=== PATIENT | female | born 1955 | race Caucasian/White ===

== ENCOUNTER 2019-08-23 18:11 | Outpatient (CLI) | payer OTHER, SELFPAY ==
--- NOTE | ~2019-08-23 | XR_ITS ---
EXAMINATION: XR wrist RT min 3V EXAM DATE: 08/23/2019 18:26 INDICATION: Right wrist pain, ulnar side, symptoms one month with limited range of motion. TECHNIQUE: Right wrist frontal, frontal with ulnar deviation, oblique and lateral projections obtain ed and reviewed. Comparison is made to prior examination from 10/09/2008. FINDINGS: Interval development of severely widened right scapholunate joint space, scapholunate disso ciation. Patient also has dorsal intercalated segmental instability. These findings are new compared to 2008 exam. There is moderate triscaphe, mild first carpometacarpal primary osteoarthritis. Mild t o moderate radiocarpal osteoarthritis. There are no acute fractures identified. There are no bony ero sions identified. IMPRESSION: 1. Scapholunate dissociation with DISI. 2. Moderate triscaphe osteoarthritis. Reviewed, dictated and finalized at location A. ADMINISTRATOR
== END 2019-08-23 18:12 | disposition home or self-care (01) ==
LOC: ANHIMG 18:13
PROVIDERS: PCP Internal Medicine; Visit Provider Plastic Surgery
DX: M19.031 Primary osteoarthritis, right wrist (principal)
CPT/HCPCS: 73110

== ENCOUNTER 2019-09-03 09:02 | Outpatient (CLI) | payer OTHER, SELFPAY ==
--- NOTE | 2019-09-03 09:05 | ECG_ITS ---
Measurements Intervals Phenix Rate: 63 P: 0 NM: 177 QRS: 49 QRSD: 90 T: 31 QT: 396 QTc: 406 Interpretive Statements SINUS RHYTHM INCOMPLETE RIGHT BUNDLE BRANCH BLOCK LOW QRS VOLTAGE IN PRECORDIAL LEADS BASELINE ARTIFACT- I, II, III, AVR, AVL, AVF, V1-V6 BORDERLINE ECG Electronically Signed On 09-03-2019 10:35:56 CDT by Giorgi Youngblood D.O.
== END 2019-09-03 09:03 | disposition home or self-care (01) ==
LOC: ANHSURGERY 09:05
PROVIDERS: PCP Internal Medicine; Visit Provider Plastic Surgery
DX: E78.00 Pure hypercholesterolemia, unspecified (principal); I45.10 Unspecified right bundle-branch block
CPT/HCPCS: 93005

== ENCOUNTER 2019-10-03 06:57 | Outpatient (CLI) | payer OTHER, SELFPAY ==
[2019-10-03 07:37] LABS: Alanine Aminotransferase 22 U/L (4-35); Albumin Level 3.9 g/dL (3.5-5.1); Alkaline Phosphatase 69 U/L (38-126); Aspartate Amino Transferase 35 U/L (14-36); Bilirubin,Total 0.3 mg/dL (0.2-1.3); Blood Urea Nitrogen 11 mg/dL (7-17); Calcium 8.3 mg/dL (8.4-10.2); Carbon Dioxide 26 mmol/L (22-30); Chloride 107 mmol/L (98-107); Cholesterol 198 mg/dL (0-200); Estimated Glomerular Filt Rate 56; Glucose 102 mg/dL (65-105); HDL Direct 86 mg/dL; Potassium 3.8 mmol/L (3.4-5.0); Sodium 139 mmol/L (137-145); Triglycerides 51 mg/dL (<150)
[2019-10-03 07:48] LABS: LDL Cholesterol Direct 83 mg/dL
[2019-10-03 07:54] LABS: Vitamin D 25 Hydroxy 81.4 ng/mL
[2019-10-03 08:07] LABS: Thyroid Stimulating Hormone 0.418 uIU/mL (0.465-4.680)
[2019-10-03 09:04] LABS: Vitamin B12 > 1000.0 pg/mL (239-931)
[2019-10-05 15:59] LABS: Lamotrigine Lamictal 2.8 mcg/mL (4.0-18.0)
== END 2019-10-03 06:58 | disposition home or self-care (01) ==
PROVIDERS: PCP Internal Medicine; Visit Provider Internal Medicine
DX: I10 Essential (primary) hypertension (principal); E05.90 Thyrotoxicosis, unspecified without thyrotoxic crisis or storm; E78.5 Hyperlipidemia, unspecified; D64.9 Anemia, unspecified; E55.9 Vitamin D deficiency, unspecified; Z79.899 Other long term (current) drug therapy
CPT/HCPCS: 36415; 80053; 80061; 80175; 82306; 82607; 84439; 84443

== ENCOUNTER 2019-11-22 07:56 | Outpatient (CLI) | payer OTHER, SELFPAY ==
[2019-11-22 08:30] LABS: Basophils Percent Auto 0.6 % (0.2-1.2); Eosinophils Absolute Auto 0.5 K/mm3 (0-0.3); Eosinophils Percent Auto 7.2 % (0-4.4); Hematocrit 40.9 % (37.0-47.0); Hemoglobin 13.6 g/dL (12.0-15.0); Immature Granulocyte Absolute 0.05 K/mm3 (0.00-0.031); Immature Granulocyte Percent A 0.8 % (0-0.5); Lymphocytes Absolute Auto 2.24 K/mm3 (0.9-3.2); Lymphocytes Percent Auto 35.2 % (18.3-44.2); Mean Corpuscular HGB Conc 33.3 g/dl (32-36); Mean Corpuscular Hemoglobin 30.9 pg (26-34); Mean Platelet Volume 8.7 fl (7.4-10.4); Monocytes Absolute Auto 0.4 K/mm3 (0.1-0.6); Monocytes Percent Auto 5.8 % (2.6-8.5); Neutrophils Absolute Auto 3.2 K/mm3 (1.3-6.7); Neutrophils Percent Auto 50.4 % (45.5-73.1); Platelet Count Result 279 k/mm3 (150-375); Red Cell Distribution Width 13.8 % (11.5-14.5); White Blood Count 6.4 K/mm3 (4.5-10.0)
[2019-11-22 08:35] LABS: Hemoglobin A1C 5.5 % (<5.7)
[2019-11-22 08:41] LABS: Alanine Aminotransferase 20 U/L (4-35); Albumin Level 3.8 g/dL (3.5-5.1); Alkaline Phosphatase 67 U/L (38-126); Aspartate Amino Transferase 34 U/L (14-36); Bilirubin,Total 0.3 mg/dL (0.2-1.3); Blood Urea Nitrogen 10 mg/dL (7-17); Calcium 8.4 mg/dL (8.4-10.2); Carbon Dioxide 25 mmol/L (22-30); Chloride 107 mmol/L (98-107); Cholesterol 183 mg/dL (0-200); Estimated Glomerular Filt Rate 56; Glucose 99 mg/dL (65-105); HDL Direct 79 mg/dL; Magnesium 3.1 mg/dL (1.6-2.3); Potassium 4.1 mmol/L (3.4-5.0); Sodium 137 mmol/L (137-145); Triglycerides 43 mg/dL (<150)
[2019-11-22 08:52] LABS: LDL Cholesterol Direct 77 mg/dL
[2019-11-22 09:48] LABS: Folic Acid > 20.0 ng/mL (2.76->20); Vitamin B12 > 1000.0 pg/mL (239-931)
== END 2019-11-22 07:57 | disposition home or self-care (01) ==
PROVIDERS: PCP Internal Medicine
DX: K91.2 Postsurgical malabsorption, not elsewhere classified (principal); Z13.21 Encounter for screening for nutritional disorder; Z98.84 Bariatric surgery status
CPT/HCPCS: 36415; 80053; 80061; 82607; 82746; 83036; 83735; 85025

== ENCOUNTER 2019-12-24 01:30 | Outpatient (CLI) | payer OTHER, SELFPAY ==
[2019-12-24 19:16] LABS: SARS-CoV-2 RNA PCR Negative
== END 2019-12-24 01:31 | disposition home or self-care (01) ==
LOC: ANHCOVIDDT 01:31
PROVIDERS: PCP Internal Medicine; Visit Provider Plastic Surgery
DX: Z01.812 Encounter for preprocedural laboratory examination (principal); Z11.59 Encounter for screening for other viral diseases
CPT/HCPCS: 87635; C9803; U0003

== ENCOUNTER 2019-12-25 13:27 | Emergency (ER) | payer OTHER, SELFPAY ==
--- NOTE | ~2019-12-25 | XR_ITS ---
XR foot RT min 3V DATE: 12/25/2019 13:58 INDICATION: Right foot injury, especially at third and fourth digits TECHNIQUE: 4 views COMPARISON: None FINDINGS: Pes planus. Inferior calcaneal enthesopathy. There are old healed fracture deformities of the distal third and fourth metatarsal shafts. There is a recent intra-articular virtually nondisplaced fracture of th of the proximal phalanx of th e third digit. There is osteoarthritic change at the first metatarsophalangeal and second metatarsophalangeal joints . There is prominent osteoarthritis as well at the tarsometatarsal joints, especially at the second thr ough fourth digits. IMPRESSION: Virtually nondisplaced fracture of the base of the proximal phalanx of the third digit Polyarticular osteoarthritis Pes planus Plantar calcaneal enthesopathy Reviewed, dictated and finalized at location B.
[2019-12-25 13:38] VITALS: BP 123/80; PULSE 93; RESP 18; TEMP 37.4; O2SAT 100
--- NOTE | 2019-12-25 14:06 | ED.LOWEXIN ---
HPI - Extremity Injury (Lower) General Chief Complaint: Extremity Injury, Lower Stated Complaint: Toe injury Time Seen by Provider: 12/25/19 14:06 Source: patient and old records reviewed Mode of arrival: ambulatory Limitations: no limitations History of Present Illness HPI Narrative: This is a 64 years old female presents to the office for evaluation of right toe injury prior to arrival. She accidentally kicked the door while vacuuming. She noticed bruising and swollen and pain on her right third toe. Admits to history of broken toes in the past about 5 years ago. Denies any other injury/trauma. Related Data Home Medications Medication Instructions Recorded Confirmed albuterol sulfate 2 puff INHALATION QID 12/25/19 12/25/19 aripiprazole [Abilify] 15 mg PO DAILY 12/25/19 12/25/19 aspirin [Aspirin Low Dose] 81 mg PO BID 12/25/19 12/25/19 buspirone 7.5 mg PO BID 12/25/19 12/25/19 cetirizine [Zyrtec] 10 mg PO DAILY 12/25/19 12/25/19 cholecalciferol (vitamin D3) 25 mcg PO TID 12/25/19 12/25/19 denosumab [Prolia] 60 mg SUBCUT [id number] 12/25/19 12/25/19 estradiol [Estrace] 1 g VAGINAL 3XW 12/25/19 12/25/19 fluticasone furoate-vilanterol 1 inh INHALATION DAILY 12/25/19 12/25/19 [Breo Ellipta] lamotrigine [Lamictal] 25 mg PO HS 12/25/19 12/25/19 lamotrigine [Lamictal] 100 mg PO DAILY 12/25/19 12/25/19 magnesium 500 mg PO TID 12/25/19 12/25/19 montelukast [Singulair] 10 mg PO DAILY 12/25/19 12/25/19 multivitamin with minerals 1 tablet PO DAILY 12/25/19 12/25/19 [Hair,Skin and Nails] pantoprazole [Protonix] 40 mg PO QAM 12/25/19 12/25/19 pedi multivit no.58-iron fum 2 mg PO HS 12/25/19 12/25/19 [Child Complete Multivitamin] pravastatin [Pravachol] 80 mg PO DAILY 12/25/19 12/25/19 quetiapine [Seroquel] 200 mg PO BID 12/25/19 12/25/19 topiramate [Topamax] 50 mg PO TID 12/25/19 12/25/19 umeclidinium [Incruse Ellipta] 1 inh INHALATION DAILY 12/25/19 12/25/19 Allergies Allergy/AdvReac Type Severity Reaction Status Date / Time Cephalosporins Allergy Unknown Rash Verified 12/13/19 14:40 Penicillins Allergy Unknown Rash Verified 12/13/19 14:40 Sulfa (Sulfonamide Allergy Unknown Rash Verified 12/13/19 14:40 Antibiotics) erythromycin base AdvReac Unknown GI UPSET, Verified 12/13/19 14:40 ABDOMINAL PAIN Review of Systems Review of Systems: Narrative: CONSTITUTIONAL: Denies fever CARDIOVASCULAR: Denies chest pain RESPIRATORY: Denies dyspnea GASTROINTESTINAL: Denies abdominal pain, nausea, vomiting SKIN: Denies skin abrasion MUSCULOSKELETAL: Reports right toes injury. NEUROLOGIC: Denies lightheaded All other systems reviewed are negative, except as documented in HPI. [facility] Past Medical History Medical History Allergic rhinitis Bipolar affective disorder Breast cancer screening Brittle nails Cellulitis of left lower extremity Colon cancer screening Dysfunction of eustachian tube Encounter for routine adult health examination without abnormal findings Essential (primary) hypertension Gastroesophageal reflux disease without esophagitis Mild intermittent asthma without complication Mixed hyperlipidemia Numbness of right hand On skilled nursing drug therapy Osteopenia Pain with bowel movements Pneumonia due to infectious organism S/p small bowel obstruction Seizures Subclinical hyperthyroidism Swelling of left lower extremity Therapeutic drug monitoring Vitamin B12 deficiency Vitamin D deficiency Surgical History Surgical History Hx of gastric bypass Intestinal bypass and anastomosis status Status post total gastrectomy and Leonard-en-Y esophagojejunal anastomosis Family History Family History Father Family history of heart disease in male family member before age 55 Patient's father is , Onset Age: 87 Mother Family his
== END 2019-12-25 14:20 | disposition home or self-care (01) ==
PROVIDERS: Emergency Provider Nurse Practitioner; PCP Internal Medicine
DX: S92.514A Nondisplaced fracture of proximal phalanx of right lesser toe(s), initial encounter for closed fracture (principal); W22.8XXA Striking against or struck by other objects, initial encounter; Y93.E3 Activity, vacuuming; F17.210 Nicotine dependence, cigarettes, uncomplicated; Z98.84 Bariatric surgery status; F31.9 Bipolar disorder, unspecified; K21.9 Gastro-esophageal reflux disease without esophagitis; E78.2 Mixed hyperlipidemia; E55.9 Vitamin D deficiency, unspecified; M85.80 Other specified disorders of bone density and structure, unspecified site
CPT/HCPCS: 73630; 99213; G0463

== ENCOUNTER 2019-12-26 00:17 | Day surgery (SDC) | payer OTHER, SELFPAY ==
[2019-08-29 15:55] VITALS: BMI 32.3
--- NOTE | 2019-12-25 19:42 | HP_ITS ---
DATE OF SERVICE: 12/26/2019 PREOPERATIVE DIAGNOSIS: Right carpal tunnel syndrome. HISTORY: The patient is 64. She has a nerve conduction test by Dr. Curtis dated 05/27/2019, indicating evolving right carpal tunnel syndrome and ulnar neuropathy across the elbow. We have met a few times to discuss this. She has tried carpal tunnel splinting. She has been worked up for cubital tunnel and carpal tunnel syndrome. She has also seen Dr. Govea for synovitis in the wrist. The latter has interfered with her use of a splint, although splinting has given her relief of her carpal tunnel symptoms to some degree. She does not have symptoms of cubital tunnel this time. We elected to pursue the treatment that is relatively simple and will no doubt relieve her of most of her complaints. She understands there could be numbness in result from this tendon injury, poor healing, poor recovery of her premorbid condition. She would like to proceed. PAST MEDICAL HISTORY: She says her chronic conditions for which she sees a specialist include COPD and asthma. ALLERGIES: SHE STATES SHE HAS ALLERGIES TO PENICILLIN, ERYTHROMYCIN, SULFA, AND CEPHALOSPORIN. MEDICATION LIST: Includes Lamictal, 81 mg aspirin, Seroquel, Estrace, Breo, Topamax, pravastatin, multiple vitamins, Abilify, Incruse, albuterol, Singulair, buspirone, vitamin B12, calcium, Zyrtec, Prolia. PAST SURGICAL HISTORY: She has had hysterectomy in the past, cholecystectomy, rhinoplasty, gastric bypass in 2013, and hiatal hernia repair in 2019. REVIEW OF SYSTEMS: Indicates gastric reflux, history of stomach ulcer. FAMILY HISTORY: There is a family history of malignant hyperthermia, shingles, history of blood clots. SOCIAL HISTORY: She is a nonsmoker. She lives in [place]. She works for [employer]. PHYSICAL EXAM: GENERAL: She is alert and informative. She is 4 feet 11 inches, weighs 160 pounds. HEENT: Unremarkable. CHEST: Clear to auscultation. HEART: Regular rate and rhythm by palpation. ABDOMEN: Soft, nontender. EXTREMITIES: Appear normal. She uses all of them. Specifically related to her hand exam on the right, she has a thenar tenderness, questionable thenar wasting. Tinel's at the wrist. Froment's test positive, provocative pain in the forearm, and wrist compression test was positive. She also has tenderness in the 6th dorsal compartment. She was injected there in October. ASSESSMENT: Right carpal tunnel syndrome. PLAN: Right open carpal tunnel release under MAC anesthetic. She will remain on her aspirin. D I MT: Ajay
--- NOTE | 2019-12-26 06:51 | WPDANESEPPF ---
Anes - Initial Pre Proc Eval Procedure: Operation Date: 12/26/19 07:30 Proposed Procedures p Right Open Carpal Tunnel Release - Rui Donohue MD Date/Time: 12/26/19 06:51 Surgeon: Rui Donohue MD Pre Op Diagnosis: Right Carpal Tunnel Syndrome Patient Data Age: 64 Gender: F Height: 4 ft 11 in Weight: 75 kg Allergies Allergy/AdvReac Type Severity Reaction Status Date / Time Sulfa (Sulfonamide Allergy Severe Rash Verified 12/26/19 06:21 Antibiotics) Penicillins Allergy Intermediate Rash Verified 12/26/19 06:21 Cephalosporins Allergy Mild Rash Verified 12/26/19 06:21 erythromycin base AdvReac Intermediate GI UPSET, Verified 12/26/19 06:21 ABDOMINAL PAIN Home Medications Medication Instructions Recorded Confirmed Type albuterol sulfate 2 puff INHALATION QID 12/25/19 12/26/19 History aripiprazole [Abilify] 15 mg PO DAILY 12/25/19 12/26/19 History aspirin [Aspirin Low Dose] 81 mg PO BID 12/25/19 12/26/19 History buspirone 7.5 mg PO BID 12/25/19 12/26/19 History cetirizine [Zyrtec] 10 mg PO DAILY 12/25/19 12/26/19 History cholecalciferol (vitamin D3) 25 mcg PO TID 12/25/19 12/26/19 History denosumab [Prolia] 60 mg SUBCUT [id number] 12/25/19 12/26/19 History estradiol [Estrace] 1 g VAGINAL 3XW 12/25/19 12/26/19 History fluticasone furoate-vilanterol 1 inh INHALATION DAILY 12/25/19 12/26/19 History [Breo Ellipta] lamotrigine [Lamictal] 25 mg PO DAILY 12/25/19 12/26/19 History lamotrigine [Lamictal] 100 mg PO HS 12/25/19 12/26/19 History magnesium 500 mg PO TID 12/25/19 12/26/19 History montelukast [Singulair] 10 mg PO DAILY 12/25/19 12/26/19 History multivitamin with minerals 1 tablet PO DAILY 12/25/19 12/26/19 History [Hair,Skin and Nails] pantoprazole [Protonix] 40 mg PO QAM 12/25/19 12/26/19 History pravastatin [Pravachol] 80 mg PO DAILY 12/25/19 12/26/19 History quetiapine [Seroquel] 200 mg PO HS 12/25/19 12/26/19 History topiramate [Topamax] 50 mg PO BID 12/25/19 12/26/19 History umeclidinium [Incruse Ellipta] 1 inh INHALATION DAILY 12/25/19 12/26/19 History Patient hx anesthesia problems: none Family hx anesthesia problems: hx of malignant hyperthermia PMFSH Past Medical History Medical History Allergic rhinitis Bipolar affective disorder Breast cancer screening Brittle nails Cellulitis of left lower extremity Colon cancer screening Dysfunction of eustachian tube Encounter for routine adult health examination without abnormal findings Essential (primary) hypertension Gastroesophageal reflux disease without esophagitis Mild intermittent asthma without complication Mixed hyperlipidemia Numbness of right hand 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 Osteopenia Pain with bowel movements Pneumonia due to infectious organism S/p small bowel obstruction Seizures Subclinical hyperthyroidism Swelling of left lower extremity Therapeutic drug monitoring Vitamin B12 deficiency Vitamin D deficiency Surgical History Surgical History Hx of gastric bypass Intestinal bypass and anastomosis status Status post total gastrectomy and Leonard-en-Y esophagojejunal anastomosis Family History Family History Father Family history of heart disease in male family member before age 55 Patient's father is , Onset Age: 87 Mother Family history of kidney disease, Onset Age: 86 Social History Social History Smoking packs per day: 2 Smoking cigarettes per day: 40.0 Years smoked: 20 Smoking pack-years: 40.00 Smoking status: Former smoker Tobacco type: cigarettes Second hand tobacco smoke exposure: No Smoking end date: 06/19/98 Alcohol intake: never Gender identity (if verbalized by the patient): Female Spiritual care concerns: Yes
[2019-12-26] MEDS: LACTATED RINGERS 1,000 ML 30 ML IV CONT (06:54)
--- NOTE | 2019-12-26 07:14 | WPDHPUPDATE1 ---
History and Physical Update Update Date/Time: 12/26/19 07:14 History and Physical has been reviewed, including an updated exam of the patient. There are NO changes in the patient's condition. Risks, benefits, and alternatives have been discussed and questions answered. Patient agrees to proceed with procedure.
[2019-12-26 07:22] VITALS: BP 106/69; PULSE 64; RESP 18; TEMP 36.1; O2SAT 100
[2019-12-26] MEDS: BACITRACIN OINTMENT 15 GM TUBE 1 APPLIC TOPICAL (07:46)
[2019-12-26] MEDS: LIDO 1%/EPINEPHRINE 1:100,000 20 ML VIAL 5 ML INFILTRATE (07:46)
[2019-12-26 07:59] VITALS: BP 96/59; PULSE 64; RESP 14; O2SAT 96
--- NOTE | 2019-12-26 07:59 | PM.OP ---
Procedure Note - Brief Procedure Note - Brief Date of procedure: 12/26/19 Pre-op diagnosis: Right Carpal Tunnel Syndrome Post-op diagnosis: same Procedure performed: R OCTR Anesthesia: MAC Surgeon: Rui Donohue MD Estimated blood loss (mL): 0 Tourniquet time (min): 6 Drains: No Packing: No Pathology: none sent Complications: No immediate complications Condition: stable Disposition: same day
[2019-12-26 08:15] VITALS: BP 100/62; PULSE 74; RESP 14; O2SAT 94
[2019-12-26 08:45] VITALS: BP 100/61; PULSE 71; RESP 16
--- NOTE | 2019-12-26 15:09 | PM.PROC ---
Procedure Note - Detailed Date of procedure: 12/26/19 Pre-op diagnosis: Right Carpal Tunnel Syndrome Post-op diagnosis: same Procedure performed: Right open carpal tunnel release Description of procedure: The appropriate hand was marked with the patient in the holding area. She was taken to the operating room and placed supine on the operating table a time-out was held and confirmed. The extremity was prepped and draped in usual fashion as she was given sedation anesthetic. The site was marked for the incision and locally infiltrated with 1% lidocaine with epinephrine 5 milliliter. No tourniquet was used with this procedure. The incision was made as marked. Dissection was carried through the subcutaneous tissue to the palmar fascia. This and the carpal ligament were incised with a 15. Bard-Rigoberto blade. Under 3 point retraction the ligament was divided distally and proximally to completely release the canal. No unusual anatomy was noted. The skin wound was closed with interrupted 5 0 nylon sutures. The usual bandage was applied. Estimated blood loss was 2 milliliter. The patient was discharged home with instructions in wound care and follow-up. She has a prescription for hydrocodone 10. Surgeon: Rui Donohue MD
== END 2019-12-26 08:58 | disposition home or self-care (01) ==
PROVIDERS: PCP Internal Medicine; Visit Provider Plastic Surgery
PROC: (CPT 64721; principal; 2019-12-26 07:30)
DX: G56.01 Carpal tunnel syndrome, right upper limb (principal); I10 Essential (primary) hypertension; E78.2 Mixed hyperlipidemia; F31.9 Bipolar disorder, unspecified; K21.9 Gastro-esophageal reflux disease without esophagitis; J45.20 Mild intermittent asthma, uncomplicated; G40.909 Epilepsy, unspecified, not intractable, without status epilepticus; E55.9 Vitamin D deficiency, unspecified; Z79.82 Long term (current) use of aspirin; Z98.84 Bariatric surgery status; Z87.891 Personal history of nicotine dependence; E66.9 Obesity, unspecified; Z68.33 Body mass index [BMI] 33.0-33.9, adult
CPT/HCPCS: 64721; A9270; J2704; J3010; J7120

== ENCOUNTER 2020-01-21 12:28 | Outpatient (CLI) | payer OTHER, SELFPAY | END 2020-01-21 12:29 | disposition home or self-care (01) | PROVIDERS: PCP Internal Medicine; Visit Provider Nurse Practitioner Family | DX: J30.9 Allergic rhinitis, unspecified (principal); J44.9 Chronic obstructive pulmonary disease, unspecified | CPT/HCPCS: 36415; 82785; 86003 ==

== ENCOUNTER 2020-02-29 08:19 | Emergency (ER) | payer OTHER, SELFPAY ==
--- NOTE | 2020-02-29 08:23 | ED.GENADULT ---
HPI - General Adult General Chief complaint: Skin/Abscess/Foreign Body Stated complaint: rash on legs Time Seen by Provider: 02/29/20 08:23 Source: patient Mode of arrival: ambulatory Limitations: no limitations History of Present Illness HPI narrative: 64-year-old female [facility] complaints of a rash bilateral lower extremities since yesterday. Patient states she was on antibiotics recently for UTI that she finished on Monday. Patient denies any new soaps lotions, detergents. Denies coming into contact with anything that she is allergic to that she is aware of. Patient states that not really itchy and but states that sometimes when the air hits it does burn a little but only rates as 1 out of 10. Related Data Home Medications Medication Instructions Recorded Confirmed albuterol sulfate 2 puff INHALATION QID 12/25/19 02/29/20 aripiprazole [Abilify] 15 mg PO DAILY 12/25/19 02/29/20 aspirin [Aspirin Low Dose] 81 mg PO BID 12/25/19 02/29/20 buspirone 7.5 mg PO BID 12/25/19 02/29/20 cetirizine [Zyrtec] 10 mg PO DAILY 12/25/19 02/29/20 cholecalciferol (vitamin D3) 25 mcg PO TID 12/25/19 02/29/20 denosumab [Prolia] 60 mg SUBCUT [id number] 12/25/19 02/29/20 estradiol [Estrace] 1 g VAGINAL 3XW 12/25/19 02/29/20 fluticasone furoate-vilanterol 1 inh INHALATION DAILY 12/25/19 02/29/20 [Breo Ellipta] lamotrigine [Lamictal] 100 mg PO HS 12/25/19 02/29/20 magnesium 500 mg PO TID 12/25/19 02/29/20 pantoprazole [Protonix] 40 mg PO QAM 12/25/19 02/29/20 quetiapine [Seroquel] 200 mg PO HS 12/25/19 02/29/20 topiramate [Topamax] 50 mg PO BID 12/25/19 02/29/20 umeclidinium [Incruse Ellipta] 1 inh INHALATION DAILY 12/25/19 02/29/20 acetaminophen 500 mg capsule 500 mg PO Q6H 01/21/20 02/29/20 calcium carbonate 500 mg calcium 500 mg PO TID tablet 01/21/20 02/29/20 (1,250 mg) tablet fluticasone furoate 200 1 inhalation INHALATION DAILY 01/21/20 02/29/20 mcg-vilanterol 25 mcg/dose inhalation powder vitamin B complex 1 tablet PO DAILY 01/21/20 02/29/20 Allergies Allergy/AdvReac Type Severity Reaction Status Date / Time Sulfa (Sulfonamide Allergy Severe Rash Verified 01/20/20 13:07 Antibiotics) Penicillins Allergy Intermediate Rash Verified 01/20/20 13:07 Cephalosporins Allergy Mild Rash Verified 01/20/20 13:07 erythromycin base AdvReac Intermediate GI UPSET, Verified 01/20/20 13:07 ABDOMINAL PAIN Review of Systems Review of Systems: Narrative: CONSTITUTIONAL: Denies fever, chills, or sweats. EYES: Denies visual changes, redness, or discharge. ENT: Denies rhinorrhea, congestion, sore throat, or otalgia. CARDIOVASCULAR: Denies chest pain, palpitations, or edema. RESPIRATORY: Denies cough or dyspnea. GASTROINTESTINAL: Denies abdominal pain, nausea, vomiting, or diarrhea. GENITOURINARY: Denies dysuria or hematuria. SKIN: Positive rash to bilateral lower extremity since yesterday, denies itching. MUSCULOSKELETAL: Denies back pain, joint pain, or myalgia. NEUROLOGIC: Denies headache, numbness, or weakness. PSYCHIATRIC: Denies anxiety or depression. [facility] Past Medical History Medical History Allergic rhinitis Bipolar affective disorder Breast cancer screening Brittle nails Cellulitis of left lower extremity Colon cancer screening Dysfunction of eustachian tube Encounter for routine adult health examination without abnormal findings Essential (primary) hypertension Gastroesophageal reflux disease without esophagitis Mild intermittent asthma without complication Mixed hyperlipidemia Numbness of right hand On [facility] drug therapy Osteopenia Pain with bowel movements Pneumonia due to infectious organism S/p small bowel obstruction Seizures Subclinical hyperthyroidism Swelling of left lower extremity Therapeutic drug monitoring Vitamin B12 deficiency Vitamin D deficiency Surgical History Surgical History (Reviewed 02/29/20 @ 08:24 b
[2020-02-29 08:32] VITALS: BP 112/71; PULSE 75; RESP 16; TEMP 37.1; O2SAT 98
== END 2020-02-29 08:45 | disposition home or self-care (01) ==
PROVIDERS: Emergency Provider Nurse Practitioner Family; PCP Internal Medicine
DX: R21 Rash and other nonspecific skin eruption (principal); F31.9 Bipolar disorder, unspecified; I10 Essential (primary) hypertension; K21.9 Gastro-esophageal reflux disease without esophagitis; E78.5 Hyperlipidemia, unspecified; M85.80 Other specified disorders of bone density and structure, unspecified site; E53.8 Deficiency of other specified B group vitamins; E55.9 Vitamin D deficiency, unspecified; Z87.891 Personal history of nicotine dependence
CPT/HCPCS: 99213; G0463

== ENCOUNTER 2020-03-06 10:28 | Outpatient (CLI) | payer OTHER, SELFPAY ==
[2020-03-06 10:55] LABS: Hematocrit 42.9 % (37.0-47.0); Hemoglobin 14.4 g/dL (12.0-15.0); Mean Corpuscular HGB Conc 33.6 g/dl (32-36); Mean Corpuscular Hemoglobin 31.4 pg (26-34); Mean Corpuscular Volume 93.5 fl (80-100); Mean Platelet Volume 9.1 fl (7.4-10.4); Platelet Count Result 349 k/mm3 (150-375); Red Blood Count 4.59 M/mm3 (4.2-5.4); Red Cell Distribution Width 13.9 % (11.5-14.5); White Blood Count 9.6 K/mm3 (4.5-10.0)
== END 2020-03-06 10:29 | disposition home or self-care (01) ==
PROVIDERS: PCP Internal Medicine; Visit Provider Nurse Practitioner
DX: R23.3 Spontaneous ecchymoses (principal)
CPT/HCPCS: 36415; 85027

== ENCOUNTER 2020-04-11 07:05 | Outpatient (CLI) | payer OTHER, SELFPAY ==
[2020-04-11 08:00] LABS: Anion Gap 5 mmol/L (8-16); Blood Urea Nitrogen 13 mg/dL (7-17); Calcium 9.3 mg/dL (8.4-10.2); Carbon Dioxide 30 mmol/L (22-30); Chloride 105 mmol/L (98-107); Estimated Glomerular Filt Rate 56; Glucose 100 mg/dL (65-105); Sodium 140 mmol/L (137-145)
[2020-04-11 08:28] LABS: Vitamin D 25 Hydroxy 66.2 ng/mL
[2020-04-11 08:30] LABS: Thyroid Stimulating Hormone 0.719 uIU/mL (0.465-4.680)
[2020-04-11 09:00] LABS: Vitamin B12 > 1000.0 pg/mL (239-931)
== END 2020-04-11 07:06 | disposition home or self-care (01) ==
PROVIDERS: PCP Internal Medicine; Visit Provider Internal Medicine
DX: E55.9 Vitamin D deficiency, unspecified (principal); E53.8 Deficiency of other specified B group vitamins; I10 Essential (primary) hypertension; E05.90 Thyrotoxicosis, unspecified without thyrotoxic crisis or storm
CPT/HCPCS: 36415; 80048; 82306; 82607; 84443

== ENCOUNTER 2020-04-27 15:45 | Outpatient (CLI) | payer OTHER, SELFPAY ==
--- NOTE | ~2020-04-27 | MM_ITS ---
EXAMINATION: MM screening [facility] BI w lisa HISTORY: Screening mammogram TECHNIQUE: Craniocaudal and mediolateral oblique 3-D tomosynthesis images were obtained and synthetic 2-D images were generated. CAD analysis was submitted and interpreted. COMPARISON: 04/23/2019, 04/20/2018, 04/14/2017 BREAST PARENCHYMAL COMPOSITION: The breasts are almost entirely fatty. FINDINGS: Scattered benign-appearing calcifications are present. There is no evidence of suspicious m ass, calcification, or architectural distortion to suggest malignancy in either breast. There has bee n no suspicious interval change. IMPRESSION: 1. No mammographic evidence of malignancy. 2. Recommend routine screening mammography in one year. BI-RADS Category 2: Benign finding(s). Reviewed, dictated and finalized at location A. DENTURED APPRENTICE
== END 2020-04-27 15:46 | disposition home or self-care (01) ==
PROVIDERS: PCP Internal Medicine; Visit Provider Obstetrics & Gynecology
DX: Z12.31 Encounter for screening mammogram for malignant neoplasm of breast (principal)
CPT/HCPCS: 77063; 77067

== ENCOUNTER 2020-06-02 14:28 | Outpatient (CLI) | payer OTHER, SELFPAY ==
--- NOTE | 2020-06-09 07:27 | P.PCNHOL_ITS ---
Holter/Event Monitor Holter/Event Monitor Date of procedure: 06/09/20 Procedure Type: 48 hour Holter monitor Diagnosis: palpitation Indications: palpitation Image/Tracing Quality: favorable Finding: the basic rhythm is sinus with normal [place] QRS and QT intervals. The heart rate varies from a minimum of 56 to a maximum of 126. The average rate was 80. There were no significant pauses or abnormalities of AV conduction observed. The longest RR interval recorded cord was 2.4 seconds. Supraventricular ectopic activity was infrequent consisting of PACs occurring at a rate of less than 1 beat per hour. There were no runs of SVT and there were no examples of atrial fibrillation ventricular ectopic activity consisted of occasional to sometimes frequent PVCs. There was some examples of PVCs occurring in a pattern of bigeminy. There were 10 examples of ventricular couplets occurring in the 48 hour exam. There were no ventricular runs longer than this. The patient submitted a diary in which there were no and no entries made presumably she was asymptomatic Conclusion: 1. normal sinus rhythm with normal heart rate variability 2. occasional to frequent ventricular ectopic activity as detailed above 3. rare atrial ectopic Giancarlo De Guzman MD [facility]
== END 2020-06-02 14:29 | disposition home or self-care (01) ==
PROVIDERS: PCP Internal Medicine; Visit Provider Nurse Practitioner
DX: R00.2 Palpitations (principal)
CPT/HCPCS: 93225; 93226

== ENCOUNTER 2020-07-17 15:36 | Outpatient (CLI) | payer OTHER, SELFPAY ==
[2020-07-17 16:33] LABS: Albumin Level 4.1 g/dL (3.5-5.1); Calcium 9.1 mg/dL (8.4-10.2)
== END 2020-07-17 15:37 | disposition home or self-care (01) ==
LOC: ANHLAB 15:37
PROVIDERS: PCP Internal Medicine; Visit Provider Obstetrics & Gynecology
DX: Z92.29 Personal history of other drug therapy (principal)
CPT/HCPCS: 36415; 82040; 82310

== ENCOUNTER 2020-08-17 07:45 | Outpatient (CLI) | payer OTHER, SELFPAY ==
--- NOTE | ~2020-08-17 | MR_ITS ---
EXAMINATION: MR cervical spine wo con EXAM DATE: 08/17/2020 08:54 INDICATION: Neck pain, bilateral hand numbness and pain, right side is worse. TECHNIQUE: Multi-sequential, multiplanar MR images of the cervical spine were obtained without contra st. Axial T2, axial T2 MERGE sequence. Sagittal T1, T2, T2 fat saturation images also obtained. Th ere is no prior study for comparison. FINDINGS: There is severe disc disease C3-C7. There is moderate loss of these vertebral body heights . There is 2 mm retrolisthesis C4 on C5 and C5 on C6, 2 mm anterolisthesis C6 on C7. There is moderat e disc disease at T1-2. The spinal cord signal intensity and intrinsic morphology is normal. Cervicom edullary junction is normal in appearance. There are no suspicious marrow signal abnormalities. Brian allison soft tissue is unremarkable. Level by level evaluation: C2-C3: Disc does not extend beyond the endplate margin. Uncovertebral joint arthropathy: None. Facet joint arthropathy: Moderate left, mild to moderate right. Neural foraminal stenosis: No stenosis. Central canal stenosis: No stenosis. C3-C4: There is mild disc osteophyte complex. Uncovertebral joint arthropathy: Moderate bilateral. Facet joint arthropathy: Moderate bilateral. Neural foraminal stenosis: Moderate to severe left, mild to moderate right. Central canal stenosis: Mild. C4-C5: There is mild disc osteophyte complex. Uncovertebral joint arthropathy: Moderate bilateral. Facet joint arthropathy: Moderate bilateral. Neural foraminal stenosis: Moderate bilateral. Central canal stenosis: Mild. C5-C6: There is mild to moderate disc osteophyte complex asymmetric to the right Uncovertebral joint arthropathy: Severe right, moderate left. Facet joint arthropathy: Moderate bilateral. Neural foraminal stenosis: Moderate to severe right, mild to moderate left. Central canal stenosis: Mild. C6-C7: There is a mild diffuse disc bulge. Uncovertebral joint arthropathy: Mild to moderate bilateral. Facet joint arthropathy: Mild to moderate bilateral. Neural foraminal stenosis: No stenosis. Central canal stenosis: No stenosis. C7-T1: Disc does not extend beyond the endplate margin. Uncovertebral joint arthropathy: Mild bilateral. Facet joint arthropathy: Mild to moderate bilateral. Neural foraminal stenosis: Mild to moderate bilateral. Central canal stenosis: No stenosis. IMPRESSION: 1. Advanced cervical spondylosis. Reviewed, dictated and finalized at location A. STANT ACCOUNT EXECUTIVE
== END 2020-08-17 07:46 | disposition home or self-care (01) ==
LOC: ANHIMG 07:50
PROVIDERS: PCP Internal Medicine; Visit Provider Orthopaedic Surgery
DX: M54.2 Cervicalgia (principal); M47.812 Spondylosis without myelopathy or radiculopathy, cervical region
CPT/HCPCS: 72141

== ENCOUNTER 2020-09-07 09:03 | Outpatient (CLI) | payer OTHER, SELFPAY ==
[2020-09-07 09:31] LABS: Alanine Aminotransferase 19 U/L (4-35); Albumin Level 4.3 g/dL (3.5-5.1); Alkaline Phosphatase 60 U/L (38-126); Anion Gap 3 mmol/L (8-16); Aspartate Amino Transferase 35 U/L (14-36); Bilirubin,Total 0.4 mg/dL (0.2-1.3); Blood Urea Nitrogen 13 mg/dL (7-17); Calcium 9.1 mg/dL (8.4-10.2); Carbon Dioxide 28 mmol/L (22-30); Chloride 107 mmol/L (98-107); Cholesterol 206 mg/dL (0-200); Estimated Glomerular Filt Rate 56; Glucose 102 mg/dL (65-105); HDL Direct 95 mg/dL; Potassium 4.3 mmol/L (3.4-5.0); Sodium 138 mmol/L (137-145); Triglycerides 70 mg/dL (<150)
[2020-09-07 09:42] LABS: LDL Cholesterol Direct 86 mg/dL
[2020-09-07 10:02] LABS: Thyroid Stimulating Hormone 0.416 uIU/mL (0.465-4.680)
[2020-09-07 10:24] LABS: Vitamin B12 > 1000.0 pg/mL (239-931)
[2020-09-07 10:33] LABS: Vitamin D 25 Hydroxy 83.3 ng/mL
== END 2020-09-07 09:04 | disposition home or self-care (01) ==
PROVIDERS: PCP Internal Medicine; Visit Provider Nurse Practitioner
DX: E55.9 Vitamin D deficiency, unspecified (principal); E78.5 Hyperlipidemia, unspecified; E53.8 Deficiency of other specified B group vitamins; E05.90 Thyrotoxicosis, unspecified without thyrotoxic crisis or storm
CPT/HCPCS: 36415; 80053; 80061; 82306; 82607; 84443

== ENCOUNTER 2020-09-16 09:35 | Outpatient (CLI) | payer OTHER, SELFPAY ==
--- NOTE | ~2020-09-16 | US_ITS ---
US thyroid INDICATION: Thyrotoxicosis TECHNIQUE: Real-time sonographic images of the thyroid gland were obtained. COMPARISON: No prior studies for comparison. FINDINGS: The right thyroid lobe measures 5 x 2 x 1.7 cm. The left thyroid lobe measures 5.4 x 1.6 x 1.8 cm. There are multiple bilateral thyroid nodules. Largest mass in the right lobe measures 10 x 9 x 7 mm and is mixed cystic and solid, isoechoic, wider than tall, ill-defined margins without defini te calcifications, TR 2, likely benign. Largest in the left lobe measures 10 x 7 x 7 mm with a spongi form appearance, hypoechoic, wider than tall, smooth margins without definite calcifications, TR 2, l ikely benign.. Normal vascular flow is present. IMPRESSION: 1. Mildly enlarged thyroid gland with multiple bilateral thyroid nodules, consistent with benign mul tinodular goiter. Recommend follow-up ultrasound as clinically warranted. Reviewed, dictated and finalized at location B. IMPRESSION: 1. Mildly enlarged thyroid gland with multiple bilateral thyroid nodules, cons istent with benign multinodular goiter. Recommend follow-up ultrasound as clini doroteo warranted.
== END 2020-09-16 09:36 | disposition home or self-care (01) ==
PROVIDERS: PCP Internal Medicine; Visit Provider Nurse Practitioner
DX: E05.90 Thyrotoxicosis, unspecified without thyrotoxic crisis or storm (principal)
CPT/HCPCS: 76536

== ENCOUNTER 2020-11-05 09:10 | Outpatient (CLI) | payer OTHER, SELFPAY ==
--- NOTE | 2020-11-05 09:17 | EST_ITS ---
Patient Info Name: Mariely Beard Age: 65 years : 1955 Gender: Female Ht: 59 in Wt: 175 lbs BSA: 1.86 m2 Technical Quality: Good Exam Date: 11/05/2020 9:40 AM Exam Location: [facility] Pulmonary Patient Status: Outpatient Admit Date: 11/05/2020 Staff Ordering Physician: Nakita Chris NP-Jim Land Planner: Angélica Burr RDCS Attending Provider: GIORGI WATKINS DO Referring Physician: Aries KHALIL; Exercise Technologist: Angélica Burr RDCS Exercise Physician: Giorgi Watkins DO Exam Type: CA stress echo Study Info Indications R42 - Dizziness and giddiness Treadmill exercise stress echocardiogram is performed. Summary 1. 1. Negative Brennen exercise stress test for ischemic ST changes by ECG criteria. However, patient achieved only 75% MPHR for age group which reduces sensitivity of the test. 2. 2. Reduced functional capacity, achieving 5 METs of workload. 3. 3. Baseline hypertension with hypertensive response to exercise. 4. 4. Appropriate HR response to exercise. 5. 5. Appropriate HR recovery at 1 minute post exercise. 6. 6. Negative stress echocardiogram for ischemia by wall motion analysis. 7. 7. Patient informed of the above results. Stress Echo Findings Left Ventricle Appropriate increase in LV endocardial thickening with systole. Appropriate augmentation of contractility with systole. No wall motion abnormality. Left Ventricle Normal LV systolic function, no wall motion abnormality. Protocol: Brennen Stress ECG Details Stage: REST Duration (min): 0 min : 48 sec Speed (mph): 0.0 Grade (%): 0 HR (bpm): 60 SBP (mmHg): 146 DBP (mmHg): 54 METS: --- Stage: REST Duration (min): 24 min : 19 sec Speed (mph): 0.0 Grade (%): 0 HR (bpm): 80 SBP (mmHg): 146 DBP (mmHg): 54 METS: --- Stage: STAGE 1 Duration (min): 1 min : 0 sec Speed (mph): 1.7 Grade (%): 10 HR (bpm): 94 SBP (mmHg): 146 DBP (mmHg): 54 METS: --- Stage: STAGE 1 Duration (min): 2 min : 0 sec Speed (mph): 1.7 Grade (%): 10 HR (bpm): 79 SBP (mmHg): 146 DBP (mmHg): 54 METS: --- Stage: STAGE 1 Duration (min): 3 min : 0 sec Speed (mph): 1.7 Grade (%): 10 HR (bpm): 82 SBP (mmHg): 217 DBP (mmHg): 87 METS: --- Stage: STAGE 2 Duration (min): 0 min : 30 sec Speed (mph): 0.0 Grade (%): 0 HR (bpm): 78 SBP (mmHg): 217 DBP (mmHg): 87 METS: --- Stage: RECOVERY Duration (min): 0 min : 29 sec Speed (mph): 0.0 Grade (%): 0 HR (bpm): 101 SBP (mmHg): 217 DBP (mmHg): 87 METS: --- Stage: RECOVERY Duration (min): 0 min : 37 sec Speed (mph): 0.0 Grade (%): 0 HR (bpm): 116 SBP (mmHg): 217 DBP (mmHg): 87 METS: --- Stage: RECOVERY Duration (min): 1 min : 29 sec Speed (mph): 0.0 Grade (%): 0 HR (bpm): 96 SBP (mmHg): 217 DBP (mmHg): 87 METS: --- Stage: RECOVERY Duration (min): 2 min : 29 sec Speed (mph): 0.0 Grade (%): 0 HR (bpm): 106 SBP (mmHg):
== END 2020-11-05 09:11 | disposition home or self-care (01) ==
PROVIDERS: PCP Internal Medicine; Visit Provider Nurse Practitioner
DX: R42 Dizziness and giddiness (principal)
CPT/HCPCS: 93351

== ENCOUNTER 2020-12-03 14:00 | Outpatient (RCR) | payer OTHER, SELFPAY ==
--- NOTE | 2020-11-03 16:21 | PTOPEVAL ---
PHYSICAL THERAPY EVALUATION AND PLAN OF CARE Thank you for referring Mariely Beard to [facility].? The patient is scheduled to be seen for therapy? 2x/MONTH FOR 1 MONTH. Please review, sign, date and return this plan of care JEMIMA. I agree with and certify that the following plan of care is medically necessary. Referring Physician Date Attending Provider: Nakita Chris, FIELD PROJECT MANAGER-C Evaluation Cardiovascular History Hx Hypercholesterolemia Yes Hx Hypertension Yes: RESOLVED WITH WEIGHT LOSS Respiratory History Hx Asthma Yes Hx Chronic Obstructive Pulmonary Disease Yes: FORMER SMOKER QUIT 1999 (COPD) Gastrointestinal History Hx Bowel Surgery Yes: FOR BOWEL OBSTRUCTION Hx Cholecystectomy Yes Hx Gastric Bypass Surgery Yes Musculoskeletal History Hx Fractures Yes: BILATERAL FOOT FX Hx Other Musculoskeletal Disorders Yes: RT CARPAL TUNNEL HEENT History Hx Deviated Septum Yes: SEPTOPLASTY Integumentary History Hx Eczema Yes Hx Shingles Yes Reproductive History Hx Endometriosis Yes Hx Hysterectomy Yes: 95 Psychosocial History Hx Bipolar Disorder Yes Anesthesia History Hx Other Anesthesia Reactions Yes: BROTHER FROM , PATIENT HAS NOT BEEN TESTED Diagnosis back pain, left sciatic pain Onset 10/08/2020 Subjective Information Mariely reports that she was Query Text:As Reported By Patient/ experiencing left sciatic pain Family . She states that she has been better and has not taken a muscle relaxor since last Monday (4 days ago). She is unsure what caused it but she is avoiding low toilet seats as a precaution. She reports that she has no symptoms to speak of today, but when she had sypmtoms they were going down the left leg. Patient does not walk stairs because it is difficult and may increased symptoms. Self Report Pain Level 0 Lumbar ROM Lumbar ROM Lumbar Flexion Active Floor Query Text:Hands to: Lower Extremity Muscle Strength Testing Hip Strength Right Hip Flexion Strength 4+ Good + Hip Extension Strength 3- Fair - Hip Abduction Strength 3 Fair Left Hip Flexion Strength 4 Good Hip Extension Strength 3- Fair - Hip Abduction Strength 3+ Fair + Knee St
--- NOTE | 2020-12-03 14:25 | PTOPEVAL ---
PHYSICAL THERAPY DISCHARGE Thank you for referring Mariely Beard to [facility].? Please review, sign, date and return this plan of care JEMIMA. I agree with and certify that the following plan of care is medically necessary. Referring Physician Date Attending Provider: Nakita Chris, SALES TEAM RECRUITER-C Discharge Diagnosis back pain, left sciatic pain Onset 10/08/2020 Subjective Information Continues to have no sciatic Query Text:As Reported By Patient/ symptoms. She did a lot of Family walking and bending yesterday working in her kitchen and she only experienced muscle soreness. She is pleased with her home exercise program Pain Assessment Timing of Pain Assessment Timing of Pain Assessment Assessment Self Report Self Report Pain Level 0 Pain Score Pain Score 0: Self Report Cervical and Lumbar ROM Lumbar ROM Lumbar Flexion Active Floor Query Text:Hands to: Lower Extremity Muscle Strength Testing Hip Strength Right Hip Flexion Strength 5 Normal Hip Extension Strength 3+ Fair + Hip Abduction Strength 4- Good - Left Hip Flexion Strength 4+ Good + Hip Extension Strength 3+ Fair + Hip Abduction Strength 4 Good Knee Strength Bilateral Knee Flexion Strength 5 Normal Knee Extension Strength 5 Normal General Exercise General Exercises Side Bilateral Exercise Location hips Exercise Type Active,Resistive Exercise Description -clamshells - right side Query Text:Record Sets, Reps, without resistance, left side Resistance, and Position with yellow band resistance -bridges x12 -bent knee fall out yellow band x10 each side -standing side stepping no resistance -s/l hip abduction SLR x10 each side -prone glute set with heel squeeze [id number] x10 -took out sit<>stand becuase it aggravates her knees -SLR supine x10 - added to HEP to replace sit<>stand -tandem stance balance x20 seconds each side Rehab Teaching Rehab Teaching Teaching Topic Rehab Teaching Topic Components Exercise,Follow-up Recommendations,Home Program As P
== END 2020-12-04 09:21 | disposition home or self-care (01) ==
LOC: ANHPT 14:00
PROVIDERS: PCP Internal Medicine; Visit Provider Nurse Practitioner
DX: M54.9 Dorsalgia, unspecified (principal)
CPT/HCPCS: 97110; 97161

== ENCOUNTER 2020-12-23 19:48 | Emergency (ER) | payer OTHER, SELFPAY ==
--- NOTE | ~2020-12-23 | XR_ITS ---
XR chest 2V 12/23/2020 20:09 Indication: Left rib pain Procedure: 2 views of the chest Comparison: 03/29/2016 Findings: Shallow inspiration with crowding of the pulmonary vessels. There is moderate colonic diste ntion underneath right diaphragm which is elevated. No focal air space disease, pulmonary edema, pleu ral effusion or suspected pneumothorax. There is accentuated kyphosis at the thoracolumbar. The verte bra are not well visualized due to technique. No acute osseous abnormality. Impression: 1: No acute cardiopulmonary disease. Reviewed, dictated and finalized at location A. Impression: 1: No acute cardiopulmonary disease.
[2020-12-23 19:55] VITALS: BP 150/95; PULSE 80; RESP 18; TEMP 36.2; O2SAT 98
[2020-12-23 20:28] VITALS: BP 150/80; PULSE 80; RESP 20; TEMP 36.8; O2SAT 99
--- NOTE | 2020-12-23 21:10 | ED.BACK ---
HPI - Back Pain/Injury General Chief Complaint: Back Pain/Injury Stated Complaint: left middle back pain Time Seen by Provider: 12/23/20 20:46 Source: patient and family Mode of arrival: ambulatory Limitations: no limitations History of Present Illness HPI Narrative: 65-year-old with a history of COPD, back pain here with complaints of left-sided back pain for past few days. Patient is not quite sure whether she pulled a muscle while she was coughing. She denies any shortness of breath. No history of chest pain. No history of fever or chills. MD elicited complaint: back pain Pertinent past history: prior back pain Timing: constant Severity: mild Similar Symptoms Previously: Yes Quality: dull Location: left upper back Radiation: none Exacerbating factors: movement and coughing/sneezing Relieving factors: none Associated symptoms: denies other symptoms Related Data Home Medications Medication Instructions Recorded Confirmed aspirin [Aspirin Low Dose] 81 mg PO BID 12/25/19 10/21/20 buspirone 7.5 mg PO BID 12/25/19 10/21/20 cetirizine [Zyrtec] 10 mg PO DAILY 12/25/19 10/21/20 denosumab [Prolia] 60 mg SUBCUT [id number] 12/25/19 10/21/20 lamotrigine [Lamictal] 100 mg PO HS 12/25/19 10/21/20 quetiapine [Seroquel] 200 mg PO HS 12/25/19 10/21/20 topiramate [Topamax] 50 mg PO BID 12/25/19 10/21/20 acetaminophen 500 mg capsule 500 mg PO Q6H 01/21/20 10/21/20 calcium carbonate 500 mg calcium 500 mg PO TID tablet 01/21/20 10/21/20 (1,250 mg) tablet magnesium 250 mg tablet 500 mg PO BID tablet 03/06/20 10/21/20 aripiprazole [Abilify] 15 mg PO DAILY 07/24/20 10/21/20 fluticasone furoate-vilanterol 1 inh INHALATION DAILY 07/24/20 10/21/20 [Breo Ellipta] montelukast [Singulair] 10 mg PO DAILY 07/24/20 10/21/20 umeclidinium [Incruse Ellipta] 1 inh INHALATION DAILY 07/24/20 10/21/20 albuterol sulfate 90 mcg/actuation 1 inh INHALATION Q4H 08/04/20 10/21/20 aerosol inhaler guaifenesin 600 mg tablet, 600 mg PO BID 10/06/20 10/21/20 extended release 12 hr vitamin B complex 1 tablet PO WEEKLY tablet 10/06/20 10/21/20 vitamin B12 500 mcg-folic acid 400 1 tablet PO WEEKLY tablet 10/06/20 10/21/20 mcg tablet Allergies Allergy/AdvReac Type Severity Reaction Status Date / Time Sulfa (Sulfonamide Allergy Severe Rash Verified 12/23/20 20:31 Antibiotics) Penicillins Allergy Intermediate Rash Verified 12/23/20 20:31 Cephalosporins Allergy Mild Rash Verified 12/23/20 20:31 erythromycin base AdvReac Intermediate GI UPSET, Verified 12/23/20 20:31 ABDOMINAL PAIN Review of Systems Review of Systems: All systems reviewed & are unremarkable except as noted in HPI and below Constitutional: Constitutional: Reports no additional constitutional complaints Eyes: Eyes: Reports no additional eye complaints ENT: Reports system reviewed and no additional complaints, except as documented Cardiovascular: Cardiovascular: Reports no additional cardiovascular complaints Respiratory: Respiratory: Reports no additional respiratory complaints Gastrointestinal: Gastrointestinal: Reports no additional gastrointestinal complaints Musculoskeletal: Musculoskeletal: Reports as per HPI Neurologic: Reports system reviewed and no additional complaints, except as documented [facility] Past Medical History Medical History Allergic rhinitis Bipolar affective disorder Breast cancer screening Brittle nails Cellulitis of left lower extremity Colon cancer screening Dysfunction of eustachian tube Encounter for routine adult health examination without abnormal findings Essential (primary) hypertension Gastroesophageal reflux disease without esophagitis Hyperlipidemia Mild intermittent asthma without complication Mixed hyperlipidemia Numbness of right hand 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
== END 2020-12-23 22:37 | disposition home or self-care (01) ==
PROVIDERS: Emergency Provider Family Medicine; PCP Internal Medicine
DX: M54.6 Pain in thoracic spine (principal); I10 Essential (primary) hypertension; J44.9 Chronic obstructive pulmonary disease, unspecified; J45.20 Mild intermittent asthma, uncomplicated; E78.2 Mixed hyperlipidemia; F31.9 Bipolar disorder, unspecified; E53.8 Deficiency of other specified B group vitamins; E55.9 Vitamin D deficiency, unspecified; K21.9 Gastro-esophageal reflux disease without esophagitis; M85.80 Other specified disorders of bone density and structure, unspecified site; Z87.01 Personal history of pneumonia (recurrent); Z98.84 Bariatric surgery status; Z98.49 Cataract extraction status, unspecified eye; Z96.1 Presence of intraocular lens; Z87.891 Personal history of nicotine dependence; Z79.82 Long term (current) use of aspirin
CPT/HCPCS: 71046; 99283

== ENCOUNTER 2020-12-25 10:55 | Outpatient (CLI) | payer OTHER, SELFPAY ==
--- NOTE | ~2020-12-25 | XR_ITS ---
EXAMINATION: XR thoracic spine 3V EXAM DATE: 12/25/2020 11:25 INDICATION: Dorsalgia, mid back pain. No known recent injury. Symptoms for days. TECHNIQUE: Frontal and lateral projections of the thoracic spine as well as lateral swimmers projecti on of the upper thoracic spine for interpretation. There is no prior study for comparison. FINDINGS: Incompletely imaged significant lumbar scoliosis. Thoracic spine relatively straight. Ther e is mild thoracic disc disease. Evidence of advanced upper lumbar disc disease. There are no acute f ractures identified. The vertebral bodies are aligned in the AP dimension. There are cholecystectomy clips. IMPRESSION: 1. Mild thoracic spondylosis. 2. Probably moderate to severe lumbar levoscoliosis and advanced lumbar spondylosis. Reviewed, dictated and finalized at location B. IMPRESSION: 1. Mild thoracic spondylosis. 2. Probably moderate to severe lumbar levoscoliosis and advanced lumbar spondy losis.
== END 2020-12-25 10:56 | disposition home or self-care (01) ==
LOC: ANHIMG 10:59
PROVIDERS: PCP Internal Medicine; Visit Provider Internal Medicine
DX: M47.814 Spondylosis without myelopathy or radiculopathy, thoracic region (principal)
CPT/HCPCS: 72072

== ENCOUNTER 2021-01-20 09:10 | Outpatient (CLI) | payer OTHER, SELFPAY ==
--- NOTE | 2021-01-20 11:30 | NEURO_ITS ---
Impression: # Complains of numbness of right hand. Status post right carpal tunnel release. # Residual right Carpal Tunnel Syndrome with sensory component more than motor. # Normal needle/EMG exam except right APB. # Clinical correlation recommended. Nerve Conduction Studies Anti Sensory Summary Table Stim Site NR Peak (ms) P-T Amp (?V) Site1 Site2 Delta-P (ms) Dist (cm) Bebo (m/s) Right Median Anti Sensory (2-3nd Digit) Wrist 4.3 27.1 Wrist 2-3nd Digit 4.3 14.0 33 Wrist 5.1 15.8 Wrist 2-3nd Digit 4.3 14.0 33 Right Radial Anti Sensory (Base 1st Digit) Wrist 2.3 22.8 Wrist Base 1st Digit 2.3 0.0 Right Ulnar Anti Sensory (5th Digit) Wrist 2.7 23.1 Wrist 5th Digit 2.7 14.0 52 Motor Summary Table Stim Site NR Onset (ms) O-P Amp (mV) Site1 Site2 Delta-0 (ms) Dist (cm) Bebo (m/s) Right Median Motor (Abd Poll Brev) Wrist 3.5 5.9 Elbow Wrist 4.5 26.0 58 Elbow 8.0 5.6 Right Ulnar Motor (Abd Dig Minimi) Wrist 2.9 3.9 A Elbow Wrist 4.5 26.0 58 A Elbow 7.4 2.7 F Wave Studies NR F-Lat (ms) L-R F-Lat (ms) Right Median (Mrkrs) (Abd Poll Brev) 27.67 Right Ulnar (Mrkrs) (Abd Dig Min) 27.66 EMG Side Muscle Nerve Root Ins Act Fibs Amp Dur Recrt Comment Right 1stDorInt Ulnar C8-T1 Nml Nml Nml Nml Nml Right Ext Indicis Radial (Post Int) C7-8 Nml Nml Nml Nml Nml Right Ext Digitorum Radial (Post Int) C7-8 Nml Nml Nml Nml Nml Right BrachioRad Radial C5-6 Nml Nml Nml Nml Nml Right PronatorTeres Median C6-7 Nml Nml Nml Nml Nml Right Abd Poll Brev Median C8-T1 Nml Nml Nml >12ms Reduced Right ABD Dig Min Ulnar C8-T1 Nml Nml Nml Nml Nml Right Biceps Musculocut C5-6 Nml Nml Nml Nml Nml Right Triceps Radial C6-7-8 Nml Nml Nml Nml Nml MTDD
== END 2021-01-20 09:11 | disposition home or self-care (01) ==
PROVIDERS: PCP Internal Medicine
DX: R20.2 Paresthesia of skin (principal); G56.01 Carpal tunnel syndrome, right upper limb
CPT/HCPCS: 95886; 95909

== ENCOUNTER 2021-03-16 15:00 | Outpatient (RCR) | payer OTHER, SELFPAY ==
--- NOTE | 2021-01-08 16:15 | PTOPEVAL ---
Thank you for referring Mariely Beard to [facility].? The patient is scheduled to be seen for therapy? 2 x/week for 6 weeks. Please review, sign, date and return this plan of care JEMIMA. I agree with and certify that the following plan of care is medically necessary. Referring Physician Date Attending Provider: Rell Milton DO Diagnosis thoracic pain Onset 12/20/20 Additional Evaluation Detail Advanced cervical spondylosis Mild thoracic spondylosis. Probably moderate to severe lumbar levoscoliosis and advanced lumbar spondylosis. CTR on right 1 yrs ago- no relief of UE symptoms. She was DC from therapy 1 month ago. Unable to preform her HEP due to pain. She hurt her right foot 1 wk before her mid-back started hurting. She thinks the side stepping hurt her foot. 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 She has to lean forward to held student at their desk. Subjective Information Reports she has received Query Text:As Reported By Patient/ therapy for her low back Family sciatica pain, but is unable to preform the exercise due to thoracic back pain. She went to the ED 12/23/20 due to thoracic pain. she is unable to note a particular injury. She reports limitations with sitting, sleeping, getting off low surfaces. She has increased pain with floor installer, ADL's, dressing, prolonged standing, walking. Diagnostic Tests X-Rays For This Problem Yes: moderate to severe lumbar levoscoliosis and advanced lumbar spondylosis Pain Assessment Self Report Pain Assessment Upper Back Reported Pain Level 5 Pain Description Stabbing Pain Frequency Continuous Pain Aggravating Factors ADL's,Changing Position, Exercise/Activity,Lifting, Sitting,Walking,Weight Bearing /Standing Pain Behaviors Anxious Cer
--- NOTE | 2021-01-25 08:46 | PCPTNOTE ---
Patient did not show up for scheduled appointment this date. She did not realize she had an appointment today. Her next visit is on 01/27/21.
--- NOTE | 2021-02-01 15:58 | PTOPEVAL ---
Physical Therapy Progress Noted Thank you for referring Mariely Beard to [facility].? See summary below for progress with therapy services. She requires additional therapy to address muscle weakness, functional mobility limitations and progress HEP. The patient is scheduled to be seen for therapy? 1 visit every 2 wk for 3 additional visits. Please review, sign, date and return this plan of care JEMIMA. I agree with and certify that the following plan of care is medically necessary. Referring Physician Date Attending Provider: Rell Milton DO Problem Diagnosis thoracic pain Onset 12/20/20 Additional Evaluation Detail Advanced cervical spondylosis Mild thoracic spondylosis. Probably moderate to severe lumbar levoscoliosis and advanced lumbar spondylosis. CTR on right 1 yrs ago- no relief of UE symptoms. She was DC from therapy 1 month ago. Unable to preform her HEP due to pain. She hurt her right foot 1 wk before her mid-back started hurting. She thinks the side stepping hurt her foot. 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 Subjective Information She did receive her ankle Query Text:As Reported By Patient/ brace, but does not like it Family because it is so rigid. She feels like she is walking funny. She is unable to sleep in bed due to pain. She is only able to sleep in the recliner chair. She is able to sit longer without changes in symptoms. She is able to sit on the bleacher seats with a back with improved tolerance. She denies any changes in pain with dressing, but tightness with reaching with ADL's. Pain Assessment Upper Back Reported Pain Level 0 Pain Frequency Intermittent Lowest Pain Intensity 0 Greatest Pain Intensity 3 Cervical and Lumbar ROM Lumbar ROM Lumbar Flexion Active Floor:Hands to: Lateral Flexion distal thighActive Hands to: Lumbar ROM
--- NOTE | 2021-03-16 15:50 | PTOPEVAL ---
Discharge Summary Note Thank you for referring Mariely Beard to [facility].?Mariely has attended 9 therapy visits to address back pain. She reports improved tolerance with daily task and walking, indep with HEP and improved body awareness with daily task. She has partially achieved her therapy goals at this time. Will DC skilled therapy services at this time. Please review, sign, date and discharge summary JEMIMA. I agree with and certify that the following plan of care is medically necessary. Referring Physician Date Attending Provider: Rell Milton DO Diagnosis thoracic pain Onset 12/20/20 Additional Evaluation Detail Advanced cervical spondylosis Mild thoracic spondylosis. Probably moderate to severe lumbar levoscoliosis and advanced lumbar spondylosis. CTR on right 1 yrs ago- no relief of UE symptoms. She was DC from therapy 1 month ago. Unable to preform her HEP due to pain. She hurt her right foot 1 wk before her mid-back started hurting. She thinks the side stepping hurt her foot. 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 She has to lean forward to held student at their desk. Subjective Information She is not wearing the ankle Query Text:As Reported By Patient/ brace due to pain and Family increased hip pain with leg wanting to give out when wearing. She does feel like therapy has helped her symptoms. She remains limited with walking longer distances. She is walking at least 1 [address] without increased pain. She is sleeping in the bed 50% and in the recliner chair 50% of the time. She denies any changes in pain with dressing or ADL's. Pain Assessment Upper Back Reported Pain Level 1 Lowest Pain Intensity 0 Greatest Pain Intensity 1 Pain Score Cervical and Lumbar ROM Cervical ROM Cervical Flexion (0-60) 40:Active in Degrees Cervical Extension (0-70) 60:Active in Degrees Cervical Lateral Flexion Right (0-50) 30:Active in Degrees Cervical Lateral Flexion Lef
== END 2021-03-17 14:14 | disposition home or self-care (01) ==
LOC: ANHPT 15:00
PROVIDERS: PCP Internal Medicine; Visit Provider Internal Medicine
DX: M54.6 Pain in thoracic spine (principal)
CPT/HCPCS: 97014; 97110; 97112; 97140; 97162; 97530; G0283

== ENCOUNTER 2021-03-20 07:41 | Outpatient (CLI) | payer OTHER, SELFPAY ==
[2021-03-20 08:18] LABS: Alanine Aminotransferase 18 U/L (4-35); Albumin Level 4.1 g/dL (3.5-5.1); Alkaline Phosphatase 63 U/L (38-126); Anion Gap 7 mmol/L (8-16); Aspartate Amino Transferase 29 U/L (14-36); Bilirubin,Total 0.4 mg/dL (0.2-1.3); Blood Urea Nitrogen 12 mg/dL (7-17); Calcium 8.8 mg/dL (8.4-10.2); Carbon Dioxide 25 mmol/L (22-30); Chloride 109 mmol/L (98-107); Cholesterol 165 mg/dL (0-200); Estimated Glomerular Filt Rate > 60; Glucose 99 mg/dL (65-110); HDL Direct 85 mg/dL; Potassium 4.5 mmol/L (3.4-5.0); Sodium 141 mmol/L (137-145); Triglycerides 77 mg/dL (<150)
[2021-03-20 08:29] LABS: LDL Cholesterol Direct 65 mg/dL
[2021-03-20 08:44] LABS: Thyroid Stimulating Hormone 0.581 uIU/mL (0.465-4.680)
[2021-03-20 08:45] LABS: Vitamin D 25 Hydroxy 53.2 ng/mL
[2021-03-20 09:17] LABS: Vitamin B12 > 1000.0 pg/mL (239-931)
== END 2021-03-20 07:42 | disposition home or self-care (01) ==
PROVIDERS: PCP Internal Medicine; Visit Provider Nurse Practitioner
DX: E78.5 Hyperlipidemia, unspecified (principal); E05.90 Thyrotoxicosis, unspecified without thyrotoxic crisis or storm; E53.8 Deficiency of other specified B group vitamins; E55.9 Vitamin D deficiency, unspecified
CPT/HCPCS: 36415; 80053; 80061; 82306; 82607; 84443

== ENCOUNTER 2021-05-06 16:20 | Outpatient (CLI) | payer OTHER, SELFPAY ==
--- NOTE | ~2021-05-06 | MM_ITS ---
EXAMINATION: MM screening jr BI w lisa HISTORY: Screening mammogram TECHNIQUE: Craniocaudal and mediolateral oblique 3-D tomosynthesis images were obtained and synthetic 2-D images were generated. CAD analysis was submitted and interpreted. COMPARISON: 04/27/2020, 04/23/2019 BREAST PARENCHYMAL COMPOSITION: The breasts are almost entirely fatty. FINDINGS: There is no evidence of suspicious mass, calcification, or architectural distortion to sugg est malignancy in either breast. There has been no suspicious interval change. IMPRESSION: 1. No mammographic evidence of malignancy. 2. Recommend routine screening mammography in one year. BI-RADS Category 1: Negative Reviewed, dictated and finalized at location A. ERATURE REGULATOR
== END 2021-05-06 16:21 | disposition home or self-care (01) ==
LOC: ANHIMG 16:21
PROVIDERS: PCP Internal Medicine; Visit Provider Obstetrics & Gynecology
DX: Z12.31 Encounter for screening mammogram for malignant neoplasm of breast (principal)
CPT/HCPCS: 77063; 77067

== ENCOUNTER 2021-09-01 08:26 | Outpatient (CLI) | payer OTHER, SELFPAY | END 2021-09-01 08:27 | disposition home or self-care (01) | PROVIDERS: PCP Internal Medicine; Visit Provider Nurse Practitioner | DX: M25.50 Pain in unspecified joint (principal) | CPT/HCPCS: 36415; 84550 ==

== ENCOUNTER 2021-09-10 16:30 | Outpatient (CLI) | payer OTHER, SELFPAY ==
--- NOTE | ~2021-09-10 | XR_ITS ---
EXAMINATION: XR elbow LT min 3V DATE: 09/10/2021 16:47 INDICATION: Left elbow pain TECHNIQUE: Anteroposterior, two oblique and lateral views of the left elbow were obtained. COMPARISON: None. FINDINGS: Alignment is normal. No fracture or joint effusion. Joint spaces are normal. Soft tissues are unremar kable. IMPRESSION: 1. Negative left elbow radiographs. Reviewed, dictated and finalized at location A.
== END 2021-09-10 16:31 | disposition home or self-care (01) ==
LOC: ANHIMG 16:32
PROVIDERS: PCP Internal Medicine; Visit Provider Internal Medicine
DX: M25.50 Pain in unspecified joint (principal)
CPT/HCPCS: 73080

== ENCOUNTER 2021-09-25 07:27 | Outpatient (CLI) | payer OTHER, SELFPAY ==
[2021-09-25 08:31] LABS: Alanine Aminotransferase 17 U/L (4-35); Albumin Level 4.1 g/dL (3.5-5.1); Alkaline Phosphatase 82 U/L (38-126); Anion Gap 7 mmol/L (8-16); Aspartate Amino Transferase 31 U/L (14-36); Bilirubin,Total 0.3 mg/dL (0.2-1.3); Blood Urea Nitrogen 9 mg/dL (7-17); Calcium 8.7 mg/dL (8.4-10.2); Carbon Dioxide 23 mmol/L (22-30); Chloride 106 mmol/L (98-107); Cholesterol 205 mg/dL (0-200); Estimated Glomerular Filt Rate > 60; Glucose 116 mg/dL (65-110); HDL Direct 80 mg/dL; Sodium 136 mmol/L (137-145); Triglycerides 60 mg/dL (<150)
[2021-09-25 08:42] LABS: LDL Cholesterol Direct 72 mg/dL
[2021-09-25 09:17] LABS: Vitamin D 25 Hydroxy 71.7 ng/mL
[2021-09-25 11:35] LABS: Vitamin B12 > 1000.0 pg/mL (239-931)
== END 2021-09-25 07:28 | disposition home or self-care (01) ==
PROVIDERS: PCP Internal Medicine; Visit Provider Internal Medicine
DX: E78.5 Hyperlipidemia, unspecified (principal); K91.2 Postsurgical malabsorption, not elsewhere classified; Z13.21 Encounter for screening for nutritional disorder; Z98.84 Bariatric surgery status; E55.9 Vitamin D deficiency, unspecified; I10 Essential (primary) hypertension; E53.8 Deficiency of other specified B group vitamins
CPT/HCPCS: 36415; 80053; 80061; 82306; 82607

== ENCOUNTER 2021-10-12 15:44 | Outpatient (CLI) | payer OTHER, SELFPAY ==
[2021-10-12 16:37] LABS: Add Urine Microscopic? NO; Appearance Urine Clear (Clear); Bilirubin Urine Negative (Negative); Blood Urine Negative (Negative); Color Urine Straw (Yellow); Glucose Urine UA Negative (Negative); Ketones Urine Negative (Negative); Leukocyte Esterase Ur Negative LEU/UL (Negative); Nitrate Urine Negative (Negative); Protein Urine Negative (Negative); Specific Grav Ur 1.005 (1.001-1.035); Urobilinogen Urine Negative mg/dL (<2.0)
== END 2021-10-12 15:45 | disposition home or self-care (01) ==
PROVIDERS: PCP Internal Medicine; Visit Provider Internal Medicine
DX: R35.0 Frequency of micturition (principal)
CPT/HCPCS: 81003

== ENCOUNTER 2021-10-27 13:57 | Outpatient (CLI) | payer OTHER, SELFPAY ==
--- NOTE | 2021-10-27 15:21 | ECG_ITS ---
Measurements Intervals Steele Rate: 66 P: 30 RI: 189 QRS: 49 QRSD: 94 T: 16 QT: 403 QTc: 423 Interpretive Statements SINUS RHYTHM INCOMPLETE RIGHT BUNDLE BRANCH BLOCK BASELINE ARTIFACT- I, II, III, AVR, AVL, AVF, V1-V6 BORDERLINE ECG Electronically Signed On 10-27-2021 15:38:13 CDT by Giorgi Youngblood D.O.
[2021-10-27 15:46] LABS: Basophils Absolute Auto 0.1 K/mm3 (0.0-0.1); Basophils Percent Auto 0.7 % (0.2-1.2); Eosinophils Absolute Auto 0.3 K/mm3 (0-0.3); Eosinophils Percent Auto 4.4 % (0-4.4); Hematocrit 41.5 % (37.0-47.0); Hemoglobin 13.5 g/dL (12.0-15.0); Immature Granulocyte Absolute 0.04 K/mm3 (0.00-0.031); Immature Granulocyte Percent A 0.6 % (0-0.5); Lymphocytes Absolute Auto 1.87 K/mm3 (0.9-3.2); Lymphocytes Percent Auto 26.3 % (18.3-44.2); Mean Corpuscular HGB Conc 32.5 g/dl (32-36); Mean Corpuscular Hemoglobin 32.1 pg (26-34); Mean Corpuscular Volume 98.6 fl (80-100); Mean Platelet Volume 8.7 fl (7.4-10.4); Monocytes Absolute Auto 0.6 K/mm3 (0.1-0.6); Neutrophils Absolute Auto 4.3 K/mm3 (1.3-6.7); Platelet Count Result 320 k/mm3 (150-375); Red Blood Count 4.21 M/mm3 (4.2-5.4); Red Cell Distribution Width 13.3 % (11.5-14.5); White Blood Count 7.1 K/mm3 (4.5-10.0)
[2021-10-27 15:46] LABS: Appearance Urine Clear (Clear); Bilirubin Urine Negative (Negative); Color Urine Yellow (Yellow); Glucose Urine UA Negative (Negative); Ketones Urine Negative (Negative); Leukocyte Esterase Ur Negative LEU/UL (Negative); Nitrate Urine Negative (Negative); Protein Urine Negative (Negative); Specific Grav Ur 1.015 (1.001-1.035); Urobilinogen Urine 0.2 mg/dL (<2.0)
[2021-10-27 15:55] LABS: Urine Cotinine NEGATIVE
[2021-10-27 15:57] LABS: Prothrombin Time 12.9 Seconds (11.1-14.7)
[2021-10-27 15:59] LABS: Add Urine Microscopic? YES; Blood Urine Trace-Intact (Negative)
[2021-10-27 16:33] LABS: Hemoglobin A1C 5.1 % (<5.7)
== END 2021-10-27 13:58 | disposition home or self-care (01) ==
PROVIDERS: PCP Internal Medicine; Visit Provider Orthopaedic Surgery
DX: Z01.818 Encounter for other preprocedural examination (principal); M17.12 Unilateral primary osteoarthritis, left knee; I45.10 Unspecified right bundle-branch block; Z51.81 Encounter for therapeutic drug level monitoring; Z79.899 Other long term (current) drug therapy
CPT/HCPCS: 80307; 81001; 83036; 85025; 85610; 85730; 87081; 93005

== ENCOUNTER 2021-11-10 01:14 | Day surgery (SDC) | payer OTHER, SELFPAY ==
[2021-10-27 14:13] VITALS: BMI 38.0
[2021-10-27 14:39] VITALS: BP 157/97; PULSE 68; RESP 16; TEMP 36.4; O2SAT 100
--- NOTE | 2021-10-27 14:57 | PC.NURSE ---
Report to the Outpatient Waiting Room, entrance under the green pavilion located off [facility], at time _6:00AM on date __11/10/21 . OR Time: ___7:30AM . - You and your visitor will be asked a series of questions to screen for COVID 19 for your protection. - Only one visitor is allowed at this time. - The patient visitor is requested to leave or wait in car when not with patient. - A mask is required within the hospital. Patients may have clear liquids (water, carbonated beverages, clear teas, apple juice) until 3 hours prior to surgery with a maximum of 20 ounces. - No food from midnight until time of surgery - Infants may have breast milk until 4 hours before surgery, formula 6 hours prior to surgery. - Children will be allowed to drink immediately following surgery. If applicable, please bring a bottle or sippy cup to assist with drinking. Juice, water, soda, and popsicles are readily available. For infants on formula, please bring formula the day of surgery. Pacifiers are allowed. Take the following medications with a SIP of water the morning of surgery: __TRELEGY ELLIPTA, ALBUTEROL INHALER NEEDED, BUSPIRONE, TOPAMAX Medications to discontinue per physician ____HOLD ASPIRIN 7 DAYS PRE-OP- LAST DOSE 11/03/21, ALL VITAMINS/SUPPLEMENTS 3 DAYS PRE-OP- LAST DOSE 11/06/21 Please no make-up, nail slovak, hairspray, perfume, deodorant, or body powder the day of surgery. No jewelry (including any body piercings) or valuables the day of surgery, leave them at home. Please take a shower or bath the night before, or the morning of, surgery with an antibacterial soap. Wear comfortable, loose fitting clothing. Children are encouraged to wear pajamas. - Jewelry must be removed prior to entering the operating room. Rings and piercings that are not removed may be cut off. - The hospital will not accept responsibility for valuables. - Please leave all valuables, including medications, at home the day of surgery. If you are going home after surgery, a licensed commercial driver's license driver must drive you home. - NO public transportation without another adult. - We recommend that an adult stay with you for 24 hours following discharge. - We also recommend that you do not drive, make important decision, drink alcoholic beverages, or take any drugs that were not prescribed by your health care provider for at least 24 hours after your discharge time. For Pediatric surgeries, we recommend two adults accompany the child home (only one inside the building at this time). Follow any additional instructions given to you from your surgeon. If you or anyone in your household have experienced Covid symptoms in the past week, please notify your surgeon or the nurse liaison at the phone number below for possible testing. Telephone instructions given to ___PATIENT and asked if any additional questions and then verbalized understanding. Patient advised to call surgeon office or pre surgery nurse liaison [phone] if any additional questions.
[2021-11-10] VITALS (15 sets, daily range): BP systolic 95–126; BP diastolic 55–79; PULSE 56–106; RESP 12–90; TEMP 36–36.9; O2SAT 94–100
--- NOTE | ~2021-11-10 | XR_ITS ---
EXAMINATION: XR knee LT 2V DATE: 11/10/2021 11:16 INDICATION: Postoperative evaluation following left total knee arthroplasty. TECHNIQUE: Anteroposterior and lateral views of the left knee were obtained. COMPARISON: 10/04/2021 FINDINGS: Left total knee arthroplasty without patellar resurfacing appears well seated and in near anatomic al ignment. No fractures identified. Skin rocky and expected postoperative subcutaneous and intra-ar ticular gas. IMPRESSION: 1. Left total knee arthroplasty, negative for postoperative purposes. Reviewed, dictated and finalized at location B.
[2021-11-10] MEDS: ACETAMINOPHEN 500 MG TABLET 1000 MG PO ×2 (06:49→16:59)
[2021-11-10] MEDS: LACTATED RINGERS 1,000 ML 30 ML IV CONT ×2 (06:49→11:05)
--- NOTE | 2021-11-10 06:53 | WPDANESEPPF ---
Anes - Initial Pre Proc Eval Procedure: Operation Date: 11/10/21 07:30 Proposed Procedures p Left Total Knee Arthroplasty, Possible Left Elbow Medial Epicondyle Injection - Emiliano Farrell MD Date/Time: 11/10/21 06:53 Surgeon: Emiliano Farrell MD Pre Op Diagnosis: left knee DJD, patellofemoral DJD, Patient Data Age: 66 Gender: F Height: 1.46 m Weight: 81.2 kg Last Vital Signs Temp 36.4 C 10/27/21 14:39 Pulse 68 10/27/21 14:39 Resp 16 10/27/21 14:39 BP 157/97 H 10/27/21 14:39 Pulse Ox 100 10/27/21 14:39 O2 Del Method Room Air 10/27/21 14:39 Allergies Allergy/AdvReac Type Severity Reaction Status Date / Time Sulfa (Sulfonamide Allergy Severe Rash Verified 10/27/21 14:19 Antibiotics) Penicillins Allergy Intermediate Rash Verified 10/27/21 14:19 Cephalosporins Allergy Mild Rash IN Verified 10/27/21 14:19 MOUTH erythromycin base AdvReac Intermediate GI UPSET, Verified 10/27/21 14:19 ABDOMINAL PAIN Home Medications Medication Instructions Recorded Confirmed Type aspirin 81 mg tablet,delayed 81 mg PO BID 12/25/19 10/27/21 History release (Aspirin Low Dose) buspirone 7.5 mg tablet 7.5 mg PO BID 12/25/19 10/27/21 History cetirizine 10 mg capsule (Zyrtec) 10 mg PO HS 12/25/19 10/27/21 History lamotrigine 100 mg tablet 100 mg PO HS 12/25/19 10/27/21 History (Lamictal) topiramate 50 mg tablet (Topamax) 50 mg PO BID 12/25/19 10/27/21 History acetaminophen 500 mg capsule 1,000 mg PO BID 01/21/20 10/27/21 History calcium carbonate 500 mg calcium 500 mg PO TID 01/21/20 10/27/21 History (1,250 mg) tablet (Calcium 500) pantoprazole 40 mg tablet,delayed 40 mg PO QAM #90 tabs 05/05/20 10/27/21 Rx release (Protonix) aripiprazole 15 mg tablet (Abilify) 15 mg PO DAILY 07/24/20 10/27/21 History albuterol sulfate 90 mcg/actuation 1 inh inhalation Q4H PRN Dyspnea 08/04/20 10/27/21 History aerosol inhaler vitamin B complex (B 1 tablet PO 2XW 10/06/20 10/27/21 History Complex-Vitamin B12) vitamin B12 500 mcg-folic acid 400 1 tablet PO 2XW 03/29/21 10/27/21 History mcg tablet nystatin 100,000 unit/gram topical 1 applic topical TID PRN Itching 09/01/21 10/27/21 History powder quetiapine 300 mg tablet (Seroquel) 300 mg PO QHS 09/01/21 10/27/21 History ibandronate 150 mg tablet (Boniva) 150 mg PO MONTHLY 10/18/21 10/27/21 History magnesium 250 mg tablet 1,000 mg PO BID 10/18/21 10/27/21 History tumeric 100 mg-ann 150 mg-olive 1 cap PO BID 10/18/21 10/27/21 History 50 mg-oreg 150 mg-caprylate capsule estradiol 1 applic vaginal 3XW 10/27/21 10/27/21 History fluticasone fur. 200 mcg-umeclid 1 inh inhalation QAM 10/27/21 10/27/21 History 62.5 mcg-vilant 25 mcg inhalat.powder (Trelegy Ellipta) fluticasone propionate 50 1 spray intranasal DAILY 10/27/21 10/27/21 History mcg/actuation nasal spray,suspension montelukast 10 mg tablet 10 mg PO QAM 10/27/21 10/27/21 History (Singulair) pediatric multivitamin 2 tablet PO HS 10/27/21 10/27/21 History pravastatin 80 mg tablet 80 mg PO HS 10/27/21 10/27/21 History Patient hx anesthesia problems: none and hx of malignant hyperthermia (avoidance due to family from MH) Family hx anesthesia problems: hx of malignant hyperthermia (brother of MH) Results Review: All pre-operative results and documents have been reviewed as part of the pre-operative evaluation. [facility] Past Medical History Medical History Allergic rhinitis Bipolar affective disorder Breast cancer screening Brittle nails Cellulitis of left lower extremity Colon cancer screening Dysfunction of eustachian tube Encounter for routine adult health examination without abnormal findings Essential (primary) hypertension Gastroesophageal reflux disease without esophagitis Hyperlipidemia Mild intermittent asthma without complication Mixed hyperlipidemia Numbness of right hand On
[2021-11-10] MEDS: TRANEXAMIC ACID 1,000MG/ISO100 1,000 MG/100 ML BAG 200 MG IVPB (06:58)
--- NOTE | 2021-11-10 07:13 | WPDHPUPDATE1 ---
History and Physical Update Update Date/Time: 11/10/21 07:13 History and Physical has been reviewed, including an updated exam of the patient. There are NO changes in the patient's condition. Risks, benefits, and alternatives have been discussed and questions answered. Patient agrees to proceed with procedure.
--- NOTE | 2021-11-10 07:27 | WPDANESPNB ---
Anes - Peripheral Nerve Block Date/Time: 11/10/21 07:27 I have discussed with the patient/family/POA the placement of a peripheral nerve block for post-operative pain management, including associated risks, benefits, complications, and side effects. Alternative methods of post-operative analgesia were detailed. Questions were solicited and answers provided to the satisfaction of the patient/family/POA. Time-Out: A pre-procedural Time-Out was completed immediately before starting the procedure and confirmed: Patient Identification, Site, Procedure, Patient Position and the Availability of Requisite Equipment. Clinical Indications: Acute post-operative pain management requested by the operative surgeon. Nerve Block Insertion Note Anes-nerve block: femoral left Patient position: supine Skin prep: chlorhexidine Needle: 22 gauge, stimulating, insulated echogenic needle. Needle length: 80 mm Technique: nerve stimulation lost at (mA) Injectate: bupivacaine 0.5% with epi 5 mcg/ml (30cc no epi) and dexamethasone (mg) (8) Complications: none Procedure start time:: 722 Procedure end time:: 727
[2021-11-10] MEDS: TRANEXAMIC ACID 1,000 MG/10 ML AMPUL 1000 MG IV PUSH (10:24)
[2021-11-10] MEDS: LIDOCAINE HCL 1% LOCAL INJ 20 ML VIAL INFILTRATE (10:50)
[2021-11-10] MEDS: methylPREDNISolone ACETATE 80 MG/ML VIAL I-ARTICULR (10:50)
--- NOTE | 2021-11-10 11:49 | W.PM.PROC2 ---
Procedure Note - Detailed Date of Procedure 11/10/21 Pre-op Diagnosis left knee DJD, patellofemoral DJD, Post-op Diagnosis Same Procedure Performed L TKA Surgeon Emiliano Farrell MD Anesthesia General Description of Procedure THE LEFT KNEE WAS PREPPED AND DRAPED IN THE STERILE FASHION. THERE WAS A RECURVATUM DEFORMITY OF ABOUT 15 DEG. THERE WAS SIGNIFICANT LAXITY WITH VALGUS STRESS. A MIDLINE SKIN INCISION WAS MADE. A MEDIAL PARAPATELLAR ARTHROTOMY WAS MADE. THE PATELLA WAS EVERTED. THERE WAS TRICOMPARTMENT DJD. THERE WAS MINIMAL PATELLA DJD. AN INTRAMEDULLARY CAHRLY WAS PLACED IN THE FEMUR. A DISTAL FEMORAL CUT WAS MADE IN 5 DEGREES OF VALGUS REMOVING APPROXIMATELY 9 MM OF BONE FROM THE DISTAL FEMUR. THE FEMUR WAS SIZED TO 60. A 60 FEMORAL CUTTING BLOCK WAS PLACED IN 3 DEGREES OF EXTERNAL ROTATION AND IN ALIGNMENT WITH DENIS'S LINE AND THE TRANSEPICONDYLAR AXIS. ANTERIOR POSTERIOR AND CHAMFER CUTS WERE MADE. THE CUTS WERE EXCELLENT. NEXT AN INTRAMEDULLARY CUTTING GUIDE WAS PLACED IN THE TIBIA. A TRANS TIBIAL CUT WAS MADE ALONG THE LONG AXIS OF THE TIBIA. APPROXIMATELY 10 MM OF BONE WAS REMOVED FROM THE HIGH SIDE OF THE TIBIA. THE TIBIA WAS THEN PLANED TO A SMOOTH SURFACE. POSTERIOR FEMORAL OSTEOPHYTES WERE REMOVED FROM THE FEMORAL CONDYLES. A 63 TIBIAL TRIAL WAS PLACED IN ALIGNMENT WITH THE 1/3 MEDIAL ASPECT OF THE TIBIAL TUBERCLE. THEN A 60 FEMORAL PS CUTTING BLOCK WAS PLACED FOR BOX CUT. A 60 PS FEMORAL TRIAL WAS PLACED. BOTH HAD EXCELLENT FITS. EVENTUALLY AN 18 PS PLUS POLY TRIAL WAS PLACED. THE KNEE WAS TAKEN THROUGH A RANGE OF MOTION. THE KNEE CAME OUT TO FULL EXTENSION. THERE WAS NO RECURVATUM. THERE WAS NO ABNORMAL TILT TO THE PATELLA. THERE WAS GOOD A/P AND VARUS/VALGUS STABILITY. THERE WAS NO EXCESSIVE ROLL BACK WITH FLEXION. THE TRIAL COMPONENTS WERE REMOVED. THEN A 60 PS FEMORAL COMPONENT AND 63 TIBIAL COMPONENT WITH A 18 PS PLUS POLYETHYLENE COMPONENT WERE CEMENTED INTO PLACE. ONCE THE CEMENT WAS HARD THE KNEE WAS TAKEN THROUGH A ROM AGAIN AND FOUND TO BE STABLE WITH NO PATELLA TILT NO EXCESSIVE ROLL BACK WITH FLEXION AND GOOD STABILITY WITH COMPLETE AND FULL EXTENSION. THE PATELLA HAD OSTEOPHYTES REMOVED FROM THE PERIPHERY. THERE WAS NOT SUFFICIENT BONE STOCK TO PREFORM A RESURFACING OF THE PATELLA. THE KNEE WAS IRRIGATED WITH STERILE BETADINE AND WATER FOR ABOUT 3 MINUTES. THE BLEEDERS WERE CAUTERIZED. THE ARTHROTOMY WAS REPAIRED WITH NUMBER 1 VICRYL. THE SUB CUTANEOUS LAYER WITH 2-0 VICRYL AND THE SKIN WITH TRACEY. THE WOUND WAS WASHED AND A STERILE DRESSING WAS APPLIED. PATIENT WAS EXTUBATED. Estimated Blood Loss -150.0 Pathology None sent Complications No immediate complications Condition Stable Disposition PACU
[2021-11-10] MEDS: ALBUTEROL SULFATE (*SP) AEROSOL 1 PUFF INHALATION ×2 (12:41→18:17)
--- NOTE | 2021-11-10 12:49 | ADMGEN ---
This patient, Mariely Beard, was admitted to 2 Medical Room 240-01. Patient/family oriented to hospital policies and general routines including ID bracelet, bed and alarms, visiting hours, pain management, procedures, bathroom and other care routines, personal items, smoking policy, room service/diet, and visiting hours. Information on how to activate the Rapid Response Team has been discussed. Patient/Family are encouraged to report perceived risks to care and to ask questions if they do not understand what they are told or what they should do.
[2021-11-10] MEDS: oxyCODONE HCL (*CRX) 5 MG TAB IR PO (12:59)
[2021-11-10] MEDS: SODIUM CHLORIDE 0.9% IV 1,000 ML 125 ML IV CONT (13:00)
[2021-11-10] MEDS: CALCIUM CARBONATE (OSCAL) 500 MG TABLET PO ×2 (13:29→16:59)
--- NOTE | 2021-11-10 13:30 | WPDCN ---
Assessment and Plan Assessment and plan (1) Degenerative joint disease of left knee: Code(s): M17.12 - Unilateral primary osteoarthritis, left knee Status: Acute Assessment and Plan: Postoperative day 0 status post left total knee arthroplasty. Wound care, pain control, DVT prophylaxis deferred to Dr. Farrell. PT/OT consulted. Check labs in a.m. (2) Asthma-COPD overlap syndrome: Code(s): J44.9 - Chronic obstructive pulmonary disease, unspecified Status: Acute Assessment and Plan: No acute issues or bronchospasm on exam. Continue maintenance inhalers. (3) Bipolar affective disorder: Code(s): F31.9 - Bipolar disorder, unspecified Status: Acute Assessment and Plan: Per patient, well controlled on medication. Continue quetiapine, lamotrigine, buspirone, aripiprazole. (4) Gastroesophageal reflux disease without esophagitis: Code(s): K21.9 - Gastro-esophageal reflux disease without esophagitis Status: Acute Assessment and Plan: Continue pantoprazole. (5) Mixed hyperlipidemia: Code(s): E78.2 - Mixed hyperlipidemia Status: Acute Assessment and Plan: Continue pravastatin. Check LFTs in a.m. Plan Thank you for allowing us to participate in this patient's care. Please do not hesitate to contact us with any questions. Supervising physician for this medical consultation is Dr. Jimbo Brown. HPI Data of Consult Date/Time: 11/10/21 13:30 Requesting Physician: Emiliano Farrell MD Reason for consultation: Postoperative medical management. Consult Narrative Narrative: This is a 66-year-old female with COPD, pulmonary embolism, obstructive sleep apnea, GERD, bipolar disorder, and anxiety whom the hospital service has been consulted to help manage her medical conditions postoperatively. She presented today for elective left knee replacement due to ongoing pain despite conservative outpatient management. Her surgery was performed under general anesthesia with no immediate complications documented and an estimated blood loss of 150 mL. Postoperatively she has done quite well and she was up to the bedside chair for several hours. Her pain is controlled. She ate dinner this evening without issue. She denies fever, chills, sweats, chest pain, shortness of breath, nausea, and vomiting. She also denies paresthesias, skin color, and temperature changes distal to the surgical site. Upon discharge she will return home and her is going to be helping her out. Review of Systems Review of Systems: 12 systems were reviewed and are negative except for as per HPI. [facility] Past Medical History Medical History (Updated 11/11/21 @ 00:15 by Cookie Humphrey PA-C) Allergic rhinitis Anxiety Asthma-COPD overlap syndrome Bipolar affective disorder Cellulitis of left lower extremity Essential (primary) hypertension Gastroesophageal reflux disease without esophagitis Mixed hyperlipidemia Osteopenia Pulmonary embolism (2003) Possibly related to hormone use. Subclinical hyperthyroidism Vitamin B12 deficiency Vitamin D deficiency Surgical History Surgical History (Updated 11/10/21 @ 16:32 by Cookie Humphrey PA-C) History of carpal tunnel surgery of right wrist History of cataract extraction with lens replacement History of hysterectomy for benign disease History of nasal septoplasty Status post total gastrectomy and Leonard-en-Y esophagojejunal anastomosis Family History Family History Father Family history of heart disease in male family member before age 55 Patient's father is , Onset Age: 87 Mother Family history of kidney disease, Onset Age: 86 Social History Social History (Updated 11/11/21 @ 00:15 by Cookie Humphrey PA-C) Social History: Surrogate de
[2021-11-10] MEDS: VITAMIN B COMPLEX CAPSULE 1 CAP PO (14:31)
[2021-11-10] MEDS: diazePAM (*CRX) 5 MG TABLET PO (14:34)
[2021-11-10] MEDS: oxyCODONE HCL (*CRX) 2.5 MG TAB IR 7.5 MG PO ×2 (16:57→21:14)
[2021-11-10] MEDS: SENNA/DOCUSATE SODIUM TABLET 2 TAB PO (16:59)
[2021-11-10] MEDS: ASPIRIN 81 MG ENTERIC TABLET PO (16:59)
[2021-11-10] MEDS: polyethylene glycoL 3350 17 GM POWD.PACK 8.5 GM PO (17:00)
[2021-11-10] MEDS: PRAVASTATIN SODIUM 20 MG TABLET 80 MG PO (19:59)
[2021-11-10] MEDS: lamoTRIgine 100 MG TABLET PO (20:00)
[2021-11-10] MEDS: TOPIRAMATE 25 MG TABLET 50 MG PO (20:00)
[2021-11-10] MEDS: busPIRone HCL 2.5 MG, busPIRone HCL 5 MG 7.5 MG PO (20:01)
[2021-11-10] MEDS: LORATADINE 10 MG TABLET PO (20:01)
[2021-11-10] MEDS: MULTIVITS W-FE,MIN CHEWABLE TABLET 2 TABLET PO (20:01)
[2021-11-10] MEDS: QUEtiapine FUMARATE 100 MG TABLET 300 MG PO (20:01)
[2021-11-11] MEDS: oxyCODONE HCL (*CRX) 2.5 MG TAB IR 7.5 MG PO ×4 (01:18→13:29)
[2021-11-11 03:57] VITALS: BP 98/58; PULSE 93; RESP 18; TEMP 36.2; O2SAT 98
[2021-11-11 05:31] LABS: Basophils Percent Auto 0.3 % (0.2-1.2); Eosinophils Absolute Auto 0.1 K/mm3 (0-0.3); Eosinophils Percent Auto 0.5 % (0-4.4); Hematocrit 34.4 % (37.0-47.0); Hemoglobin 11.5 g/dL (12.0-15.0); Immature Granulocyte Absolute 0.05 K/mm3 (0.00-0.031); Immature Granulocyte Percent A 0.4 % (0-0.5); Lymphocytes Percent Auto 11.7 % (18.3-44.2); Mean Corpuscular HGB Conc 33.4 g/dl (32-36); Mean Corpuscular Hemoglobin 32.4 pg (26-34); Mean Corpuscular Volume 96.9 fl (80-100); Mean Platelet Volume 9.2 fl (7.4-10.4); Monocytes Absolute Auto 1.1 K/mm3 (0.1-0.6); Monocytes Percent Auto 9.6 % (2.6-8.5); Neutrophils Absolute Auto 8.6 K/mm3 (1.3-6.7); Neutrophils Percent Auto 77.5 % (45.5-73.1); Platelet Count Result 259 k/mm3 (150-375); Red Blood Count 3.55 M/mm3 (4.2-5.4); Red Cell Distribution Width 13.2 % (11.5-14.5); White Blood Count 11.1 K/mm3 (4.5-10.0)
[2021-11-11 05:44] LABS: Anion Gap 7 mmol/L (8-16); Blood Urea Nitrogen 10 mg/dL (7-17); Calcium 8.6 mg/dL (8.4-10.2); Carbon Dioxide 23 mmol/L (22-30); Chloride 103 mmol/L (98-107); Estimated Glomerular Filt Rate > 60; Glucose 118 mg/dL (65-110); Potassium 4.4 mmol/L (3.4-5.0); Sodium 133 mmol/L (137-145)
--- NOTE | 2021-11-11 08:15 | PM.IMPN ---
Progress Note: A&P Assessment and Plan (1) Degenerative joint disease of left knee: Code(s): M17.12 - Unilateral primary osteoarthritis, left knee Status: Acute Assessment and Plan: Postoperative day 1 status post left total knee arthroplasty. Wound care per ortho pain control deferred to Dr. Farrell. PT/OT consulted. DVT is aspirin (2) Asthma-COPD overlap syndrome: Code(s): J44.9 - Chronic obstructive pulmonary disease, unspecified Status: Acute Assessment and Plan: No acute issues or bronchospasm on exam. Continue maintenance inhalers. (3) Bipolar affective disorder: Code(s): F31.9 - Bipolar disorder, unspecified Status: Acute Assessment and Plan: Per patient, well controlled on medication. Continue quetiapine, lamotrigine, buspirone, aripiprazole. (4) Gastroesophageal reflux disease without esophagitis: Code(s): K21.9 - Gastro-esophageal reflux disease without esophagitis Status: Acute Assessment and Plan: Continue pantoprazole. (5) Mixed hyperlipidemia: Code(s): E78.2 - Mixed hyperlipidemia Status: Acute Assessment and Plan: Continue pravastatin. LFTs are normal at this time (6) Anxiety: Code(s): F41.9 - Anxiety disorder, unspecified Status: Acute Assessment and Plan: Seems controlled at this time Continue current therapy. Subjective Date/time seen: 11/11/21 08:15 Patient was sitting in the chair when I went in to visit her. Patient stated that she is doing okay. She had just gotten up to the bathroom and stated that her knee pain was about an 8 to 9/10. She does state that she is little weak however she did due to bad getting over to the bathroom. She denies any chest pain, shortness of breath, nausea, vomiting, diarrhea, constipation. Patient is stable on medical side for discharge at this time. Patient stated that she does have a help at home home and she is really dreading the walk up to the house via the ramp. Labs are stable at this time. 11/10/21 13:30 This is a 66-year-old female with COPD, pulmonary embolism, obstructive sleep apnea, GERD, bipolar disorder, and anxiety whom the hospital service has been consulted to help manage her medical conditions postoperatively. She presented today for elective left knee replacement due to ongoing pain despite conservative outpatient management. Her surgery was performed under general anesthesia with no immediate complications documented and an estimated blood loss of 150 mL. Postoperatively she has done quite well and she was up to the bedside chair for several hours. Her pain is controlled. She ate dinner this evening without issue. She denies fever, chills, sweats, chest pain, shortness of breath, nausea, and vomiting. She also denies paresthesias, skin color, and temperature changes distal to the surgical site.? Upon discharge she will return home and her is going to be helping her out. Review of Systems Review of Systems: All systems reviewed & are unremarkable except as noted in HPI and below Exam Const: General: cooperative, healthy appearing, no acute distress, well developed, alert and awake Nutritional Appearance: well nourished Orientation/consciousness: patient oriented x3 Limitations: no limitations HENMT: Head: normal to inspection Ears: hearing grossly normal bilaterally General nose exam: Normal external nose present Mouth: Yes Normal oral and palatal mucosa present, Yes lip normal and Yes tongue normal Teeth and gingiva: abnormal tooth and associated gingiva and poor dentition Eyes: General: appearance normal, both eyes and all related structures Neck: Neck: normal visual inspection, full ROM, trachea midline and supple Chest: Chest palpation & inspection: normal inspection of the chest Resp: Effort & Inspection: normal respiratory effort and able to speak in complete sentences Au
[2021-11-11] MEDS: FLUTICASONE/UMECLIDIN/VILANTER 200-62.5-25 MCG ELLIPTA 1 PUFF INHALATION (08:22)
--- NOTE | 2021-11-11 09:10 | PM.PNORT ---
Progress Note: A&P Assessment and Plan (1) S/P total knee arthroplasty: Code(s): Z96.659 - Presence of unspecified artificial knee joint Status: Acute Assessment and Plan: POD #1 : Left TKA Continue PT/OT. WBAT. Walker. HIGH FALL RISK. Continue pain control. Ice knee. Protect skin. DVT prophylaxis with Aspirin. SCDs. Incentive Spirometry Use reviewed. Monitor Dressing. Change prior to discharge. Bowel Regimen. Dispo: Home with Home Health pending progress with PT/OT Subjective Subjective Date/Time Seen: 11/11/21 09:10 Post Op day: 1 Principal diagnosis: Left Knee DJD Interval history: POD #1: Left TKA Patient doing well this morning. Working with PT/OT. Sitting on side of bed at exam. Eager for discharge home. Some difficulty with pain control. Review of Systems Review of Systems: All systems reviewed & are unremarkable except as noted in HPI and below Constitutional: Constitutional: Denies fever(s) and Denies headache(s) ENT: Denies headache(s) Cardiovascular: Cardiovascular: Denies chest pain, Denies diaphoresis, Denies palpitations and Denies dyspnea Respiratory: Respiratory: Denies dyspnea Gastrointestinal: Gastrointestinal: Denies abdominal pain, Denies constipation, Denies nausea and Denies vomiting Genitourinary: Genitourinary: Reports nocturia and Denies dysuria Musculoskeletal: Musculoskeletal: Reports arthralgias (Left Knee ), Reports joint swelling (Left Knee ) and Reports limited range of motion (ROM limited due to recent surgical intervention LEFT Knee ) Neurologic: Denies headache(s) Endocrine: Endocrine: Denies palpitations Exam Const: General: comfortable and no acute distress Resp: Effort & Inspection: normal respiratory effort Cardio: Rate: regular rate Rhythm: regular rhythm GI: GI Palp: Yes Soft to palpation, No Tenderness to palpation present (GI) and No Guarding due to palpation present (GI) Skin: Wounds: wounds noted Other: Incision c/d/i. No surrounding redness/warmth. No hematoma. Mild ecchymosis. No wound dehiscence Neuro: Cognition (Neuro): normal cognition Other: NV intact aside from block. Moves toes. Sensation intact to light touch. +ankle dorsiflexion/plantarflexion. Extrem: Right upper extremity: normal to inspection, full ROM and normal capillary refill Left upper extremity: normal to inspection, full ROM and normal capillary refill Left lower extremity: normal to inspection, normal capillary refill and knee Details: tenderness (diffuse ), swelling (moderate consistent to recent surgery ), abnormal ROM (limited due to recent surgery ) and ecchymosis (as expected with recent surgery. NO hematoma. ) Other: Incision left TKA dressing c/d/i. No hematoma. No signs of infection. No wound dehiscence. Psych: Mental Status: mental status grossly normal Objective Data Vital Signs Vital Signs: Vital Signs - 24 hr 11/10/21 11:05 11/10/21 11:35 11/10/21 11:20 Temperature 36.0 C L Pulse Rate 65 68 66 Respiratory Rate 12 19 16 Blood Pressure 97/55 L 102/63 95/70 L Pulse Oximetry 99 100 100 Oxygen Delivery Room Air Room Air Room Air 11/10/21 11:50 11/10/21 12:05 11/10/21 12:20 Temperature Pulse Rate 58 L 56 L 58 L Respiratory Rate 18 16 18 Blood Pressure 109/63 111/73 110/70 Pulse Oximetry 100 100 100 Oxygen Delivery Room Air Room Air Room Air 11/10/21 12:40 11/10/21 12:30 11/10/21 12:45 Temperature 36.4 C L 36.3 C L Pulse Rate 66 58 L 62 Respiratory Rate 16 16 Blood Pressure 100/78 116/67 Pulse Oximetry 100 100 Oxygen Delivery 11/10/21 13:15 11/10/21 13:37 11/10/21 13:37 Temperature 36.4 C Pulse Rate 66 Respiratory Rate 16 Blood Pressure 122/66 Pulse Oximetry 100 Oxygen Delivery Room Air Room Air 11/10/21 14:15 11/10/21 18:00 11/10/21 19:10 Temperature 36.7 C 36.9 C 36.3 C L Pulse Rate 106 H 75 92 Respiratory Rate 16 16 17 Blood Pressure 115/79 113/73 104/57 L Pulse Oximetry 10
[2021-11-11] MEDS: polyethylene glycoL 3350 17 GM POWD.PACK PO (09:19)
[2021-11-11] MEDS: ACETAMINOPHEN 500 MG TABLET 1000 MG PO (09:19)
[2021-11-11] MEDS: busPIRone HCL 2.5 MG, busPIRone HCL 5 MG 7.5 MG PO (09:21)
[2021-11-11] MEDS: MONTELUKAST SODIUM 10 MG TABLET PO (09:21)
[2021-11-11] MEDS: SENNA/DOCUSATE SODIUM TABLET 2 TAB PO (09:21)
[2021-11-11] MEDS: PANTOPRAZOLE 40 MG TABLET PO (09:22)
[2021-11-11] MEDS: ARIPiprazole 5 MG TABLET 15 MG PO (09:22)
[2021-11-11] MEDS: CALCIUM CARBONATE (OSCAL) 500 MG TABLET PO ×2 (09:22→12:26)
[2021-11-11] MEDS: TOPIRAMATE 25 MG TABLET 50 MG PO (09:22)
[2021-11-11] MEDS: FLUTICASONE PROPIONATE 0.05% NA SPR 16 GM BTL (*BKC) 1 SPRAY NASAL (09:23)
[2021-11-11] MEDS: ESTRADIOL VAGINAL CREAM 42.5 GM 1 APPLIC VAGINAL (09:30)
[2021-11-11 10:04] VITALS: BP 115/56; PULSE 87; RESP 14; TEMP 36.4; O2SAT 99
--- NOTE | 2021-11-11 14:01 | PM.DS ---
DS: Admitting Diagnosis Discharge Date 11/11/21 Admitting Diagnosis Left Knee DJD DS: Discharge Diagnosis Discharge Diagnosis (1) S/P total knee arthroplasty: Code(s): Z96.659 - Presence of unspecified artificial knee joint Status: Acute Assessment and Plan: POD #1 : Left TKA Continue PT/OT. WBAT. Walker. HIGH FALL RISK. Continue pain control. Ice knee. Protect skin. DVT prophylaxis with Aspirin. SCDs. Incentive Spirometry Use reviewed. Monitor Dressing. Change prior to discharge. Bowel Regimen. Dispo: Home with Home Health pending progress with PT/OT DS: Summary Hospital Course Reason for hospitalization: Left TKA Hospital Course: 66-year-old female admitted status post left total knee arthroplasty by Dr. Farrell for postoperative medical management, pain control and mobilization with physical and occupational therapy. Patient progressed very well on postop day 1. Her pain was well controlled. She was cleared by the medicine team, physical and occupational therapy and Orthopedics to be discharged home with home health at this time. She will follow up in the outpatient orthopedic clinic in approximately 3 weeks. Status at Discharge Functional status at discharge: uses cane/walker Overall status at discharge: patient is progressing back to baseline Time Spent with Patient Time attestation: Total time spent providing and/or coordinating discharge services: Exam Const: General: comfortable and no acute distress Resp: Effort & Inspection: normal respiratory effort Cardio: Rate: regular rate Rhythm: regular rhythm Skin: Wounds: wounds noted Other: Incision c/d/i. No surrounding redness/warmth. No hematoma. Mild ecchymosis. No wound dehiscence Neuro: Cognition (Neuro): normal cognition Other: NV intact aside from block. Moves toes. Sensation intact to light touch. +ankle dorsiflexion/plantarflexion. Extrem: Right upper extremity: normal to inspection, full ROM and normal capillary refill Left upper extremity: normal to inspection, full ROM and normal capillary refill Left lower extremity: normal to inspection, normal capillary refill and knee Details: tenderness (diffuse ), swelling (moderate consistent to recent surgery ), abnormal ROM (limited due to recent surgery ) and ecchymosis (as expected with recent surgery. NO hematoma. ) Other: Incision left TKA dressing c/d/i. No hematoma. No signs of infection. No wound dehiscence. Psych: Mental Status: mental status grossly normal DS: Data Data Completed and Pending Labs on day of discharge: Labs from last 24 hours 11/11/21 11/11/21 04:49 04:49 WBC 11.1 H RBC 3.55 L Hgb 11.5 L Hct 34.4 L MCV 96.9 MCH 32.4 MCHC 33.4 RDW 13.2 Plt Count 259 MPV 9.2 Immature Gran % (Auto) 0.4 Neut % (Auto) 77.5 H Lymph % (Auto) 11.7 L Weston % (Auto) 9.6 H Eos % (Auto) 0.5 Baso % (Auto) 0.3 Lymph # (Auto) 1.30 Weston # (Auto) 1.1 H Eos # (Auto) 0.1 Baso # (Auto) 0.0 Abs Immat Gran (auto) 0.05 H Absolute Neuts (auto) 8.6 H Absolute Nucleated RBC 0.0 Nucleated RBC % 0.0 Sodium 133 L Potassium 4.4 Chloride 103 Carbon Dioxide 23 Anion Gap 7 L BUN 10 Creatinine 0.80 Estim Creat Clear Calc Not Reportable Estimated GFR > 60 Glucose 118 H Calcium 8.6 Discharge Plan Discharge Patient Disposition: Home Health Service Discharge Instructions: Per Care Coordination: [facility] will contact you prior to their first visit. [facility] has been arranged for RN and PT/OT eval and treat. [facility] can be contacted at [phone]. Post Op Total Knee Replacement Instructions Dr. Emiliano Farrell [phone] Your dressing will be changed prior to your discharge. You will be sent home with one additional dressing to be changed on post op day 7 by the home health RN. Your rocky will be removed on the 14th day after surgery and steri-strips
[2021-11-11 14:20] VITALS: BP 107/82; PULSE 103; RESP 16; TEMP 36.5; O2SAT 99
== END 2021-11-11 15:00 | disposition home health service (06) ==
LOC: ANHSURGERY 06:00 → ANH2MED 12:34
PROVIDERS: PCP Internal Medicine; Visit Provider Orthopaedic Surgery
PROC: (CPT 27447; principal; 2021-11-10 07:30)
DX: M17.12 Unilateral primary osteoarthritis, left knee (principal); G89.18 Other acute postprocedural pain; M77.02 Medial epicondylitis, left elbow; I10 Essential (primary) hypertension; J44.9 Chronic obstructive pulmonary disease, unspecified; J45.20 Mild intermittent asthma, uncomplicated; K21.9 Gastro-esophageal reflux disease without esophagitis; E55.9 Vitamin D deficiency, unspecified; E53.8 Deficiency of other specified B group vitamins; G40.909 Epilepsy, unspecified, not intractable, without status epilepticus; F31.9 Bipolar disorder, unspecified; E78.2 Mixed hyperlipidemia; M85.80 Other specified disorders of bone density and structure, unspecified site; Z79.51 Long term (current) use of inhaled steroids; Z98.84 Bariatric surgery status; Z98.0 Intestinal bypass and anastomosis status; Z87.891 Personal history of nicotine dependence; E66.9 Obesity, unspecified; Z68.36 Body mass index [BMI] 36.0-36.9, adult; Z79.82 Long term (current) use of aspirin
CPT/HCPCS: 27447; 64447; 20605; 36415; 73560; 80048; 80307; 81001; 83036; 85025; 85610; 85730; 86850; 86900; 86901; 87081; 93005; 94640; 97110; 97116; 97161; 97165; 97530; 97535; A9270; C1713; C1776; J0171; J1040; J1100; J1885; J2250; J2270; J2704; J2795; J3010; J3370; J7030; J7120

== ENCOUNTER 2022-01-04 13:50 | Outpatient (CLI) | payer OTHER, SELFPAY ==
[2022-01-04 17:14] LABS: Iron 42 ug/dL (37-170)
[2022-01-04 17:26] LABS: Percent Iron Saturation 15 % (20-50)
== END 2022-01-04 13:51 | disposition home or self-care (01) ==
LOC: ANHLAB 13:52
PROVIDERS: PCP Internal Medicine; Visit Provider Nurse Practitioner
DX: G25.81 Restless legs syndrome (principal)
CPT/HCPCS: 36415; 82728; 83540; 83550

== ENCOUNTER 2022-01-12 09:30 | Outpatient (RCR) | payer OTHER, SELFPAY ==
--- NOTE | 2021-12-15 09:22 | PTOPEVAL ---
PHYSICAL THERAPY EVALUATION AND PLAN OF CARE 12-15-21 Thank you for referring Mariely Beard to [facility], s/p L TKR. The order also has the diagnosis of L medial epicondylitis, but she reports since the injection, she has not had any pain in her elbow & ROM is full. ?She is scheduled to be seen for therapy? 2 x/week for 4 weeks. Please review, sign, date and return this plan of care JEMIMA. I agree with and certify that the following plan of care is medically necessary. Referring Physician Date Attending Provider: Emiliano Farrell MD Past Medical History Source of Past Medical History Recalled from Previous Visit, Confirmed with Patient/Family Neurological History Hx Neurological Disorders No Significant History Cardiovascular History Hx Cardiac Disorders No Significant History Respiratory History Hx Pulmonary Embolism Yes: ~2003, POS R/T HORMONE REPLACEMENT THERAPY Gastrointestinal History Hx Gastric Bypass Surgery Yes: 2012 Hx Gastroesophageal Reflux Disease Yes Hx Hernia Yes: HIATAL HERNIA REPAIR Genitourinary History Hx Genitourinary Disorders No Significant History Musculoskeletal History Hx Arthritis Yes: B knee OA, back Hx Orthopedic Surgery Yes: RT CARPAL TUNNEL RELEASE Hx Scoliosis Yes Hx Other Musculoskeletal Disorders Yes: L elbow pain Hematological History Hx Hematological Disorders No Significant History Endocrine History Hx Endocrine Disorders No Significant History HEENT History Hx Cataracts Yes: BILAT IMPLANTS Integumentary History Hx Eczema Yes Hx Shingles Yes Reproductive History Hx Other Reproductive Disorders Yes: RT BREAST LUMPECTOMY- BENIGN Psychosocial History Hx Anxiety Yes Anesthesia History Hx Malignant Hyperthermia Yes: [place]- Other History Hx Other Medical Conditions Yes: obesity Evaluation Information Diagnosis s/p L TKR Onset 11-10-21 Additional Evaluation Detail order for L medial epicondylitis also- pt reports she had an injection in elbow and no longer has pain Subjective Information had [facility] PT, d/c 12-01-21; have Query Text:As Reported By Patient/ been doing HEP--sitting and Family supine positions;using wheeled walker and have a cane, but not used it yet; have only been out of the house once- to alevism last weekend; stood in kitchen about 10 min cutting vegetables; Prior Level of Function Activity Level (Last 3 Months) Occupation
--- NOTE | 2022-01-12 10:29 | PTOPEVAL ---
PHYSICAL THERAPY DISCHARGE REPORT 01-12-22 Refer to the clinical summary below, for her status today, compared to the initial evaluation. The goals were partially achieved. Thank you for referring Mariely Beard to [facility].? Please review, sign, date and return this Discharge report JEMIMA. I agree with and certify that the following plan of care is medically necessary. Referring Physician Date Attending Provider: Emiliano Farrell MD Diagnosis s/p L TKR and L medial epicondylitis Additional Evaluation Detail no trauma or injury to elbow, just started hurting Subjective Information Mariely reports: knee is better Query Text:As Reported By Patient/ , using the cane for walking Family and walker only at night when get OOB to go to the bathroom; L hip is still weak; is walking short distances in community with cane and sometimes walker; L elbow is bothering her and want to get it checked out Pain Assessment Pain Scale Pain Scale Used Numeric (1 - 10) Self Report Pain Assessment Left Elbow(s) Reported Pain Level 0 Pain Frequency Chronic,Intermittent Lowest Pain Intensity 0 Greatest Pain Intensity 10 Other Pain Aggravating Factors push down on elbow to move when in bed Left Knee(s) Reported Pain Level 0 Pain Description Aching Pain Frequency Chronic,Intermittent Lowest Pain Intensity 0 Greatest Pain Intensity 2 Pain Aggravating Factors Exercise/Activity,Weight Bearing/Standing Additional Pain Score Comments reports standing tolerance with home/kitchen tasks about 5 min, then have to sit down; reinforced increase activity as tolerated; with sleeping, knee pain does not wake her up from sleeping, but has sciatica pain and restless leg syndrome that disrupts her sleeping elbow: had steroid shot in elbow with TKR; it helped but still give me pain when lean on elbow and push to move and change positions in bed- tingle pain; rest a few
== END 2022-01-14 10:52 | disposition home or self-care (01) ==
LOC: ANHPT 09:30
PROVIDERS: PCP Internal Medicine; Visit Provider Orthopaedic Surgery
DX: Z47.1 Aftercare following joint replacement surgery (principal); M25.562 Pain in left knee; M77.02 Medial epicondylitis, left elbow; Z96.659 Presence of unspecified artificial knee joint
CPT/HCPCS: 97110; 97112; 97116; 97161; 97530

== ENCOUNTER 2022-06-30 16:13 | Outpatient (CLI) | payer OTHER, SELFPAY ==
--- NOTE | ~2022-06-30 | MM_ITS ---
EXAMINATION: MM screening jr BI w lisa HISTORY: Screening TECHNIQUE: Craniocaudal and mediolateral oblique 3-D tomosynthesis images were obtained and synthetic 2-D images were generated. CAD analysis was submitted and interpreted. COMPARISON: Comparison to multiple prior studies sequentially, with oldest reviewed study dated 03/20. BREAST PARENCHYMAL COMPOSITION: There are scattered areas of fibroglandular density. FINDINGS: Stable bilateral breast calcifications. There is no evidence of suspicious mass, calcificat ion, or architectural distortion to suggest malignancy in either breast. There has been no suspicious interval change. IMPRESSION: 1. No mammographic evidence of malignancy. 2. Recommend routine screening mammography in one year. BI-RADS Category 2: Benign finding(s). Reviewed, dictated and finalized at location A. 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
== END 2022-06-30 16:14 | disposition home or self-care (01) ==
PROVIDERS: PCP Emergency Medicine; Visit Provider Obstetrics & Gynecology
DX: Z12.31 Encounter for screening mammogram for malignant neoplasm of breast (principal)
CPT/HCPCS: 77063; 77067

== ENCOUNTER 2022-07-01 15:40 | Outpatient (CLI) | payer OTHER, SELFPAY ==
--- NOTE | ~2022-07-01 | XR_ITS ---
XR chest 2V DATE: 07/01/2022 16:11 INDICATION: Palpitations TECHNIQUE: PA and lateral views COMPARISON: 12/23/2020 PA and lateral chest FINDINGS: Normal heart size. Aortic calcification. No hilar or mediastinal enlargement. No pulmonary infiltrate or consolidation, pleural effusion or pulmonary vascular congestion or pneumo thorax. Severe thoracolumbar scoliosis. Status post cholecystectomy. IMPRESSION: No active cardiopulmonary disease Aortic atherosclerosis Severe thoracolumbar scoliosis Reviewed, dictated and finalized at location A. 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
[2022-07-01 16:25] LABS: Basophils Absolute Auto 0.1 K/mm3 (0.0-0.1); Basophils Percent Auto 0.6 % (0.2-1.2); Eosinophils Absolute Auto 0.4 K/mm3 (0-0.3); Eosinophils Percent Auto 5.2 % (0-4.4); Hematocrit 40.7 % (37.0-47.0); Hemoglobin 13.1 g/dL (12.0-15.0); Immature Granulocyte Absolute 0.05 K/mm3 (0.00-0.031); Immature Granulocyte Percent A 0.6 % (0-0.5); Lymphocytes Absolute Auto 2.19 K/mm3 (0.9-3.2); Lymphocytes Percent Auto 28.4 % (18.3-44.2); Mean Corpuscular HGB Conc 32.2 g/dl (32-36); Mean Corpuscular Volume 96.4 fl (80-100); Mean Platelet Volume 8.6 fl (7.4-10.4); Monocytes Absolute Auto 0.7 K/mm3 (0.1-0.6); Monocytes Percent Auto 8.9 % (2.6-8.5); Neutrophils Absolute Auto 4.3 K/mm3 (1.3-6.7); Neutrophils Percent Auto 56.3 % (45.5-73.1); Platelet Count Result 345 k/mm3 (150-375); Red Blood Count 4.22 M/mm3 (4.2-5.4); Red Cell Distribution Width 15.7 % (11.5-14.5); White Blood Count 7.7 K/mm3 (4.5-10.0)
[2022-07-05 16:48] LABS: Immunoglobulin E 19 kU/L (<=114)
== END 2022-07-01 15:41 | disposition home or self-care (01) ==
PROVIDERS: PCP Emergency Medicine; Visit Provider Internal Medicine Pulmonary Disease
DX: J41.0 Simple chronic bronchitis (principal); R00.2 Palpitations; G47.33 Obstructive sleep apnea (adult) (pediatric); F17.211 Nicotine dependence, cigarettes, in remission; J45.40 Moderate persistent asthma, uncomplicated; I70.0 Atherosclerosis of aorta
CPT/HCPCS: 36415; 71046; 82785; 85025

== ENCOUNTER 2022-08-06 07:17 | Outpatient (CLI) | payer OTHER, SELFPAY ==
[2022-08-06 08:06] LABS: Alanine Aminotransferase 19 U/L (6-35); Alkaline Phosphatase 112 U/L (38-126); Anion Gap 4 mmol/L (8-16); Aspartate Amino Transferase 26 U/L (14-36); Bilirubin,Total 0.4 mg/dL (0.2-1.3); Blood Urea Nitrogen 10 mg/dL (7-17); Calcium 8.6 mg/dL (8.4-10.2); Carbon Dioxide 25 mmol/L (22-30); Chloride 111 mmol/L (98-107); Cholesterol 179 mg/dL (0-200); Estimated Glomerular Filt Rate > 60; Glucose 93 mg/dL (65-110); HDL Direct 77 mg/dL; Potassium 4.5 mmol/L (3.4-5.0); Sodium 140 mmol/L (137-145); Triglycerides 60 mg/dL (<150)
[2022-08-06 08:17] LABS: LDL Cholesterol Direct 63 mg/dL
[2022-08-06 08:56] LABS: Hemoglobin A1C 5.2 % (<5.7)
[2022-08-06 09:13] LABS: Folic Acid > 20.0 ng/mL (2.76->20); Vitamin B12 > 1000.0 pg/mL (239-931)
[2022-08-10 15:22] LABS: Vitamin D 1,25 (OH)2 Total 55 pg/mL (18-72); Vitamin D2 1,25 (OH)2 <8 pg/mL; Vitamin D3 1,25 (OH)2 55 pg/mL
== END 2022-08-06 07:18 | disposition home or self-care (01) ==
PROVIDERS: PCP Emergency Medicine; Visit Provider Emergency Medicine
DX: E78.2 Mixed hyperlipidemia (principal); I10 Essential (primary) hypertension; E55.9 Vitamin D deficiency, unspecified; R73.01 Impaired fasting glucose
CPT/HCPCS: 36415; 80053; 80061; 82607; 82652; 82746; 83036

== ENCOUNTER 2022-08-13 16:40 | Inpatient (IN) | payer OTHER, SELFPAY ==
[2022-08-13] VITALS (20 sets, daily range): BP systolic 108–145; BP diastolic 67–92; PULSE 82–103; RESP 17–20; TEMP 36.6–37.3; O2SAT 94–100; BMI 36.2
--- NOTE | ~2022-08-13 | XR_ITS ---
EXAMINATION: XR abdomen NG/feed tube rechec INDICATION: Advanced nasogastric tube TECHNIQUE: Portable AP KUB-NG at 1827 hours COMPARISON: 1739 hours FINDINGS: The nasogastric tube has been advanced. The proximal side port now ends in the stomach. IMPRESSION: 1. Nasogastric tube advanced into the stomach. Reviewed, dictated and finalized at location F. ITAL AIDE
--- NOTE | ~2022-08-13 | CT_ITS ---
EXAMINATION: CT abdomen pelvis w con DATE: 08/13/2022 19:39 INDICATION: low abd pain, N/V TECHNIQUE: Computed tomography (CT) of the abdomen and pelvis was performed with 100 mL Omnipaque-350 intravenous contrast. Automated exposure control and iterative reconstruction technique were employe d. The dose-length product was 929.36 mGy-cm. COMPARISON: 12/01/2015. FINDINGS: Lower thorax: Unremarkable Liver: Normal. Biliary/Gallbladder: Gallbladder is absent. Stable intra and extrahepatic bile duct dilation Pancreas: No mass or duct dilation. Spleen: Normal. Adrenals:No mass. Kidneys: Right lower pole hypodensity, too small to characterize but most likely representing a cyst. No suspicious mass, stone, or hydronephrosis. GI tract: Distal esophageal and gastric wall edema as can be seen with esophagitis/gastritis. Prior g astric surgery. Uncomplicated small bowel anastomosis. Diffuse small bowel dilation, no focal transit ion point detected. Small volume interloop fluid in the lower midabdomen. No pneumatosis. Uniform bow el wall enhancement Normal appendix. Diverticulosis without diverticulitis. Mesentery/Peritoneum: No ascites, mass, or free air. Retroperitoneum: No mass. Atherosclerotic abdominal aortic and/or arterial calcifications. Pelvis: Surgically absent uterus. Soft Tissues: Soft tissues and body wall unremarkable. Bones: No acute osseous finding. Severe lumbar scoliosis. IMPRESSION: CT findings concerning for distal small bowel dilatation. No focal transition point or obstructing ma ss detected. Reviewed, dictated and finalized at location K. NCIAL DEALERS IMPRESSION: CT findings concerning for distal small bowel dilatation. No focal transition p oint or obstructing mass detected.
--- NOTE | ~2022-08-13 | XR_ITS ---
XR fl guid NG/feed tube insert DATE: 08/14/2022 13:05 INDICATION: Fluoroscopy for NG tube placement in gastric remnant. Small bowel obstruction. TECHNIQUE: Fluoroscopy was performed for assessment of NG tube position during placement by nurse Travis MOURA 2.482 Gycm2 0.5 minutes fluoroscopy time COMPARISON: None FINDINGS: NG tube was placed in left upper quadrant in expected position of gastric remnant. IMPRESSION: Nasogastric tube placement in gastric remnant Reviewed, dictated and finalized at Location A. Reviewed, dictated and finalized at location A. NATAL TECH
--- NOTE | ~2022-08-13 | XR_ITS ---
EXAM: XR abdomen/kub 1V DATE: 08/15/2022 17:00 HISTORY: sbo . COMPARISON: 08/14/2022 at 9:28 AM and 2:03 PM, CT abdomen and pelvis 08/13/2022. FINDINGS: NG tube, tip over the stomach, side port near the GE junction. Cholecystectomy clips. Stre aky bibasilar opacities. Multiple loops of dilated small bowel, increasing when compared to multiple prior studies. No organomegaly. Pelvic phleboliths. Severe lumbar scoliosis and degenerative disc dis ease. IMPRESSION: Worsening distal small bowel obstruction. Reviewed, dictated and finalized at location K. DER OPERATOR
--- NOTE | ~2022-08-13 | CT_ITS ---
EXAMINATION: CTA chest PE protocol DATE: 08/20/2022 14:09 INDICATION: Tachycardia. Abnormal electrocardiogram. TECHNIQUE: Computed tomography angiography (CTA) of the chest was performed with 100 mL Omnipaque-350 intravenous contrast timed to evaluate the pulmonary arteries. Coronal maximum intensity projection 3D-reconstructions were created by the technologist. Automated exposure control and iterative reconst ruction technique were employed. The dose-length product was 391.11 mGy-cm. COMPARISON: Chest CT 03/29/2016, CT abdomen and pelvis 08/13/2022 FINDINGS: There are small pleural effusions. There are peripheral groundglass opacities in the upper lobes. There is smooth septal thickening bilaterally. There is mild atelectasis bilaterally. A calcif ied right lung nodule and calcified right hilar lymph nodes are consistent with old granulomatous dis ease. The nasogastric tube tip is in the stomach. There are changes of gastric bypass procedure. The heart size is normal. There is no pulmonary embolus. There are coronary artery calcifications. There are changes of cholecystectomy. There is dextroscoliosis and severe spondylosis of thoracolumbar spin e. IMPRESSION: 1. No pulmonary embolus. Sensitivity is mildly decreased by motion artifact. 2. Mild pulmonary edema with small pleural effusions. Reviewed, dictated and finalized at location A. OGRAPHIC DOUBLE
--- NOTE | ~2022-08-13 | XR_ITS ---
EXAMINATION: XR chest 2V DATE: 08/22/2022 08:41 INDICATION: Tachycardia. Leukocytosis. TECHNIQUE: Frontal and lateral views of the chest were obtained. COMPARISON: Chest 2 views 07/01/2022 FINDINGS: There is mild atelectasis in the mid and lower lung zones. No pleural effusion or pneumotho rax. Cardiomegaly is noted. A right upper extremity peripherally inserted central venous catheter (PI CC) is seen with tip in the superior vena cava. Surgical clips in the right upper quadrant are likely from cholecystectomy. There is dilated small bowel in the abdomen. IMPRESSION: 1. Mild atelectasis in the mid and lower lung zones. 2. Cardiomegaly. 3. Dilated small bowel, consistent with adynamic ileus versus small bowel obstruction. Reviewed, dictated and finalized at location D. NING EXECUTIVE IMPRESSION: 1. Mild atelectasis in the mid and lower lung zones. 2. Cardiomegaly. 3. Dilated small bowel, consistent with adynamic ileus versus small bowel obstr uction.
--- NOTE | ~2022-08-13 | XR_ITS ---
XR abdomen/kub 1V DATE: 08/14/2022 09:42 INDICATION: Small bowel obstruction TECHNIQUE: 2 portable supine AP views COMPARISON: August 13, 2022 CT abdomen pelvis FINDINGS: There is persistent prominent gaseous dilatation of the small bowel with evacuated colon, s uggesting distal small bowel obstruction. Surgical clips, right upper quadrant, consistent with cholecystectomy. Radiopaque sutures overlie the left upper quadrant likely related to previous gastric bypass surgery. Radiopaque contrast material from yesterday's CT abdomen pelvis noted in the urinary bladder. Severe rotatory levoscoliosis and very severe degenerative disease of the lumbar spine. Bilateral hip osteoid arthritis, more prominent on the right. IMPRESSION: Distal small bowel obstruction Reviewed, dictated and finalized at Location A. Reviewed, dictated and finalized at location A. CTOR OF DATABASE MARKETING
--- NOTE | ~2022-08-13 | XR_ITS ---
EXAMINATION: XR UGI water soluble w sbs DATE: 08/16/2022 12:26 INDICATION: Small bowel obstruction. TECHNIQUE: Water-soluble contrast was injected into the nasogastric tube. Fluoroscopy of the stomach and small bowel was performed. Fluoroscopy exposure time was 0.1 minutes. Radiographs of the abdomen were obtained. The total number of images was 8. COMPARISON: CT abdomen and pelvis 08/13/2022 FINDINGS: UPPER GASTROINTESTINAL SERIES: There are changes of gastric bypass procedure. The nasogastric tube tip is in the jejunum. SMALL BOWEL SERIES: At 45 minutes, there was oral contrast in proximal dilated small bowel. There is dilated unopacified distal small bowel. The colon is decompressed. The exam was terminated by the surgeon at this time. S urgical clips in the right upper quadrant are likely from cholecystectomy. IMPRESSION: 1. Distal small bowel obstruction. Reviewed, dictated and finalized at location A. CIL ON AGING DIRECTOR
--- NOTE | ~2022-08-13 | XR_ITS ---
Supine views of the abdomen Clinical history: Small bowel obstruction Findings: NG tube in satisfactory position. Multiple dilated loops of small bowel are present, consis tent with small bowel obstruction. No definite free air. Cholecystectomy clips are present. Stable pr ominent levoscoliosis of the lumbar spine with diffuse degenerative change. No abnormal mass lesion o r calcification is seen. Impression: Small bowel obstruction with NG tube in place. Stable scoliosis of the lumbar spine with degenerative change. Reviewed, dictated and finalized at location M. LAUNDER OPERATOR Impression: Small bowel obstruction with NG tube in place. Stable scoliosis of the lumbar spine with degenerative change.
--- NOTE | ~2022-08-13 | XR_ITS ---
EXAMINATION: XR abdomen NG/feed tube rechec INDICATION: Nasogastric tube placement TECHNIQUE: Portable AP KUB-NG at 1739 hours COMPARISON: 08/16/2022 FINDINGS: The tip of the nasogastric tube is in the stomach. The proximal side port is in the distal esophagus. Contrast from recent upper GI partially opacifies the large bowel. IMPRESSION: 1. Tip of the nasogastric tube in the stomach with the proximal side port in the distal esophagus. Re commend advancing 4 to 5 cm. Reviewed, dictated and finalized at location F. SS LIAISON IMPRESSION: 1. Tip of the nasogastric tube in the stomach with the proximal side port in th e distal esophagus. Recommend advancing 4 to 5 cm.
--- NOTE | ~2022-08-13 | XR_ITS ---
Supine view of the abdomen Clinical history: Small bowel obstruction COMPARISON: 08/15/2022 Findings: NG tube in satisfactory position. Multiple dilated small bowel loops are unchanged. No defi nite free air. No abnormal mass lesion or calcification is seen. Stable scoliosis of the lumbar spine with degenerative change. Impression: No interval change. NG tube in place with multiple dilated small bowel loops, consistent with small b owel obstruction. Reviewed, dictated and finalized at location M. E FITTER Impression: No interval change. NG tube in place with multiple dilated small bowel loops, c onsistent with small bowel obstruction.
--- NOTE | ~2022-08-13 | CT_ITS ---
EXAMINATION: CT abdomen pelvis w con DATE: 08/22/2022 13:26 INDICATION: Laparotomy 6 days ago; leukocytosis. TECHNIQUE: Computed tomography (CT) of the abdomen and pelvis was performed with 100 CC Omnipaque 350 intravenous contrast. Automated exposure control and iterative reconstruction technique were employe d. Exam dose: 914.92 mGy-cm total exam DLP. COMPARISON: 09/05/2014 KUB for NG tube 08/16/2022 water-soluble upper gastrointestinal series CT abdomen pelvis FINDINGS: There is mild discoid atelectasis at the bases of the lower lobes and to a lesser extent li ngula. Minimal bilateral pleural effusions. Normal heart size. Coronary artery atherosclerotic calcification. Status post cholecystectomy. This likely accounts for mild prominence of the intrahepatic bile ducts. The liver, spleen, pancreas, and adrenal glands and kidneys are unremarkable. There is atherosclerotic calcification and tortuosity of the abdominal aorta but no aneurysm. No intr aperitoneal or retroperitoneal or pelvic mass lesion or adenopathy or ascites is noted. There is nonspecific dilatation of the small bowel up to 3.8 cm diameter, with multiple small bowel a ir-fluid levels. Given history of recent laparotomy, adynamic ileus is a consideration. Clinical renny elation is advised. There are 2 hematomas or seromas along the mid ventral abdominal wall at the incision site, the more superior fluid collection measuring up to 2.5 cm AP, 2.1 cm transverse and approximately 1.8 cm maxim al vertical dimension, the lower collection adjacent 8.6 cm vertical dimension, 4.5 cm transverse dim ension and approximately 2.7 cm maximal AP dimension. Minimal subcutaneous emphysema in the anterior abdominal wall. There is contrast material within multiple left colon diverticula, primarily in the sigmoid area. No CT evidence of diverticulitis. No intraperitoneal free air. Scoliosis and severe degenerative changes of the thoracic and particularly lumbar spine. IMPRESSION: 2 seromas and/or hematomas along the incision at the ventral mid abdominal and pelvic wa lls Up to 3.8 cm diameter of the small bowel with multiple small bowel air-fluid levels. This may be due to adynamic ileus given the history of recent surgery. Clinical correlation is advised. Status post cholecystectomy Diverticulosis of the colon; no CT evidence of diverticulitis Reviewed, dictated and finalized at Location A. Reviewed, dictated and finalized at location B. GER COLLECTION IMPRESSION: 2 seromas and/or hematomas along the incision at the ventral mid a bdominal and pelvic aguirre Up to 3.8 cm diameter of the small bowel with multiple small bowel air-fluid le vels. This may be due to adynamic ileus given the history of recent surgery. Cl inical correlation is advised. Status post cholecystectomy Diverticulosis of the colon; no CT evidence of diverticulitis
[2022-08-13 17:09] LABS: Basophils Absolute Auto 0.1 K/mm3 (0.0-0.1); Basophils Percent Auto 0.4 % (0.2-1.2); Eosinophils Absolute Auto 0.2 K/mm3 (0-0.3); Eosinophils Percent Auto 1.3 % (0-4.4); Hematocrit 41.7 % (37.0-47.0); Hemoglobin 13.8 g/dL (12.0-15.0); Immature Granulocyte Absolute 0.05 K/mm3 (0.00-0.031); Immature Granulocyte Percent A 0.4 % (0-0.5); Lymphocytes Absolute Auto 1.01 K/mm3 (0.9-3.2); Lymphocytes Percent Auto 7.5 % (18.3-44.2); Mean Corpuscular HGB Conc 33.1 g/dl (32-36); Mean Corpuscular Hemoglobin 31.7 pg (26-34); Mean Corpuscular Volume 95.6 fl (80-100); Mean Platelet Volume 8.6 fl (7.4-10.4); Monocytes Absolute Auto 0.6 K/mm3 (0.1-0.6); Monocytes Percent Auto 4.8 % (2.6-8.5); Neutrophils Absolute Auto 11.5 K/mm3 (1.3-6.7); Neutrophils Percent Auto 85.6 % (45.5-73.1); Platelet Count Result 344 k/mm3 (150-375); Red Blood Count 4.36 M/mm3 (4.2-5.4); Red Cell Distribution Width 14.1 % (11.5-14.5); White Blood Count 13.4 K/mm3 (4.5-10.0)
[2022-08-13 17:22] LABS: Alanine Aminotransferase 20 U/L (6-35); Albumin Level 4.5 g/dL (3.5-5.1); Alkaline Phosphatase 134 U/L (38-126); Anion Gap 7 mmol/L (8-16); Aspartate Amino Transferase 39 U/L (14-36); Bilirubin,Total 0.4 mg/dL (0.2-1.3); Blood Urea Nitrogen 12 mg/dL (7-17); Calcium 9.3 mg/dL (8.4-10.2); Carbon Dioxide 24 mmol/L (22-30); Chloride 102 mmol/L (98-107); Estimated Glomerular Filt Rate > 60; Glucose 119 mg/dL (65-110); Lipase 101 U/L (23-300); Potassium 4.5 mmol/L (3.4-5.0); Sodium 133 mmol/L (137-145)
[2022-08-13 18:13] LABS: Appearance Urine Clear (Clear); Bilirubin Urine Negative (Negative); Blood Urine Trace-intact (Negative); Color Urine Yellow (Yellow); Glucose Urine UA Negative (Negative); Ketones Urine 1+ mg/dL (Negative); Leukocyte Esterase Ur Negative LEU/UL (Negative); Nitrate Urine Negative (Negative); Protein Urine Negative (Negative); Urobilinogen Urine 0.2 mg/dL (<2.0)
[2022-08-13 18:19] LABS: Bacteria Urine Trace /hpf; Mucus Urine Rare /lpf; Squamous Epithelial Cell Urine Few /hpf (Few); WBC Urine 0-3 /hpf
[2022-08-13 18:20] LABS: Add Urine Microscopic? YES
--- NOTE | 2022-08-13 19:00 | ED.GENADULT ---
HPI - General Adult General Chief complaint: Abdominal Pain Stated complaint: Lower Abd Pain, Nausea Time Seen by Provider: 08/13/22 17:52 History of Present Illness HPI narrative: 67-year-old female presented to the emergency department for evaluation of diffuse abdominal cramping with associated nausea. Patient states symptoms started at approximately 3 AM this morning. Patient states that she has had some emesis but denies any hematemesis. Patient states that she has had a large bowel movement this morning that did not change her symptoms but has since had no significant bowel movements and has not been passing flatus. Patient does have a history of a gastric bypass in 2012 and did have a bowel obstruction in 2016. Patient does have history of anxiety, bipolar, COPD, high cholesterol. Related Data Home Medications Medication Instructions Recorded Confirmed aspirin 81 mg tablet,delayed 81 mg PO BID 12/25/19 06/03/22 release (Geni Low Dose Aspirin) buspirone 7.5 mg tablet 7.5 mg PO BID 12/25/19 06/03/22 cetirizine 10 mg capsule (Zyrtec) 10 mg PO HS 12/25/19 06/03/22 lamotrigine 100 mg tablet 100 mg PO HS 12/25/19 06/03/22 (Lamictal) topiramate 50 mg tablet (Topamax) 50 mg PO BID 12/25/19 06/03/22 acetaminophen 500 mg capsule 1,000 mg PO BID 01/21/20 06/03/22 calcium carbonate 500 mg calcium 500 mg PO TID 01/21/20 06/03/22 (1,250 mg) tablet (Calcium 500) aripiprazole 15 mg tablet (Abilify) 15 mg PO DAILY 07/24/20 06/03/22 vitamin B complex (B 1 tablet PO 2XW 10/06/20 06/03/22 Complex-Vitamin B12 tablet) vitamin B12 500 mcg-folic acid 400 1 tablet PO 2XW 03/29/21 06/03/22 mcg tablet nystatin 100,000 unit/gram topical 1 applic topical TID PRN Itching 09/01/21 06/03/22 powder quetiapine 300 mg tablet (Seroquel) 300 mg PO QHS 09/01/21 06/03/22 ibandronate 150 mg tablet (Boniva) 150 mg PO MONTHLY 10/18/21 06/03/22 magnesium 250 mg tablet 1,000 mg PO BID 10/18/21 06/03/22 tumeric 100 mg-ann 150 mg-olive 1 cap PO BID 10/18/21 06/03/22 50 mg-oreg 150 mg-caprylate capsule estradiol 0.01% (0.1 mg/gram) 1 applic vaginal 3XW 10/27/21 06/03/22 vaginal cream fluticasone fur. 200 mcg-umeclid 1 inh inhalation QAM 10/27/21 06/03/22 62.5 mcg-vilant 25 mcg inhalat.powder (Trelegy Ellipta) fluticasone propionate 50 1 spray intranasal DAILY 10/27/21 06/03/22 mcg/actuation nasal spray,suspension pediatric multivitamin 2 tablet PO HS 10/27/21 06/03/22 Allergies Allergy/AdvReac Type Severity Reaction Status Date / Time Sulfa (Sulfonamide Allergy Severe Rash Verified 08/13/22 18:58 Antibiotics) Penicillins Allergy Intermediate Rash Verified 08/13/22 18:58 Cephalosporins Allergy Mild Rash IN Verified 08/13/22 18:58 MOUTH erythromycin base AdvReac Intermediate GI UPSET, Verified 08/13/22 18:58 ABDOMINAL PAIN Review of Systems Review of Systems: CONSTITUTIONAL: Denies fever, chills, or sweats. EYES: Denies visual changes, redness, or discharge. ENT: Denies rhinorrhea, congestion, sore throat, or otalgia. CARDIOVASCULAR: Denies chest pain, palpitations, or edema. RESPIRATORY: Denies cough or dyspnea. GASTROINTESTINAL: See HPI GENITOURINARY: Denies dysuria or hematuria. SKIN: Denies rash or itching. MUSCULOSKELETAL: Denies back pain, joint pain, or myalgia. NEUROLOGIC: Denies headache, numbness, or weakness. [facility] Past Medical History Medical History (Updated 08/13/22 @ 21:01 by Hans Urena MD) Allergic rhinitis Anxiety Asthma-COPD overlap syndrome Bipolar affective disorder Cellulitis of left lower extremity Essential (primary) hypertension Gastroesophageal reflux disease without esophagitis Mixed hyperlipidemia Osteopenia Pulmonary embolism (2003) Possibly related to hormone use. Right knee DJD Subclinical hyperthyroidism Vitamin B12 deficiency Vitamin D deficiency Surgical History Surgical History History of
--- NOTE | 2022-08-13 19:16 | PC.NURSE ---
Report received from BRIEN Elkins. Assumed care of patient at this time.
[2022-08-13] MEDS: PANTOPRAZOLE SODIUM IV 40 MG VIAL IV PUSH (20:42)
--- NOTE | 2022-08-13 20:46 | PC.NURSE ---
Patient informed this nurse that she had gastric sleeve procedure in 2012 and was told to not have any blind NG placed. ERP notified.
--- NOTE | 2022-08-13 20:59 | PM.IMHP ---
H&P: HPI History of Present Illness Date/Time: 08/13/22 20:59 Chief Complaint: ABDOMINAL PAIN Narrative: This is a 67-year-old female with past medical history significant for gastric bypass surgery, COPD/emphysema, former smoker, osteoporosis, dyslipidemia. Patient presents to the emergency room with 1 day history of abdominal pain diffusely localized, had bowel movement in the morning which she considered to be normal a, has been having nausea vomiting not able to pass gas for the reminder of the day has not been able to eat pain is colicky in nature rated 8/10 intensity at the time of my visit. Patient denies any fevers, rigors, chills, cough, sputum production, pain or burning with urination denies diarrhea denies hematemesis or coffee-ground emesis or bright red blood per rectum. Preliminary workup was significant for CT of abdomen and pelvis was reported as: FINDINGS: Lower thorax: Unremarkable Liver: Normal.? Biliary/Gallbladder: Gallbladder is absent. Stable intra and extrahepatic bile duct dilation Pancreas: No mass or duct dilation. Spleen: Normal. Adrenals:No mass. Kidneys: Right lower pole hypodensity, too small to characterize but most likely representing a cyst. No suspicious mass, stone, or hydronephrosis. GI tract: Distal esophageal and gastric wall edema as can be seen with esophagitis/gastritis. Prior gastric surgery. Uncomplicated small bowel anastomosis. Diffuse small bowel dilation, no focal transition point detected. Small volume interloop fluid in the lower midabdomen. No pneumatosis. Uniform bowel wall enhancement Normal appendix. Diverticulosis without diverticulitis. Mesentery/Peritoneum: No ascites, mass, or free air. Retroperitoneum: No mass. Atherosclerotic abdominal aortic and/or arterial calcifications. Pelvis: Surgically absent uterus. Soft Tissues: Soft tissues and body wall unremarkable. Bones:? No acute osseous finding. Severe lumbar scoliosis. IMPRESSION: CT findings concerning for distal small bowel dilatation. No focal transition point or obstructing mass detected. Review of Systems Review of Systems: Abdominal pain, nausea, vomiting Constitutional: Constitutional: Denies chills, Denies fever(s), Denies malaise, Denies night sweats and Denies weakness Eyes: Eyes: Denies change in vision ENT: Denies dysphagia and Denies odynophagia Cardiovascular: Cardiovascular: Denies chest pain, Denies leg edema and Denies palpitations Respiratory: Respiratory: Denies chest congestion, Denies cough and Denies dyspnea Gastrointestinal: Gastrointestinal: Reports abdominal pain, Denies melena, Denies hematochezia, Denies coffee ground emesis, Reports constipation, Reports GI cramping, Denies dyspepsia, Denies heartburn, Denies diarrhea, Reports nausea and Reports vomiting Genitourinary: Genitourinary: Denies dysuria Musculoskeletal: Musculoskeletal: Denies muscle weakness Integumentary/Breasts: Skin/Breast: Denies rash Neurologic: Denies vertigo, Denies dizziness, Denies focal weakness and Denies Sensory deficit (Neuro) Psychiatric: Psychiatric: Reports no additional psychiatric complaints and Reports as per HPI Endocrine: Endocrine: Denies cold intolerance, Denies flushing, Denies heat intolerance, Denies polyphagia, Denies polydipsia and Denies palpitations Hematologic/Lymphatic: Hematologic/Lymphatic: Reports no additional hematologic/lymphatic complaints and Reports as per HPI Allergic/Immunologic: Allergic/Immunologic: Reports no additional allergic/immunologic complaints and Reports as per HPI PMFSH Past Medical History Medical History (Updated 08/14/22 @ 01:29 by Brent Fulton MD) Allergic rhinitis Anxiety Asthma-COPD overlap syndrome Bipolar affective disorder Cellulitis of left lower extremity Essential (primary) hypertension Gastroesophageal reflux disease without esophagitis Mixed hyperlipidemia Osteopenia Pulmonary embolism (2003) Possibly related to hormone use. Right knee
[2022-08-13] MEDS: ONDANSETRON INJ 4 MG/2 ML VIAL IV PUSH (21:24)
[2022-08-13] MEDS: HYDROmorphone HCL INJ (*CRX) 1 MG/ML SYR 0.5 MG IV PUSH (21:24)
[2022-08-13 21:49] LABS: Influenza A QL RT-PCR Negative (Negative); Influenza B QL RT-PCR Negative (Negative); SARS-CoV-2 RNA PCR Negative
--- NOTE | 2022-08-13 22:24 | ADMGEN ---
This patient, Mariely Beard, was admitted to Medical Room 256-01. Patient/family oriented to hospital policies and general routines including ID bracelet, bed and alarms, visiting hours, pain management, procedures, bathroom and other care routines, personal items, smoking policy, room service/diet, and visiting hours. Information on how to activate the Rapid Response Team has been discussed. Patient/Family are encouraged to report perceived risks to care and to ask questions if they do not understand what they are told or what they should do.
[2022-08-13] MEDS: SODIUM CHLORIDE 0.9% IV 1,000 ML 125 ML IV CONT (22:46)
[2022-08-14] MEDS: HYDROmorphone HCL INJ (*CRX) 1 MG/ML SYR 0.5 MG IV PUSH ×5 (02:10→20:37)
[2022-08-14 06:00] VITALS: BP 104/69; PULSE 83; RESP 21; TEMP 37.2; O2SAT 100
[2022-08-14] MEDS: SODIUM CHLORIDE 0.9% IV 1,000 ML 125 ML IV CONT ×3 (06:14→22:45)
[2022-08-14] MEDS: PANTOPRAZOLE SODIUM IV 40 MG VIAL IV PUSH (08:04)
[2022-08-14] MEDS: ONDANSETRON INJ 4 MG/2 ML VIAL IV PUSH ×2 (08:04→19:54)
--- NOTE | 2022-08-14 08:07 | PM.IMPN ---
Progress Note: A&P Assessment and Plan (1) SBO (small bowel obstruction): Code(s): K56.609 - Unspecified intestinal obstruction, unspecified as to partial versus complete obstruction Status: Acute Assessment and Plan: Patient presented with c/o abdominal pain. She had twisted bowel approximately 7 years ago with similar symptoms. CT scan suggested SBO. Continue NPO. NG tube placed in radiology Continue IV fluids and pain control. Counseled to walk 4-6 times daily. General surgery consulted and appreciate recommendations- continue supportive care. (2) Gastritis: Qualifiers: Gastritis type: other gastritis Chronicity: acute Gastritis bleeding: without bleeding Qualified Code(s): K29.00 - Acute gastritis without bleeding Code(s): K29.70 - Gastritis, unspecified, without bleeding Status: Acute Assessment and Plan: Noted on CT scan. Continue PPI therapy. Patient is NPO for SBO. (3) Abdominal pain: Qualifiers: Abdominal location: generalized Qualified Code(s): R10.84 - Generalized abdominal pain Code(s): R10.9 - Unspecified abdominal pain Status: Acute Assessment and Plan: Likely secondary to 1 and gastritis/esophagitis also noted on CT scan. Continue management as above. (4) Asthma-COPD overlap syndrome: Code(s): J44.9 - Chronic obstructive pulmonary disease, unspecified Status: Chronic Assessment and Plan: chronic, not in acute exacerbation. continue Trelegy. albuterol nebs as needed (5) Bipolar affective disorder: Code(s): F31.9 - Bipolar disorder, unspecified Status: Chronic Assessment and Plan: Chronic, not in acute exacerbation. Continue home medications. (6) Restless leg syndrome: Code(s): G25.81 - Restless legs syndrome Status: Chronic Assessment and Plan: Chronic, monitor (7) Former smoker: Code(s): Z87.891 - Personal history of nicotine dependence Status: Chronic Assessment and Plan: 50 pack-year smoking history, former smoker. 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 Discharge pending resolution of bowel obstruction. Time Spent With Patient Time: 35 minutes time spent reviewing medical chart, nursing and specialist documentation, labs, vitals, and patient assessment.?All patient and family questions answered to the best of my ability. Subjective Date/time seen: 08/14/22 08:07 Interval history: patient is a 67 yo female with multiple medical problems, history of Leonard-en-Y gastric bypass and hysterectomy, who presented to the ED for evaluation of abdominal pain x1 day prior to admission. CT scan concerning for distal small bowel obstruction and esophagitis/gastritis. She was admitted for surgery evaluation and supportive care. She complains of nausea without emesis. No BM since yesterday at 8:00 a.m. but she states that this was ?normal?. She endorses abdominal distension some belching. No flatus. She denies chest pain, shortness a breath, palpitations, or urinary symptoms. She reports being told she should never have an NG tube placed blind following her hiatal hernia surgery. Review of Systems Review of Systems: All systems reviewed & are unremarkable except as noted in HPI and below Exam Narrative: General:?well-developed, nontoxic-appearing female lying in bed in no distress.? HEENT:??Normocephalic. PERRL, EOMI. Sclera anicteric. Moist mucous membranes. Neck:??Supple without lymphadenopathy. No JVD. Respiratory:?Respirations regular and unlabored. Lungs alyssa
[2022-08-14 08:37] LABS: Basophils Percent Auto 0.3 % (0.2-1.2); Eosinophils Absolute Auto 0.1 K/mm3 (0-0.3); Eosinophils Percent Auto 1.2 % (0-4.4); Hematocrit 39.8 % (37.0-47.0); Hemoglobin 13.1 g/dL (12.0-15.0); Immature Granulocyte Absolute 0.04 K/mm3 (0.00-0.031); Immature Granulocyte Percent A 0.3 % (0-0.5); Lymphocytes Absolute Auto 1.62 K/mm3 (0.9-3.2); Lymphocytes Percent Auto 14.2 % (18.3-44.2); Mean Corpuscular HGB Conc 32.9 g/dl (32-36); Mean Corpuscular Hemoglobin 31.6 pg (26-34); Mean Corpuscular Volume 96.1 fl (80-100); Mean Platelet Volume 8.8 fl (7.4-10.4); Monocytes Absolute Auto 1.1 K/mm3 (0.1-0.6); Monocytes Percent Auto 9.3 % (2.6-8.5); Neutrophils Absolute Auto 8.6 K/mm3 (1.3-6.7); Neutrophils Percent Auto 74.7 % (45.5-73.1); Platelet Count Result 341 k/mm3 (150-375); Red Blood Count 4.14 M/mm3 (4.2-5.4); Red Cell Distribution Width 14.4 % (11.5-14.5); White Blood Count 11.4 K/mm3 (4.5-10.0)
[2022-08-14 08:54] LABS: Alanine Aminotransferase 18 U/L (6-35); Albumin Level 3.8 g/dL (3.5-5.1); Alkaline Phosphatase 111 U/L (38-126); Anion Gap 3 mmol/L (8-16); Aspartate Amino Transferase 29 U/L (14-36); Bilirubin,Total 0.5 mg/dL (0.2-1.3); Blood Urea Nitrogen 10 mg/dL (7-17); Calcium 8.5 mg/dL (8.4-10.2); Carbon Dioxide 25 mmol/L (22-30); Chloride 105 mmol/L (98-107); Estimated Glomerular Filt Rate > 60; Glucose 105 mg/dL (65-110); Magnesium 2.3 mg/dL (1.6-2.3); Potassium 4.2 mmol/L (3.4-5.0); Sodium 133 mmol/L (137-145)
[2022-08-14] MEDS: TOPIRAMATE 25 MG TABLET 50 MG PO ×2 (09:00→17:03)
[2022-08-14] MEDS: ARIPiprazole 10 MG TABLET PO (09:00)
[2022-08-14] MEDS: ARIPiprazole 5 MG TABLET PO (09:00)
--- NOTE | 2022-08-14 12:08 | PM.CNGS ---
Assessment and Plan Assessment and plan (1) SBO (small bowel obstruction): Code(s): K56.609 - Unspecified intestinal obstruction, unspecified as to partial versus complete obstruction Status: Acute Assessment and Plan: will range for fluoroscopically placed nasogastric tube to be done in x-ray. I explained the nature of small-bowel obstruction. She is familiar with this as she has had 1 before. I explained that typically it does resolve without surgery but does require nasogastric tube whether surgery is done or not. Hopefully we will get the nasogastric tube placed today. Will continue NG suction, serial abdominal exam, labs, plain films. All questions were answered. She understands and agrees with the above plan. (2) Bipolar affective disorder: Code(s): F31.9 - Bipolar disorder, unspecified Status: Chronic (3) Asthma-COPD overlap syndrome: Code(s): J44.9 - Chronic obstructive pulmonary disease, unspecified Status: Chronic (4) History of fundoplication: Code(s): Z98.890 - Other specified postprocedural states Status: Chronic Assessment and Plan: This was done about 3 years ago. 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 History of Present Illness Consult details Consult date: 08/14/22 Reason for consult: abdominal pain Requesting physician: Hans Urena MD Narrative: patient is a 67-year-old woman who carries a diagnosis of bipolar affective disorder as well as asthma- COPD overlap syndrome. She has a history of Leonard-en-Y gastric bypass surgery in 2013 at an outside hospital, [facility]. She also had a small bowel obstruction surgery in 2016 at [facility]. Patient started having abdominal pain yesterday morning about 330. It was severe cramping pain. She had nausea as well. The pain was pretty constant but it would Salvador flow and could be very severe. She came to the emergency room. She was noted to have hypoactive bowel sounds, abdominal distension and epigastric tenderness. CT scan showed concern for small bowel obstruction although no transition point was identified. Patient did not have a nasogastric tube placed as she has been it advised by her other surgeons that this should only be done with imaging or endoscopy, no blind NG insertions. Besides the 2 surgeries noted above, patient has also had a laparoscopic fundoplication for reflux. This was done at an outside hospital. She has also had a laparoscopic cholecystectomy which was done here many years ago. She also has had a laparoscopic hysterectomy which was done at [facility] many years ago. Currently she feels slightly better than she did on admission but is still requiring analgesics and having episodic severe abdominal cramping and pain. Review of Systems Review of Systems: All systems reviewed & are unremarkable except as noted in HPI and below ( HPI and those items noted below) Constitutional: Constitutional: Denies chills and Denies fever(s) Cardiovascular: Cardiovascular: Denies chest pain, Denies diaphoresis, Denies dyspnea and Denies paroxysmal nocturnal dyspnea Respiratory: Respiratory: Denies chest congestion, Denies cough and Denies dyspnea Integumentary/Breasts: Skin/Breast: Denies lesions and Denies rash [facility] Past Medical History Medical History (Updated 08/14/22 @ 12:26 by Nolberto Bustamante MD) Allergic rhinitis Anxiety Asthma-COPD overlap syndrome Bipolar affective disorder Cellulitis of left lower extremity Essential (primary) hypertension Gastroesophageal reflux disease without esophagitis Mixed hyperlipidemia Osteopenia Pulmonary emb
[2022-08-14] MEDS: FLUTICASONE/UMECLIDIN/VILANTER 200-62.5-25 MCG ELLIPTA 1 PUFF INHALATION (13:43)
[2022-08-14] MEDS: ENOXAPARIN 40 MG/0.4 ML SYRINGE SUB-Q (14:58)
[2022-08-14 15:14] VITALS: BP 128/90; PULSE 87; RESP 16; TEMP 36; O2SAT 99
[2022-08-14 20:56] VITALS: BP 145/86; PULSE 101; RESP 18; TEMP 37.1; O2SAT 93
[2022-08-14] MEDS: QUEtiapine FUMARATE 100 MG TABLET 300 MG PO (22:43)
[2022-08-14] MEDS: lamoTRIgine 100 MG TABLET PO (22:43)
[2022-08-15] MEDS: HYDROmorphone HCL INJ (*CRX) 1 MG/ML SYR 0.5 MG IV PUSH ×3 (04:07→14:49)
[2022-08-15 05:15] VITALS: BP 104/70; PULSE 112; RESP 17; TEMP 37.1; O2SAT 94
[2022-08-15 05:41] LABS: Hematocrit 42.2 % (37.0-47.0); Hemoglobin 13.4 g/dL (12.0-15.0); Mean Corpuscular HGB Conc 31.8 g/dl (32-36); Mean Corpuscular Hemoglobin 31.6 pg (26-34); Mean Corpuscular Volume 99.5 fl (80-100); Mean Platelet Volume 8.8 fl (7.4-10.4); Platelet Count Result 309 k/mm3 (150-375); Red Blood Count 4.24 M/mm3 (4.2-5.4); Red Cell Distribution Width 14.3 % (11.5-14.5); White Blood Count 8.6 K/mm3 (4.5-10.0)
[2022-08-15 05:53] LABS: Anion Gap 10 mmol/L (8-16); Blood Urea Nitrogen 12 mg/dL (7-17); Calcium 7.7 mg/dL (8.4-10.2); Carbon Dioxide 16 mmol/L (22-30); Chloride 106 mmol/L (98-107); Estimated Glomerular Filt Rate > 60; Glucose 106 mg/dL (65-110); Sodium 132 mmol/L (137-145)
[2022-08-15] MEDS: SODIUM CHLORIDE 0.9% IV 1,000 ML 125 ML IV CONT ×2 (06:07→14:49)
--- NOTE | 2022-08-15 07:26 | PM.IMPN ---
Progress Note: A&P Assessment and Plan (1) SBO (small bowel obstruction): Code(s): K56.609 - Unspecified intestinal obstruction, unspecified as to partial versus complete obstruction Status: Acute Assessment and Plan: Patient presented with c/o abdominal pain. She had twisted bowel approximately 7 years ago with similar symptoms. CT scan suggested SBO. Continue NPO. NG tube placed in radiology Continue IV fluids and pain control. Counseled to walk 4-6 times daily. General surgery consulted and appreciate recommendations- continue supportive care. 08/15 KUB shows persistent SBO. NG tube to suction, small yellow/brown discharge with sediment within tubing. (2) Gastritis: Qualifiers: Chronicity: acute Gastritis bleeding: without bleeding Gastritis type: other gastritis Qualified Code(s): K29.00 - Acute gastritis without bleeding Code(s): K29.70 - Gastritis, unspecified, without bleeding Status: Acute Assessment and Plan: Noted on CT scan. Continue PPI therapy. Patient is NPO for SBO. (3) Abdominal pain: Qualifiers: Abdominal location: generalized Qualified Code(s): R10.84 - Generalized abdominal pain Code(s): R10.9 - Unspecified abdominal pain Status: Acute Assessment and Plan: Likely secondary to 1 and gastritis/esophagitis also noted on CT scan. Continue management as above. (4) Asthma-COPD overlap syndrome: Code(s): J44.9 - Chronic obstructive pulmonary disease, unspecified Status: Chronic Assessment and Plan: chronic, not in acute exacerbation. continue Trelegy. albuterol nebs as needed (5) Bipolar affective disorder: Qualifiers: Active/Remission status: remission status unspecified Qualified Code(s): F31.9 - Bipolar disorder, unspecified Code(s): F31.9 - Bipolar disorder, unspecified Status: Chronic Assessment and Plan: Chronic, not in acute exacerbation. Continue home medications. (6) Restless leg syndrome: Code(s): G25.81 - Restless legs syndrome Status: Chronic Assessment and Plan: Chronic, monitor (7) Former smoker: Code(s): Z87.891 - Personal history of nicotine dependence Status: Chronic Assessment and Plan: 50 pack-year smoking history, former smoker. 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 Discharge pending resolution of bowel obstruction. Time Spent With Patient Time: 25 minutes time spent reviewing medical chart, nursing and specialist documentation, labs, vitals, and patient assessment.? Subjective Date/time seen: 08/15/22 07:26 Interval history: patient is a 67 yo female with multiple medical problems, history of Leonard-en-Y gastric bypass and hysterectomy, who presented to the ED for evaluation of abdominal pain x1 day prior to admission. CT scan concerning for distal small bowel obstruction and esophagitis/gastritis. She was admitted for surgery evaluation and supportive care. She reports passing flatus once last night or early this morning, but not since. She thinks her abdomen is a little softer, but still distended. She denies chest pain, SOB, palpations, dizziness, nausea or emesis. She has some urinary frequency and dysuria. NG tube in place. Review of Systems Review of Systems: All systems reviewed & are unremarkable except as noted in HPI and below Exam Narrative: General:?well-developed, nontoxic-appearing female lying in bed in no distress.?Tired appearing. HEENT:??Normocephalic. PERRL, EOMI. Sclera anicteric. Moist mucous membr
[2022-08-15] MEDS: ENOXAPARIN 40 MG/0.4 ML SYRINGE SUB-Q (08:16)
[2022-08-15] MEDS: ARIPiprazole 10 MG TABLET PO (08:17)
[2022-08-15] MEDS: ARIPiprazole 5 MG TABLET PO (08:17)
[2022-08-15] MEDS: TOPIRAMATE 25 MG TABLET 50 MG PO ×2 (08:17→17:30)
[2022-08-15] MEDS: PANTOPRAZOLE SODIUM IV 40 MG VIAL IV PUSH (08:18)
[2022-08-15] MEDS: FLUTICASONE/UMECLIDIN/VILANTER 200-62.5-25 MCG ELLIPTA 1 PUFF INHALATION (08:39)
[2022-08-15 08:41] VITALS: PULSE 107; RESP 18; O2SAT 91
[2022-08-15 08:42] VITALS: PULSE 107; RESP 18
[2022-08-15 11:23] LABS: Appearance Urine Cloudy (Clear); Bacteria Urine 2+ /hpf; Bilirubin Urine 2+ (Negative); Blood Urine Negative (Negative); Color Urine Dark Yellow (Yellow); Glucose Urine UA Negative (Negative); Hyaline Casts Urine Present /lpf; Ketones Urine 2+ mg/dL (Negative); Leukocyte Esterase Ur Negative LEU/UL (Negative); Nitrate Urine Negative (Negative); Non Pathogenic Casts >20; Protein Urine 1+ mg/dL (Negative); Specific Grav Ur 1.022 (1.001-1.035); Squamous Epithelial Cell Urine Few /hpf (Few); WBC Urine 0-5 /hpf; pH Urine 5.5 (5.0-9.0)
[2022-08-15 11:34] LABS: Add Urine Microscopic? YES
--- NOTE | 2022-08-15 13:56 | PM.PNGS ---
Progress Note: A&P Assessment and Plan (1) SBO (small bowel obstruction): Code(s): K56.609 - Unspecified intestinal obstruction, unspecified as to partial versus complete obstruction Status: Acute Assessment and Plan: not much NG output and very little improvement by exam or x-ray findings. Patient does feel a little better. She is passing a small amount of flatus. Continue NG suction, serial exam, labs, plain films. 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 meds with NG clamped (5) Asthma-COPD overlap syndrome: Code(s): J44.9 - Chronic obstructive pulmonary disease, unspecified Status: Chronic Assessment and Plan: stable Subjective Subjective Date/Time Seen: 08/15/22 13:56 Patient reports: no new complaints, pain is less (But still having pain, less intense and less frequent), flatus ( small amount) and no bowel movement Review of Systems Review of Systems: All systems reviewed & are unremarkable except as noted in HPI and below ( HPI and those items noted below) Constitutional: Constitutional: Denies chills and Denies fever(s) Cardiovascular: Cardiovascular: Denies chest pain, Denies diaphoresis, Denies dyspnea and Denies paroxysmal nocturnal dyspnea Respiratory: Respiratory: Denies chest congestion, Denies cough and Denies dyspnea Integumentary/Breasts: Skin/Breast: Denies lesions and Denies rash Exam Const: General: cooperative, comfortable, no acute distress, awake and tired appearing; No confusion Nutritional Appearance: average body habitus Orientation/consciousness: patient oriented x3 and No confusion GI: Inspection: distended and no visible herniation GI Palp: Yes Soft to palpation, Yes Tenderness to palpation present (GI) ( less tender today), No Guarding due to palpation present (GI), No Hernia present, No Palpable mass present and No Rebound tenderness present Auscultation: Hypoactive bowel sounds present Neuro: General: patient oriented x3, no focal motor deficits and No confusion Extrem: General: no calf tenderness and no edema Psych: Affect: normal affect Insight: Good insight present (Psych) Judgement: Good judgement present (Psych) Objective Data Vital Signs Vital Signs: Vital Signs - 24 hr 08/14/22 15:14 08/14/22 20:56 08/15/22 05:15 Temperature 36.0 C L 37.1 C 37.1 C Pulse Rate 87 101 H 112 H Respiratory Rate 16 18 17 Blood Pressure 128/90 145/86 H 104/70 Pulse Oximetry 99 93 94 Oxygen Delivery Fraction of Inspired Oxygen 08/15/22 08:41 08/15/22 08:42 08/15/22 08:15 Temperature Pulse Rate 107 H 107 H Respiratory Rate 18 18 Blood Pressure Pulse Oximetry 91 Oxygen Delivery Room Air Room Air Fraction of Inspired Oxygen 0.21 0.21 Intake/Output Intake/Output: Intake & Output 08/12/22 08/13/22 08/14/22 08/15/22 23:59 23:59 23:59 23:59 Intake Total 3000 1250 Output Total 200 200 800 Balance -200 2800 450 Meds/Results Medications: Active Medications Generic Name Dose Route Start Last Admin Trade Name Freq PRN Reason Stop Dose Admin Albuterol 2.5 mg 08/14/22 08:05 Albuterol Sulfate Neb 2.5 Mg/3 Ml Inh INHALATION Q6HRT PRN Shortness Of Breath Or Wheezing Aripiprazole 5 mg 08/14/22 09:00 08/15/22 08:17 Aripiprazole 5 Mg Tablet PO 5 mg DAILY ABRAHAM Administration Aripiprazole 10 mg 08/14/22 09:00 08/15/22 08:17 Aripiprazole 10 Mg Tablet PO 10 mg DAILY ABRAHAM Administration Enoxaparin Sodium 40 mg 08/15/22 09:00 08/15/22 08:16
[2022-08-15 14:00] VITALS: BP 119/80; PULSE 100; RESP 18; TEMP 36.5; O2SAT 95
[2022-08-15] MEDS: IBUPROFEN IV 800 MG/200 ML 800 MG/200 ML BAG 400 MG IVPB (17:35)
[2022-08-15 20:02] VITALS: BP 130/76; PULSE 101; RESP 20; TEMP 36.8; O2SAT 95
[2022-08-15] MEDS: lamoTRIgine 100 MG TABLET PO (21:20)
[2022-08-15] MEDS: QUEtiapine FUMARATE 100 MG TABLET 300 MG PO (21:20)
[2022-08-16] VITALS (12 sets, daily range): BP systolic 108–142; BP diastolic 65–92; PULSE 90–107; RESP 16–22; TEMP 36.1–37.3; O2SAT 93–100
[2022-08-16] MEDS: SODIUM CHLORIDE 0.9% IV 1,000 ML 125 ML IV CONT ×3 (00:10→20:58)
[2022-08-16 05:55] LABS: Hematocrit 38.9 % (37.0-47.0); Hemoglobin 12.6 g/dL (12.0-15.0); Mean Corpuscular HGB Conc 32.4 g/dl (32-36); Mean Corpuscular Hemoglobin 31.8 pg (26-34); Mean Corpuscular Volume 98.2 fl (80-100); Mean Platelet Volume 8.7 fl (7.4-10.4); Platelet Count Result 284 k/mm3 (150-375); Red Blood Count 3.96 M/mm3 (4.2-5.4); Red Cell Distribution Width 14.1 % (11.5-14.5); White Blood Count 4.7 K/mm3 (4.5-10.0)
[2022-08-16 06:06] LABS: Anion Gap 10 mmol/L (8-16); Blood Urea Nitrogen 15 mg/dL (7-17); Calcium 7.3 mg/dL (8.4-10.2); Carbon Dioxide 18 mmol/L (22-30); Chloride 107 mmol/L (98-107); Estimated Glomerular Filt Rate > 60; Glucose 107 mg/dL (65-110); Potassium 4.1 mmol/L (3.4-5.0); Sodium 135 mmol/L (137-145)
--- NOTE | 2022-08-16 07:09 | PM.IMPN ---
Progress Note: A&P Assessment and Plan (1) SBO (small bowel obstruction): Code(s): K56.609 - Unspecified intestinal obstruction, unspecified as to partial versus complete obstruction Status: Acute Assessment and Plan: Patient presented with c/o abdominal pain. She had twisted bowel approximately 7 years ago with similar symptoms. CT scan suggested SBO. Continue NPO. NG tube placed in radiology Continue IV fluids and pain control. Counseled to walk 4-6 times daily. General surgery consulted and appreciate recommendations- continue supportive care. 08/15 KUB shows persistent SBO. NG tube to suction, small yellow/brown discharge with sediment within tubing. 08/16 KUB unchanged. Plan for OR in am. (2) Gastritis: Qualifiers: Chronicity: acute Gastritis bleeding: without bleeding Gastritis type: other gastritis Qualified Code(s): K29.00 - Acute gastritis without bleeding Code(s): K29.70 - Gastritis, unspecified, without bleeding Status: Acute Assessment and Plan: Noted on CT scan. Continue PPI therapy. Patient is NPO for SBO. (3) Abdominal pain: Qualifiers: Abdominal location: generalized Qualified Code(s): R10.84 - Generalized abdominal pain Code(s): R10.9 - Unspecified abdominal pain Status: Acute Assessment and Plan: Likely secondary to 1 and gastritis/esophagitis also noted on CT scan. Continue management as above. (4) Asthma-COPD overlap syndrome: Code(s): J44.9 - Chronic obstructive pulmonary disease, unspecified Status: Chronic Assessment and Plan: chronic, not in acute exacerbation. continue Trelegy. albuterol nebs as needed (5) Bipolar affective disorder: Qualifiers: Active/Remission status: remission status unspecified Qualified Code(s): F31.9 - Bipolar disorder, unspecified Code(s): F31.9 - Bipolar disorder, unspecified Status: Chronic Assessment and Plan: Chronic, not in acute exacerbation. Continue home medications. (6) Restless leg syndrome: Code(s): G25.81 - Restless legs syndrome Status: Chronic Assessment and Plan: Chronic, monitor (7) Former smoker: Code(s): Z87.891 - Personal history of nicotine dependence Status: Chronic Assessment and Plan: 50 pack-year smoking history, former smoker. 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 Discharge pending resolution of bowel obstruction. Subjective Date/time seen: 08/16/22 07:09 Interval history: patient is a 67 yo female with multiple medical problems, history of Leonard-en-Y gastric bypass and hysterectomy, who presented to the ED for evaluation of abdominal pain x1 day prior to admission. CT scan concerning for distal small bowel obstruction and esophagitis/gastritis. She was admitted for surgery evaluation and supportive care. She reports feeling anxious about surgery. No flatus or BM. She still has lower abdominal pain bilaterally. NG tube with small yellow output. Review of Systems Review of Systems: All systems reviewed & are unremarkable except as noted in HPI and below Exam Narrative: General:?well-developed, nontoxic-appearing female lying in bed. Mildly anxious. HEENT:??Normocephalic. Pupils equal and round. Sclera anicteric. Moist mucous membranes. NG tube left nares. Neck:??Supple without lymphadenopathy. No JVD. Respiratory:?Respirations regular and unlabored. Lungs clear to auscultation bilaterally. No intercostal muscle use. Cardiovascular:??Tachy rate and rhythm with S1-S2 104 bpm. No m
[2022-08-16] MEDS: ARIPiprazole 10 MG TABLET PO (08:18)
[2022-08-16] MEDS: ARIPiprazole 5 MG TABLET PO (08:19)
[2022-08-16] MEDS: ENOXAPARIN 40 MG/0.4 ML SYRINGE SUB-Q (08:19)
[2022-08-16] MEDS: PANTOPRAZOLE SODIUM IV 40 MG VIAL IV PUSH (08:19)
[2022-08-16] MEDS: TOPIRAMATE 25 MG TABLET 50 MG PO ×2 (08:20→20:48)
[2022-08-16] MEDS: FLUTICASONE/UMECLIDIN/VILANTER 200-62.5-25 MCG ELLIPTA 1 PUFF INHALATION (09:03)
--- NOTE | 2022-08-16 12:54 | PM.PNGS ---
Progress Note: A&P Assessment and Plan (1) SBO (small bowel obstruction): Code(s): K56.609 - Unspecified intestinal obstruction, unspecified as to partial versus complete obstruction Status: Acute Assessment and Plan: No improvement in small-bowel obstruction and contrast study today looks like complete small-bowel obstruction. Discussed with patient. Will plan to go ahead with laparotomy this afternoon. 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 Doubt it was related to the gastric resection and Leonard-en-Y. (3) History of fundoplication: Code(s): Z98.890 - Other specified postprocedural states Status: Chronic (4) Bipolar affective disorder: Qualifiers: Active/Remission status: remission status unspecified Qualified Code(s): F31.9 - Bipolar disorder, unspecified Code(s): F31.9 - Bipolar disorder, unspecified Status: Chronic (5) Asthma-COPD overlap syndrome: Code(s): J44.9 - Chronic obstructive pulmonary disease, unspecified Status: Chronic Subjective Subjective Date/Time Seen: 08/16/22 12:54 Patient reports: still having pain (Feels worse), bowel movement and afebrile Interval history: Patient seen in x-ray and has already had 45 minutes of small-bowel follow-through. She is having increasing pain and plain films are consistent with distal small-bowel obstruction with the contrast not moving well at all. There are multiple dilated loops of small intestine. Review of Systems Review of Systems: All systems reviewed & are unremarkable except as noted in HPI and below (HPI and those items noted below) Constitutional: Constitutional: Denies chills and Denies fever(s) Cardiovascular: Cardiovascular: Denies chest pain, Denies diaphoresis, Denies dyspnea and Denies paroxysmal nocturnal dyspnea Respiratory: Respiratory: Denies chest congestion, Denies cough and Denies dyspnea Integumentary/Breasts: Skin/Breast: Denies lesions and Denies rash Exam Const: General: no acute distress, alert, awake and uncomfortable; No confusion Nutritional Appearance: average body habitus Orientation/consciousness: patient oriented x3 and No confusion GI: Inspection: distended GI Palp: Yes Soft to palpation, Yes Tenderness to palpation present (GI) (Generalized but no peritoneal signs), No Guarding due to palpation present (GI) and No Rebound tenderness present Auscultation: absent bowel sounds Neuro: General: patient oriented x3, no focal motor deficits and No confusion Extrem: General: no calf tenderness and no edema Psych: Affect: normal affect Insight: Good insight present (Psych) Judgement: Good judgement present (Psych) Objective Data Vital Signs Vital Signs: Vital Signs - 24 hr 08/15/22 14:00 08/15/22 20:02 08/15/22 20:00 Temperature 36.5 C 36.8 C Pulse Rate 100 101 H Respiratory Rate 18 20 Blood Pressure 119/80 130/76 Pulse Oximetry 95 95 Oxygen Delivery Room Air 08/16/22 04:18 08/16/22 09:04 08/16/22 09:04 Temperature 36.1 C L Pulse Rate 98 Respiratory Rate 20 18 18 Blood Pressure 140/77 Pulse Oximetry 100 93 Oxygen Delivery Room Air Intake/Output Intake/Output: Intake & Output 08/13/22 08/14/22 08/15/22 08/16/22 23:59 23:59 23:59 23:59 Intake Total 3000 3250 1000 Output Total 623 488 7795 200 Balance -200 2800 2150 800 Meds/Results Medications: Active Medications Generic Name Dose Route Start Last Admin Trade Name Freq PRN Reason Stop Dose Admin Albuterol 2.5 mg 08/14/22 08:05 Albuterol Sulfate Neb 2.5 Mg/3 Ml Inh INHALATION Q6HRT PRN Shortness Of Breath Or Wheezing Aripiprazole 5 mg 08/14/22 09:00 08/16/22 08:19 Aripiprazole
[2022-08-16] MEDS: HYDROmorphone HCL INJ (*CRX) 1 MG/ML SYR 0.5 MG IV PUSH ×2 (14:00→20:49)
--- NOTE | 2022-08-16 14:53 | WPDANESEPPF ---
Anes - Initial Pre Proc Eval Procedure: Operation Date: 08/16/22 17:00 Proposed Procedures p Exploratory Laparotomy for Small Bowel Obstruction - Nolberto Bustamante MD Date/Time: 08/16/22 14:53 Surgeon: Brent Fulton MD Pre Op Diagnosis: SBO, gastritis Patient Data Age: 67 Gender: F Height: 1.45 m Weight: 76 kg Last Vital Signs Temp 36.9 C 08/16/22 14:00 Pulse 107 H 08/16/22 14:00 Resp 20 08/16/22 14:00 BP 142/78 H 08/16/22 14:00 Pulse Ox 100 08/16/22 14:00 O2 Del Method Room Air 08/16/22 09:04 FiO2 0.21 08/15/22 08:41 Allergies Allergy/AdvReac Type Severity Reaction Status Date / Time Sulfa (Sulfonamide Allergy Severe Rash Verified 08/13/22 22:37 Antibiotics) Penicillins Allergy Intermediate Rash Verified 08/13/22 22:37 Cephalosporins Allergy Mild Rash IN Verified 08/13/22 22:37 MOUTH erythromycin base AdvReac Intermediate GI UPSET, Verified 08/13/22 22:37 ABDOMINAL PAIN Home Medications Medication Instructions Recorded Confirmed Type aspirin 81 mg tablet,delayed 81 mg PO BID 12/25/19 08/14/22 History release (Geni Low Dose Aspirin) buspirone 7.5 mg tablet 7.5 mg PO BID 12/25/19 08/14/22 History cetirizine 10 mg capsule (Zyrtec) 10 mg PO HS 12/25/19 08/14/22 History lamotrigine 100 mg tablet 100 mg PO HS 12/25/19 08/14/22 History (Lamictal) topiramate 50 mg tablet (Topamax) 50 mg PO BID 12/25/19 08/14/22 History acetaminophen 500 mg capsule 500 mg PO Q6-8H PRN Pain 01/21/20 08/14/22 History calcium carbonate 500 mg calcium 500 mg PO TID 01/21/20 08/14/22 History (1,250 mg) tablet (Calcium 500) pantoprazole 40 mg tablet,delayed 40 mg PO QAM #90 tabs 05/05/20 08/14/22 Rx release (Protonix) aripiprazole 15 mg tablet (Abilify) 15 mg PO DAILY 07/24/20 08/14/22 History quetiapine 300 mg tablet (Seroquel) 300 mg PO QHS 09/01/21 08/14/22 History magnesium 250 mg tablet 1,000 mg PO BID 10/18/21 08/14/22 History estradiol 0.01% (0.1 mg/gram) 1 applic vaginal 3XW 10/27/21 08/14/22 History vaginal cream fluticasone fur. 200 mcg-umeclid 1 inh inhalation QAM 10/27/21 08/14/22 History 62.5 mcg-vilant 25 mcg inhalat.powder (Trelegy Ellipta) fluticasone propionate 50 1 spray intranasal DAILY 10/27/21 08/14/22 History mcg/actuation nasal spray,suspension pediatric multivitamin 2 tablet PO HS 10/27/21 08/14/22 History albuterol sulfate 90 mcg/actuation 1 - 2 inh inhalation Q4-6H PRN 03/28/22 08/14/22 Rx aerosol inhaler shortness of breath or wheezing #25.5 grams montelukast 10 mg tablet See Rx Instructions .Route 03/28/22 08/14/22 Rx .COMPLEX #90 tabs alendronate 70 mg tablet 70 mg PO WEEKLY 08/14/22 08/14/22 History guaifenesin 600 mg tablet, 600 mg PO DAILY 08/14/22 08/14/22 History extended release 12 hr (Mucinex) pravastatin 80 mg tablet 80 mg PO HS 08/14/22 08/14/22 History Laboratory Tests 08/16/22 08/16/22 08/16/22 05:38 05:38 13:15 WBC 4.7 K/mm3 K/mm3 (4.5-10.0) RBC 3.96 M/mm3 L M/mm3 (4.2-5.4) Hgb 12.6 g/dL g/dL (12.0-15.0) Hct 38.9 % % (37.0-47.0) MCV 98.2 fl fl (80-100) MCH 31.8 pg pg (26-34) MCHC 32.4 g/dl g/dl (32-36) RDW 14.1 % % (11.5-14.5) Plt Count 284 k/mm3 k/mm3 (150-375) MPV 8.7 fl fl (7.4-10.4) Sodium 135 mmol/L L mmol/L (137-145) Potassium 4.1 mmol/L mmol/L (3.4-5.0) Chloride 107 mmol/L mmol/L (98-107) Carbon Dioxide 18 mmol/L L mmol/L (22-30) Anion Gap 10 mmol/L mmol/L (8-16) BUN 15 mg/dL mg/dL (7-17) Creatinine 0.80 mg/dL mg/dL (0.7-1.0) Estim Creat Clear Calc Not Reportable Estimated GFR > 60 (59 - ) Glucose 107 mg/dL mg/dL (65-110) Calcium 7.3 mg/dL L mg/dL (8.4-10.2) Blood Type B Negative Antibody Screen Negative
[2022-08-16] MEDS: fentaNYL CITRATE INJ (*CRX) 100 MCG/2 ML VIAL 25 MCG IV PUSH ×2 (15:12→15:16)
--- NOTE | 2022-08-16 16:03 | WPDHPUPDATE1 ---
History and Physical Update Update Date/Time: 08/16/22 16:03 History and Physical has been reviewed, including an updated exam of the patient. There are NO changes in the patient's condition. Risks, benefits, and alternatives have been discussed and questions answered. Patient agrees to proceed with procedure.
[2022-08-16] MEDS: ceFAZolin 2 GM/D5W 50 ML 2 GM/50 ML BAG IVPB (16:04)
[2022-08-16] MEDS: LACTATED RINGERS 1,000 ML 30 ML IV CONT (17:36)
--- NOTE | 2022-08-16 17:44 | P.OP_ITS ---
Procedure Note - Detailed Date of Procedure 08/16/22 Pre-op Diagnosis SBO Post-op Diagnosis Same Procedure Performed Enterotomy, removal intraluminal obstructing mass Surgeon Nolberto Bustamante MD Branch Operations Specialist Tereza Nur, [employer] Anesthesia General Indications Patient has a complete distal small bowel obstruction Findings Large hardened intraluminal mass consistent with fecal material and the distal ileum. This was the cause of obstruction Description of Procedure Patient was taken to surgery and induced into general anesthesia. The abdomen is prepped and draped. A midline incision that was mostly in the lower abdomen was made. We dissected through the midline fascia and entered the peritoneal cavity. There was ascites and multiple loops of distended small bowel present. We eviscerated a few of these loops and suctioned away some of the ascites. I placed a hand in the abdomen was able to find a very hardened mass in the distal ileum. This portion of the ileum was brought up to the level of the wound. I was able to move the mass retrograde to an area of distal ileum that was more mobile. We then quarantined the area and placed noncrushing bowel clamps on either side of the mass. A transverse enterostomy was made with the cautery. The mass was removed. It had a foul odor and appeared to be stool. It was sent to pathology for gross only in formalin. The enterotomy was closed in 2 layers. The inner layer was a running inverting layer of 4-0 chromic. The outer layer was Lembert suture of 4-0 silk. The enterotomy closure looked quite secure. The bowel was very viable. I then checked the nasogastric tube position in the remnant of the stomach. It was in good position there. We then placed the bowel loops back in their general anatomic location. I could not find omentum or the transverse colon. The peritoneum was closed from the lower aspect of the incision up to the semicircular line with 0 chromic suture. The midline fascia was closed with bidirectional running 0 PDS suture taking small bites very close to 1 another. The subQ was loosely approximated with interrupted 3-0 Vicryl suture. The skin was closed with wide rocky. Xeroform gauze fluffs and ABDs were used for a dressing. Patient was awakened and taken to recovery in good condition. Sponge needle counts were correct x2. Estimated Blood Loss -5 Urine Output 100 Drains Yes (NG tube, Malik catheter) Packing No Pathology Yes (Intraluminal solid material sent for gross only, appeared to be stool) Complications No immediate complications Condition Stable Disposition PACU [facility] Billing Surgery - Charge Forward: Surgery Billing (Enterotomy with removal of obstructing intraluminal foreign body)
[2022-08-16] MEDS: HYDROmorphone HCL INJ (*CRX) 1 MG/ML SYR 0.25 MG IV PUSH ×4 (17:58→18:27)
[2022-08-16] MEDS: QUEtiapine FUMARATE 100 MG TABLET 300 MG PO (20:48)
[2022-08-17] VITALS (7 sets, daily range): BP systolic 101–134; BP diastolic 65–89; PULSE 98–111; RESP 16–20; TEMP 36.6–37.3; O2SAT 93–100; BMI 36.2
[2022-08-17] MEDS: SODIUM CHLORIDE 0.9% IV 1,000 ML 125 ML IV CONT (05:03)
[2022-08-17 05:19] LABS: Anion Gap 8 mmol/L (8-16); Blood Urea Nitrogen 12 mg/dL (7-17); Calcium 7.3 mg/dL (8.4-10.2); Carbon Dioxide 19 mmol/L (22-30); Chloride 111 mmol/L (98-107); Estimated Glomerular Filt Rate > 60; Glucose 118 mg/dL (65-110); Potassium 3.8 mmol/L (3.4-5.0); Sodium 138 mmol/L (137-145)
[2022-08-17 05:28] LABS: Hematocrit 40.2 % (37.0-47.0); Mean Corpuscular HGB Conc 32.3 g/dl (32-36); Mean Corpuscular Hemoglobin 31.7 pg (26-34); Platelet Count Result 352 k/mm3 (150-375); White Blood Count 7.8 K/mm3 (4.5-10.0)
[2022-08-17] MEDS: HYDROmorphone HCL INJ (*CRX) 1 MG/ML SYR 0.5 MG IV PUSH (06:31)
[2022-08-17] MEDS: ARIPiprazole 5 MG TABLET PO (08:49)
[2022-08-17] MEDS: ARIPiprazole 10 MG TABLET PO (08:49)
[2022-08-17] MEDS: TOPIRAMATE 25 MG TABLET 50 MG PO ×2 (08:49→16:28)
[2022-08-17] MEDS: PANTOPRAZOLE SODIUM IV 40 MG VIAL IV PUSH (08:49)
[2022-08-17] MEDS: ENOXAPARIN 40 MG/0.4 ML SYRINGE SUB-Q (08:49)
[2022-08-17 10:48] LABS: Basophils Percent Auto 0.4 % (0.2-1.2); Eosinophils Percent Auto 0.1 % (0-4.4); Hematocrit 43.2 % (37.0-47.0); Hemoglobin 13.5 g/dL (12.0-15.0); Immature Granulocyte Absolute 0.06 K/mm3 (0.00-0.031); Immature Granulocyte Percent A 0.8 % (0-0.5); Lymphocytes Absolute Auto 0.78 K/mm3 (0.9-3.2); Lymphocytes Percent Auto 9.9 % (18.3-44.2); Mean Corpuscular HGB Conc 31.3 g/dl (32-36); Mean Corpuscular Volume 99.1 fl (80-100); Mean Platelet Volume 8.8 fl (7.4-10.4); Monocytes Absolute Auto 0.9 K/mm3 (0.1-0.6); Monocytes Percent Auto 10.9 % (2.6-8.5); Neutrophils Absolute Auto 6.2 K/mm3 (1.3-6.7); Neutrophils Percent Auto 77.9 % (45.5-73.1); Platelet Count Result 355 k/mm3 (150-375); Red Blood Count 4.36 M/mm3 (4.2-5.4); Red Cell Distribution Width 14.2 % (11.5-14.5); White Blood Count 7.9 K/mm3 (4.5-10.0)
[2022-08-17] MEDS: FLUTICASONE/UMECLIDIN/VILANTER 100-62.5-25 MCG ELLIPTA 1 PUFF INHALATION (10:55)
[2022-08-17 10:59] LABS: Partial Thromboplastin Time 30.2 SECONDS (22.3-36.8)
[2022-08-17 11:03] LABS: Alanine Aminotransferase 25 U/L (6-35); Albumin Level 3.3 g/dL (3.5-5.1); Alkaline Phosphatase 104 U/L (38-126); Anion Gap 6 mmol/L (8-16); Aspartate Amino Transferase 30 U/L (14-36); Bilirubin,Total 0.6 mg/dL (0.2-1.3); Blood Urea Nitrogen 12 mg/dL (7-17); Calcium 7.5 mg/dL (8.4-10.2); Carbon Dioxide 24 mmol/L (22-30); Chloride 113 mmol/L (98-107); Estimated Glomerular Filt Rate > 60; Glucose 122 mg/dL (65-110); Magnesium 2.7 mg/dL (1.6-2.3); Potassium 4.7 mmol/L (3.4-5.0); Sodium 143 mmol/L (137-145)
[2022-08-17 11:10] LABS: Transferrin 127 mg/dL (206-381)
[2022-08-17] MEDS: LIDOCAINE HCL 1% PF INJ 5 ML VIAL INFILTRATE (11:30)
[2022-08-17] MEDS: AMINO ACIDS 5%/D15W/E-LYTES/CA 2,000 ML with MULTIVITAMINS-12 INJ VIAL 1 2.5 ML, MULTIV... 60 ML IV CONT (12:33)
[2022-08-17] MEDS: FAT EMULSIONS IV 20% 250 ML 20.83 ML IVPB (12:38)
[2022-08-17] MEDS: SODIUM CHLORIDE 0.9% IV 1,000 ML 40 ML IV CONT (12:42)
[2022-08-17 12:44] LABS: Glucose Point of Care 108 mg/dl (65-105)
--- NOTE | 2022-08-17 13:28 | PM.IMPN ---
Progress Note: A&P Assessment and Plan (1) SBO (small bowel obstruction): Code(s): K56.609 - Unspecified intestinal obstruction, unspecified as to partial versus complete obstruction Status: Acute Assessment and Plan: Patient presented with c/o abdominal pain. She had twisted bowel approximately 7 years ago with similar symptoms. CT scan suggested SBO. Patient has history of gastric bypass surgery. NPO. NG tube placed in radiology Continue IV fluids and pain control. Counseled to walk 4-6 times daily. General surgery consulted and appreciate recommendations- continue supportive care. 08/15 KUB shows persistent SBO. NG tube to suction, small yellow/brown discharge with sediment within tubing. 08/16 KUB unchanged. Patient underwent enterotomy with removal of obstructing mass later in the day. 08/17/22 postop day 1. NG to still placed, NPO with ice chips, no flatness thus far. I discuss the case with Dr. Bustamante. (2) Gastritis: Qualifiers: Chronicity: acute Gastritis bleeding: without bleeding Gastritis type: other gastritis Qualified Code(s): K29.00 - Acute gastritis without bleeding Code(s): K29.70 - Gastritis, unspecified, without bleeding Status: Acute Assessment and Plan: Noted on CT scan. Continue PPI therapy. Patient is NPO for SBO. (3) Abdominal pain: Qualifiers: Abdominal location: generalized Qualified Code(s): R10.84 - Generalized abdominal pain Code(s): R10.9 - Unspecified abdominal pain Status: Acute Assessment and Plan: Likely secondary to 1 and gastritis/esophagitis also noted on CT scan. Continue management as above. (4) Asthma-COPD overlap syndrome: Code(s): J44.9 - Chronic obstructive pulmonary disease, unspecified Status: Chronic Assessment and Plan: chronic, not in acute exacerbation. continue Trelegy. albuterol nebs as needed (5) Bipolar affective disorder: Qualifiers: Active/Remission status: remission status unspecified Qualified Code(s): F31.9 - Bipolar disorder, unspecified Code(s): F31.9 - Bipolar disorder, unspecified Status: Chronic Assessment and Plan: Chronic, not in acute exacerbation. Continue home medications. Plan CODE STATUS: FULL CODE Disposition: from home. Discharge pending resolution of bowel obstruction. Subjective Date/time seen: 08/17/22 13:28 Interval history: Postop day 1. Patient up to the chair watching TV when I entered the room. Patient doing well postoperatively. Patient does have some abdominal pain over her incision but otherwise no complaints. Patient is ready to have the G-tube removed. Patient denies nausea, vomiting, passing of gas or bowel movement, chest pain and shortness of breath. Review of Systems Review of Systems: All systems reviewed & are unremarkable except as noted in HPI and below Exam Narrative: GENERAL: Comfortable, no acute distress HENMT: moist mucous membranes, NG tube patent and draining yellow fluid EYES: EOM intact b/l NECK: no lymphadenopathy RESPIRATORY: clear to auscultation CARDIO: RRR GI: soft, Tender over sedation, bowel sounds present, dressings dry SKIN: no rashes EXTREMITIES: no edema, redness or tenderness Objective Data Vital Signs Vital Signs: Vital Signs - 24 hr 08/16/22 14:00 08/16/22 17:36 08/16/22 17:55 Temperature 98.4 F 97.5 F L Pulse Rate 107 H 90 92 Respiratory Rate 20 19 16 Blood Pressure 142/78 H 117/65 129/65 Pulse Oximetry 100 100 100 Oxygen Delivery Simple Face Mask Simple Face Mask Oxygen Flow Rate 10 10 Fraction of Inspired Oxygen 08/16/22 18:10 08/16/22 18:25 08/16/22 18:34 Temperature 99.1 F Pulse Rate 93 98 101 H Respiratory Rate 16 22 H 22 H Blood Pressure 119/67 127/77 118/66 Pulse Oximetry 97 95 98 Oxygen Delivery Room Air Room Air Oxygen Flow Rate Fraction o
--- NOTE | 2022-08-17 14:10 | WPDANESPN ---
Anes - Prog Note Post-Op Date/Time: 08/17/22 14:10 Cardiovascular status: normal Respiratory status: normal Airway patency: baseline Mental status: baseline Post-Op hydration status: normal Vital Signs: Last Vital Signs Temp 36.6 C 08/17/22 09:44 Pulse 102 H 08/17/22 09:44 Resp 18 08/17/22 09:44 BP 132/69 08/17/22 09:44 Pulse Ox 100 08/17/22 09:44 O2 Del Method Room Air 08/17/22 08:00 O2 Flow Rate 10 08/16/22 17:55 FiO2 0.21 08/17/22 08:00 Pain Score (VAS): 08/26 I/O: Intake & Output 08/16/22 08/17/22 08/17/22 23:59 07:59 15:59 Intake Total 1350 1000 1000 Output Total 500 500 650 Balance 850 500 350 Laboratory Tests 08/17/22 10:33 08/17/22 10:33 08/16/22 08/17/22 08/17/22 13:15 04:48 04:48 WBC 7.8 RBC 4.10 L Hgb 13.0 Hct 40.2 MCV 98.0 MCH 31.7 MCHC 32.3 RDW 14.0 Plt Count 352 MPV 9.0 Immature Gran % (Auto) Neut % (Auto) Lymph % (Auto) Stokes % (Auto) Eos % (Auto) Baso % (Auto) Lymph # (Auto) Stokes # (Auto) Eos # (Auto) Baso # (Auto) Abs Immat Gran (auto) Absolute Neuts (auto) Absolute Nucleated RBC Nucleated RBC % APTT Sodium 138 Potassium 3.8 Chloride 111 H Carbon Dioxide 19 L Anion Gap 8 BUN 12 Creatinine 0.70 Estim Creat Clear Calc Not Reportable Estimated GFR > 60 Glucose 118 H POC Capillary Glucose Calcium 7.3 L Magnesium Transferrin Total Bilirubin AST ALT Alkaline Phosphatase Total Protein Albumin Blood Type B Negative Antibody Screen Negative 08/17/22 08/17/22 08/17/22 10:33 10:33 10:33 WBC 7.9 RBC 4.36 Hgb 13.5 Hct 43.2 MCV 99.1 MCH 31.0 MCHC 31.3 L RDW 14.2 Plt Count 355 MPV 8.8 Immature Gran % (Auto) 0.8 H Neut % (Auto) 77.9 H Lymph % (Auto) 9.9 L Stokes % (Auto) 10.9 H Eos % (Auto) 0.1 Baso % (Auto) 0.4 Lymph # (Auto) 0.78 L Stokes # (Auto) 0.9 H Eos # (Auto) 0.0 Baso # (Auto) 0.0 Abs Immat Gran (auto) 0.06 H Absolute Neuts (auto) 6.2 Absolute Nucleated RBC 0.0 Nucleated RBC % 0.0 APTT 30.2 Sodium 143 Potassium 4.7 Chloride 113 H Carbon Dioxide 24 Anion Gap 6 L BUN 12 Creatinine 0.80 Estim Creat Clear Calc Not Reportable Estimated GFR > 60 Glucose 122 H POC Capillary Glucose Calcium 7.5 L Magnesium 2.7 H Transferrin 127 L Total Bilirubin 0.6 AST 30 ALT 25 Alkaline Phosphatase 104 Total Protein 6.0 L Albumin 3.3 L Blood Type Antibody Screen 08/17/22 12:41 WBC RBC Hgb Hct MCV MCH MCHC RDW Plt Count MPV Immature Gran % (Auto) Neut % (Auto) Lymph % (Auto) Stokes % (Auto) Eos % (Auto) Baso % (Auto) Lymph # (Auto) Stokes # (Auto) Eos # (Auto) Baso # (Auto) Abs Immat Gran (auto) Absolute Neuts (auto) Absolute Nucleated RBC Nucleated RBC % APTT Sodium Potassium Chloride Carbon Dioxide Anion Gap BUN Creatinine Estim Creat Clear Calc Estimated GFR Glucose POC Capillary Glucose 108 H Calcium Magnesium Transferrin Total Bilirubin AST ALT Alkaline Phosphatase Total Protein Albumin Blood Type Antibody Screen Post-procedural complaints: none Patient Feedback: Patient satisfied with anesthetic care.
[2022-08-17] MEDS: CENTRAL LINE FLUSH 10 ML IV PUSH ×2 (14:11→20:32)
--- NOTE | 2022-08-17 15:24 | PM.PNGS ---
Progress Note: A&P Assessment and Plan (1) SBO (small bowel obstruction): Code(s): K56.609 - Unspecified intestinal obstruction, unspecified as to partial versus complete obstruction Status: Acute Assessment and Plan: Post-op day 1 following enterotomy and removal intraluminal obstructing mass that appeared consistent with fecal material. Awaiting return of bowel function. Will continue NG tube decompression, bowel rest, and TPN. Repeat labs tomorrow. Encouraged increasing activity as tolerated and ambulating today. 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: Code(s): Z90.3 - Acquired absence of stomach [part of]; Z98.0 - Intestinal bypass and anastomosis status Status: Chronic (3) History of fundoplication: Code(s): Z98.890 - Other specified postprocedural states Status: Chronic (4) Bipolar affective disorder: Qualifiers: Active/Remission status: remission status unspecified Qualified Code(s): F31.9 - Bipolar disorder, unspecified Code(s): F31.9 - Bipolar disorder, unspecified Status: Chronic (5) Asthma-COPD overlap syndrome: Code(s): J44.9 - Chronic obstructive pulmonary disease, unspecified Status: Chronic Plan I have discussed the patient's case and plan of care with Dr. Bustamante. Subjective Subjective Date/Time Seen: 08/17/22 15:24 Post Op day: 1 (Enterotomy, removal intraluminal obstructing mass) Patient reports: voiding w/o difficulty, no flatus, no bowel movement and afebrile Interval history: Chart reviewed. Patient has some incisional soreness, but no significant complaints of abdominal pain. She denies any nausea. NG tube in place with 650 cc output overnight shift last night. She denies flatus. She has been able to get up and walk to the bathroom and tolerated this well. No other complaints at this time. Review of Systems Review of Systems: All systems reviewed & are unremarkable except as noted in HPI and below Constitutional: Constitutional: Reports as per HPI, Reports no additional constitutional complaints, Denies chills, Denies fever(s) and Denies headache(s) Cardiovascular: Cardiovascular: Reports no additional cardiovascular complaints, Denies chest pain and Denies leg edema Respiratory: Respiratory: Reports no additional respiratory complaints, Denies cough and Denies dyspnea Gastrointestinal: Gastrointestinal: Reports as per HPI and Reports no additional gastrointestinal complaints Neurologic: Reports system reviewed and no additional complaints, except as documented, Denies Abnormal speech present and Denies focal weakness Exam Const: General: no acute distress and awake Orientation/consciousness: patient oriented x3 GI: Inspection: distended and incision (abdominal dressing dry and intact) GI Palp: Yes Soft to palpation, Yes Tenderness to palpation present (GI) (expected incisional tenderness) and No Guarding due to palpation present (GI) Auscultation: Hypoactive bowel sounds present (very hypo) Extrem: General: no calf tenderness and no edema Psych: Insight: Good insight present (Psych) Judgement: Good judgement present (Psych) Objective Data Vital Signs Vital Signs: Vital Signs - 24 hr 08/16/22 17:36 08/16/22 17:55 08/16/22 18:10 Temperature 97.5 F L Pulse Rate 90 92 93 Respiratory Rate 19 16 16 Blood Pressure 117/65 129/65 119/67 Pulse Oximetry 100 100 97 Oxygen Delivery Simple Face Mask Simple Face Mask Room Air Oxygen Flow Rate 10 10 Fraction of Inspired Oxygen 08/16/22 18:25 08/16/22 18:34 08/16/22 18:49 Temperature 99.1 F 98.7 F Pulse Rate 98 101 H 102 H Respiratory Rate 22 H 22 H 22 H Blood Pressure 127/77 118/66 122/75 Pulse Oximetry 95 98 96 Oxygen Delivery Room Air Oxygen Flow Rate Fraction of Inspired Oxygen 08/16/22 19:19 08/16/22 20:19 08/16/22 20:00 Temperature 98.9 F 98.1 F Pulse Rate 105 H 106 H 106 H Respirator
[2022-08-17] MEDS: HYDROmorphone HCL INJ (*CRX) 1 MG/ML SYR IV PUSH (16:30)
[2022-08-17 17:49] LABS: Glucose Point of Care 179 mg/dl (65-105)
[2022-08-17] MEDS: QUEtiapine FUMARATE 100 MG TABLET 300 MG PO (20:32)
[2022-08-17 21:33] LABS: Glucose Point of Care 153 mg/dl (65-105)
[2022-08-18 04:10] LABS: Glucose Point of Care 149 mg/dl (65-105)
[2022-08-18 05:22] VITALS: BP 137/78; PULSE 115; RESP 18; TEMP 36.7; O2SAT 92
[2022-08-18] MEDS: CENTRAL LINE FLUSH 10 ML IV PUSH ×3 (06:01→21:27)
[2022-08-18 06:16] LABS: Basophils Percent Auto 0.4 % (0.2-1.2); Eosinophils Absolute Auto 0.2 K/mm3 (0-0.3); Eosinophils Percent Auto 2.3 % (0-4.4); Hematocrit 35.4 % (37.0-47.0); Hemoglobin 11.5 g/dL (12.0-15.0); Immature Granulocyte Absolute 0.12 K/mm3 (0.00-0.031); Immature Granulocyte Percent A 1.7 % (0-0.5); Lymphocytes Absolute Auto 1.04 K/mm3 (0.9-3.2); Lymphocytes Percent Auto 14.8 % (18.3-44.2); Mean Corpuscular HGB Conc 32.5 g/dl (32-36); Mean Corpuscular Hemoglobin 30.9 pg (26-34); Mean Corpuscular Volume 95.2 fl (80-100); Monocytes Absolute Auto 0.8 K/mm3 (0.1-0.6); Monocytes Percent Auto 10.6 % (2.6-8.5); Neutrophils Percent Auto 70.2 % (45.5-73.1); Platelet Count Result 299 k/mm3 (150-375); Red Blood Count 3.72 M/mm3 (4.2-5.4); White Blood Count 7.1 K/mm3 (4.5-10.0)
--- NOTE | 2022-08-18 06:55 | PM.IMPN ---
Progress Note: A&P Assessment and Plan (1) SBO (small bowel obstruction): Code(s): K56.609 - Unspecified intestinal obstruction, unspecified as to partial versus complete obstruction Status: Acute Assessment and Plan: Patient presented with c/o abdominal pain. She had twisted bowel approximately 7 years ago with similar symptoms. CT scan suggested SBO. Patient has history of gastric bypass surgery. NPO. NG tube placed Continue IV fluids and pain control. Counseled to walk 4-6 times daily. General surgery consulted and appreciate recommendations - continue supportive care. 08/15 KUB shows persistent SBO. 08/16 KUB unchanged. Patient underwent enterotomy with removal of obstructing mass later in the day. 08/17/22 postop day 1. NG to still placed, NPO with ice chips, no flatness thus far. I discuss the case with Dr. Bustamante and TPN was started (2) Gastritis: Qualifiers: Chronicity: acute Gastritis bleeding: without bleeding Gastritis type: other gastritis Qualified Code(s): K29.00 - Acute gastritis without bleeding Code(s): K29.70 - Gastritis, unspecified, without bleeding Status: Acute Assessment and Plan: Noted on CT scan. Continue PPI therapy. Patient is NPO for SBO. (3) Abdominal pain: Qualifiers: Abdominal location: generalized Qualified Code(s): R10.84 - Generalized abdominal pain Code(s): R10.9 - Unspecified abdominal pain Status: Acute Assessment and Plan: Likely secondary to 1 and gastritis/esophagitis also noted on CT scan. Continue management as above. (4) Asthma-COPD overlap syndrome: Code(s): J44.9 - Chronic obstructive pulmonary disease, unspecified Status: Chronic Assessment and Plan: chronic, not in acute exacerbation. continue Trelegy. albuterol nebs as needed (5) Bipolar affective disorder: Qualifiers: Active/Remission status: remission status unspecified Qualified Code(s): F31.9 - Bipolar disorder, unspecified Code(s): F31.9 - Bipolar disorder, unspecified Status: Chronic Assessment and Plan: Chronic, not in acute exacerbation. Continue home medications. Plan CODE STATUS: FULL CODE Disposition: from home. Discharge pending resolution of bowel obstruction. Subjective Date/time seen: 08/18/22 06:55 Interval history: Patient sitting up in bed watching television. Patient states that abdominal pain has improved. Patient has still not passed gas or had BM. NG still in place. Pt getting TPN. Denies N/V, chest pain. Patient is having some shortness of breath with activity. She has a history of COPD. Review of Systems Review of Systems: All systems reviewed & are unremarkable except as noted in HPI and below Exam Narrative: GENERAL: Comfortable, no acute distress HENMT: moist mucous membranes, NG tube patent and draining yellow fluid EYES: EOM intact b/l NECK: no lymphadenopathy RESPIRATORY: clear to auscultation CARDIO: RRR GI: soft, Tender over sedation, bowel sounds present, dressings dry SKIN: no rashes EXTREMITIES: no edema, redness or tenderness Objective Data Vital Signs Vital Signs: Vital Signs - 24 hr 08/17/22 08:00 08/17/22 09:44 08/17/22 15:15 Temperature 97.9 F 98.6 F Pulse Rate 102 H 98 Respiratory Rate 18 18 Blood Pressure 132/69 131/89 Pulse Oximetry 100 100 Oxygen Delivery Room Air Fraction of Inspired Oxygen 0.21 08/17/22 17:34 08/17/22 20:00 08/17/22 22:13 Temperature 99.2 F 98.1 F Pulse Rate 99 99 104 H Respiratory Rate 16 16 17 Blood Pressure 134/70 101/65 Pulse Oximetry 93 93 94 Oxygen Delivery Room Air Fraction of Inspired Oxygen 0.21 08/18/22 05:22 Temperature 98.0 F Pulse Rate 115 H Respiratory Rate 18 Blood Pressure 137/78 Pulse Oximetry 92 Oxygen Delivery Fraction of Inspired Oxygen Intake/Output Intake/Out
[2022-08-18 08:00] VITALS: O2SAT 94
--- NOTE | 2022-08-18 08:05 | PM.PNGS ---
Progress Note: A&P Assessment and Plan (1) SBO (small bowel obstruction): Code(s): K56.609 - Unspecified intestinal obstruction, unspecified as to partial versus complete obstruction Status: Acute Assessment and Plan: Await return bowel function. Continue NG tube, TPN, ambulation. Follow serial exam and labs. Since patient having some shortness of breath with activity, will stop IV fluids and give a dose of Bumex. (2) Protein-calorie malnutrition, moderate: Code(s): E44.0 - Moderate protein-calorie malnutrition Status: Acute Assessment and Plan: Continue TPN at 60 cc an hour. Dietitian note appreciated (3) Bipolar affective disorder: Qualifiers: Active/Remission status: remission status unspecified Qualified Code(s): F31.9 - Bipolar disorder, unspecified Code(s): F31.9 - Bipolar disorder, unspecified Status: Chronic Assessment and Plan: On home meds with clamping NG tube. 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 Pain well controlled. Review of Systems Review of Systems: All systems reviewed & are unremarkable except as noted in HPI and below (HPI) Exam Const: General: comfortable and no acute distress; No confusion Orientation/consciousness: patient oriented x3 and No confusion GI: Inspection: non-distended and incision (Dressing dry and intact) GI Palp: Yes Soft to palpation, Yes Tenderness to palpation present (GI), No Guarding due to palpation present (GI) and No Rebound tenderness present Auscultation: absent bowel sounds Neuro: General: patient oriented x3, no focal motor deficits and No confusion Extrem: General: no calf tenderness and no edema Psych: Affect: normal affect Insight: Good insight present (Psych) Judgement: Good judgement present (Psych) Objective Data Vital Signs Vital Signs: Vital Signs - 24 hr 08/17/22 09:44 08/17/22 15:15 08/17/22 17:34 Temperature 36.6 C 37.0 C 37.3 C Pulse Rate 102 H 98 99 Respiratory Rate 18 18 16 Blood Pressure 132/69 131/89 134/70 Pulse Oximetry 100 100 93 Oxygen Delivery Fraction of Inspired Oxygen 08/17/22 20:00 08/17/22 22:13 08/18/22 05:22 Temperature 36.7 C 36.7 C Pulse Rate 99 104 H 115 H Respiratory Rate 16 17 18 Blood Pressure 101/65 137/78 Pulse Oximetry 93 94 92 Oxygen Delivery Room Air Fraction of Inspired Oxygen 0.21 08/18/22 08:00 Temperature Pulse Rate Respiratory Rate Blood Pressure Pulse Oximetry 94 Oxygen Delivery Room Air Fraction of Inspired Oxygen Intake/Output Intake/Output: Intake & Output 08/15/22 08/16/22 08/17/22 08/18/22 23:59 23:59 23:59 23:59 Intake Total 3250 2350 2000 Output Total 1100 1200 1900 Balance 2150 1150 100 Meds/Results Medications: Active Medications Generic Name Dose Route Start Last Admin Trade Name Freq PRN Reason Stop Dose Admin Albuterol 2.5 mg 08/14/22 08:05 Albuterol Sulfate Neb 2.5 Mg/3 Ml Inh INHALATION Q6HRT PRN Shortness Of Breath Or Wheezing Aripiprazole 5 mg 08/14/22 09:00 08/17/22 08:49 Aripiprazole 5 Mg Tablet PO 5 mg DAILY ABRAHAM Administration Aripiprazole 10 mg 08/14/22 09:00 08/17/22 08:49 Aripiprazole 10 Mg Tablet PO 10 mg DAILY ABRAHAM Administration Dextrose 12.5 gm 08/17/22 10:20 Dextrose 50% 25 Gm/50 Ml Syringe IV PUSH PRN PRN Hypoglycemia Protocol Enoxaparin Sodium 40 mg 08/15/22 09:00
[2022-08-18] MEDS: FLUTICASONE/UMECLIDIN/VILANTER 100-62.5-25 MCG ELLIPTA 1 PUFF INHALATION (08:14)
[2022-08-18] MEDS: ENOXAPARIN 40 MG/0.4 ML SYRINGE SUB-Q (08:53)
[2022-08-18] MEDS: TOPIRAMATE 25 MG TABLET 50 MG PO ×2 (08:53→16:24)
[2022-08-18] MEDS: ARIPiprazole 5 MG TABLET PO (08:53)
[2022-08-18] MEDS: PANTOPRAZOLE SODIUM IV 40 MG VIAL IV PUSH (08:53)
[2022-08-18] MEDS: ARIPiprazole 10 MG TABLET PO (08:53)
[2022-08-18] MEDS: BUMETANIDE INJ 1 MG/4 ML VIAL 2 MG IV PUSH (08:54)
[2022-08-18 09:27] LABS: Triglycerides 96 mg/dL (<150)
[2022-08-18] MEDS: HYDROmorphone HCL INJ (*CRX) 1 MG/ML SYR IV PUSH (10:03)
[2022-08-18] MEDS: AMINO ACIDS 5%/D15W/E-LYTES/CA 2,000 ML with MULTIVITAMINS-12 INJ VIAL 1 2.5 ML, MULTIV... 60 ML IV CONT (11:42)
[2022-08-18] MEDS: FAT EMULSIONS IV 20% 250 ML 20.83 ML IVPB (11:43)
[2022-08-18 11:50] LABS: Glucose Point of Care 137 mg/dl (65-105)
[2022-08-18 14:00] VITALS: BP 124/78; PULSE 105; RESP 18; TEMP 36.3; O2SAT 96
[2022-08-18] MEDS: ONDANSETRON INJ 4 MG/2 ML VIAL IV PUSH ×2 (14:58→21:26)
[2022-08-18 18:12] LABS: Glucose Point of Care 125 mg/dl (65-105)
[2022-08-18 19:46] LABS: Anion Gap 4 mmol/L (8-16); Blood Urea Nitrogen 15 mg/dL (7-17); Carbon Dioxide 25 mmol/L (22-30); Chloride 105 mmol/L (98-107); Potassium 3.3 mmol/L (3.4-5.0); Sodium 134 mmol/L (137-145)
[2022-08-18 19:47] LABS: Alanine Aminotransferase 22 U/L (6-35); Albumin Level 3.3 g/dL (3.5-5.1); Alkaline Phosphatase 92 U/L (38-126); Aspartate Amino Transferase 25 U/L (14-36); Bilirubin,Total 0.4 mg/dL (0.2-1.3); Estimated Glomerular Filt Rate > 60; Glucose 144 mg/dL (65-110)
[2022-08-18 20:02] LABS: Glucose Point of Care 125 mg/dl (65-105)
[2022-08-18 20:57] VITALS: BP 130/75; PULSE 103; RESP 17; TEMP 37; O2SAT 97
[2022-08-18] MEDS: QUEtiapine FUMARATE 100 MG TABLET 300 MG PO (21:24)
[2022-08-19 00:27] LABS: Glucose Point of Care 147 mg/dl (65-105)
[2022-08-19 05:17] VITALS: BP 106/62; PULSE 103; RESP 17; TEMP 36.5; O2SAT 94
[2022-08-19 05:29] LABS: Glucose Point of Care 128 mg/dl (65-105)
[2022-08-19] MEDS: CENTRAL LINE FLUSH 10 ML IV PUSH ×3 (06:02→20:11)
[2022-08-19 06:33] LABS: Hematocrit 37.3 % (37.0-47.0); Hemoglobin 12.2 g/dL (12.0-15.0); Mean Corpuscular HGB Conc 32.7 g/dl (32-36); Mean Corpuscular Hemoglobin 31.4 pg (26-34); Mean Corpuscular Volume 96.1 fl (80-100); Mean Platelet Volume 8.9 fl (7.4-10.4); Platelet Count Result 305 k/mm3 (150-375); Red Blood Count 3.88 M/mm3 (4.2-5.4); Red Cell Distribution Width 13.9 % (11.5-14.5); White Blood Count 9.5 K/mm3 (4.5-10.0)
[2022-08-19 06:48] LABS: Anion Gap 4 mmol/L (8-16); Blood Urea Nitrogen 16 mg/dL (7-17); Calcium 7.8 mg/dL (8.4-10.2); Carbon Dioxide 24 mmol/L (22-30); Chloride 107 mmol/L (98-107); Estimated Glomerular Filt Rate > 60; Glucose 123 mg/dL (65-110); Phosphorus 2.6 mg/dL (2.5-4.5); Potassium 3.4 mmol/L (3.4-5.0); Sodium 135 mmol/L (137-145)
[2022-08-19] MEDS: FLUTICASONE/UMECLIDIN/VILANTER 100-62.5-25 MCG ELLIPTA 1 PUFF INHALATION (08:07)
[2022-08-19 08:08] VITALS: PULSE 103; RESP 16
[2022-08-19] MEDS: TOPIRAMATE 25 MG TABLET 50 MG PO ×2 (08:10→16:21)
[2022-08-19] MEDS: ARIPiprazole 5 MG TABLET PO (08:10)
[2022-08-19] MEDS: ARIPiprazole 10 MG TABLET PO (08:10)
[2022-08-19] MEDS: ENOXAPARIN 40 MG/0.4 ML SYRINGE SUB-Q (08:11)
[2022-08-19] MEDS: PANTOPRAZOLE SODIUM IV 40 MG VIAL IV PUSH (08:11)
[2022-08-19] MEDS: AMINO ACIDS 5%/D15W/E-LYTES/CA 2,000 ML with MULTIVITAMINS-12 INJ VIAL 1 2.5 ML, MULTIV... 60 ML IV CONT (11:21)
[2022-08-19] MEDS: FAT EMULSIONS IV 20% 250 ML 20.83 ML IVPB (11:25)
--- NOTE | 2022-08-19 12:11 | PM.PNGS ---
Progress Note: A&P Assessment and Plan (1) SBO (small bowel obstruction): Code(s): K56.609 - Unspecified intestinal obstruction, unspecified as to partial versus complete obstruction Status: Acute Assessment and Plan: Doing well. Wound is healing nicely. Patient getting up and walking. Diuresis yesterday after Bumex and dyspnea with activity has resolved. Labs look good. Await return bowel function. Continue NPO and NG tube. Would not be surprised if it is 2 or 3 more days before bowel function returns. Continue dressing changes to abdominal wound. (2) Protein-calorie malnutrition, moderate: Code(s): E44.0 - Moderate protein-calorie malnutrition Status: Acute Assessment and Plan: Continue TPN. 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 She awakened at 3:00 a.m. on 08/13/2002 with diffuse abdominal pain. She subsequently was found to have an intraluminal obstruction of large amount of fibrous material almost certainly due to the peanuts and her inability to adequately digest these because of Leonard-en-Y bypass and gastrectomy. (4) Bipolar affective disorder: Qualifiers: Active/Remission status: remission status unspecified Qualified Code(s): F31.9 - Bipolar disorder, unspecified Code(s): F31.9 - Bipolar disorder, unspecified Status: Chronic Assessment and Plan: Receiving home meds (5) Asthma-COPD overlap syndrome: Code(s): J44.9 - Chronic obstructive pulmonary disease, unspecified Status: Chronic Assessment and Plan: Stable Subjective Subjective Date/Time Seen: 08/19/22 12:11 Post Op day: 3 Patient reports: pain is less, no flatus, no bowel movement, shortness of breath (Resolved from yesterday after diuretic.) and afebrile Interval history: Patient getting up and walking and plans to do this more this afternoon Review of Systems Review of Systems: All systems reviewed & are unremarkable except as noted in HPI and below (HPI and those items noted below) Constitutional: Constitutional: Denies chills and Denies fever(s) Cardiovascular: Cardiovascular: Denies chest pain, Denies diaphoresis, Denies dyspnea and Denies paroxysmal nocturnal dyspnea Respiratory: Respiratory: Denies chest congestion, Denies cough and Denies dyspnea Integumentary/Breasts: Skin/Breast: Denies lesions and Denies rash Exam Const: General: cooperative, comfortable and no acute distress; No confusion Orientation/consciousness: patient oriented x3 and No confusion GI: Inspection: non-distended, incision (Dry and healing well) and obesity GI Palp: Yes Soft to palpation, Yes Tenderness to palpation present (GI), No Guarding due to palpation present (GI) and No Rebound tenderness present Auscultation: Hypoactive bowel sounds present Neuro: General: patient oriented x3, no focal motor deficits and No confusion Extrem: General: no calf tenderness and no edema Psych: Affect: normal affect Insight: Good insight present (Psych) Judgement: Good judgement present (Psych) Objective Data Vital Signs Vital Signs: Vital Signs - 24 hr 08/18/22 14:00 08/18/22 20:57 08/19/22 05:17 Temperature 36.3 C L 37.0 C 36.5 C Pulse Rate 105 H 103 H 103 H Respiratory Rate 18 17 17 Blood Pressure 124/78 130/75 106/62 Pulse Oximetry 96 97 94 Oxygen Delivery 08/19/22 08:08 08/19/22 08:00 Temperature Pulse Rate 103 H Respiratory Rate 16 Blood Pressure Pulse Oximetry Oxygen Delivery Room Air Intake/Output Intake/Output: Intake & Output 08/16/22 08/17/22 08/18/22 08/19/22 23:59 23:59 23:59 23:59 Intake Total 2350 1999 2505 206 Output Total 1200 1900 3450 1150 Balance 1150 100 -907 934
[2022-08-19 12:42] LABS: Glucose Point of Care 117 mg/dl (65-105)
--- NOTE | 2022-08-19 13:45 | PM.IMPN ---
Progress Note: A&P Assessment and Plan (1) SBO (small bowel obstruction): Code(s): K56.609 - Unspecified intestinal obstruction, unspecified as to partial versus complete obstruction Status: Acute Assessment and Plan: Patient presented with c/o abdominal pain. She had twisted bowel approximately 7 years ago with similar symptoms. CT scan suggested SBO. Patient has history of gastric bypass surgery. NPO. NG tube placed Continue IV fluids and pain control. Counseled to walk 4-6 times daily. General surgery consulted and appreciate recommendations - continue supportive care. 08/15 KUB shows persistent SBO. 08/16 KUB unchanged. Patient underwent enterotomy with removal of obstructing mass later in the day. 08/17/22 postop day 1. NG to still placed, NPO with ice chips, no flatness thus far. I discuss the case with Dr. Bustamante and TPN was started. 08/19/22 Awaiting return of bowel function (2) Gastritis: Qualifiers: Chronicity: acute Gastritis bleeding: without bleeding Gastritis type: other gastritis Qualified Code(s): K29.00 - Acute gastritis without bleeding Code(s): K29.70 - Gastritis, unspecified, without bleeding Status: Acute Assessment and Plan: Noted on CT scan. Continue PPI therapy. Patient is NPO for SBO. (3) Abdominal pain: Qualifiers: Abdominal location: generalized Qualified Code(s): R10.84 - Generalized abdominal pain Code(s): R10.9 - Unspecified abdominal pain Status: Acute Assessment and Plan: Likely secondary to 1 and gastritis/esophagitis also noted on CT scan. Continue management as above. (4) Asthma-COPD overlap syndrome: Code(s): J44.9 - Chronic obstructive pulmonary disease, unspecified Status: Chronic Assessment and Plan: chronic, not in acute exacerbation. continue Trelegy. albuterol nebs as needed (5) Bipolar affective disorder: Qualifiers: Active/Remission status: remission status unspecified Qualified Code(s): F31.9 - Bipolar disorder, unspecified Code(s): F31.9 - Bipolar disorder, unspecified Status: Chronic Assessment and Plan: Chronic, not in acute exacerbation. Continue home medications. Plan CODE STATUS: FULL CODE Disposition: from home. Discharge pending resolution of bowel obstruction. Subjective Date/time seen: 03/03/23 13:45 Interval history: Patient doing well with today with no new complaints. Patient still has not passed gas or had a bowel movement. Awaiting return of bowel function. Review of Systems Review of Systems: All systems reviewed & are unremarkable except as noted in HPI and below Exam Narrative: GENERAL: Comfortable, no acute distress HENMT: moist mucous membranes, NG tube patent and draining yellow fluid EYES: EOM intact b/l NECK: no lymphadenopathy RESPIRATORY: clear to auscultation CARDIO: RRR GI: soft, Tender over sedation, bowel sounds present, dressings dry SKIN: no rashes EXTREMITIES: no edema, redness or tenderness Objective Data Vital Signs Vital Signs: Vital Signs - 24 hr 08/18/22 14:00 08/18/22 20:57 08/19/22 05:17 Temperature 97.3 F L 98.6 F 97.7 F Pulse Rate 105 H 103 H 103 H Respiratory Rate 18 17 17 Blood Pressure 124/78 130/75 106/62 Pulse Oximetry 96 97 94 Oxygen Delivery 08/19/22 08:08 08/19/22 08:00 Temperature Pulse Rate 103 H Respiratory Rate 16 Blood Pressure Pulse Oximetry Oxygen Delivery Room Air Intake/Output Intake/Output: Intake & Output 08/16/22 08/17/22 08/18/22 08/19/22 23:59 23:59 23:59 23:59 Intake Total 2350 2000 2505 2065 Output Total 1200 1900 3450 1150 Balance 1150 100 -945 915 Meds/Results Medications: Active Medications Generic Name Dose Route Start Last Admin Trade Name Freq PRN Reason Stop Dose Admin Albuterol 2.5 mg 08/14/22 08:05 Albuterol Sulfate
[2022-08-19 14:00] VITALS: BP 110/64; PULSE 99; RESP 18; TEMP 36.6; O2SAT 95
--- NOTE | 2022-08-19 14:52 | PCNFU ---
Nutrition Follow-Up Complete: Inadequate enery intake related to small bowel obstruction as evidenced by need for full parenteral nutrition. Meet estimated nutrition needs - Progressing to goal with TPN @ goal rate Advance to PO intake as medically able - not meeting goal yet Goal: Pt current nutrition is TPN Clinmic 10/31 @ 60 ml/h with lipids. 1522 kcals, 72 g protein, 1690 ml total volume. Nutrition recommendation: Continue TPNM as ordered Last recorded weight is 76 kg. Bowel Motility: Last BM 08/16 Labs Reviewed: Alb 3.3, Na 135, Cre 0.5 Meds Noted: Zofran, protonix Skin: WNL Additional Notes: PICC was placed and PPN was changed to TPN. Tolerating. Continue current orders. Monitoring tolerance, labs, diet advancement, plan of care Follow up Monday and Monday while on PPN
[2022-08-19] MEDS: ONDANSETRON INJ 4 MG/2 ML VIAL IV PUSH (14:54)
[2022-08-19] MEDS: HYDROmorphone HCL INJ (*CRX) 1 MG/ML SYR IV PUSH ×2 (16:22→22:08)
[2022-08-19 18:10] LABS: Glucose Point of Care 133 mg/dl (65-105)
[2022-08-19 20:00] VITALS: PULSE 103; RESP 20; O2SAT 98
[2022-08-19] MEDS: QUEtiapine FUMARATE 100 MG TABLET 300 MG PO (20:10)
[2022-08-19 21:01] VITALS: BP 144/86; PULSE 103; RESP 20; TEMP 36.9; O2SAT 98
[2022-08-20 00:18] LABS: Glucose Point of Care 114 mg/dl (65-105)
[2022-08-20] MEDS: HYDROmorphone HCL INJ (*CRX) 1 MG/ML SYR IV PUSH ×3 (04:35→20:46)
[2022-08-20] MEDS: ONDANSETRON INJ 4 MG/2 ML VIAL IV PUSH ×2 (04:36→20:47)
[2022-08-20 04:39] VITALS: BP 131/77; PULSE 110; RESP 20; TEMP 36.8; O2SAT 98
[2022-08-20] MEDS: CENTRAL LINE FLUSH 10 ML IV PUSH ×2 (04:54→20:23)
[2022-08-20 05:03] LABS: Hemoglobin 12.8 g/dL (12.0-15.0); Mean Corpuscular Hemoglobin 30.8 pg (26-34); Mean Corpuscular Volume 96.4 fl (80-100); Platelet Count Result 315 k/mm3 (150-375); Red Blood Count 4.15 M/mm3 (4.2-5.4); Red Cell Distribution Width 13.8 % (11.5-14.5); White Blood Count 11.6 K/mm3 (4.5-10.0)
[2022-08-20 05:21] LABS: Anion Gap 5 mmol/L (8-16); Blood Urea Nitrogen 15 mg/dL (7-17); Carbon Dioxide 24 mmol/L (22-30); Chloride 104 mmol/L (98-107); Estimated Glomerular Filt Rate > 60; Glucose 107 mg/dL (65-110); Phosphorus 3.7 mg/dL (2.5-4.5); Potassium 3.7 mmol/L (3.4-5.0); Sodium 133 mmol/L (137-145)
[2022-08-20 05:33] LABS: Glucose Point of Care 120 mg/dl (65-105)
--- NOTE | 2022-08-20 08:18 | ECG_ITS ---
Measurements Intervals [place] Rate: 103 P: -6 WI: 150 QRS: 47 QRSD: 86 T: -1 QT: 322 QTc: 422 Interpretive Statements SINUS TACHYCARDIA LOW QRS VOLTAGE IN PRECORDIAL LEADS BORDERLINE ST-T WAVE ABNORMALITY- INFERIOR LEADS BORDERLINE ECG COMPARED TO ECG 10/27/2021 15:36:36 SINUS TACHYCARDIA NOW PRESENT Electronically Signed On 08-20-2022 14:35:02 SUPPLY CLERK by Giorgi Youngblood D.O.
[2022-08-20 09:21] VITALS: PULSE 98; RESP 18
[2022-08-20] MEDS: FLUTICASONE/UMECLIDIN/VILANTER 100-62.5-25 MCG ELLIPTA 1 PUFF INHALATION (09:21)
[2022-08-20 09:24] VITALS: PULSE 98; RESP 18
[2022-08-20 10:17] LABS: Triglycerides 110 mg/dL (<150)
[2022-08-20] MEDS: IBUPROFEN IV 800 MG/200 ML 800 MG/200 ML BAG 400 MG IVPB (10:48)
[2022-08-20] MEDS: ENOXAPARIN 40 MG/0.4 ML SYRINGE SUB-Q (10:52)
[2022-08-20] MEDS: PANTOPRAZOLE SODIUM IV 40 MG VIAL IV PUSH (10:52)
--- NOTE | 2022-08-20 10:54 | PM.PNGS ---
Progress Note: A&P Assessment and Plan (1) SBO (small bowel obstruction): Code(s): K56.609 - Unspecified intestinal obstruction, unspecified as to partial versus complete obstruction Status: Acute Assessment and Plan: Passing flatus. Will clamp NG today. Await further return of bowel function. (2) Protein-calorie malnutrition, moderate: Code(s): E44.0 - Moderate protein-calorie malnutrition Status: Acute Assessment and Plan: Continue TPN. 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 She awakened at 3:00 a.m. on 08/13/2002 with diffuse abdominal pain. She subsequently was found to have an intraluminal obstruction of large amount of fibrous material almost certainly due to the peanuts and her inability to adequately digest these because of Leonard-en-Y bypass and gastrectomy. (4) Bipolar affective disorder: Qualifiers: Active/Remission status: remission status unspecified Qualified Code(s): F31.9 - Bipolar disorder, unspecified Code(s): F31.9 - Bipolar disorder, unspecified Status: Chronic Assessment and Plan: Receiving home meds (5) Asthma-COPD overlap syndrome: Code(s): J44.9 - Chronic obstructive pulmonary disease, unspecified Status: Chronic Assessment and Plan: Stable Subjective Subjective Date/Time Seen: 08/20/22 10:54 Interval history: Passing flatus. No BM yet. Pain controlled. Exam GI: Inspection: non-distended and incision (intact) GI Palp: Yes Soft to palpation and Yes Tenderness to palpation present (GI) (incisional) Auscultation: normal bowel sounds Objective Data Vital Signs Vital Signs: Vital Signs - 24 hr 08/19/22 14:00 08/19/22 21:01 08/19/22 20:00 Temperature 36.6 C 36.9 C Pulse Rate 99 103 H 103 H Respiratory Rate 18 20 20 Blood Pressure 110/64 144/86 H Pulse Oximetry 95 98 98 Oxygen Delivery Room Air Fraction of Inspired Oxygen 0.21 08/20/22 04:39 Temperature 36.8 C Pulse Rate 110 H Respiratory Rate 20 Blood Pressure 131/77 Pulse Oximetry 98 Oxygen Delivery Fraction of Inspired Oxygen Intake/Output Intake/Output: Intake & Output 08/17/22 08/18/22 08/19/22 08/20/22 23:59 23:59 23:59 23:59 Intake Total 19995 2315 0 Output Total 1899 3450 3225 150 Balance 100 -963 -910 -150 Meds/Results Medications: Active Medications Generic Name Dose Route Start Last Admin Trade Name Freq PRN Reason Stop Dose Admin Albuterol 2.5 mg 08/14/22 08:05 Albuterol Sulfate Neb 2.5 Mg/3 Ml Inh INHALATION Q6HRT PRN Shortness Of Breath Or Wheezing Aripiprazole 5 mg 08/14/22 09:00 08/19/22 08:10 Aripiprazole 5 Mg Tablet PO 5 mg DAILY ABRAHAM Administration Aripiprazole 10 mg 08/14/22 09:00 08/19/22 08:10 Aripiprazole 10 Mg Tablet PO 10 mg DAILY ABRAHAM Administration Dextrose 12.5 gm 08/17/22 10:20 Dextrose 50% 25 Gm/50 Ml Syringe IV PUSH PRN PRN Hypoglycemia Protocol Enoxaparin Sodium 40 mg 08/15/22 09:00 08/20/22 10:52 Enoxaparin 40 Mg/0.4 Ml Syringe SUB-Q 40 mg DAILY ABRAHAM Administration Fluticasone Propionate 1 spray 08/14/22 09:00 08/15/22 08:28 Fluticasone Propionate 0.05% Na Spr 16 Gm Btl (*Bkc) NASAL Not Given DAILY ABRAHAM Fluticasone/Umeclidinium/Vilanterol 1 puff 08/17/22 11:00 08/19/22 08:07 Fluticasone/Umeclidin/Vilanter 100-62.5-25 Mcg Ellipta INHALATION 1 puff DAILYRT ABRAHAM Administration Glucagon 1 mg 08/17/22 10:20 Glucagon For Inj 1 Mg Vial IM PRN PRN Hypoglycemia Protocol Glucose 15 gm 08/17/22 10:20 Glucose Oral Gel 15 Gm Of Glucse In 37.5 Gm Tube PO PRN PRN Hypoglycemia Protocol Hydromorpho
[2022-08-20 11:00] VITALS: BP 103/63; PULSE 103; RESP 16; TEMP 36.6; O2SAT 96
[2022-08-20 12:12] LABS: Glucose Point of Care 120 mg/dl (65-105)
--- NOTE | 2022-08-20 13:04 | PM.IMPN ---
Progress Note: A&P Assessment and Plan (1) SBO (small bowel obstruction): Code(s): K56.609 - Unspecified intestinal obstruction, unspecified as to partial versus complete obstruction Status: Acute Assessment and Plan: Patient presented with c/o abdominal pain. She had twisted bowel approximately 7 years ago with similar symptoms. CT scan suggested SBO. Patient has history of gastric bypass surgery. NPO. NG tube placed Continue IV fluids and pain control. Counseled to walk 4-6 times daily. General surgery consulted and appreciate recommendations - continue supportive care. 08/15 KUB shows persistent SBO. 08/16 KUB unchanged. Patient underwent enterotomy with removal of obstructing mass later in the day. 08/17/22 postop day 1. NG to still placed, NPO with ice chips, no flatness thus far. I discuss the case with Dr. Bustamante and TPN was started. 08/19/22 Awaiting return of bowel function 08/20/22 patient has had some fatus, NG tube clamped. (2) Gastritis: Qualifiers: Chronicity: acute Gastritis bleeding: without bleeding Gastritis type: other gastritis Qualified Code(s): K29.00 - Acute gastritis without bleeding Code(s): K29.70 - Gastritis, unspecified, without bleeding Status: Acute Assessment and Plan: Noted on CT scan. Continue PPI therapy. Patient is NPO for SBO. (3) Abdominal pain: Qualifiers: Abdominal location: generalized Qualified Code(s): R10.84 - Generalized abdominal pain Code(s): R10.9 - Unspecified abdominal pain Status: Acute Assessment and Plan: Likely secondary to 1 and gastritis/esophagitis also noted on CT scan. Continue management as above. (4) Asthma-COPD overlap syndrome: Code(s): J44.9 - Chronic obstructive pulmonary disease, unspecified Status: Chronic Assessment and Plan: chronic, not in acute exacerbation. continue Trelegy. albuterol nebs as needed (5) Bipolar affective disorder: Qualifiers: Active/Remission status: remission status unspecified Qualified Code(s): F31.9 - Bipolar disorder, unspecified Code(s): F31.9 - Bipolar disorder, unspecified Status: Chronic Assessment and Plan: Chronic, not in acute exacerbation. Continue home medications. (6) Tachycardia: Code(s): R00.0 - Tachycardia, unspecified Status: Acute Assessment and Plan: Patient had some shortness of breath a couple days ago and yesterday she became tachycardic. Patient is still tachycardic today EKG ordered a revealed positive S1 Q 3 T3. Patient also having urinary frequency. Has a history of PE and is on estradiol. Will rule out PE. Tachycardia could also be from infection. CTA ordered. UA ordered bladder scan ordered. Plan CODE STATUS: FULL CODE Disposition: from home. Discharge pending resolution of bowel obstruction. Subjective Date/time seen: 08/20/22 13:04 Interval history: patient sitting up in bed with at bedside. Patient states that she had passed some gas yesterday. Patient has not yet had bowel movement. Patient denies chest pain, shortness a breath, nausea, vomiting and abdominal pain. Patient has been short of breath approximately 2 days ago and became tachycardic yesterday. This is not yet improved EKG performed. Rule out PE. Review of Systems Review of Systems: All systems reviewed & are unremarkable except as noted in HPI and below Exam Narrative: GENERAL: Comfortable, no acute distress HENMT: moist mucous membranes, NG tube patent and draining yellow fluid EYES: EOM intact b/l NECK: no lymphadenopathy RESPIRATORY: clear to auscultation CARDIO: Regular rhythm tachycardic GI: soft, Tender over sedation, bowel sounds present, dressings dry SKIN: no rashes EXTREMITIES: no edema, redness or tenderness Objective Data Vital Signs Vital Signs: Marcia
[2022-08-20] MEDS: AMINO ACIDS 5%/D15W/E-LYTES/CA 2,000 ML with MULTIVITAMINS-12 INJ VIAL 1 2.5 ML, MULTIV... 60 ML IV CONT (13:31)
[2022-08-20 13:33] LABS: Appearance Urine Clear (Clear); Bilirubin Urine Negative (Negative); Blood Urine Trace-lysed (Negative); Color Urine Yellow (Yellow); Glucose Urine UA Negative (Negative); Ketones Urine Negative (Negative); Leukocyte Esterase Ur Negative LEU/UL (Negative); Nitrate Urine Negative (Negative); Protein Urine Trace mg/dL (Negative)
[2022-08-20] MEDS: FAT EMULSIONS IV 20% 250 ML 20.83 ML IVPB (13:33)
[2022-08-20 13:41] LABS: Mucus Urine Rare /lpf; Squamous Epithelial Cell Urine Occasional /hpf (Few); WBC Urine 0-3 /hpf
[2022-08-20 13:44] LABS: Add Urine Microscopic? YES
[2022-08-20 13:52] VITALS: BP 128/73; PULSE 100; RESP 16; TEMP 36.6; O2SAT 99
[2022-08-20] MEDS: TOPIRAMATE 25 MG TABLET 50 MG PO (18:43)
[2022-08-20 18:44] LABS: Glucose Point of Care 136 mg/dl (65-105)
[2022-08-20 20:16] VITALS: BP 134/72; PULSE 102; RESP 16; TEMP 37.2; O2SAT 100
[2022-08-20] MEDS: QUEtiapine FUMARATE 100 MG TABLET 300 MG PO (20:22)
[2022-08-20 23:48] LABS: Glucose Point of Care 134 mg/dl (65-105)
--- NOTE | 2022-08-21 00:12 | PCRCNOTE ---
Patient refused apnea link overnight due to having an NG tube recently placed.
[2022-08-21] MEDS: HYDROmorphone HCL INJ (*CRX) 1 MG/ML SYR IV PUSH (05:02)
[2022-08-21] MEDS: CENTRAL LINE FLUSH 10 ML IV PUSH ×3 (05:05→21:44)
[2022-08-21] MEDS: CENTRAL LINE FLUSH 20 ML IV PUSH (05:05)
[2022-08-21 05:20] LABS: Glucose Point of Care 109 mg/dl (65-105)
[2022-08-21 05:23] LABS: Hematocrit 35.4 % (37.0-47.0); Hemoglobin 11.6 g/dL (12.0-15.0); Mean Corpuscular HGB Conc 32.8 g/dl (32-36); Mean Corpuscular Hemoglobin 30.8 pg (26-34); Mean Corpuscular Volume 93.9 fl (80-100); Mean Platelet Volume 8.8 fl (7.4-10.4); Platelet Count Result 311 k/mm3 (150-375); Red Blood Count 3.77 M/mm3 (4.2-5.4); Red Cell Distribution Width 13.5 % (11.5-14.5); White Blood Count 12.9 K/mm3 (4.5-10.0)
[2022-08-21 05:28] VITALS: BP 116/67; PULSE 109; RESP 16; TEMP 37.6; O2SAT 99
[2022-08-21 07:31] LABS: Anion Gap 6 mmol/L (8-16); Blood Urea Nitrogen 16 mg/dL (7-17); Calcium 7.7 mg/dL (8.4-10.2); Carbon Dioxide 25 mmol/L (22-30); Chloride 105 mmol/L (98-107); Estimated Glomerular Filt Rate > 60; Glucose 125 mg/dL (65-110); Phosphorus 4.5 mg/dL (2.5-4.5); Sodium 136 mmol/L (137-145)
--- NOTE | 2022-08-21 07:38 | PM.IMPN ---
Progress Note: A&P Assessment and Plan (1) SBO (small bowel obstruction): Code(s): K56.609 - Unspecified intestinal obstruction, unspecified as to partial versus complete obstruction Status: Acute Assessment and Plan: Patient presented with c/o abdominal pain. She had twisted bowel approximately 7 years ago with similar symptoms. CT scan suggested SBO. Patient has history of gastric bypass surgery. NPO. NG tube placed Continue IV fluids and pain control. Counseled to walk 4-6 times daily. General surgery consulted and appreciate recommendations - continue supportive care. 08/15 KUB shows persistent SBO. 08/16 KUB unchanged. Patient underwent enterotomy with removal of obstructing mass later in the day. 08/17/22 postop day 1. NG to still placed, NPO with ice chips, no flatness thus far. I discuss the case with Dr. Bustamante and TPN was started. 08/19/22 Awaiting return of bowel function 08/20/22 patient has had some fatus, NG tube clamped. 08/21/22 NG removed and clear liquids started. (2) Gastritis: Qualifiers: Chronicity: acute Gastritis bleeding: without bleeding Gastritis type: other gastritis Qualified Code(s): K29.00 - Acute gastritis without bleeding Code(s): K29.70 - Gastritis, unspecified, without bleeding Status: Acute Assessment and Plan: Noted on CT scan. Continue PPI therapy. Patient is NPO for SBO. (3) Abdominal pain: Qualifiers: Abdominal location: generalized Qualified Code(s): R10.84 - Generalized abdominal pain Code(s): R10.9 - Unspecified abdominal pain Status: Acute Assessment and Plan: Likely secondary to 1 and gastritis/esophagitis also noted on CT scan. Continue management as above. (4) Asthma-COPD overlap syndrome: Code(s): J44.9 - Chronic obstructive pulmonary disease, unspecified Status: Chronic Assessment and Plan: chronic, not in acute exacerbation. continue Trelegy. albuterol nebs as needed (5) Bipolar affective disorder: Qualifiers: Active/Remission status: remission status unspecified Qualified Code(s): F31.9 - Bipolar disorder, unspecified Code(s): F31.9 - Bipolar disorder, unspecified Status: Chronic Assessment and Plan: Chronic, not in acute exacerbation. Continue home medications. (6) Tachycardia: Code(s): R00.0 - Tachycardia, unspecified Status: Acute Assessment and Plan: Patient had some shortness of breath a couple days ago and yesterday she became tachycardic. Patient is still tachycardic today EKG ordered a revealed positive S1 Q 3 T3. Patient also having urinary frequency. Has a history of PE and is on estradiol. Will rule out PE. Tachycardia could also be from infection. CTA revealed mild pulmonary edema with small pleural effusions, no PE. UA negative bladder scan ordered. 08/21/22 Patient given 40 IV Lasix B.i.d. WBC elevated at 12.9 Plan CODE STATUS: FULL CODE Disposition: from home. Discharge pending resolution of bowel obstruction. Subjective Date/time seen: 08/21/22 07:38 Interval history: Patient doing well today. States that she has had bowel movement and continuing to pass gas. She has minimal abdominal pain at incision site. She denies chest pain, shortness a breath, nausea, vomiting. Review of Systems Review of Systems: All systems reviewed & are unremarkable except as noted in HPI and below Exam Narrative: GENERAL: Comfortable, no acute distress HENMT: moist mucous membranes, NG tube patent and draining yellow fluid EYES: EOM intact b/l NECK: no lymphadenopathy RESPIRATORY: clear to auscultation CARDIO: Regular rhythm tachycardic GI: soft, Tender over sedation, bowel sounds present, dressings dry SKIN: no rashes EXTREMITIES: no edema, redness or tenderness Objective Data Vital Signs Vital Signs: Vital Signs - 2
[2022-08-21] MEDS: PANTOPRAZOLE SODIUM IV 40 MG VIAL IV PUSH (08:24)
[2022-08-21] MEDS: ENOXAPARIN 40 MG/0.4 ML SYRINGE SUB-Q (08:24)
[2022-08-21] MEDS: FUROSEMIDE INJ 40 MG/4 ML VIAL IV PUSH ×2 (08:29→21:43)
[2022-08-21] MEDS: TOPIRAMATE 25 MG TABLET 50 MG PO ×2 (08:35→21:43)
[2022-08-21] MEDS: FLUTICASONE/UMECLIDIN/VILANTER 100-62.5-25 MCG ELLIPTA 1 PUFF INHALATION (08:43)
[2022-08-21] MEDS: IBUPROFEN IV 800 MG/200 ML 800 MG/200 ML BAG 400 MG IVPB (08:52)
[2022-08-21] MEDS: FAT EMULSIONS IV 20% 250 ML 20.83 ML IVPB (11:08)
--- NOTE | 2022-08-21 11:49 | PM.PNGS ---
Progress Note: A&P Assessment and Plan (1) SBO (small bowel obstruction): Code(s): K56.609 - Unspecified intestinal obstruction, unspecified as to partial versus complete obstruction Status: Acute Assessment and Plan: NG out today. Start clear liquids. (2) Protein-calorie malnutrition, moderate: Code(s): E44.0 - Moderate protein-calorie malnutrition Status: Acute Assessment and Plan: Continue TPN. 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 She awakened at 3:00 a.m. on 08/13/2002 with diffuse abdominal pain. She subsequently was found to have an intraluminal obstruction of large amount of fibrous material almost certainly due to the peanuts and her inability to adequately digest these because of Leonard-en-Y bypass and gastrectomy. (4) Bipolar affective disorder: Qualifiers: Active/Remission status: remission status unspecified Qualified Code(s): F31.9 - Bipolar disorder, unspecified Code(s): F31.9 - Bipolar disorder, unspecified Status: Chronic Assessment and Plan: Receiving home meds (5) Asthma-COPD overlap syndrome: Code(s): J44.9 - Chronic obstructive pulmonary disease, unspecified Status: Chronic Assessment and Plan: Stable Subjective Subjective Date/Time Seen: 08/21/22 11:49 Interval history: Bowels moving. Tolerating NG clamped. No bloating or nausea. Pain controlled. Exam GI: Inspection: non-distended and incision (intact) GI Palp: Yes Soft to palpation and Yes Tenderness to palpation present (GI) (incisional) Auscultation: normal bowel sounds Objective Data Vital Signs Vital Signs: Vital Signs - 24 hr 08/20/22 13:52 08/20/22 20:16 08/21/22 05:28 Temperature 36.6 C 37.2 C 37.6 C Pulse Rate 100 102 H 109 H Respiratory Rate 16 16 16 Blood Pressure 128/73 134/72 116/67 Pulse Oximetry 99 100 99 Oxygen Delivery 08/21/22 08:00 Temperature Pulse Rate Respiratory Rate Blood Pressure Pulse Oximetry Oxygen Delivery Room Air Intake/Output Intake/Output: Intake & Output 08/18/22 08/19/22 08/20/22 08/21/22 23:59 23:59 23:59 23:59 Intake Total 2505 2315 2205 250 Output Total 3450 3225 1726 1400 Balance -074 -651 654 -8412 Meds/Results Medications: Active Medications Generic Name Dose Route Start Last Admin Trade Name Freq PRN Reason Stop Dose Admin Albuterol 2.5 mg 08/14/22 08:05 Albuterol Sulfate Neb 2.5 Mg/3 Ml Inh INHALATION Q6HRT PRN Shortness Of Breath Or Wheezing Aripiprazole 5 mg 08/14/22 09:00 08/21/22 08:22 Aripiprazole 5 Mg Tablet PO Not Given DAILY ABRAHAM Aripiprazole 10 mg 08/14/22 09:00 08/21/22 08:23 Aripiprazole 10 Mg Tablet PO Not Given DAILY ABRAHAM Dextrose 12.5 gm 08/17/22 10:20 Dextrose 50% 25 Gm/50 Ml Syringe IV PUSH PRN PRN Hypoglycemia Protocol Enoxaparin Sodium 40 mg 08/15/22 09:00 08/21/22 08:24 Enoxaparin 40 Mg/0.4 Ml Syringe SUB-Q 40 mg DAILY ABRAHAM Administration Fluticasone Propionate 1 spray 08/14/22 09:00 08/15/22 08:28 Fluticasone Propionate 0.05% Na Spr 16 Gm Btl (*Bkc) NASAL Not Given DAILY ABRAHAM Fluticasone/Umeclidinium/Vilanterol 1 puff 08/17/22 11:00 08/21/22 08:43 Fluticasone/Umeclidin/Vilanter 100-62.5-25 Mcg Ellipta INHALATION 1 puff DAILYRT ABRAHAM Administration Furosemide 40 mg 08/21/22 09:00 08/21/22 08:29 Furosemide Inj 40 Mg/4 Ml Vial IV PUSH 40 mg DAILY ABRAHAM Administration Glucagon 1 mg 08/17/22 10:20 Glucagon For Inj 1 Mg Vial IM PRN PRN Hypoglycemia Protocol Glucose 15 gm 08/17/22 10:20 Glucose Oral Gel 15 Gm Of Glucse In 37.5 Gm Tube PO PRN PRN Hypoglyce
[2022-08-21 12:26] LABS: Glucose Point of Care 127 mg/dl (65-105)
[2022-08-21 14:30] VITALS: BP 112/83; PULSE 104; RESP 16; TEMP 37.2; O2SAT 98
--- NOTE | 2022-08-21 18:16 | PC.NURSE ---
This nurse spoke with rhonda Toth to stop bedside glucose checks since TPN has been stopped and pt. is not diabetic.
[2022-08-21 21:27] VITALS: BP 101/57; PULSE 107; RESP 18; TEMP 36.9; O2SAT 97
[2022-08-21] MEDS: QUEtiapine FUMARATE 100 MG TABLET 300 MG PO (21:43)
[2022-08-21 22:24] VITALS: BP 114/60; PULSE 107
[2022-08-22 05:35] VITALS: BP 94/78; PULSE 114; RESP 17; TEMP 37.1; O2SAT 96
[2022-08-22 05:59] LABS: Basophils Absolute Auto 0.1 K/mm3 (0.0-0.1); Basophils Percent Auto 0.7 % (0.2-1.2); Eosinophils Absolute Auto 0.3 K/mm3 (0-0.3); Eosinophils Percent Auto 1.4 % (0-4.4); Hematocrit 37.7 % (37.0-47.0); Hemoglobin 12.7 g/dL (12.0-15.0); Immature Granulocyte Percent A 3.9 % (0-0.5); Lymphocytes Absolute Auto 1.27 K/mm3 (0.9-3.2); Mean Corpuscular HGB Conc 33.7 g/dl (32-36); Mean Corpuscular Hemoglobin 31.6 pg (26-34); Mean Corpuscular Volume 93.8 fl (80-100); Mean Platelet Volume 8.9 fl (7.4-10.4); Monocytes Absolute Auto 1.6 K/mm3 (0.1-0.6); Monocytes Percent Auto 9.1 % (2.6-8.5); Neutrophils Absolute Auto 14.1 K/mm3 (1.3-6.7); Neutrophils Percent Auto 77.9 % (45.5-73.1); Platelet Count Result 352 k/mm3 (150-375); Red Blood Count 4.02 M/mm3 (4.2-5.4); Red Cell Distribution Width 13.2 % (11.5-14.5); White Blood Count 18.1 K/mm3 (4.5-10.0)
--- NOTE | 2022-08-22 06:11 | PCRCNOTE ---
patient was on lasix with frequent urination; Also, patient was hesitant about the cannula being placed post NG tube
[2022-08-22 06:12] LABS: INR 1.2; Prothrombin Time 14.6 Seconds (11.1-14.7)
[2022-08-22 06:13] LABS: Partial Thromboplastin Time 28.5 SECONDS (22.3-36.8)
[2022-08-22 06:16] LABS: Transferrin 131 mg/dL (206-381)
[2022-08-22] MEDS: CENTRAL LINE FLUSH 10 ML IV PUSH ×3 (06:32→21:51)
[2022-08-22] MEDS: ENOXAPARIN 40 MG/0.4 ML SYRINGE SUB-Q (08:10)
[2022-08-22] MEDS: TOPIRAMATE 25 MG TABLET 50 MG PO ×2 (08:10→16:36)
[2022-08-22] MEDS: ARIPiprazole 10 MG TABLET PO (08:11)
[2022-08-22] MEDS: ARIPiprazole 5 MG TABLET PO (08:11)
[2022-08-22] MEDS: FLUTICASONE/UMECLIDIN/VILANTER 100-62.5-25 MCG ELLIPTA 1 PUFF INHALATION (08:14)
[2022-08-22 08:29] LABS: Lactic Acid Reflex 1.1 mmol/L (0.7-2.0)
[2022-08-22 08:55] LABS: NT Pro B Type Natriuretic Pept 428 pg/mL (19.9-100)
[2022-08-22] MEDS: PANTOPRAZOLE SODIUM IV 40 MG VIAL IV PUSH (08:58)
[2022-08-22] MEDS: FUROSEMIDE INJ 40 MG/4 ML VIAL IV PUSH ×2 (08:58→16:36)
[2022-08-22] MEDS: ONDANSETRON INJ 4 MG/2 ML VIAL IV PUSH (09:03)
[2022-08-22 09:10] LABS: Alanine Aminotransferase 54 U/L (6-35); Albumin Level 2.9 g/dL (3.5-5.1); Alkaline Phosphatase 114 U/L (38-126); Anion Gap 6 mmol/L (8-16); Aspartate Amino Transferase 61 U/L (14-36); Bilirubin,Total 0.9 mg/dL (0.2-1.3); Blood Urea Nitrogen 13 mg/dL (7-17); Calcium 7.6 mg/dL (8.4-10.2); Carbon Dioxide 27 mmol/L (22-30); Chloride 100 mmol/L (98-107); Estimated Glomerular Filt Rate > 60; Glucose 112 mg/dL (65-110); Magnesium 1.7 mg/dL (1.6-2.3); Phosphorus 4.3 mg/dL (2.5-4.5); Potassium 4.9 mmol/L (3.4-5.0); Sodium 133 mmol/L (137-145); Triglycerides 98 mg/dL (<150)
[2022-08-22 10:47] LABS: Procalcitonin 0.1 ng/mL
[2022-08-22 11:29] LABS: Appearance Urine Clear (Clear); Bilirubin Urine Negative (Negative); Blood Urine Trace-intact (Negative); Color Urine Yellow (Yellow); Glucose Urine UA Negative (Negative); Ketones Urine Negative (Negative); Leukocyte Esterase Ur Negative LEU/UL (Negative); Nitrate Urine Negative (Negative); Protein Urine Negative (Negative); Specific Grav Ur 1.015 (1.001-1.035); Urobilinogen Urine 0.2 mg/dL (<2.0)
[2022-08-22 11:36] LABS: Mucus Urine Rare /lpf; RBC Urine 0-2 /hpf (0-2); Squamous Epithelial Cell Urine Rare /hpf (Few); WBC Urine 0-3 /hpf
[2022-08-22 11:41] LABS: Add Urine Microscopic? YES
--- NOTE | 2022-08-22 12:17 | P.PNIM_ITS ---
Progress Note: A&P Assessment and Plan (1) SBO (small bowel obstruction): Code(s): K56.609 - Unspecified intestinal obstruction, unspecified as to partial versus complete obstruction Status: Acute Assessment and Plan: Patient presented with c/o abdominal pain. She had twisted bowel approximately 7 years ago with similar symptoms. CT scan suggested SBO. Patient has history of gastric bypass surgery. * NPO. * NG tube placed * Continue IV fluids and pain control. * Counseled to walk 4-6 times daily. * General surgery consulted and appreciate recommendations - continue supportive care. * 08/15 KUB shows persistent SBO. * 08/16 KUB unchanged. Patient underwent enterotomy with removal of obstructing mass later in the day. * 08/17/22 postop day 1. NG to still placed, NPO with ice chips, no flatness thus far. I discuss the case with Dr. Bustamante and TPN was started. * 08/19/22 Awaiting return of bowel function * 08/20/22 patient has had some fatus, NG tube clamped. * 08/21/22 NG removed and clear liquids started. * 08/22/22 continue to advance diet. (2) Gastritis: Qualifiers: Chronicity: acute Gastritis bleeding: without bleeding Gastritis type: other gastritis Qualified Code(s): K29.00 - Acute gastritis without bleeding Code(s): K29.70 - Gastritis, unspecified, without bleeding Status: Acute Assessment and Plan: Noted on CT scan. * Continue PPI therapy. * Patient is NPO for SBO. (3) Abdominal pain: Qualifiers: Abdominal location: generalized Qualified Code(s): R10.84 - Generalized abdominal pain Code(s): R10.9 - Unspecified abdominal pain Status: Acute Assessment and Plan: Likely secondary to 1 and gastritis/esophagitis also noted on CT scan. * Continue management as above. (4) Asthma-COPD overlap syndrome: Code(s): J44.9 - Chronic obstructive pulmonary disease, unspecified Status: Chronic Assessment and Plan: chronic, not in acute exacerbation. * continue Trelegy. * albuterol nebs as needed (5) Bipolar affective disorder: Qualifiers: Active/Remission status: remission status unspecified Qualified Code(s): F31.9 - Bipolar disorder, unspecified Code(s): F31.9 - Bipolar disorder, unspecified Status: Chronic Assessment and Plan: Chronic, not in acute exacerbation. Continue home medications. (6) Tachycardia: Code(s): R00.0 - Tachycardia, unspecified Status: Acute Assessment and Plan: Patient had some shortness of breath a couple days ago and yesterday she became tachycardic. Patient is still tachycardic today EKG ordered a revealed positive S1 Q 3 T3. Patient also having urinary frequency. Has a history of PE and is on estradiol. Will rule out PE. Tachycardia could also be from infection. * CTA revealed mild pulmonary edema with small pleural effusions, no PE. * UA negative * bladder scan ordered. 08/21/22 * Patient given 40 IV Lasix B.i.d. * WBC elevated at 12.9 Plan CODE STATUS: FULL CODE Disposition: from home. Discharge pending resolution of bowel obstruction. Subjective Date/time seen: 08/22/22 12:17 Interval history: Patient doing well today. She is tolerating clear liquid diet well. Patient is having bowel movements and passing gas. She denies body aches, chills, coughing, shortness of breath, chest pain, dysuria. Review of Systems
--- NOTE | 2022-08-22 12:17 | PM.IMPN ---
Progress Note: A&P Assessment and Plan (1) SBO (small bowel obstruction): Code(s): K56.609 - Unspecified intestinal obstruction, unspecified as to partial versus complete obstruction Status: Acute Assessment and Plan: Patient presented with c/o abdominal pain. She had twisted bowel approximately 7 years ago with similar symptoms. CT scan suggested SBO. Patient has history of gastric bypass surgery. NPO. NG tube placed Continue IV fluids and pain control. Counseled to walk 4-6 times daily. General surgery consulted and appreciate recommendations - continue supportive care. 08/15 KUB shows persistent SBO. 08/16 KUB unchanged. Patient underwent enterotomy with removal of obstructing mass later in the day. 08/17/22 postop day 1. NG to still placed, NPO with ice chips, no flatness thus far. I discuss the case with Dr. Bustamante and TPN was started. 08/19/22 Awaiting return of bowel function 08/20/22 patient has had some fatus, NG tube clamped. 08/21/22 NG removed and clear liquids started. 08/22/22 continue to advance diet. (2) Gastritis: Qualifiers: Chronicity: acute Gastritis bleeding: without bleeding Gastritis type: other gastritis Qualified Code(s): K29.00 - Acute gastritis without bleeding Code(s): K29.70 - Gastritis, unspecified, without bleeding Status: Acute Assessment and Plan: Noted on CT scan. Continue PPI therapy. Patient is NPO for SBO. (3) Abdominal pain: Qualifiers: Abdominal location: generalized Qualified Code(s): R10.84 - Generalized abdominal pain Code(s): R10.9 - Unspecified abdominal pain Status: Acute Assessment and Plan: Likely secondary to 1 and gastritis/esophagitis also noted on CT scan. Continue management as above. (4) Asthma-COPD overlap syndrome: Code(s): J44.9 - Chronic obstructive pulmonary disease, unspecified Status: Chronic Assessment and Plan: chronic, not in acute exacerbation. continue Trelegy. albuterol nebs as needed (5) Bipolar affective disorder: Qualifiers: Active/Remission status: remission status unspecified Qualified Code(s): F31.9 - Bipolar disorder, unspecified Code(s): F31.9 - Bipolar disorder, unspecified Status: Chronic Assessment and Plan: Chronic, not in acute exacerbation. Continue home medications. (6) Tachycardia: Code(s): R00.0 - Tachycardia, unspecified Status: Acute Assessment and Plan: Patient had some shortness of breath a couple days ago and yesterday she became tachycardic. Patient is still tachycardic today EKG ordered a revealed positive S1 Q 3 T3. Patient also having urinary frequency. Has a history of PE and is on estradiol. Will rule out PE. Tachycardia could also be from infection. CTA revealed mild pulmonary edema with small pleural effusions, no PE. UA negative bladder scan ordered. 08/21/22 Patient given 40 IV Lasix B.i.d. WBC elevated at 12.9 Plan CODE STATUS: FULL CODE Disposition: from home. Discharge pending resolution of bowel obstruction. Subjective Date/time seen: 08/22/22 12:17 Interval history: Patient doing well today. She is tolerating clear liquid diet well. Patient is having bowel movements and passing gas. She denies body aches, chills, coughing, shortness of breath, chest pain, dysuria. Review of Systems Review of Systems: All systems reviewed & are unremarkable except as noted in HPI and below Exam Narrative: GENERAL: Comfortable, no acute distress HENMT: moist mucous membranes, NG tube patent and draining yellow fluid EYES: EOM intact b/l NECK: no lymphadenopathy RESPIRATORY: clear to auscultation CARDIO: Regular rhythm tachycardic GI: soft, tender over incision, bowel sounds present, dressings dry SKIN: no rashes EXTREMITIES: no edema, redness or tenderness Objective Data Vital Si
--- NOTE | 2022-08-22 12:38 | PM.PNGS ---
Progress Note: A&P Assessment and Plan (1) Leukocytosis: Code(s): D72.829 - Elevated white blood cell count, unspecified Status: Acute Assessment and Plan: Patient remains tachycardic as well. Urinalysis was negative. Chest x-ray very suspicious for persistent ileus. Wound does not appear infected. CTA done 2 days ago is negative. Will get CT scan of the abdomen and pelvis. Make NPO except meds for now. (2) SBO (small bowel obstruction): Code(s): K56.609 - Unspecified intestinal obstruction, unspecified as to partial versus complete obstruction Status: Acute Assessment and Plan: Six days status post removal obstructing intraluminal mass. Chest x-ray suggest patient may still have ileus. 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 Subjective Subjective Date/Time Seen: 08/22/22 12:38 Post Op day: #6 Patient reports: no new complaints, pain is less, tolerating liquids well, bowel movement and afebrile Interval history: No complaints. Tolerating liquids well. No nausea or vomiting. Abdominal pain better. Having bowel movements. Review of Systems Review of Systems: All systems reviewed & are unremarkable except as noted in HPI and below (HPI and those items noted below) Constitutional: Constitutional: Denies chills and Denies fever(s) Cardiovascular: Cardiovascular: Denies chest pain, Denies diaphoresis, Denies dyspnea and Denies paroxysmal nocturnal dyspnea Respiratory: Respiratory: Denies chest congestion, Denies cough and Denies dyspnea Integumentary/Breasts: Skin/Breast: Denies lesions and Denies rash Exam Const: General: comfortable and no acute distress; No confusion Orientation/consciousness: patient oriented x3 and No confusion GI: Inspection: non-distended and incision (Dressing dry and intact. Nursing reports wound looks great) GI Palp: Yes Soft to palpation, Yes Tenderness to palpation present (GI) (Less tender.), No Guarding due to palpation present (GI) and No Rebound tenderness present Auscultation: absent bowel sounds Neuro: General: patient oriented x3, no focal motor deficits and No confusion Extrem: General: no calf tenderness and no edema Psych: Affect: normal affect Insight: Good insight present (Psych) Judgement: Good judgement present (Psych) Objective Data Vital Signs Vital Signs: Vital Signs - 24 hr 08/21/22 14:30 08/21/22 21:27 08/21/22 22:24 Temperature 37.2 C 36.9 C Pulse Rate 104 H 107 H 107 H Respiratory Rate 16 18 Blood Pressure 112/83 101/57 L 114/60 Pulse Oximetry 98 97 Oxygen Delivery 08/21/22 21:30 08/22/22 05:35 08/22/22 09:07 Temperature 37.1 C Pulse Rate 114 H Respiratory Rate 17 Blood Pressure 94/78 L Pulse Oximetry 96 Oxygen Delivery Room Air Room Air Intake/Output Intake/Output: Intake & Output 08/19/22 08/20/22 08/21/22 08/22/22 23:59 23:59 23:59 23:59 Intake Total 2315 2205 1300 590 Output Total 3225 1725 3400 700 Balance -910 480 -2100 -110 Meds/Results Medications: Active Medications Generic Name Dose Route Start Last Admin Trade Name Freq PRN Reason Stop Dose Admin Albuterol 2.5 mg 08/14/22 08:05 Albuterol Sulfate Neb 2.5 Mg/3 Ml Inh INHALATION Q6HRT PRN Shortness Of Breath Or Wheezing Aripiprazole 5 mg 08/14/22 09:00 08/22/22 08:11 Aripiprazole 5 Mg Tablet PO 5 mg DAILY ABRAHAM Administration Aripiprazole 10 mg 08/14/22 09:00 08/22/22 08:11 Aripiprazole 10 Mg Tablet PO 10 mg DAILY ABRAHAM Administration Dextrose 12.5 gm 08/17/22 10:20 Dextrose 50% 25 Gm/50 Ml
[2022-08-22 15:10] VITALS: BP 110/73; PULSE 110; RESP 17; TEMP 37.5; O2SAT 98
[2022-08-22 21:30] VITALS: BP 101/82; PULSE 114; RESP 18; TEMP 36.7; O2SAT 96
[2022-08-22] MEDS: DEXTROSE 5%/0.9% SOD CHL 1,000 ML 100 ML IV CONT (21:51)
[2022-08-22] MEDS: QUEtiapine FUMARATE 100 MG TABLET 300 MG PO (21:51)
[2022-08-23 05:21] VITALS: BP 100/60; PULSE 95; RESP 17; TEMP 37; O2SAT 97
[2022-08-23] MEDS: ALTEPLASE 2 MG VIAL (CATHFLO) IV PUSH ×2 (06:09→06:10)
[2022-08-23] MEDS: PANTOPRAZOLE SODIUM IV 40 MG VIAL IV PUSH (08:22)
[2022-08-23 08:24] LABS: Hematocrit 34.7 % (37.0-47.0); Hemoglobin 11.6 g/dL (12.0-15.0); Mean Corpuscular HGB Conc 33.4 g/dl (32-36); Mean Corpuscular Hemoglobin 31.6 pg (26-34); Mean Corpuscular Volume 94.6 fl (80-100); Platelet Count Result 344 k/mm3 (150-375); Red Blood Count 3.67 M/mm3 (4.2-5.4); Red Cell Distribution Width 13.2 % (11.5-14.5); White Blood Count 13.4 K/mm3 (4.5-10.0)
[2022-08-23] MEDS: ENOXAPARIN 40 MG/0.4 ML SYRINGE SUB-Q (08:25)
[2022-08-23] MEDS: IBUPROFEN IV 800 MG/200 ML 800 MG/200 ML BAG 400 MG IVPB ×2 (08:26→17:53)
[2022-08-23] MEDS: CENTRAL LINE FLUSH 10 ML IV PUSH ×2 (08:31→11:57)
[2022-08-23] MEDS: FLUTICASONE/UMECLIDIN/VILANTER 100-62.5-25 MCG ELLIPTA 1 PUFF INHALATION (08:32)
[2022-08-23 08:34] VITALS: PULSE 94; RESP 18
[2022-08-23] MEDS: ARIPiprazole 10 MG TABLET PO (09:11)
[2022-08-23] MEDS: TOPIRAMATE 25 MG TABLET 50 MG PO ×2 (09:11→17:02)
[2022-08-23] MEDS: ARIPiprazole 5 MG TABLET PO (09:13)
[2022-08-23 09:46] LABS: Alanine Aminotransferase 36 U/L (6-35); Albumin Level 2.2 g/dL (3.5-5.1); Alkaline Phosphatase 89 U/L (38-126); Anion Gap 8 mmol/L (8-16); Aspartate Amino Transferase 33 U/L (14-36); Bilirubin,Total 0.8 mg/dL (0.2-1.3); Blood Urea Nitrogen 11 mg/dL (7-17); Calcium 6.1 mg/dL (8.4-10.2); Carbon Dioxide 23 mmol/L (22-30); Chloride 106 mmol/L (98-107); Estimated Glomerular Filt Rate > 60; Glucose 307 mg/dL (65-110); Potassium 3.2 mmol/L (3.4-5.0); Sodium 137 mmol/L (137-145)
--- NOTE | 2022-08-23 10:08 | PM.PNGS ---
Progress Note: A&P Assessment and Plan (1) Leukocytosis: Code(s): D72.829 - Elevated white blood cell count, unspecified <Kalpana Yesenia FranksPEYTON james - Last Filed: 08/23/22 12:52> Status: Acute <Kalpana FranksPEYTON james - Last Filed: 08/23/22 12:52> Assessment and Plan: Tachycardia resolved this morning. WBC down to 13,400 today. Could be related to the ileus but also she was noted to have an apical superficial wound infection that could be contributing. Opened and cleaned. Packed. Rest wound looks ok. <Kalpana Yesenia PEYTON Martinez - Last Filed: 08/23/22 12:52> Tachycardia resolved this morning. WBC down to 13,400 today. Could be related to the ileus but also she was noted to have an apical superficial wound infection that could be contributing. Opened and cleaned. Packed. Rest wound looks ok. Patient remains tachycardic as well. Urinalysis was negative. Chest x-ray very suspicious for persistent ileus. CTA chest done 2 days ago is negative. CT abd/pelvis yesterday neg except for ileus. Continue NPO except ice chips and meds with sips today. <Nolberto Bustamante MD - Last Filed: 08/23/22 14:44> (2) SBO (small bowel obstruction): Code(s): K56.609 - Unspecified intestinal obstruction, unspecified as to partial versus complete obstruction <PEYTON Delgado - Last Filed: 08/23/22 12:52> Status: Acute <PEYTON Delgado - Last Filed: 08/23/22 12:52> Assessment and Plan: Six days status post removal obstructing intraluminal mass. 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 NPO yesterday and today, if not able resume p.o. tomorrow, will restart TPN. <Nolberto Bustamante MD - Last Filed: 08/23/22 14:44> Assessment and Plan: I have discussed the patient's case and plan of care with Dr. Bustamante. <Kalpana FranksPEYTON james - Last Filed: 08/23/22 12:52> Subjective Subjective Date/Time Seen: 08/23/22 10:08 <Kalpana B. GoldenPEYTON james - Last Filed: 08/23/22 12:52> Post Op day: 7 (Enterotomy, removal intraluminal obstructing mass) <Kalpana B. GoldenPEYTON james - Last Filed: 08/23/22 12:52> Patient reports: no new complaints, flatus and afebrile <Kalpana FranksPEYTON james - Last Filed: 08/23/22 12:52> Interval history: Chart reviewed since last seen. She denies any acute changes overnight. She is currently NPO with IV fluids. She is passing lots of flatus this morning and her last BM was around 7 pm last night after having multiple loose BMs yesterday. She denies N/V. She has some mild bloating since surgery but unchanged. Denies any other complaints at this time. Tachycardia resolved this morning. WBC down to 13k. <Kalpana YingDonaldo GoldenPEYTON james - Last Filed: 08/23/22 12:52> Review of Systems Constitutional: Constitutional: Reports no additional constitutional complaints, Denies chills and Denies fever(s) <Kalpana Patterson GoldenPEYTON james - Last Filed: 08/23/22 12:52> Cardiovascular: Cardiovascular: Reports no additional cardiovascular complaints, Denies chest pain and Denies pedal edema <PEYTON Delgado - Last Filed: 08/23/22 12:52> Respiratory: Respiratory: Reports no additional respiratory complaints, Denies cough and Denies dyspnea <PEYTON Delgado - Last Filed: 08/23/22 12:52> Gastrointestinal: Gastrointestinal: Reports as per HPI and Repor
[2022-08-23 11:49] LABS: Glucose Point of Care 108 mg/dl (65-105)
[2022-08-23] MEDS: DEXTROSE 5%/0.9% SOD CHL 1,000 ML 100 ML IV CONT (11:57)
[2022-08-23] MEDS: HYDROGEN PEROXIDE 3% SOLN(*SP) 473 ML BOTTLE 10 ML IRRIGATION (11:57)
--- NOTE | 2022-08-23 13:11 | PCNFU ---
Nutrition Follow-Up Complete: Inadequate energy intake related to small bowel obstruction as evidenced by need for full parenteral nutrition. goal: Meet estimated nutrition needs Advance to PO intake as medically able Patient has slow progress towards goal. We will continue current goal. Pt current nutrition is NPO. Last recorded weight is 83.6 kg. Bowel Motility: hypoactive bowel sounds Labs Reviewed:Cr 0.5,Glu 307, Alb 2.2 Meds Noted:Protonix, Lovenox Skin: WNL Additional Notes: Patient NPO. TPN discontinued on 08/21. CT scan showing ileus. Discussed nutrition plan with GARY Acuna today. NPO today, if unable to advance po diet today then plans to restart TPN. TPN recommendations: Clinimix E 15 at 60 ml/hr with 250 ml of 20% lipid emulsion. Monitoring tolerance, labs, diet advancement, plan of care Follow up every 3 days.
[2022-08-23 14:10] VITALS: BP 100/56; PULSE 83; RESP 16; TEMP 36.5; O2SAT 100
--- NOTE | 2022-08-23 15:05 | P.PNIM_ITS ---
Progress Note: A&P Assessment and Plan (1) SBO (small bowel obstruction): Code(s): K56.609 - Unspecified intestinal obstruction, unspecified as to partial versus complete obstruction Status: Acute Assessment and Plan: Patient presented with c/o abdominal pain. She had twisted bowel approximately 7 years ago with similar symptoms. CT scan suggested SBO. Patient has history of gastric bypass surgery. * NPO. * NG tube placed * Continue IV fluids and pain control. * Counseled to walk 4-6 times daily. * General surgery consulted and appreciate recommendations - continue supportive care. * 08/15 KUB shows persistent SBO. * 08/16 KUB unchanged. Patient underwent enterotomy with removal of obstructing mass later in the day. * 08/17/22 postop day 1. NG to still placed, NPO with ice chips, no flatness thus far. I discuss the case with Dr. Bustamante and TPN was started. * 08/19/22 Awaiting return of bowel function * 08/20/22 patient has had some fatus, NG tube clamped. * 08/21/22 NG removed and clear liquids started. * 08/22/22 continue to advance diet. * 08/23/22 Chest x-ray revealed ileus. patient's diet regressed back down to NPO. Patient still having bowel movements and gas. Discussed with Dr. Bustamante today and he is hoping to restart liquid diet tomorrow if patient is still doing well. * Patient having some drainage at the surgical incision. This is likely reason for patient's elevated white blood cell count. * Surgery remove stable and allowed pus to drain. (2) Gastritis: Qualifiers: Chronicity: acute Gastritis bleeding: without bleeding Gastritis type: other gastritis Qualified Code(s): K29.00 - Acute gastritis without bleeding Code(s): K29.70 - Gastritis, unspecified, without bleeding Status: Acute Assessment and Plan: Noted on CT scan. * Continue PPI therapy. * Patient is NPO for SBO. (3) Abdominal pain: Qualifiers: Abdominal location: generalized Qualified Code(s): R10.84 - Generalized abdominal pain Code(s): R10.9 - Unspecified abdominal pain Status: Acute Assessment and Plan: Likely secondary to 1 and gastritis/esophagitis also noted on CT scan. * Continue management as above. (4) Asthma-COPD overlap syndrome: Code(s): J44.9 - Chronic obstructive pulmonary disease, unspecified Status: Chronic Assessment and Plan: chronic, not in acute exacerbation. * continue Trelegy. * albuterol nebs as needed (5) Bipolar affective disorder: Qualifiers: Active/Remission status: remission status unspecified Qualified Code(s): F31.9 - Bipolar disorder, unspecified Code(s): F31.9 - Bipolar disorder, unspecified Status: Chronic Assessment and Plan: Chronic, not in acute exacerbation. Continue home medications. (6) Tachycardia: Code(s): R00.0 - Tachycardia, unspecified Status: Acute Assessment and Plan: Patient had some shortness of breath a couple days ago and yesterday she became tachycardic. Patient is still tachycardic today EKG ordered a revealed positive S1 Q 3 T3. Patient also having urinary frequency. Has a history of PE and is on estradiol. Will rule out PE. Tachycardia could also be from infection. * CTA revealed mild pulmonary edema with small pleural effusions, no PE. * UA negative * bladder scan ordered. 08/21/22 * Patient given 40 IV Lasix B.i.d. * WBC elevated at 12.9 08/23/22 * Tachycardia and elevated white
--- NOTE | 2022-08-23 15:05 | PM.IMPN ---
Progress Note: A&P Assessment and Plan (1) SBO (small bowel obstruction): Code(s): K56.609 - Unspecified intestinal obstruction, unspecified as to partial versus complete obstruction Status: Acute Assessment and Plan: Patient presented with c/o abdominal pain. She had twisted bowel approximately 7 years ago with similar symptoms. CT scan suggested SBO. Patient has history of gastric bypass surgery. NPO. NG tube placed Continue IV fluids and pain control. Counseled to walk 4-6 times daily. General surgery consulted and appreciate recommendations - continue supportive care. 08/15 KUB shows persistent SBO. 08/16 KUB unchanged. Patient underwent enterotomy with removal of obstructing mass later in the day. 08/17/22 postop day 1. NG to still placed, NPO with ice chips, no flatness thus far. I discuss the case with Dr. Bustamante and TPN was started. 08/19/22 Awaiting return of bowel function 08/20/22 patient has had some fatus, NG tube clamped. 08/21/22 NG removed and clear liquids started. 08/22/22 continue to advance diet. 08/23/22 Chest x-ray revealed ileus. patient's diet regressed back down to NPO. Patient still having bowel movements and gas. Discussed with Dr. Bustamante today and he is hoping to restart liquid diet tomorrow if patient is still doing well. Patient having some drainage at the surgical incision. This is likely reason for patient's elevated white blood cell count. Surgery remove stable and allowed pus to drain. (2) Gastritis: Qualifiers: Chronicity: acute Gastritis bleeding: without bleeding Gastritis type: other gastritis Qualified Code(s): K29.00 - Acute gastritis without bleeding Code(s): K29.70 - Gastritis, unspecified, without bleeding Status: Acute Assessment and Plan: Noted on CT scan. Continue PPI therapy. Patient is NPO for SBO. (3) Abdominal pain: Qualifiers: Abdominal location: generalized Qualified Code(s): R10.84 - Generalized abdominal pain Code(s): R10.9 - Unspecified abdominal pain Status: Acute Assessment and Plan: Likely secondary to 1 and gastritis/esophagitis also noted on CT scan. Continue management as above. (4) Asthma-COPD overlap syndrome: Code(s): J44.9 - Chronic obstructive pulmonary disease, unspecified Status: Chronic Assessment and Plan: chronic, not in acute exacerbation. continue Trelegy. albuterol nebs as needed (5) Bipolar affective disorder: Qualifiers: Active/Remission status: remission status unspecified Qualified Code(s): F31.9 - Bipolar disorder, unspecified Code(s): F31.9 - Bipolar disorder, unspecified Status: Chronic Assessment and Plan: Chronic, not in acute exacerbation. Continue home medications. (6) Tachycardia: Code(s): R00.0 - Tachycardia, unspecified Status: Acute Assessment and Plan: Patient had some shortness of breath a couple days ago and yesterday she became tachycardic. Patient is still tachycardic today EKG ordered a revealed positive S1 Q 3 T3. Patient also having urinary frequency. Has a history of PE and is on estradiol. Will rule out PE. Tachycardia could also be from infection. CTA revealed mild pulmonary edema with small pleural effusions, no PE. UA negative bladder scan ordered. 08/21/22 Patient given 40 IV Lasix B.i.d. WBC elevated at 12.9 08/23/22 Tachycardia and elevated white blood cell count likely due to drainage at surgical site. Lasix weaned down to once a day. Plan CODE STATUS: FULL CODE Disposition: from home. Discharge pending resolution of bowel obstruction. Subjective Date/time seen: 08/23/22 15:05 Interval history: Patient is ready to be discharged. She has not been put back on NPO due to ileus seen on chest x-ray. she is still passing gas and having bowel movements. patient states that she was
[2022-08-23] MEDS: DOCOSANOL 10% CREAM 2 GM 1 APPLIC TOPICAL ×2 (17:50→20:04)
[2022-08-23 20:00] VITALS: PULSE 72; RESP 18; O2SAT 96
[2022-08-23] MEDS: QUEtiapine FUMARATE 100 MG TABLET 300 MG PO (20:04)
[2022-08-23] MEDS: HYDROmorphone HCL INJ (*CRX) 1 MG/ML SYR IV PUSH (20:04)
[2022-08-23 21:54] VITALS: BP 100/40; PULSE 72; RESP 18; TEMP 36.4; O2SAT 96
[2022-08-24] MEDS: IBUPROFEN IV 800 MG/200 ML 800 MG/200 ML BAG 400 MG IVPB (02:18)
[2022-08-24] MEDS: DEXTROSE 5%/0.9% SOD CHL 1,000 ML 100 ML IV CONT (02:20)
[2022-08-24] MEDS: HYDROmorphone HCL INJ (*CRX) 1 MG/ML SYR IV PUSH ×3 (02:55→17:02)
[2022-08-24 06:00] VITALS: BP 124/62; PULSE 68; RESP 18; TEMP 36.6; O2SAT 100
[2022-08-24 06:28] LABS: Hemoglobin 10.3 g/dL (12.0-15.0); Mean Corpuscular HGB Conc 32.2 g/dl (32-36); Mean Corpuscular Volume 96.4 fl (80-100); Mean Platelet Volume 8.7 fl (7.4-10.4); Platelet Count Result 337 k/mm3 (150-375); Red Blood Count 3.32 M/mm3 (4.2-5.4); White Blood Count 9.1 K/mm3 (4.5-10.0)
[2022-08-24 06:49] LABS: Anion Gap 3 mmol/L (8-16); Blood Urea Nitrogen 10 mg/dL (7-17); Carbon Dioxide 25 mmol/L (22-30); Chloride 104 mmol/L (98-107); Estimated Glomerular Filt Rate > 60; Glucose 92 mg/dL (65-110); Sodium 132 mmol/L (137-145)
[2022-08-24] MEDS: FLUTICASONE/UMECLIDIN/VILANTER 100-62.5-25 MCG ELLIPTA 1 PUFF INHALATION (07:58)
--- NOTE | 2022-08-24 08:03 | PM.PNGS ---
Progress Note: A&P Assessment and Plan (1) Superficial postoperative wound infection: Code(s): T81.49XA - Infection following a procedure, other surgical site, initial encounter Status: Acute Assessment and Plan: quite a bit of drainage. Wound does not track but seems limited to the upper aspect of the incision. No drainage at any other points in the incision. Will ask Wound nurses to see. Possibly place wound VAC. (2) Leukocytosis: Code(s): D72.829 - Elevated white blood cell count, unspecified Status: Resolved Assessment and Plan: likely due to wound infection although ileus may have played a role. (3) Tachycardia: Code(s): R00.0 - Tachycardia, unspecified Status: Resolved Assessment and Plan: Likely from same source as leukocytosis (4) SBO (small bowel obstruction): Code(s): K56.609 - Unspecified intestinal obstruction, unspecified as to partial versus complete obstruction Status: Resolved Assessment and Plan: bowel function seems to have improved. Will go ahead and restart full liquids today. (5) Bipolar affective disorder: Qualifiers: Active/Remission status: remission status unspecified Qualified Code(s): F31.9 - Bipolar disorder, unspecified Code(s): F31.9 - Bipolar disorder, unspecified Status: Chronic Assessment and Plan: Receiving home medications (6) Asthma-COPD overlap syndrome: Code(s): J44.9 - Chronic obstructive pulmonary disease, unspecified Status: Chronic Assessment and Plan: stable. Subjective Subjective Date/Time Seen: 08/24/22 08:03 Post Op day: #8 Patient reports: no new complaints, still having pain, flatus, no bowel movement (Worried she may be getting constipated) and afebrile Review of Systems Review of Systems: All systems reviewed & are unremarkable except as noted in HPI and below ( HPI and those items noted below) Constitutional: Constitutional: Denies chills and Denies fever(s) Cardiovascular: Cardiovascular: Denies chest pain, Denies diaphoresis, Denies dyspnea and Denies paroxysmal nocturnal dyspnea Respiratory: Respiratory: Denies chest congestion, Denies cough and Denies dyspnea Integumentary/Breasts: Skin/Breast: Denies lesions and Denies rash Exam Const: General: comfortable and no acute distress; No confusion Orientation/consciousness: patient oriented x3 and No confusion GI: Inspection: non-distended, incision ( much foul-smelling drainage on bandage), obesity and other ( purulent fluid open area, cleansed and redressed) GI Palp: Yes Soft to palpation, Yes Tenderness to palpation present (GI), No Guarding due to palpation present (GI), No Rebound tenderness present and Yes Other GI palpation findings present ( every other wound staple removed over rest of wound.) Neuro: General: patient oriented x3, no focal motor deficits and No confusion Extrem: General: no calf tenderness and no edema Psych: Affect: normal affect Insight: Good insight present (Psych) Judgement: Good judgement present (Psych) Objective Data Vital Signs Vital Signs: Vital Signs - 24 hr 08/23/22 08:34 08/23/22 14:10 08/23/22 21:54 Temperature 36.5 C 36.4 C Pulse Rate 94 83 72 Respiratory Rate 18 16 18 Blood Pressure 100/56 L 100/40 L Pulse Oximetry 100 96 Oxygen Delivery 08/23/22 20:00 08/24/22 06:00 Temperature 36.6 C Pulse Rate 72 68 Respiratory Rate 18 18 Blood Pressure 124/62 Pulse Oximetry 96 100 Oxygen Delivery Room Air Intake/Output Intake/Output: Intake & Output 08/21/22 08/22/22 08/23/22 08/24/22 23:59 23:59 23:59 23:59 Intake Total 2503 067 3248 Output Total 3400 703 700 Balance -8780 701 7366 Meds/Results Medications: Active Medications Generic Name Dose Route Start Last Admin Trade Name Freq PRN Reason Stop Dose Admin Albuterol 2.5 mg 08/14/22 08:05 Albuterol Sulfate Neb 2.5 Mg/3 Ml Inh INH
[2022-08-24] MEDS: ARIPiprazole 5 MG TABLET PO (09:00)
[2022-08-24] MEDS: DOCOSANOL 10% CREAM 2 GM 1 APPLIC TOPICAL ×3 (09:00→20:32)
[2022-08-24] MEDS: ARIPiprazole 10 MG TABLET PO (09:00)
[2022-08-24] MEDS: PANTOPRAZOLE SODIUM IV 40 MG VIAL IV PUSH (09:01)
[2022-08-24] MEDS: FUROSEMIDE INJ 40 MG/4 ML VIAL IV PUSH (09:01)
[2022-08-24] MEDS: ENOXAPARIN 40 MG/0.4 ML SYRINGE SUB-Q (09:01)
[2022-08-24] MEDS: TOPIRAMATE 25 MG TABLET 50 MG PO ×2 (09:01→16:07)
[2022-08-24] MEDS: DEXTROSE 5%/0.9% SOD CHL 1,000 ML 80 ML IV CONT ×2 (09:07→21:39)
[2022-08-24] MEDS: CENTRAL LINE FLUSH 10 ML IV PUSH ×2 (13:29→20:33)
[2022-08-24 14:53] VITALS: BP 100/56; PULSE 80; RESP 18; TEMP 36.7; O2SAT 97
--- NOTE | 2022-08-24 17:25 | P.PNIM_ITS ---
Progress Note: A&P Assessment and Plan (1) SBO (small bowel obstruction): Code(s): K56.609 - Unspecified intestinal obstruction, unspecified as to partial versus complete obstruction Status: Resolved Assessment and Plan: Patient presented with c/o abdominal pain. She had twisted bowel approximately 7 years ago with similar symptoms. CT scan suggested SBO. Patient has history of gastric bypass surgery. * NPO. * NG tube placed * Continue IV fluids and pain control. * Counseled to walk 4-6 times daily. * General surgery consulted and appreciate recommendations - continue supportive care. * 08/15 KUB shows persistent SBO. * 08/16 KUB unchanged. Patient underwent enterotomy with removal of obstructing mass later in the day. * 08/17/22 postop day 1. NG to still placed, NPO with ice chips, no flatness thus far. I discuss the case with Dr. Bustamante and TPN was started. * 08/19/22 Awaiting return of bowel function * 08/20/22 patient has had some fatus, NG tube clamped. * 08/21/22 NG removed and clear liquids started. * 08/22/22 continue to advance diet. * 08/23/22 Chest x-ray revealed ileus. patient's diet regressed back down to NPO. Patient still having bowel movements and gas. Discussed with Dr. Bustamante today and he is hoping to restart liquid diet tomorrow if patient is still doing well. * Patient having some drainage at the surgical incision. This is likely reason for patient's elevated white blood cell count. Surgery remove rocky and wound vac placed 08/24. (2) Gastritis: Qualifiers: Chronicity: acute Gastritis bleeding: without bleeding Gastritis type: other gastritis Qualified Code(s): K29.00 - Acute gastritis without bleeding Code(s): K29.70 - Gastritis, unspecified, without bleeding Status: Acute Assessment and Plan: Noted on CT scan. * Continue PPI therapy. (3) Abdominal pain: Qualifiers: Abdominal location: generalized Qualified Code(s): R10.84 - Generalized abdominal pain Code(s): R10.9 - Unspecified abdominal pain Status: Acute Assessment and Plan: Likely secondary to 1 and gastritis/esophagitis also noted on CT scan. * Continue management as above. (4) Asthma-COPD overlap syndrome: Code(s): J44.9 - Chronic obstructive pulmonary disease, unspecified Status: Chronic Assessment and Plan: chronic, not in acute exacerbation. * continue Trelegy. * albuterol nebs as needed (5) Bipolar affective disorder: Qualifiers: Active/Remission status: remission status unspecified Qualified Code(s): F31.9 - Bipolar disorder, unspecified Code(s): F31.9 - Bipolar disorder, unspecified Status: Chronic Assessment and Plan: Chronic, not in acute exacerbation. Continue home medications. (6) Tachycardia: Code(s): R00.0 - Tachycardia, unspecified Status: Resolved Assessment and Plan: Patient had some shortness of breath a couple days ago and yesterday she became tachycardic. Patient is still tachycardic today EKG ordered a revealed positive S1 Q 3 T3. Patient also having urinary frequency. Has a history of PE and is on estradiol. Will rule out PE. Tachycardia could also be from infection. * CTA revealed mild pulmonary edema with small pleural effusions, no PE. * UA negative * bladder scan ordered. 08/21/22 * Patient given 40 IV Lasix B.i.d. * WBC elevated at 12.9 08/23/22 * Tachycardia and elevated white blood cell count likely due to drainage at surgical site. * Lasix weaned down to once a day. 08/24 WBC 9.1. Afebrile.
--- NOTE | 2022-08-24 17:25 | PM.IMPN ---
Progress Note: A&P Assessment and Plan (1) SBO (small bowel obstruction): Code(s): K56.609 - Unspecified intestinal obstruction, unspecified as to partial versus complete obstruction Status: Resolved Assessment and Plan: Patient presented with c/o abdominal pain. She had twisted bowel approximately 7 years ago with similar symptoms. CT scan suggested SBO. Patient has history of gastric bypass surgery. NPO. NG tube placed Continue IV fluids and pain control. Counseled to walk 4-6 times daily. General surgery consulted and appreciate recommendations - continue supportive care. 08/15 KUB shows persistent SBO. 08/16 KUB unchanged. Patient underwent enterotomy with removal of obstructing mass later in the day. 08/17/22 postop day 1. NG to still placed, NPO with ice chips, no flatness thus far. I discuss the case with Dr. Bustamante and TPN was started. 08/19/22 Awaiting return of bowel function 08/20/22 patient has had some fatus, NG tube clamped. 08/21/22 NG removed and clear liquids started. 08/22/22 continue to advance diet. 08/23/22 Chest x-ray revealed ileus. patient's diet regressed back down to NPO. Patient still having bowel movements and gas. Discussed with Dr. Bustamante today and he is hoping to restart liquid diet tomorrow if patient is still doing well. Patient having some drainage at the surgical incision. This is likely reason for patient's elevated white blood cell count. Surgery remove rocky and wound vac placed 08/24. (2) Gastritis: Qualifiers: Chronicity: acute Gastritis bleeding: without bleeding Gastritis type: other gastritis Qualified Code(s): K29.00 - Acute gastritis without bleeding Code(s): K29.70 - Gastritis, unspecified, without bleeding Status: Acute Assessment and Plan: Noted on CT scan. Continue PPI therapy. (3) Abdominal pain: Qualifiers: Abdominal location: generalized Qualified Code(s): R10.84 - Generalized abdominal pain Code(s): R10.9 - Unspecified abdominal pain Status: Acute Assessment and Plan: Likely secondary to 1 and gastritis/esophagitis also noted on CT scan. Continue management as above. (4) Asthma-COPD overlap syndrome: Code(s): J44.9 - Chronic obstructive pulmonary disease, unspecified Status: Chronic Assessment and Plan: chronic, not in acute exacerbation. continue Trelegy. albuterol nebs as needed (5) Bipolar affective disorder: Qualifiers: Active/Remission status: remission status unspecified Qualified Code(s): F31.9 - Bipolar disorder, unspecified Code(s): F31.9 - Bipolar disorder, unspecified Status: Chronic Assessment and Plan: Chronic, not in acute exacerbation. Continue home medications. (6) Tachycardia: Code(s): R00.0 - Tachycardia, unspecified Status: Resolved Assessment and Plan: Patient had some shortness of breath a couple days ago and yesterday she became tachycardic. Patient is still tachycardic today EKG ordered a revealed positive S1 Q 3 T3. Patient also having urinary frequency. Has a history of PE and is on estradiol. Will rule out PE. Tachycardia could also be from infection. CTA revealed mild pulmonary edema with small pleural effusions, no PE. UA negative bladder scan ordered. 08/21/22 Patient given 40 IV Lasix B.i.d. WBC elevated at 12.9 08/23/22 Tachycardia and elevated white blood cell count likely due to drainage at surgical site. Lasix weaned down to once a day. 08/24 WBC 9.1. Afebrile. Wound vac placed to abdominal incision. HR 80, BP 100/56 Time Spent With Patient Time: 35 minutes of time spent with patient, documentation, and review of imaging, labs, vitals and nursing documentation. Subjective Date/time seen: 08/24/22 17:25 Interval history: She reports some gas pain and is passing gas. No BM for 48 hours. Wound VAC placed today to abdominal incision. Denies chest
[2022-08-24 19:40] VITALS: BP 112/59; PULSE 77; RESP 16; TEMP 37; O2SAT 100
[2022-08-24] MEDS: QUEtiapine FUMARATE 100 MG TABLET 300 MG PO (20:31)
[2022-08-25] VITALS (7 sets, daily range): BP systolic 96–110; BP diastolic 53–62; PULSE 65–95; RESP 16–20; TEMP 36.2–36.6; O2SAT 98–100
[2022-08-25] MEDS: CENTRAL LINE FLUSH 10 ML IV PUSH ×2 (06:00→13:34)
[2022-08-25] MEDS: CENTRAL LINE FLUSH 20 ML IV PUSH (06:01)
[2022-08-25 06:06] LABS: Basophils Absolute Auto 0.1 K/mm3 (0.0-0.1); Basophils Percent Auto 1.4 % (0.2-1.2); Eosinophils Absolute Auto 0.3 K/mm3 (0-0.3); Eosinophils Percent Auto 4.3 % (0-4.4); Hematocrit 33.8 % (37.0-47.0); Immature Granulocyte Absolute 0.42 K/mm3 (0.00-0.031); Immature Granulocyte Percent A 5.3 % (0-0.5); Lymphocytes Percent Auto 15.2 % (18.3-44.2); Mean Corpuscular HGB Conc 32.5 g/dl (32-36); Mean Corpuscular Hemoglobin 31.3 pg (26-34); Mean Platelet Volume 9.1 fl (7.4-10.4); Monocytes Absolute Auto 0.6 K/mm3 (0.1-0.6); Neutrophils Absolute Auto 5.3 K/mm3 (1.3-6.7); Neutrophils Percent Auto 66.8 % (45.5-73.1); Platelet Count Result 395 k/mm3 (150-375); Red Blood Count 3.52 M/mm3 (4.2-5.4); Red Cell Distribution Width 13.2 % (11.5-14.5); White Blood Count 7.9 K/mm3 (4.5-10.0)
--- NOTE | 2022-08-25 08:34 | PM.PNGS ---
Progress Note: A&P Assessment and Plan (1) SBO (small bowel obstruction): Code(s): K56.609 - Unspecified intestinal obstruction, unspecified as to partial versus complete obstruction Status: Resolved Assessment and Plan: I have restarted her magnesium as still no bowel movement. Advanced to low-fiber diet today. (2) Superficial postoperative wound infection: Code(s): T81.49XA - Infection following a procedure, other surgical site, initial encounter Status: Acute Assessment and Plan: Wound VAC in place, working well. Remainder of wound looks good. 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: Code(s): Z90.3 - Acquired absence of stomach [part of]; Z98.0 - Intestinal bypass and anastomosis status Status: Chronic (4) Bipolar affective disorder: Qualifiers: Active/Remission status: remission status unspecified Qualified Code(s): F31.9 - Bipolar disorder, unspecified Code(s): F31.9 - Bipolar disorder, unspecified Status: Chronic Assessment and Plan: On home meds (5) Asthma-COPD overlap syndrome: Code(s): J44.9 - Chronic obstructive pulmonary disease, unspecified Status: Chronic Subjective Subjective Date/Time Seen: 08/25/22 08:34 Post Op day: #9 Patient reports: feels better, tolerating liquids well, flatus, no bowel movement and afebrile Interval history: Wound VAC placed yesterday. Patient tolerating this well. Feels better this morning. Review of Systems Review of Systems: All systems reviewed & are unremarkable except as noted in HPI and below (HPI and those items noted below) Constitutional: Constitutional: Denies chills and Denies fever(s) Cardiovascular: Cardiovascular: Denies chest pain, Denies diaphoresis, Denies dyspnea and Denies paroxysmal nocturnal dyspnea Respiratory: Respiratory: Denies chest congestion, Denies cough and Denies dyspnea Integumentary/Breasts: Skin/Breast: Denies lesions and Denies rash Exam Const: General: comfortable and no acute distress; No confusion Orientation/consciousness: patient oriented x3 and No confusion GI: Inspection: non-distended, incision (Wound VAC in place, rest of incision looks good) and obesity GI Palp: Yes Soft to palpation, Yes Tenderness to palpation present (GI) (Minimal tenderness), No Guarding due to palpation present (GI) and No Rebound tenderness present Auscultation: normal bowel sounds Neuro: General: patient oriented x3, no focal motor deficits and No confusion Extrem: General: no calf tenderness and no edema Psych: Affect: normal affect Insight: Good insight present (Psych) Judgement: Good judgement present (Psych) Objective Data Vital Signs Vital Signs: Vital Signs - 24 hr 08/24/22 09:00 08/24/22 14:53 08/24/22 19:40 Temperature 36.7 C 37.0 C Pulse Rate 80 77 Respiratory Rate 18 16 Blood Pressure 100/56 L 112/59 L Pulse Oximetry 97 100 Oxygen Delivery Room Air 08/25/22 06:55 Temperature 36.6 C Pulse Rate 83 Respiratory Rate 16 Blood Pressure 110/61 Pulse Oximetry 100 Oxygen Delivery Intake/Output Intake/Output: Intake & Output 08/22/22 08/23/22 08/24/22 08/25/22 23:59 23:59 23:59 23:59 Intake Total 920 2400 2920 250 Output Total 078 860 7835 1000 Balance 217 1700 -30 -750 Meds/Results Medications: Active Medications Generic Name Dose Route Start Last Admin Trade Name Freq PRN Reason Stop Dose Admin Albuterol 2.5 mg 08/14/22 08:05 Albuterol Sulfate Neb 2.5 Mg/3 Ml Inh INHALATION Q6HRT PRN Shortness Of Breath Or Wheezing Alteplase, Recombinant 2 mg 08/23/22 05:30 08/23/22 06:09 Alteplase 2 Mg Vial (Cathflo) IV PUSH 2 mg ONCE PRN Administration Line Occlusion Alteplase, Recombinant 2 mg 08/23/22 05:32 08/23/22 06:10 Alteplase 2 Mg Vial (Cathflo) IV PUSH 2 mg ONCE PRN Administration Line Occlusion Aripiprazole 5 mg 07/21
[2022-08-25] MEDS: FLUTICASONE/UMECLIDIN/VILANTER 100-62.5-25 MCG ELLIPTA 1 PUFF INHALATION (08:58)
[2022-08-25] MEDS: MAGNESIUM OXIDE 400 MG TABLET 800 MG PO (09:51)
[2022-08-25] MEDS: PANTOPRAZOLE 40 MG TABLET PO (09:51)
[2022-08-25] MEDS: DOCOSANOL 10% CREAM 2 GM 1 APPLIC TOPICAL ×5 (09:52→20:35)
[2022-08-25] MEDS: ENOXAPARIN 40 MG/0.4 ML SYRINGE SUB-Q (09:52)
[2022-08-25] MEDS: ARIPiprazole 10 MG TABLET PO (09:52)
[2022-08-25] MEDS: ARIPiprazole 5 MG TABLET PO (09:53)
[2022-08-25] MEDS: FUROSEMIDE INJ 40 MG/4 ML VIAL IV PUSH (09:53)
[2022-08-25] MEDS: TOPIRAMATE 25 MG TABLET 50 MG PO ×2 (09:53→17:07)
[2022-08-25 10:08] LABS: Poikilocytosis 1+ (NORMAL); Schistocytes Rare (NORMAL)
[2022-08-25 10:09] LABS: Burr Cells 2+ (NORMAL)
[2022-08-25] MEDS: DEXTROSE 5%/0.9% SOD CHL 1,000 ML 80 ML IV CONT ×2 (10:11→22:47)
[2022-08-25 12:39] LABS: Alanine Aminotransferase 35 U/L (6-35); Albumin Level 2.8 g/dL (3.5-5.1); Alkaline Phosphatase 100 U/L (38-126); Anion Gap 4 mmol/L (8-16); Aspartate Amino Transferase 35 U/L (14-36); Bilirubin,Total 0.5 mg/dL (0.2-1.3); Blood Urea Nitrogen 6 mg/dL (7-17); Carbon Dioxide 26 mmol/L (22-30); Chloride 103 mmol/L (98-107); Estimated Glomerular Filt Rate > 60; Glucose 103 mg/dL (65-110); Magnesium 1.8 mg/dL (1.6-2.3); Potassium 3.9 mmol/L (3.4-5.0); Sodium 133 mmol/L (137-145)
--- NOTE | 2022-08-25 13:12 | PCNFU ---
Nutrition Follow-Up Complete: Inadequate energy intake related to small bowel obstruction as evidenced by need for full parenteral nutrition. Goal:Meet estimated nutrition needs Advance to PO intake as medically able Pt current nutrition is Full liquids, to advance to low fiber diet today. Nutrition recommendation: Continue with diet advancement Last recorded weight is 83.6 kg. Bowel Motility: +BM 3/6 Labs Reviewed: Hgb:10.3, HCT:32, NA:132, CR:0.6 Meds Noted: protonix, zofran Skin: wound vac to abdominal incision Additional Notes: Pt has been on full liquids, tolerated well. Diet to advance to low fiber today. Pt does not want any supplements of any kind. Agree with diet order, encourage good po intake. Monitoring tolerance, labs, diet advancement, plan of care Follow up every 3 days.
--- NOTE | 2022-08-25 14:00 | PM.IMPN ---
Progress Note: A&P Assessment and Plan (1) SBO (small bowel obstruction): Code(s): K56.609 - Unspecified intestinal obstruction, unspecified as to partial versus complete obstruction Status: Resolved Assessment and Plan: Patient presented with c/o abdominal pain. She had twisted bowel approximately 7 years ago with similar symptoms. CT scan suggested SBO. Patient has history of gastric bypass surgery. NPO. NG tube placed Continue IV fluids and pain control. Counseled to walk 4-6 times daily. General surgery consulted and appreciate recommendations - continue supportive care. 08/15 KUB shows persistent SBO. 08/16 KUB unchanged. Patient underwent enterotomy with removal of obstructing mass later in the day. 08/17/22 postop day 1. NG to still placed, NPO with ice chips, no flatness thus far. I discuss the case with Dr. Bustamante and TPN was started. 08/19/22 Awaiting return of bowel function 08/20/22 patient has had some fatus, NG tube clamped. 08/21/22 NG removed and clear liquids started. 08/22/22 continue to advance diet. 08/23/22 Chest x-ray revealed ileus. patient's diet regressed back down to NPO. Patient still having bowel movements and gas. 08/25/22 Diet advanced to regular consistency food. Patient with 3 small BMs. Management per General Surgery (2) Gastritis: Qualifiers: Chronicity: acute Gastritis bleeding: without bleeding Gastritis type: other gastritis Qualified Code(s): K29.00 - Acute gastritis without bleeding Code(s): K29.70 - Gastritis, unspecified, without bleeding Status: Acute Assessment and Plan: Noted on CT scan. Continue PPI therapy. (3) Abdominal pain: Qualifiers: Abdominal location: generalized Qualified Code(s): R10.84 - Generalized abdominal pain Code(s): R10.9 - Unspecified abdominal pain Status: Acute Assessment and Plan: Likely secondary to 1 and gastritis/esophagitis also noted on CT scan. Continue management as above. (4) Asthma-COPD overlap syndrome: Code(s): J44.9 - Chronic obstructive pulmonary disease, unspecified Status: Chronic Assessment and Plan: chronic, not in acute exacerbation. continue Trelegy. albuterol nebs as needed (5) Bipolar affective disorder: Qualifiers: Active/Remission status: remission status unspecified Qualified Code(s): F31.9 - Bipolar disorder, unspecified Code(s): F31.9 - Bipolar disorder, unspecified Status: Chronic Assessment and Plan: Chronic, not in acute exacerbation. Continue home medications. (6) Tachycardia: Code(s): R00.0 - Tachycardia, unspecified Status: Resolved Assessment and Plan: Patient had some shortness of breath and tachycardia postop. EKG ordered a revealed positive S1 Q 3 T3. Patient also having urinary frequency. Has a history of PE and is on estradiol. CTA revealed mild pulmonary edema with small pleural effusions, no PE. Lasix IV given UA negative Superficial wound noted (7) Superficial postoperative wound infection: Code(s): T81.49XA - Infection following a procedure, other surgical site, initial encounter Status: Acute Assessment and Plan: Patient having some drainage at the surgical incision.? WBC up to 12.9 and now trending down. Wound vac placed 08/24, change MWF by wound RN. . Time Spent With Patient Time: 40 minutes time spent for patient assessment and education, treatment plan, review of imaging, labs, vitals and nursing documentation. Subjective Date/time seen: 08/25/22 14:00 Interval history: She reports 3 small, loose stools today and c/o some bloating after lunch. She is tolerating regular consistency food with c/o abdominal pain, nausea or emesis. Review of Systems Review of Systems: All systems reviewed & are unremarkable except as noted in HPI and below Exam Narrative: GENERAL: Comfortable, no acu
[2022-08-25] MEDS: QUEtiapine FUMARATE 100 MG TABLET 300 MG PO (20:35)
[2022-08-26 04:19] VITALS: BP 101/55; PULSE 69; RESP 20; TEMP 36; O2SAT 100
[2022-08-26 06:35] LABS: Basophils Absolute Auto 0.1 K/mm3 (0.0-0.1); Basophils Percent Auto 1.6 % (0.2-1.2); Eosinophils Absolute Auto 0.3 K/mm3 (0-0.3); Hematocrit 34.1 % (37.0-47.0); Hemoglobin 11.4 g/dL (12.0-15.0); Immature Granulocyte Absolute 0.48 K/mm3 (0.00-0.031); Immature Granulocyte Percent A 5.8 % (0-0.5); Lymphocytes Absolute Auto 1.76 K/mm3 (0.9-3.2); Lymphocytes Percent Auto 21.2 % (18.3-44.2); Mean Corpuscular HGB Conc 33.4 g/dl (32-36); Mean Corpuscular Hemoglobin 31.1 pg (26-34); Mean Corpuscular Volume 92.9 fl (80-100); Mean Platelet Volume 8.9 fl (7.4-10.4); Monocytes Absolute Auto 0.6 K/mm3 (0.1-0.6); Monocytes Percent Auto 7.2 % (2.6-8.5); Neutrophils Absolute Auto 5.1 K/mm3 (1.3-6.7); Neutrophils Percent Auto 61.2 % (45.5-73.1); Platelet Count Result 434 k/mm3 (150-375); Red Blood Count 3.67 M/mm3 (4.2-5.4); Red Cell Distribution Width 12.9 % (11.5-14.5); White Blood Count 8.3 K/mm3 (4.5-10.0)
[2022-08-26] MEDS: FLUTICASONE/UMECLIDIN/VILANTER 100-62.5-25 MCG ELLIPTA 1 PUFF INHALATION (08:25)
[2022-08-26 08:27] VITALS: PULSE 72; RESP 18
[2022-08-26] MEDS: DOCOSANOL 10% CREAM 2 GM 1 APPLIC TOPICAL ×2 (09:11→11:38)
[2022-08-26] MEDS: TOPIRAMATE 25 MG TABLET 50 MG PO (09:11)
[2022-08-26] MEDS: PANTOPRAZOLE 40 MG TABLET PO (09:12)
[2022-08-26 09:13] VITALS: RESP 18; O2SAT 100
[2022-08-26] MEDS: ARIPiprazole 10 MG TABLET PO (09:13)
[2022-08-26] MEDS: ARIPiprazole 5 MG TABLET PO (09:13)
[2022-08-26] MEDS: ENOXAPARIN 40 MG/0.4 ML SYRINGE SUB-Q (09:13)
--- NOTE | 2022-08-26 10:27 | PM.PNGS ---
Progress Note: A&P Assessment and Plan (1) SBO (small bowel obstruction): Code(s): K56.609 - Unspecified intestinal obstruction, unspecified as to partial versus complete obstruction Status: Resolved Assessment and Plan: Tolerating solid food and having bowel movements. Able to ambulate independently. Comfortable on oral analgesics if needed at all. Okay to discharge from my perspective. (2) Superficial postoperative wound infection: Code(s): T81.49XA - Infection following a procedure, other surgical site, initial encounter Status: Acute Assessment and Plan: Patient will go home with wound VAC. Does not need oral antibiotics. I will see her in the wound clinic on 09/01/2022 for further follow-up. Open area of the upper wound is healing well. Remainder of the wound is dry and rocky have been removed. 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: Code(s): Z90.3 - Acquired absence of stomach [part of]; Z98.0 - Intestinal bypass and anastomosis status Status: Chronic (4) History of fundoplication: Code(s): Z98.890 - Other specified postprocedural states Status: Chronic (5) Bipolar affective disorder: Qualifiers: Active/Remission status: remission status unspecified Qualified Code(s): F31.9 - Bipolar disorder, unspecified Code(s): F31.9 - Bipolar disorder, unspecified Status: Chronic (6) Asthma-COPD overlap syndrome: Code(s): J44.9 - Chronic obstructive pulmonary disease, unspecified Status: Chronic Subjective Subjective Date/Time Seen: 08/26/22 10:27 Post Op day: #10 Patient reports: feels better, pain is less, tolerating a regular diet, bowel movement and afebrile Exam Const: General: comfortable and no acute distress; No confusion Orientation/consciousness: patient oriented x3 and No confusion GI: Inspection: non-distended, incision (Open wound clean and granulating, no purulence), obesity, no visible herniation and other (Remainder of wound rocky removed) GI Palp: Yes Soft to palpation, No Guarding due to palpation present (GI), No Hernia present, No Palpable mass present and No Rebound tenderness present Auscultation: normal bowel sounds Neuro: General: patient oriented x3, no focal motor deficits and No confusion Extrem: General: no calf tenderness and no edema Psych: Affect: normal affect Insight: Good insight present (Psych) Judgement: Good judgement present (Psych) Objective Data Vital Signs Vital Signs: Vital Signs - 24 hr 08/25/22 14:20 08/25/22 21:37 08/25/22 20:00 Temperature 36.2 C L 36.4 C L Pulse Rate 95 81 81 Respiratory Rate 16 20 20 Blood Pressure 96/62 L 110/53 L Pulse Oximetry 99 98 98 Oxygen Delivery Room Air 08/26/22 04:19 08/26/22 08:27 Temperature 36.0 C L Pulse Rate 69 72 Respiratory Rate 20 18 Blood Pressure 101/55 L Pulse Oximetry 100 Oxygen Delivery Intake/Output Intake/Output: Intake & Output 08/23/22 08/24/22 08/25/22 08/26/22 23:59 23:59 23:59 23:59 Intake Total 2400 2920 3950 390 Output Total 700 2950 2900 Balance 1700 -30 1050 390 Meds/Results Medications: Active Medications Generic Name Dose Route Start Last Admin Trade Name Freq PRN Reason Stop Dose Admin Albuterol 2.5 mg 08/14/22 08:05 Albuterol Sulfate Neb 2.5 Mg/3 Ml Inh INHALATION Q6HRT PRN Shortness Of Breath Or Wheezing Alteplase, Recombinant 2 mg 08/23/22 05:30 08/23/22 06:09 Alteplase 2 Mg Vial (Cathflo) IV PUSH 2 mg ONCE PRN Administration Line Occlusion Alteplase, Recombinant 2 mg 08/23/22 05:32 08/23/22 06:10 Alteplase 2 Mg Vial (Cathflo) IV PUSH 2 mg ONCE PRN Administration Line Occlusion Aripiprazole 5 mg 08/14/22 09:00 08/26/22 09:13 Aripiprazole 5 Mg Tablet PO 5 mg DAILY ABRAHAM Administration Aripiprazole 10 mg 08/14/22 09:00 08/26/22 09:13 Aripiprazole 10 Mg Tablet
[2022-08-26] MEDS: NEOMYCIN/POLYMYXIN/BACITRACIN OINTMENT PACKET 1 PACKET (11:00)
--- NOTE | 2022-08-26 11:56 | PM.DS ---
DS: Admitting Diagnosis Discharge Date 08/26/22 Admitting Diagnosis Small bowel obstruction? Abdominal pain DS: Discharge Diagnosis Discharge Diagnosis (1) SBO (small bowel obstruction): Code(s): K56.609 - Unspecified intestinal obstruction, unspecified as to partial versus complete obstruction Status: Resolved Assessment and Plan: Patient presented with c/o abdominal pain. CT scan suggested SBO. Patient has history of gastric bypass surgery. Conservative management started- NPO. NG tube to suction. IV fluids and pain control. Counseled to walk 4-6 times daily. General surgery consulted and appreciate recommendations. 08/15-08/16 KUB showed persistent SBO without improvement. 08/16Patient underwent enterotomy with removal of obstructing mass. 08/17/22 postop day 1. NG to still placed, NPO with ice chips, no flatness. PICC line and TPN started. 08/20/22 patient has had some fatus, NG tube clamped. 08/21/22 NG removed and clear liquids started and diet slowly advanced. 08/23/22 x-ray suggested ileus. patient's diet regressed back down to NPO. 08/25/22 Diet advanced to regular consistency food. Patient with 3 small BMs. (2) Gastritis: Qualifiers: Chronicity: acute Gastritis bleeding: without bleeding Gastritis type: other gastritis Qualified Code(s): K29.00 - Acute gastritis without bleeding Code(s): K29.70 - Gastritis, unspecified, without bleeding Status: Acute Assessment and Plan: Noted on CT scan. Treated with PPI therapy. (3) Abdominal pain: Qualifiers: Abdominal location: generalized Qualified Code(s): R10.84 - Generalized abdominal pain Code(s): R10.9 - Unspecified abdominal pain Status: Acute Assessment and Plan: Likely secondary to 1 and gastritis/esophagitis also noted on CT scan. Managed as above. (4) Asthma-COPD overlap syndrome: Code(s): J44.9 - Chronic obstructive pulmonary disease, unspecified Status: Chronic Assessment and Plan: chronic, not in acute exacerbation. continued Trelegy and albuterol nebs as needed (5) Bipolar affective disorder: Qualifiers: Active/Remission status: remission status unspecified Qualified Code(s): F31.9 - Bipolar disorder, unspecified Code(s): F31.9 - Bipolar disorder, unspecified Status: Chronic Assessment and Plan: Chronic, not in acute exacerbation. Continue home medications. (6) Tachycardia: Code(s): R00.0 - Tachycardia, unspecified Status: Resolved Assessment and Plan: Patient had some shortness of breath and tachycardia postop. EKG ordered a revealed positive S1 Q 3 T3. Patient also having urinary frequency. Has a history of PE. CTA revealed mild pulmonary edema with small pleural effusions, no PE. Lasix IV given x1. UA negative Discharge from surgical site noted and concerns for superficial wound infection. Improved by discharge. (7) Superficial postoperative wound infection: Code(s): T81.49XA - Infection following a procedure, other surgical site, initial encounter Status: Acute Assessment and Plan: Patient having some drainage at the surgical incision.? WBC up to 12.9 during hospital stay and trending down. Wound vac placed 08/24, change MWF by wound RN. continued at discharge and home zaira arranged. . DS: Summary Hospital Course Reason for hospitalization: abdominal pain Hospital Course: Mariely Beard is a 67-year-old female with history of gastric bypass surgery, COPD/emphysema, former smoker, osteoporosis, and dyslipidemia.? She presented to the emergency room with 1 day history of abdominal pain diffusely localized. Her last bowel movement was in the morning on the day of admission and she considered to be normal. She had associated nausea, vomiting, and was not able to pass gas for the reminder of the day. She had colicky pain with eating, rated 8/10 intensity.? She den
== END 2022-08-26 14:30 | disposition home health service (06) | DRG 345 ==
LOC: ANHED 21:01 → ANH2MED 22:07
PROVIDERS: Internal Medicine Critical Care Medicine; Surgery; Admitting Provider Internal Medicine; Emergency Provider Emergency Medicine; PCP Emergency Medicine; Visit Provider Nurse Practitioner Family
PROC: 0DCB0ZZ Extirpation of Matter from Ileum, Open Approach (ICD-10-PCS; CPT 49000; principal; 2022-08-16 17:00)
DX: K56.699 Other intestinal obstruction unspecified as to partial versus complete obstruction (principal); E44.0 Moderate protein-calorie malnutrition; T81.41XA Infection following a procedure, superficial incisional surgical site, initial encounter; K56.41 Fecal impaction; K29.70 Gastritis, unspecified, without bleeding; K20.90 Esophagitis, unspecified without bleeding; Z20.822 Contact with and (suspected) exposure to COVID-19; J44.9 Chronic obstructive pulmonary disease, unspecified; F31.9 Bipolar disorder, unspecified; F41.9 Anxiety disorder, unspecified; K21.9 Gastro-esophageal reflux disease without esophagitis; I10 Essential (primary) hypertension; E05.90 Thyrotoxicosis, unspecified without thyrotoxic crisis or storm; R00.0 Tachycardia, unspecified; M85.80 Other specified disorders of bone density and structure, unspecified site; K56.0 Paralytic ileus; E78.2 Mixed hyperlipidemia; M81.0 Age-related osteoporosis without current pathological fracture; R35.0 Frequency of micturition; D72.829 Elevated white blood cell count, unspecified; G25.81 Restless legs syndrome; Z96.659 Presence of unspecified artificial knee joint; E66.9 Obesity, unspecified; Z68.38 Body mass index [BMI] 38.0-38.9, adult; Z98.84 Bariatric surgery status; Z79.82 Long term (current) use of aspirin; Z87.891 Personal history of nicotine dependence; Z90.710 Acquired absence of both cervix and uterus; Z98.42 Cataract extraction status, left eye; Z98.41 Cataract extraction status, right eye; Z86.711 Personal history of pulmonary embolism
CPT/HCPCS: 36415; 36569; 71046; 71275; 74018; 74177; 74240; 74248; 80048; 80053; 81001; 82948; 83605; 83690; 83735; 83880; 84100; 84145; 84466; 84478; 85025; 85027; 85610; 85730; 86850; 86900; 86901; 87636; 88300; 93005; 94640; 96374; 99285; A9270; C1751; C9113; J0690; J1170; J1650; J1741; J1940; J2250; J2405; J2704; J2997; J3010; J7030; J7042; J7120; Q9967

== ENCOUNTER 2022-10-03 08:24 | Outpatient (CLI) | payer OTHER, SELFPAY ==
[2022-10-03 10:09] LABS: Hemoglobin A1C 5.2 % (<5.7)
[2022-10-03 10:25] LABS: Folic Acid > 20.0 ng/mL (2.76->20)
== END 2022-10-03 08:25 | disposition home or self-care (01) ==
PROVIDERS: PCP Emergency Medicine; Visit Provider Emergency Medicine
DX: R73.01 Impaired fasting glucose (principal); R74.8 Abnormal levels of other serum enzymes
CPT/HCPCS: 36415; 82607; 82746; 83036

== ENCOUNTER 2022-10-19 16:36 | Outpatient (CLI) | payer OTHER, SELFPAY ==
--- NOTE | ~2022-10-19 | XR_ITS ---
Lumbosacral Spine: AP and lateral views Clinical History: Pain Findings: There is 65 degrees levoscoliosis of the lumbar spine. There is severe degenerative disc na rrowing throughout the lumbar spine with extensive facet arthropathy as well. No fracture or definite subluxation evident otherwise. The sacroiliac joints are normally outlined. Impression: 65 degree levoscoliosis with diffuse, advanced degenerative spondylosis. No acute fracture evident. Reviewed, dictated and finalized at location . Impression: 65 degree levoscoliosis with diffuse, advanced degenerative spondylosis. No acute fracture evident.
--- NOTE | ~2022-10-19 | XR_ITS ---
AP view of the pelvis and AP and lateral views of the left hip Clinical history: Pain Findings: No acute fracture or dislocation is seen. Osseous alignment is anatomic. Left hip joint spa ce is unremarkable. Probable minimal degenerative change of the right hip joint. Degenerative spondyl osis of the lower lumbar spine is partially imaged. Soft tissues are unremarkable. Impression: Unremarkable left hip. Mild degenerative change of the right hip. Degenerative spondylosis of the lower lumbar spine. Reviewed, dictated and finalized at location M. Impression: Unremarkable left hip. Mild degenerative change of the right hip. Degenerative spondylosis of the lower lumbar spine.
== END 2022-10-19 16:37 | disposition home or self-care (01) ==
PROVIDERS: PCP Emergency Medicine; Visit Provider Emergency Medicine
DX: M25.552 Pain in left hip (principal); M54.9 Dorsalgia, unspecified; G89.29 Other chronic pain; M16.11 Unilateral primary osteoarthritis, right hip
CPT/HCPCS: 72100; 73502

== ENCOUNTER 2022-12-29 08:00 | Outpatient (RCR) | payer OTHER, SELFPAY ==
--- NOTE | 2022-12-02 09:03 | PTOPEVAL1 ---
Assessment and note entered by Romina Correia, PT Evaluation Information Assessment Status Evaluation Diagnosis lumbar radiculopathy Onset about 1 month ago Subjective Information have chronic low back pain, about 1 month ago more pain and walking limited and more painful; with wheeled walker about 20 min; in home- walk/ stand without device about 5 min; have a new back brace for past week- helps some with back, but makes R hip hurt; just started with pain management dr--back brace and therapy, then have follow up next month; activity level-- Orthos PRN; have had recent back xrays--scoliosis and arthritis; previous PT for back--not recall anything that really helped; try to do some stretching--sitting hip stretch; Reported Pain Level Pain Score Self Report Additional Pain Score Comments pain range in the past week in back: 0-8/10; into R and L intermittent to anterior proximal knees; R hip- anterior and lateral hip; increase pain with standing/walking 5 minutes; awaken from sleeping 2-3x/night decrease pain with sitting/ rest, heat or ice, over the counter meds Assessment PT Clinical Summary Mariely has the diagnosis of lumbar radiculopathy, intermittent into both legs, anterior to proximal knees. Her history includes chronic pain in her back, L TKR and plans to have R TKR in few months. Oswestry self assessment functional score of 48% limitation in activity; pain awakens her from sleeping and limits her standing/walking tolerance to 5 minutes. With the evaluation: she has poor standing position of trunk and hips, with lateral lean of trunk, rotation of trunk and hips and increase WB on L LE; weakness of trunk and hips and decreased ROM of IR of hips; 2 minute walking test distance of 280' with cane. Skilled PT services are indicated for modalities to decrease pain, therapeutic exercises to increase the strength and flexibility of her hips and trunk, with education for home exercises and pain management control. Plan of Care Interventions Elect
--- NOTE | 2022-12-29 08:41 | PTOPPROG ---
Assessment and note entered by Romina Correia, PT Evaluation Information Assessment Status Progress Diagnosis lumbar radiculopathy Onset about 1 month ago Subjective Information Mariely reports: therapy has not helped her back, it is hurting more after therapy; some of the stretches help a little, but the other ones hurt; is disappointed that therapy has not helped- in the past it did help; Has an appointment this afternoon with pain management dr and going to get shots; Want to stop therapy for now and see what pain dr says. Assessment PT Clinical Summary Mariely has received 9 PT sessions. Compared to the initial evaluation: pain rating is worse, from 0-9/10 to now 5-10/10; continues to have radicular pain into both legs to anterior thigh to knee, L > R; self assessment Oswestry score slightly worse from 48% to 52% limitation; 2 minute walking test distance 10' less, with reported back pain increase; slight increase in strength with R SLR and hip abduction on R and L; reported standing and walking tolerance is about the same. She has been educated on home stretching and posture. The goals were partially achieved. Will HOLD PT; she is to see pain management for injections, will discuss PT with dr and if to continue PT treatment, to get new script; Plan of Care Interventions Electrical Stimulation,Hot Pack/Cold Pack,Manual Therapy,Neuro Re-education,Patient Education,Therapeutic Activities,Therapeutic Exercise,Ultrasound,Other Other Interventions taping, IAST[facility] PT Services Indicated Yes Treatment Frequency and 0-2/wk for 6 weeks---await orders from pain management dr if to continue treatment Duration These treatments will address the objective and functional deficits as defined above. The patient will be advanced safely and appropriately in order for the patient to progress towards his/her prior level of function. Additional exercises will be introduced and as well as a comprehensive home exercise program upon discharge, if needed, ?to ensure carryover of functional gains achieved in the clinic. This treatment plan has been reviewed and agreement upon by the patient.
--- NOTE | 2022-12-30 08:15 | OPREHPOC ---
Outpatient Therapy Plan of Care This is a Multidisciplinary Plan of Care that may contain components documented by all disciplines (PT, OT, and ST.) PT Problem 1 PT Problem #1 Knowledge Deficit PT Goal 1 Goal 1* pt indep with home exercise program Progress Met Comment 12-29-22 progress/HOLD met goals pt to see pain management dr- await new orders if to continue treatment PT Problem 2 PT Problem #2 Pain PT Goal 1 Goal 1* pt report pain rating of back at worst 6/10 2* radicular pain into LE's to mid anterior thigh at worst 3* Oswestry self assessment functional score of 38 % limitation in activity 4* pt report with sleeping, awaken 1x/night due to back pain Progress Partially Met Comment 12-29-22 progress/HOLD met goal 4 pt to see pain management dr- await new orders if to continue treatment PT Problem 3 PT Problem #3 Impaired Strength PT Goal 1 Goal increase strength of trunk/hips, pt able to perform 20 reps: 1* R side lying hip abduction to 10' 2* L side lying hip abduction to 0' 3* R supine SLR 4* L supine SLR 5* pt stand with equal WB on LE's 6* 2 minute walking test distance of 325' Progress Partially Met Comment 12-29-22 progress/HOLD met goal 3; partially met #3&4 for reps, but not ROM of hip pt to see pain management dr- await new orders if to continue treatment
--- NOTE | 2023-02-08 16:25 | PTOPDC ---
Assessment and note entered by Romina Correia, PT Evaluation Information Assessment PT Clinical Summary DISCHARGE PT Further orders were not received. Refer to the 12-29-22 progress report for her status at the last PT session. Discharge PT. Plan of Care PT Services Indicated No
== END 2023-02-09 14:03 | disposition home or self-care (01) ==
LOC: ANHPT 08:00
PROVIDERS: PCP Emergency Medicine; Visit Provider Nurse Practitioner Family
DX: M54.16 Radiculopathy, lumbar region (principal)
CPT/HCPCS: 97014; 97110; 97140; 97161; 97530; G0283

== ENCOUNTER 2023-02-08 14:03 | Outpatient (CLI) | payer OTHER, SELFPAY ==
[2023-02-08 15:10] LABS: Basophils Absolute Auto 0.1 K/mm3 (0.0-0.1); Basophils Percent Auto 0.9 % (0.2-1.2); Eosinophils Absolute Auto 0.4 K/mm3 (0-0.3); Eosinophils Percent Auto 6.1 % (0-4.4); Hematocrit 39.2 % (37.0-47.0); Hemoglobin 12.6 g/dL (12.0-15.0); Immature Granulocyte Absolute 0.02 K/mm3 (0.00-0.031); Immature Granulocyte Percent A 0.3 % (0-0.5); Lymphocytes Absolute Auto 1.87 K/mm3 (0.9-3.2); Lymphocytes Percent Auto 31.9 % (18.3-44.2); Mean Corpuscular HGB Conc 32.1 g/dl (32-36); Mean Corpuscular Hemoglobin 30.2 pg (26-34); Mean Platelet Volume 8.7 fl (7.4-10.4); Monocytes Absolute Auto 0.4 K/mm3 (0.1-0.6); Monocytes Percent Auto 7.5 % (2.6-8.5); Neutrophils Absolute Auto 3.1 K/mm3 (1.3-6.7); Neutrophils Percent Auto 53.3 % (45.5-73.1); Platelet Count Result 294 k/mm3 (150-375); Red Blood Count 4.17 M/mm3 (4.2-5.4); Red Cell Distribution Width 14.2 % (11.5-14.5); White Blood Count 5.9 K/mm3 (4.5-10.0)
[2023-02-08 15:12] LABS: Appearance Urine Clear (Clear); Bilirubin Urine Negative (Negative); Blood Urine Negative (Negative); Color Urine Yellow (Yellow); Glucose Urine UA Negative (Negative); Ketones Urine Negative (Negative); Leukocyte Esterase Ur Negative LEU/UL (Negative); Nitrate Urine Negative (Negative); Protein Urine Negative (Negative); Specific Grav Ur 1.005 (1.001-1.035); Urobilinogen Urine 0.2 mg/dL (<2.0)
[2023-02-08 15:18] LABS: Add Urine Microscopic? NO
[2023-02-08 15:27] LABS: Prothrombin Time 13.6 Seconds (11.1-14.7)
[2023-02-08 15:28] LABS: Partial Thromboplastin Time 28.9 SECONDS (22.3-36.8)
[2023-02-08 15:44] LABS: Albumin Level 4.1 g/dL (3.5-5.1); Anion Gap 8 mmol/L (8-16); Blood Urea Nitrogen 14 mg/dL (7-17); Carbon Dioxide 25 mmol/L (22-30); Chloride 105 mmol/L (98-107); Estimated Glomerular Filt Rate > 60; Glucose 99 mg/dL (65-110); Potassium 4.4 mmol/L (3.4-5.0); Sodium 138 mmol/L (137-145)
[2023-02-08 15:54] LABS: Urine Cotinine NEGATIVE
== END 2023-02-08 14:04 | disposition home or self-care (01) ==
LOC: ANHSURGERY 14:06
PROVIDERS: PCP Emergency Medicine; Visit Provider Orthopaedic Surgery
DX: Z01.818 Encounter for other preprocedural examination (principal); M17.11 Unilateral primary osteoarthritis, right knee
CPT/HCPCS: 80048; 80307; 81003; 82040; 85025; 85610; 85730; 87081

== ENCOUNTER 2023-02-22 02:08 | Day surgery (SDC) | payer OTHER, SELFPAY ==
[2023-02-08 14:21] VITALS: BMI 37.0
--- NOTE | 2023-02-08 14:30 | PC.NURSE ---
Report to the Outpatient Waiting Room, entrance under the green pavilion located off [facility], at time __0600 on date _02/22/23 . Planned Procedure Time: __0730 . Time changes happen often and if your time is changed the preop area will call you the afternoon before. - You and your visitor will be asked to self-screen and do not enter if you have any COVID symptoms. - A mask is optional within the hospital at this time. Patients may have clear liquids (water, carbonated beverages, clear teas, apple juice) until 3 hours prior to surgery with a maximum of 20 ounces. - No food from midnight until time of surgery - Infants may have breast milk until 4 hours before surgery, formula 6 hours prior to surgery. - Children will be allowed to drink immediately following surgery. If applicable, please bring a bottle or sippy cup to assist with drinking. Juice, water, soda, and popsicles are readily available. For infants on formula, please bring formula the day of surgery. Pacifiers are allowed. Take the following medications with a SIP of water the morning of surgery: _INHALER IF NEEDED,ABILIFY,BUSPIRONE,TOPAMAX DO NOT STOP ANY OF YOUR OTHER PRESCRIPTION MEDICATIONS PRIOR TO SURGERY ?EXCEPT THE FOLLOWING Medications to discontinue per physician ____ASPIRIN PER DR GIL,ALL VITAMINS AND SUPPLEMENTS 3 DAYS PRE OP.LAST DOSE 02/18/23 Please no make-up, nail swedish, hairspray, perfume, deodorant, or body powder the day of surgery. No jewelry (including any body piercings) or valuables the day of surgery, leave them at home. Please take a shower or bath the night before, or the morning of, surgery with an antibacterial soap. Wear comfortable, loose fitting clothing. Children are encouraged to wear pajamas. - Jewelry must be removed prior to entering the operating room. Rings and piercings that are not removed may be cut off. - The hospital will not accept responsibility for valuables. - Please leave all valuables, including medications, at home the day of surgery. If you are going home after surgery, a licensed industrial truck driver must drive you home. - NO public transportation without another adult if you receive anesthesia. - We recommend that an adult stay with you for 24 hours following discharge. - We also recommend that you do not drive, make important decision, drink alcoholic beverages, or take any drugs that were not prescribed by your health care provider for at least 24 hours after your discharge time. For Pediatric surgeries, we recommend two adults accompany the child home. Follow any additional instructions given to you from your surgeon. If you or anyone in your household have experienced Covid symptoms in the past week, please notify your surgeon or the nurse liaison at the phone number below for possible testing. VERBAL AND WRITTEN instructions given to __PATIENT and asked if any additional questions and then verbalized understanding. Patient advised to call surgeon office or pre surgery nurse liaison [phone] if any additional questions.
[2023-02-08 14:47] VITALS: BP 108/75; PULSE 77; RESP 18; TEMP 36.6; O2SAT 98
[2023-02-22] VITALS (15 sets, daily range): BP systolic 100–135; BP diastolic 61–87; PULSE 60–90; RESP 13–17; TEMP 36.1–36.7; O2SAT 96–100; BMI 38.5
--- NOTE | ~2023-02-22 | XR_ITS ---
EXAMINATION: [id number] DATE: 02/22/2023 10:19 INDICATION: Postoperative evaluation following right total knee arthroplasty. TECHNIQUE: Anteroposterior and lateral views of the right knee were obtained. COMPARISON: None. FINDINGS: Right total knee arthroplasty without patellar resurfacing appears well seated and in near anatomic a lignment. No fractures identified. Anterior skin rocky and expected postoperative subcutaneous, in tramedullary and intra-articular gas. IMPRESSION: 1. Right total knee arthroplasty, negative for postoperative purposes. Reviewed, dictated and finalized at location A.
--- NOTE | 2023-02-22 06:57 | WPDANESEPPF ---
Anes - Initial Pre Proc Eval Procedure: Operation Date: 02/22/23 07:30 Proposed Procedures p Right Total Knee Arthroplasty - Emiliano Farrell MD s Bilateral Elbow Joint Injections - Emiliano Farrell MD Date/Time: 02/22/23 06:57 Surgeon: Emiliano Farrell MD Pre Op Diagnosis: right knee DJD, bilateral elbow epicondylitis Patient Data Age: 67 Gender: F Height: 1.46 m Weight: 76.7 kg Last Vital Signs Temp 36.1 C L 02/22/23 06:51 Pulse 78 02/22/23 06:51 Resp 16 02/22/23 06:51 BP 134/79 02/22/23 06:51 Pulse Ox 100 02/22/23 06:51 O2 Del Method Room Air 02/22/23 06:51 Allergies Allergy/AdvReac Type Severity Reaction Status Date / Time Sulfa (Sulfonamide Allergy Severe Rash Verified 02/22/23 06:48 Antibiotics) Penicillins Allergy Intermediate Rash Verified 02/22/23 06:48 Cephalosporins Allergy Mild Rash IN Verified 02/22/23 06:48 MOUTH erythromycin base AdvReac Intermediate GI UPSET, Verified 02/22/23 06:48 ABDOMINAL PAIN Home Medications Medication Instructions Recorded Confirmed Type aspirin 81 mg tablet,delayed 81 mg PO BID 12/25/19 02/22/23 History release (Geni Low Dose Aspirin) buspirone 7.5 mg tablet 7.5 mg PO BID 12/25/19 02/22/23 History cetirizine 10 mg capsule (Zyrtec) 10 mg PO HS 12/25/19 02/22/23 History lamotrigine 100 mg tablet 100 mg PO HS 12/25/19 02/22/23 History (Lamictal) topiramate 50 mg tablet (Topamax) 50 mg PO BID BIPOLAR 12/25/19 02/22/23 History acetaminophen 500 mg capsule 500 mg PO Q6-8H PRN Pain 01/21/20 02/22/23 History calcium carbonate 500 mg calcium 500 mg PO TID 01/21/20 02/22/23 History (1,250 mg) tablet (Calcium 500) aripiprazole 15 mg tablet (Abilify) 15 mg PO DAILY 07/24/20 02/22/23 History quetiapine 300 mg tablet (Seroquel) 300 mg PO QHS 09/01/21 02/22/23 History magnesium 250 mg tablet 1,000 mg PO BID 10/18/21 02/22/23 History estradiol 0.01% (0.1 mg/gram) 1 applic vaginal 3XW 10/27/21 02/22/23 History vaginal cream pediatric multivitamin 2 tablet PO HS 10/27/21 02/22/23 History albuterol sulfate 90 mcg/actuation 1 - 2 inh inhalation Q4-6H PRN 03/28/22 02/22/23 Rx aerosol inhaler shortness of breath or wheezing #25.5 grams montelukast 10 mg tablet See Rx Instructions .Route 03/28/22 02/22/23 Rx .COMPLEX #90 tabs alendronate 70 mg tablet 70 mg PO WEEKLY 08/14/22 02/22/23 History hydrocolloid dressing 0.39 X 18 #4 ea 09/08/22 02/22/23 Rx (Aquacel Hydrofiber Dressing) pravastatin 80 mg tablet 80 mg PO HS #90 tabs 09/13/22 02/22/23 Rx pantoprazole 40 mg tablet,delayed 40 mg PO QAM #90 tabs 12/13/22 02/22/23 Rx release (Protonix) tramadol 50 mg tablet 50 mg PO Q6H PRN pain #20 tabs 01/02/23 02/22/23 Rx cyclobenzaprine 5 mg tablet 5 mg PO PRN PRN Muscle Spasm 02/08/23 02/22/23 History fluticasone propionate 50 1 spray intranasal DAILY 02/08/23 02/22/23 History mcg/actuation nasal spray,suspension (Flonase Allergy Relief) chlorhexidine gluconate 4 % 1 applic topical DAILY #237 mL 02/15/23 Rx topical liquid (Hibiclens) Patient hx anesthesia problems: none Family hx anesthesia problems: hx of malignant hyperthermia Results Review: All pre-operative results and documents have been reviewed as part of the pre-operative evaluation. [facility] Past Medical History Medical History Allergic rhinitis Anxiety Asthma-COPD overlap syndrome Bipolar affective disorder Cellulitis of left lower extremity Essential (primary) hypertension Gastroesophageal reflux disease without esophagitis Mixed hyperlipidemia Osteopenia Pulmonary embolism (2003) Possibly related to hormone use. Right knee DJD Subclinical hyperthyroidism Vitamin B12 deficiency Vitamin D deficiency Surgical History Surgical History History of carpal tunnel surgery of right wrist History of cataract extraction
[2023-02-22] MEDS: TRANEXAMIC ACID 1,000MG/ISO100 1,000 MG/100 ML BAG 200 MG IVPB (07:01)
[2023-02-22] MEDS: ACETAMINOPHEN 500 MG TABLET 1000 MG PO (07:02)
[2023-02-22] MEDS: LACTATED RINGERS 1,000 ML 30 ML IV CONT ×2 (07:15→10:04)
--- NOTE | 2023-02-22 07:25 | WPDHPUPDATE1 ---
History and Physical Update Update Date/Time: 02/22/23 07:25 History and Physical has been reviewed, including an updated exam of the patient. There are NO changes in the patient's condition. Risks, benefits, and alternatives have been discussed and questions answered. Patient agrees to proceed with procedure.
[2023-02-22] MEDS: ceFAZolin 2 GM/D5W 50 ML 2 GM/50 ML BAG IVPB ×2 (07:39→16:03)
[2023-02-22] MEDS: GENTAMICIN BONE CEMENT REFOBACIN 1 EACH TOPICAL (09:00)
[2023-02-22] MEDS: TRANEXAMIC ACID 1,000 MG/10 ML AMPUL 1000 MG IV PUSH (09:11)
[2023-02-22] MEDS: methylPREDNISolone ACETATE 80 MG/ML VIAL IM (09:45)
[2023-02-22] MEDS: BUPivacaine HCL 0.5% 10 ML AMP INFILTRATE (09:49)
--- NOTE | 2023-02-22 10:11 | W.PM.PROC2 ---
Procedure Note - Detailed Date of Procedure 02/22/23 Pre-op Diagnosis right knee DJD, bilateral elbow medial epicondylitis Post-op Diagnosis Same Procedure Performed R TKA Surgeon Emiliano Farrell MD Anesthesia General Description of Procedure THE RIGHT KNEE WAS PREPPED AND DRAPED IN THE STERILE FASHION. THERE WAS SLIGHT RECURVATUM TO THE KNEE. A MIDLINE SKIN INCISION WAS MADE. A MEDIAL PARAPATELLAR ARTHROTOMY WAS MADE. THE PATELLA WAS EVERTED. THERE WAS TRICOMPARTMENT DJD. THERE WAS MINIMAL PATELLA DJD. AN INTRAMEDULLARY CHARLY WAS PLACED IN THE FEMUR. A DISTAL FEMORAL CUT WAS MADE IN 5 DEGREES OF VALGUS REMOVING APPROXIMATELY 9 MM OF BONE FROM THE DISTAL FEMUR. THE FEMUR WAS SIZED TO 60. A 60 FEMORAL CUTTING BLOCK WAS PLACED IN 3 DEGREES OF EXTERNAL ROTATION AND IN ALIGNMENT WITH DENIS'S LINE AND THE TRANSEPICONDYLAR AXIS. ANTERIOR POSTERIOR AND CHAMFER CUTS WERE MADE. THE CUTS WERE EXCELLENT. NEXT AN INTRAMEDULLARY CUTTING GUIDE WAS PLACED IN THE TIBIA. A TRANS TIBIAL CUT WAS MADE ALONG THE LONG AXIS OF THE TIBIA. APPROXIMATELY 10 MM OF BONE WAS REMOVED FROM THE HIGH SIDE OF THE TIBIA. THE TIBIA WAS THEN PLANED TO A SMOOTH SURFACE. POSTERIOR FEMORAL OSTEOPHYTES WERE REMOVED FROM THE FEMORAL CONDYLES. A 67 TIBIAL TRIAL WAS PLACED IN ALIGNMENT WITH THE 1/3 MEDIAL ASPECT OF THE TIBIAL TUBERCLE. THEN A 60 FEMORAL TRIAL COMPONENT WAS PLACED. BOTH HAD EXCELLENT FITS. EVENTUALLY A 14 MM POLYETHYLENE TRIAL COMPONENT WAS PLACED. THE KNEE WAS TAKEN THROUGH A RANGE OF MOTION. THE KNEE CAME OUT TO FULL EXTENSION. THERE WAS NO ABNORMAL TILT TO THE PATELLA. THERE WAS GOOD A/P AND VARUS/VALGUS STABILITY. THERE WAS NO EXCESSIVE ROLL BACK WITH FLEXION. THE TRIAL COMPONENTS WERE REMOVED. THEN A 60 FEMORAL COMPONENT AND 67 TIBIAL COMPONENT WITH A 14 POLYETHYLENE COMPONENT WERE CEMENTED INTO PLACE. ONCE THE CEMENT WAS HARD THE KNEE WAS TAKEN THROUGH A ROM AGAIN AND FOUND TO BE STABLE WITH NO PATELLA TILT NO EXCESSIVE ROLL BACK WITH FLEXION AND GOOD STABILITY WITH COMPLETE AND FULL EXTENSION. THE KNEE WAS IRRIGATED WITH STERILE BETADINE AND WATER FOR ABOUT 3 MINUTES. THE BLEEDERS WERE CAUTERIZED. THE ARTHROTOMY WAS REPAIRED WITH NUMBER 1 VICRYL. THE SUB CUTANEOUS LAYER WITH 2-0 VICRYL AND THE SKIN WITH TRACEY. THE WOUND WAS WASHED AND A STERILE DRESSING WAS APPLIED. NEXT BOTH ELBOWS WERE PREPPED OVER THE MEDIAL EPICONDYLE AND 0.5 CC OF DEPO MEDROL AND 0.5 CC OF MARCAINE WERE INJECTED TO BOTH MEDIAL EPICONDYLES. PATIENT WAS EXTUBATED AND SENT TO RECOVERY ROOM Estimated Blood Loss -150.0 Pathology None sent Complications No immediate complications Condition Stable Disposition PACU
[2023-02-22] MEDS: ONDANSETRON INJ 4 MG/2 ML VIAL IV PUSH (10:21)
[2023-02-22] MEDS: fentaNYL CITRATE INJ (*CRX) 100 MCG/2 ML VIAL 25 MCG IV PUSH ×8 (10:22→11:53)
[2023-02-22] MEDS: SODIUM CHLORIDE 0.9% IV 1,000 ML 125 ML IV CONT (12:27)
[2023-02-22] MEDS: KETOROLAC 15 MG/ML VIAL (*BKC) IV PUSH ×2 (12:28→18:08)
--- NOTE | 2023-02-22 12:33 | ADMGEN ---
This patient, Mariely Beard, was admitted to 3 [facility] Surg Room 327-01. Patient/family oriented to hospital policies and general routines including ID bracelet, bed and alarms, visiting hours, pain management, procedures, bathroom and other care routines, personal items, smoking policy, room service/diet, and visiting hours. Information on how to activate the Rapid Response Team has been discussed. Patient/Family are encouraged to report perceived risks to care and to ask questions if they do not understand what they are told or what they should do.
[2023-02-22] MEDS: oxyCODONE/ACETAMINOPHEN (*CRX) 5-325 MG TABLET 1 TABLET PO (13:59)
[2023-02-22] MEDS: busPIRone HCL 5 MG TABLET PO (16:06)
[2023-02-22] MEDS: busPIRone HCL 2.5 MG TABLET PO (16:06)
[2023-02-22] MEDS: TOPIRAMATE 25 MG TABLET 50 MG PO (16:06)
[2023-02-22] MEDS: SENNA/DOCUSATE SODIUM TABLET 2 TAB PO (16:06)
[2023-02-22] MEDS: QUEtiapine FUMARATE 100 MG TABLET 300 MG PO (20:51)
[2023-02-22] MEDS: lamoTRIgine 100 MG TABLET PO (20:51)
[2023-02-22] MEDS: PRAVASTATIN SODIUM 20 MG TABLET 80 MG PO (20:51)
[2023-02-22] MEDS: ASPIRIN 325 MG ENTERIC TABLET PO (20:51)
[2023-02-22] MEDS: FAMOTIDINE 20 MG TABLET PO (20:51)
[2023-02-22] MEDS: oxyCODONE/ACETAMINOPHEN (*CRX) 5-325 MG TABLET 2 TABLET PO (20:52)
[2023-02-23] MEDS: ceFAZolin 2 GM/D5W 50 ML 2 GM/50 ML BAG IVPB ×2 (00:01→08:58)
[2023-02-23] MEDS: KETOROLAC 15 MG/ML VIAL (*BKC) IV PUSH ×3 (00:01→12:57)
[2023-02-23 01:58] VITALS: BP 113/76; PULSE 73; RESP 16; TEMP 36.4; O2SAT 99
[2023-02-23] MEDS: oxyCODONE/ACETAMINOPHEN (*CRX) 5-325 MG TABLET 1 TABLET PO ×3 (05:12→12:58)
[2023-02-23 05:58] VITALS: BP 102/56; PULSE 81; RESP 16; TEMP 36.4; O2SAT 98
[2023-02-23 06:46] LABS: Anion Gap 7 mmol/L (8-16); Blood Urea Nitrogen 11 mg/dL (7-17); Calcium 8.1 mg/dL (8.4-10.2); Carbon Dioxide 20 mmol/L (22-30); Chloride 107 mmol/L (98-107); Estimated Glomerular Filt Rate > 60; Glucose 95 mg/dL (65-110); Sodium 134 mmol/L (137-145)
[2023-02-23 06:53] LABS: Basophils Percent Auto 0.2 % (0.2-1.2); Eosinophils Absolute Auto 0.1 K/mm3 (0-0.3); Eosinophils Percent Auto 1.1 % (0-4.4); Hematocrit 36.5 % (37.0-47.0); Hemoglobin 11.2 g/dL (12.0-15.0); Immature Granulocyte Absolute 0.03 K/mm3 (0.00-0.031); Immature Granulocyte Percent A 0.3 % (0-0.5); Lymphocytes Absolute Auto 1.43 K/mm3 (0.9-3.2); Mean Corpuscular HGB Conc 30.7 g/dl (32-36); Mean Corpuscular Hemoglobin 30.7 pg (26-34); Mean Platelet Volume 8.9 fl (7.4-10.4); Monocytes Percent Auto 11.3 % (2.6-8.5); Neutrophils Absolute Auto 6.3 K/mm3 (1.3-6.7); Neutrophils Percent Auto 71.1 % (45.5-73.1); Platelet Count Result 228 k/mm3 (150-375); Red Blood Count 3.65 M/mm3 (4.2-5.4); Red Cell Distribution Width 13.9 % (11.5-14.5); White Blood Count 8.9 K/mm3 (4.5-10.0)
[2023-02-23] MEDS: SENNA/DOCUSATE SODIUM TABLET 2 TAB PO ×2 (08:59→16:48)
[2023-02-23] MEDS: busPIRone HCL 5 MG TABLET PO ×2 (08:59→16:48)
[2023-02-23] MEDS: ARIPiprazole 5 MG TABLET PO (08:59)
[2023-02-23] MEDS: busPIRone HCL 2.5 MG TABLET PO ×2 (08:59→16:48)
[2023-02-23] MEDS: TOPIRAMATE 25 MG TABLET 50 MG PO ×2 (08:59→16:48)
[2023-02-23] MEDS: FAMOTIDINE 20 MG TABLET PO (08:59)
[2023-02-23] MEDS: ARIPiprazole 10 MG TABLET PO (09:00)
[2023-02-23] MEDS: polyethylene glycoL 3350 17 GM POWD.PACK PO (09:00)
[2023-02-23] MEDS: ASPIRIN 325 MG ENTERIC TABLET PO (09:00)
[2023-02-23 09:58] VITALS: BP 126/91; PULSE 92; RESP 16; TEMP 36.6; O2SAT 100
[2023-02-23 10:24] VITALS: O2SAT 98
--- NOTE | 2023-02-23 12:59 | WPDANESPN ---
Anes - Prog Note Post-Op Date/Time: 02/23/23 12:59 Cardiovascular status: normal Respiratory status: normal Airway patency: baseline Mental status: baseline Post-Op hydration status: normal Vital Signs: Last Vital Signs Temp 36.6 C 02/23/23 09:58 Pulse 92 02/23/23 09:58 Resp 16 02/23/23 09:58 BP 126/91 H 02/23/23 09:58 Pulse Ox 98 02/23/23 10:24 O2 Del Method Room Air 02/23/23 10:24 O2 Flow Rate 10 02/22/23 10:04 Pain Score (VAS): 07/29 I/O: Intake & Output 02/22/23 02/23/23 02/23/23 23:59 07:59 15:59 Intake Total 563 350 Balance 563 350 Laboratory Tests 02/23/23 05:57 02/23/23 05:57 02/23/23 05:57 WBC 8.9 RBC 3.65 L Hgb 11.2 L Hct 36.5 L MCV 100.0 MCH 30.7 MCHC 30.7 L RDW 13.9 Plt Count 228 MPV 8.9 Immature Gran % (Auto) 0.3 Neut % (Auto) 71.1 Lymph % (Auto) 16.0 L [place] % (Auto) 11.3 H Eos % (Auto) 1.1 Baso % (Auto) 0.2 Lymph # (Auto) 1.43 [place] # (Auto) 1.0 H Eos # (Auto) 0.1 Baso # (Auto) 0.0 Abs Immat Gran (auto) 0.03 Absolute Neuts (auto) 6.3 Absolute Nucleated RBC 0.0 Nucleated RBC % 0.0 Sodium 134 L Potassium 4.0 Chloride 107 Carbon Dioxide 20 L Anion Gap 7 L BUN 11 Creatinine 0.80 Estim Creat Clear Calc Not Reportable Estimated GFR > 60 Glucose 95 Calcium 8.1 L Post-procedural complaints: none Patient Feedback: Patient satisfied with anesthetic care.
[2023-02-23 13:58] VITALS: BP 107/62; PULSE 79; RESP 16; TEMP 36.4; O2SAT 100
--- NOTE | 2023-02-23 16:47 | PM.PNORT ---
Progress Note: A&P Assessment and Plan (1) Right knee DJD: Code(s): M17.11 - Unilateral primary osteoarthritis, right knee Status: Acute Assessment and Plan: POD 1 WITH SOME CHALLENGE WITH PAIN CONTROL. PAIN MEDICATION WAS MODIFIED AND NOW SHE IS DOING WELL WITH GOOD PROGRESS WITH PT. OK TO DC HOME F/U IN 3 WEEKS. Subjective Subjective Date/Time Seen: 02/23/23 16:47 Interval history: pod 1 doing well. she is having some issues with pain control. meds modified. now she is doing well with good pain control no calf pain Exam Extrem: Other: VSS AFEBRILE DRESSING DRY NV INTACT NEG HOMANS SIGN CALF SOFT NON TENDER THIGH SOFT NON TENDER Objective Data Vital Signs Vital Signs: Vital Signs - 24 hr 02/22/23 21:58 02/22/23 20:00 02/23/23 01:58 Temperature 36.6 C 36.4 C Pulse Rate 64 73 Respiratory Rate 16 16 Blood Pressure 113/87 113/76 Pulse Oximetry 100 99 Oxygen Delivery Room Air 02/23/23 05:58 02/23/23 08:00 02/23/23 09:58 Temperature 36.4 C L 36.6 C Pulse Rate 81 92 Respiratory Rate 16 16 Blood Pressure 102/56 L 126/91 H Pulse Oximetry 98 100 Oxygen Delivery Room Air 02/23/23 10:24 02/23/23 13:58 Temperature 36.4 C Pulse Rate 79 Respiratory Rate 16 Blood Pressure 107/62 Pulse Oximetry 98 100 Oxygen Delivery Room Air Intake/Output Intake/Output: Intake & Output 02/20/23 02/21/23 02/22/23 02/23/23 23:59 23:59 23:59 23:59 Intake Total 1313 350 Balance 1313 350 Meds/Results Medications: Active Medications Generic Name Dose Route Start Last Admin Trade Name Freq PRN Reason Stop Dose Admin Acetaminophen 1,000 mg 02/22/23 12:13 Acetaminophen 500 Mg Tablet PO Q6H PRN Pain Rated 1-3 Alendronate Sodium 70 mg 03/01/23 06:30 Alendronate Sodium 70 Mg Tablet PO WEEKLY@0630 ABRAHAM Aripiprazole 5 mg 02/23/23 09:00 02/23/23 08:59 Aripiprazole 5 Mg Tablet PO 03/25/23 08:59 5 mg DAILY ABRAHAM Administration Aripiprazole 10 mg 02/23/23 09:00 02/23/23 09:00 Aripiprazole 10 Mg Tablet PO 03/25/23 08:59 10 mg DAILY ABRAHAM Administration Aspirin 325 mg 02/22/23 21:00 02/22/23 20:51 Aspirin 325 Mg Enteric Tablet PO 325 mg Q12HR ABRAHAM Administration Buspirone HCl 2.5 mg 02/22/23 17:00 02/23/23 08:59 Buspirone Hcl 2.5 Mg Tablet PO 03/24/23 16:59 2.5 mg BID ABRAHAM Administration Buspirone HCl 5 mg 02/22/23 17:00 02/23/23 08:59 Buspirone Hcl 5 Mg Tablet PO 03/24/23 16:59 5 mg BID ABRAHAM Administration Diazepam 5 mg 02/22/23 12:13 Diazepam (*Crx) 5 Mg Tablet PO Q8H PRN Spasms Diphenhydramine HCl 25 mg 02/22/23 12:13 Diphenhydramine Hcl Inj 50 Mg/Ml Vial IV PUSH Q6H PRN Itching Famotidine 20 mg 02/22/23 21:00 02/23/23 08:59 Famotidine 20 Mg Tablet PO 20 mg Q12HR ABRAHAM Administration Lamotrigine 100 mg 02/22/23 21:00 02/22/23 20:51 Lamotrigine 100 Mg Tablet PO 100 mg HS ABRAHAM Administration Naloxone HCl 0.1 mg 02/22/23 12:13 Naloxone Hcl 0.4 Mg/Ml Vial IV PUSH Q2M PRN Opiate Reversal Ondansetron HCl 4 mg 02/22/23 12:13 Ondansetron Inj 4 Mg/2 Ml Vial IV PUSH Q4H PRN Nausea And Vomiting Oxycodone/Acetaminophen 1 tablet 02/22/23 12:13 02/23/23 12:58 Oxycodone/Acetaminophen (*Crx) 5-325 Mg Tablet PO 1 tablet Q4H PRN Administration Pain Rated 4-6 Oxycodone/Acetaminophen 2 tablet 02/22/23 12:13 02/22/23 20:52 Oxycodone/Acetaminophen (*Crx) 5-325 Mg Tablet PO 2 tablet Q6H PRN Administration Pain Rated 7-10 Polyethylene Glycol 17 gm 02/23/23 09:00 02/23/23 09:00 Polyethylene Glycol 3350 17 Gm Powd.Pack PO 17 gm QAM ABRAHAM Administration Pravastatin Sodium 80 mg 02/22/23 21:00 02/22/23 20:51 Pravastatin Sodium 20 Mg Tablet PO 80 mg HS ABRAHAM Administration Quetiapine Fumarate 300 mg 02/22/23 21:00 02/22/23 20:51 Quetiapine Fumarate 100 Mg Tablet PO 3
[2023-02-23] MEDS: oxyCODONE/ACETAMINOPHEN (*CRX) 5-325 MG TABLET 2 TABLET PO (16:48)
--- NOTE | 2023-02-23 17:11 | PM.DS ---
DS: Admitting Diagnosis Discharge Date 02/23 23 Admitting Diagnosis RIGHT KNEE DJD DS: Discharge Diagnosis Discharge Diagnosis (1) Right knee DJD: Code(s): M17.11 - Unilateral primary osteoarthritis, right knee Status: Acute DS: Summary Hospital Course Reason for hospitalization: RIGHT TKA Hospital Course: PATIENT WAS ADMITTED S/P TOTAL KNEE ARTHROPLASTY FOR POSTOPERATIVE MEDICAL MANAGEMENT, PAIN CONTROL AND MOBILIZATION WITH PHYSICAL AND OCCUPATIONAL THERAPY. THE PATIENT PROGRESSED WELL WITH PT/OT. LABS AND VITALS REMAINED STABLE AND PAIN WELL CONTROLLED. THE PATIENT HAS BEEN CLEARED TO BE DISCHARGED HOME. FOLLOW UP APPOINTMENT SCHEDULED. DISCHARGE INSTRUCTIONS DISCUSSED AT LENGTH WITH THE PATIENT. MEDICATIONS REVIEWED. Time Spent with Patient Time attestation: Total time spent providing and/or coordinating discharge services: DS: Data Data Completed and Pending Labs on day of discharge: Labs from last 24 hours 02/23/23 05:57 WBC 8.9 RBC 3.65 L Hgb 11.2 L Hct 36.5 L MCV 100.0 MCH 30.7 MCHC 30.7 L RDW 13.9 Plt Count 228 MPV 8.9 Immature Gran % (Auto) 0.3 Neut % (Auto) 71.1 Lymph % (Auto) 16.0 L [place] % (Auto) 11.3 H Eos % (Auto) 1.1 Baso % (Auto) 0.2 Lymph # (Auto) 1.43 [place] # (Auto) 1.0 H Eos # (Auto) 0.1 Baso # (Auto) 0.0 Abs Immat Gran (auto) 0.03 Absolute Neuts (auto) 6.3 Absolute Nucleated RBC 0.0 Nucleated RBC % 0.0 Sodium 134 L Potassium 4.0 Chloride 107 Carbon Dioxide 20 L Anion Gap 7 L BUN 11 Creatinine 0.80 Estim Creat Clear Calc Not Reportable Estimated GFR > 60 Glucose 95 Calcium 8.1 L Procedures/Treatments: R TKA Discharge Plan Discharge Patient Disposition: Home, Self-Care Discharge Instructions: Post Op Total Knee Replacement Instructions Dr. Emiliano Farrell [phone] Your dressing will be changed prior to your discharge. You will be sent home with one additional dressing to be changed on post op day 7 by the home health RN. Your rocky will be removed on the 14th day after surgery and steri-strips will be placed. Please practice good hand hygiene and do not touch your incision in order to prevent infection. You may shower with your dressing but do not submerge in a bath tub. Do not drive or operate machinery until you are released by Dr. Farrell. Do not walk without a walker for any reason until you are released by Dr. Farrell. Continue to use your ice machine. Please use a towel or pillow case to protect your skin before applying your ice machine. Do NOT place a pillow under your knee. You may use a pillow from the calf down if needed. This will prevent a flexion contracture postoperatively. You may begin use of your CPM machine at home if you have been given one pre-operatively. DO NOT USE WHILE YOU ARE SLEEPING. Your first post op appointment was sent to you via mail preoperatively. If you have any questions or are unable to make your appointment, please contact our office for scheduling questions. Your medications have been sent to your pharmacy. You have been sent home with pain medication. Please car pick up driver an over the counter stool softener to prevent constipation due to narcotic use. Please keep this in mind during your postoperative recovery. If you are not experiencing regular bowel movements, please contact our office for further instruction. DVT prophylaxis, take Aspirin 325mg twice a day for 28days. Please contact our office with any questions/concerns regarding your knee at [phone]. Per Care Coordination: [facility] has been arranged to follow at discharge. [facility] will contact you prior to their first visit. [facility] can be contacted at [phone]. Patient Instructions: Total Knee Replacement (DC) Follow-up/Referrals: Emiliano Farrell MD [Physician] - 03/16/23 10:00 am Discharge Medications: New oxycodone-acetaminophen [Percocet] 5-325 mg tablet 1 t
== END 2023-02-23 18:30 | disposition home or self-care (01) ==
LOC: ANHSURGERY 06:09 → ANH3MEDSUR 12:22
PROVIDERS: PCP Emergency Medicine; Visit Provider Orthopaedic Surgery
PROC: (CPT 27447; principal; 2023-02-22 07:30)
PROC: (CPT 27447; 2023-02-22 07:30)
DX: M77.02 Medial epicondylitis, left elbow (principal); M77.01 Medial epicondylitis, right elbow; J30.9 Allergic rhinitis, unspecified; F41.9 Anxiety disorder, unspecified; J44.9 Chronic obstructive pulmonary disease, unspecified; F31.9 Bipolar disorder, unspecified; I10 Essential (primary) hypertension; K21.00 Gastro-esophageal reflux disease with esophagitis, without bleeding; E78.2 Mixed hyperlipidemia; E53.8 Deficiency of other specified B group vitamins; E55.9 Vitamin D deficiency, unspecified; E05.90 Thyrotoxicosis, unspecified without thyrotoxic crisis or storm; Z87.891 Personal history of nicotine dependence; Z79.82 Long term (current) use of aspirin; Z79.51 Long term (current) use of inhaled steroids; Z79.891 Long term (current) use of opiate analgesic; Z79.4 Long term (current) use of insulin; E66.9 Obesity, unspecified; Z68.38 Body mass index [BMI] 38.0-38.9, adult
CPT/HCPCS: 27447; 20550; 36415; 73560; 80048; 80307; 81003; 82040; 85025; 85610; 85730; 86850; 86900; 86901; 87081; 97110; 97116; 97161; 97165; 97530; 97535; A9270; C1713; C1776; J0171; J0690; J1040; J1100; J1170; J1885; J2250; J2270; J2371; J2405; J2704; J2795; J3010; J7030; J7120

== ENCOUNTER 2023-03-31 07:08 | Outpatient (CLI) | payer OTHER, SELFPAY ==
[2023-03-31 07:49] LABS: Alanine Aminotransferase 14 U/L (6-35); Albumin Level 3.8 g/dL (3.5-5.1); Alkaline Phosphatase 106 U/L (38-126); Anion Gap 7 mmol/L (8-16); Aspartate Amino Transferase 27 U/L (14-36); Bilirubin,Total 0.4 mg/dL (0.2-1.3); Blood Urea Nitrogen 11 mg/dL (7-17); Calcium 8.8 mg/dL (8.4-10.2); Carbon Dioxide 25 mmol/L (22-30); Chloride 104 mmol/L (98-107); Cholesterol 190 mg/dL (0-200); Estimated Glomerular Filt Rate > 60; Glucose 91 mg/dL (65-110); HDL Direct 79 mg/dL; Potassium 4.4 mmol/L (3.4-5.0); Sodium 136 mmol/L (137-145); Triglycerides 72 mg/dL (<150)
[2023-03-31 07:58] LABS: LDL Cholesterol Direct 82 mg/dL
[2023-03-31 08:56] LABS: Vitamin D 25 Hydroxy 39.7 ng/mL
[2023-03-31 08:59] LABS: Folic Acid > 20.0 ng/mL (2.76->20)
== END 2023-03-31 07:09 | disposition home or self-care (01) ==
PROVIDERS: PCP Emergency Medicine; Visit Provider Emergency Medicine
DX: E53.8 Deficiency of other specified B group vitamins (principal); E78.5 Hyperlipidemia, unspecified; E55.9 Vitamin D deficiency, unspecified
CPT/HCPCS: 36415; 80053; 80061; 82306; 82607; 82746

== ENCOUNTER 2023-05-12 08:00 | Outpatient (RCR) | payer OTHER, SELFPAY ==
--- NOTE | 2023-03-17 10:03 | OPREHPOC ---
Outpatient Therapy Plan of Care This is a Multidisciplinary Plan of Care that may contain components documented by all disciplines (PT, OT, and ST.) PT Problem 1 PT Problem #1 Knowledge Deficit PT Goal 1 Goal Pt to be IND with issued HEP Target Visit 8 PT Problem 2 PT Problem #2 Pain PT Goal 1 Goal Pt to report knee pain no greater than 3/10 in the last week. Target Visit 8 PT Goal 2 Goal Pt to report 75% improvement in overall symptoms. Target Visit 8 PT Problem 3 PT Problem #3 Impaired Gait PT Goal 1 Goal Pt to improve 2 min walk distance from 127ft to 200ft without walker Target Visit 8 PT Goal 2 Goal Pt to ambulate in grass with cane, in order to be able to go fishing with her .. Target Visit 8 PT Problem 4 PT Problem #4 Impaired Strength PT Goal 1 Goal Pt to improve 5xSTS from 47s to 20s without UE support. Target Visit 8 PT Goal 2 Goal Pt to be able to lift and carry 20lb from ground level. Target Visit 8 PT Problem 5 PT Problem #5 Impaired Range of Motion PT Goal 1 Goal Pt to improve active knee flexion to 120 deg Target Visit 8
--- NOTE | 2023-03-17 10:03 | PTOPEVAL1 ---
Assessment and note entered by Gume De León, PT, DPT Evaluation Information Assessment Status Evaluation Diagnosis R TKA Onset 02/22/23 Subjective Information Pt had a R TKA on 02/22/23, she states her pain is worse with this knee than her prior knee replacement. She states has pretty good motion and strength is doing pretty good. Pt did a few weeks of home health prior to coming to outpatient. Pt states she would like to ambulate without a cane but states she does not know if this is possible because she has really week hips. Reported Pain Level Pain Score 4: Self Report Assessment PT Clinical Summary Mariely presents to therapy today for her initial evaluation following a R TKA on 02/22/23. Today she demonstrates decreased mobility, ROM, and strength , consistent with a TKA. She demonstrates active knee ROM from 0-70 deg. Her scores during the 2 min walk, Tinetti, and 5xSTS place her at an increased risk for falls. Skilled therapy services are indicated to address the deficits noted above , to mange pain, and to return to PLOF. Plan of Care Interventions Electrical Stimulation,Gait Training,Hot Pack/Cold Pack,Manual Therapy,Neuro Re-education,Patient/ Caregiver Educati,Therapeutic Activities, Therapeutic Exercise PT Services Indicated Yes Treatment Frequency and 2x/wk for 8 visits Duration These treatments will address the objective and functional deficits as defined above. The patient will be advanced safely and appropriately in order for the patient to progress towards his/her prior level of function. Additional exercises will be introduced and as well as a comprehensive home exercise program upon discharge, if needed, ?to ensure carryover of functional gains achieved in the clinic. This treatment plan has been reviewed and agreement upon by the patient.
--- NOTE | 2023-04-12 10:37 | PTOPEVAL1 ---
Assessment and note entered by Giancarlo Gama Evaluation Information Assessment Status Progress Diagnosis R TKA Onset 02/22/23 Subjective Information Pt. reports that she is apprehensive about transitioning to a cane. She states that she is fearful that she will fall. She reports that she is still reaching for furniture with walking at home. She reports that she is going without pain medication most of the day. Pt. reports she feels she is 75% improved. She reports that she would like to continue with skilled PT in order to fully transition to use of the cane. Reported Pain Level Pain Score 1: Self Report Assessment PT Clinical Summary Mrs. Beard has attended a total of 7 treatment sessions. She has remained on the walker due to apprehension with the use of the cane. She demonstrates improved mechanics with the cane in the right hand, therefore pt. is informed to focus on transitioning to use of the right u.e. with the AD. She continues to present with knee stiffness and l.e. weakness impaired gait and balance. Continued skilled PT is indicated in order to fully transition the pt. to use of the cane with ambulation. Plan of Care Interventions Gait Training,Manual Therapy,Neuro Re-education, Patient/Caregiver Education,Therapeutic Activities, Therapeutic Exercise PT Services Indicated Yes Treatment Frequency and 2x/week x 8 visits Duration These treatments will address the objective and functional deficits as defined above. The patient will be advanced safely and appropriately in order for the patient to progress towards his/her prior level of function. Additional exercises will be introduced and as well as a comprehensive home exercise program upon discharge, if needed, ?to ensure carryover of functional gains achieved in the clinic. This treatment plan has been reviewed and agreement upon by the patient.
--- NOTE | 2023-04-28 08:44 | PCPTNOTE ---
Patient called & cancelled scheduled appointment this date due to being out of town.
--- NOTE | 2023-05-05 14:24 | PCPTNOTE ---
today's treatment appt was canceled due to therapist ill.
--- NOTE | 2023-05-12 08:50 | PTOPDC ---
Assessment and note entered by Romina Correia, PT Discharge Information Assessment Status Discharge Diagnosis R TKA Onset 02/22/23 Subjective Information have her exercises for home; is using the cane all the time; wants to try the treadmill, so can do it at the fitness center; have walked in the grass without any problems at home; no falls, is comfortable with walking and getting around; sometimes at home, has caught herself leaving her cane behind; has not vacuumed yet, but feels like she probably could do it; wants to get back to the fitness center for exercises to get stronger and help her osteoporosis. Reported Pain Level Pain Score Self Report Additional Pain Score Comments no pain in her R knee; does have pain in her other knee and ankle; Assessment PT Clinical Summary Mariely has received a total of 11 PT sessions. Compared to the last progress report, she has improved in all areas: ambulation with cane or no device in her home; ROM of knee 0-120'; 2 minute walking test distance from 160' to 260'; is comfortable with walking and has not had any issues or loss of balance/falls; is able to walk and carry 10# in bucket ~ 20'; indep with HEP; The goals were met, except carrying 20#. Discharge PT, and is to continue with her home exercises and activity level. Plan of Care PT Services Indicated No
== END 2023-05-12 10:09 | disposition home or self-care (01) ==
LOC: ANHPT 08:00
PROVIDERS: PCP Emergency Medicine; Visit Provider Orthopaedic Surgery
DX: Z47.1 Aftercare following joint replacement surgery (principal); Z96.651 Presence of right artificial knee joint
CPT/HCPCS: 97110; 97116; 97140; 97161; 97530; 97750

== ENCOUNTER 2023-06-27 02:44 | Day surgery (SDC) | payer OTHER, SELFPAY ==
[2023-05-30 13:51] VITALS: BMI 38.4
--- NOTE | 2023-06-23 10:37 | SUR.PREOP ---
Patient called regarding upcoming procedure. Reviewed preop instructions, appointment times, and procedure prep.
[2023-06-27 07:50] VITALS: BP 146/102; PULSE 108; RESP 17; TEMP 36.1; O2SAT 100; BMI 38.3
[2023-06-27] MEDS: LACTATED RINGERS 1,000 ML 150 ML IV CONT (08:02)
--- NOTE | 2023-06-27 08:32 | PM.HPGS ---
History of Present Illness History of Present Illness Consent: Risks, benefits, and alternatives have been discussed and questions answered. Patient agrees to proceed with procedure. Chief complaint: neoplasm screening Narrative: Mariely Beard is a 68 year old female here for screening colonoscopy, last one 10 years ago Review of Systems Constitutional: Constitutional: Denies headache(s) and Denies weakness Eyes: Eyes: Denies blurry vision ENT: Reports Normal hearing present, Denies headache(s) and Denies neck pain Cardiovascular: Cardiovascular: Denies chest pain and Denies dyspnea Respiratory: Respiratory: Denies dyspnea Gastrointestinal: Gastrointestinal: Reports no additional gastrointestinal complaints Genitourinary: Genitourinary: Denies dysuria Musculoskeletal: Musculoskeletal: Denies neck pain Integumentary/Breasts: Skin/Breast: Denies dry skin Neurologic: Reports Normal hearing present, Denies headache(s) and Denies weakness Psychiatric: Psychiatric: Denies anxiety Endocrine: Endocrine: Denies change in body appearance Hematologic/Lymphatic: Hematologic/Lymphatic: Denies easy bleeding Allergic/Immunologic: Allergic/Immunologic: Denies urticaria PMFSH Past Medical History Medical History Allergic rhinitis Anxiety Asthma-COPD overlap syndrome Bipolar affective disorder Cellulitis of left lower extremity Essential (primary) hypertension Gastroesophageal reflux disease without esophagitis Mixed hyperlipidemia Osteopenia Pulmonary embolism (2003) Possibly related to hormone use. Right knee DJD Subclinical hyperthyroidism Vitamin B12 deficiency Vitamin D deficiency Surgical History Surgical History History of carpal tunnel surgery of right wrist History of cataract extraction with lens replacement History of fundoplication History of hysterectomy for benign disease History of intestinal surgery Enterotomy, removal of intraluminal obstructing mass on 08/16/22 History of nasal septoplasty S/P total knee arthroplasty Status post total gastrectomy and Leonard-en-Y esophagojejunal anastomosis Family History Family History Father Family history of heart disease in male family member before age 55 Patient's father is , Onset Age: 87 Mother Family history of kidney disease, Onset Age: 86 Social History Social History Social History: Surrogate decision-maker: Nolberto Beard. CODE STATUS: Full code. Smoking packs per day: 2 Smoking cigarettes per day: 40.0 Years smoked: 25 Smoking pack-years: 50.00 Smoking status: Former smoker Tobacco type: cigarettes Second hand tobacco smoke exposure: No Smoking end date: 06/19/99 Additional smoking assessment comments: DENIES ANY FORM OF TOBACCO USE Alcohol intake: never Substance use: never Substance use type: does not use Lack of Transportation: No Lack of Food: Never True Current Housing: I Have Housing Concerned About Future Housing: No Difficulty Paying Gas/Electric Bills: No Difficulty Paying for Meds: No Currently Unemployed: No Education: Bachelor's Degree Difficulty w/ Childcare or Family Care: No Living arrangements: other Additional living arrangements comments: with sp Spiritual care concerns: No Meds Home Medications and Allergies Home Medications Medication Instructions Recorded Confirmed Type aspirin 81 mg tablet,delayed 81 mg PO BID 12/25/19 06/27/23 History release (Geni Low Dose Aspirin) buspirone 7.5 mg tablet 7.5 mg PO BID 12/25/19 06/27/23 History cetirizine 10 mg capsule (Zyrtec) 10 mg PO HS 12/25/19 06/27/23 History lamotrigine 100 mg tablet 100 mg PO HS 12/25/19 06/27/23 History (Lamictal) topiramate 50
--- NOTE | 2023-06-27 08:42 | WPDANESEPPF ---
Anes - Initial Pre Proc Eval Procedure: Operation Date: 06/27/23 09:00 Proposed Procedures p Screening Colonoscopy - Santana Gross MD Date/Time: 06/27/23 08:42 Surgeon: Santana Gross MD Pre Op Diagnosis: neoplasm screening Patient Data Age: 68 Gender: F Height: 1.45 m Weight: 80.4 kg Last Vital Signs Temp 97 F L 06/27/23 07:50 Pulse 108 H 06/27/23 07:50 Resp 17 06/27/23 07:50 BP 146/102 H 06/27/23 07:50 Pulse Ox 100 06/27/23 07:50 O2 Del Method Room Air 06/27/23 07:50 Allergies Allergy/AdvReac Type Severity Reaction Status Date / Time Sulfa (Sulfonamide Allergy Severe Rash Verified 06/27/23 07:48 Antibiotics) Penicillins Allergy Intermediate Rash Verified 06/27/23 07:48 Cephalosporins Allergy Mild Rash IN Verified 06/27/23 07:48 MOUTH succinylcholine Allergy Other Verified 06/27/23 08:38 erythromycin base AdvReac Intermediate GI UPSET, Verified 06/27/23 07:48 ABDOMINAL PAIN ANESTHETIC GASES Allergy Other Uncoded 06/27/23 08:38 Home Medications Medication Instructions Recorded Confirmed Type aspirin 81 mg tablet,delayed 81 mg PO BID 12/25/19 06/27/23 History release (Geni Low Dose Aspirin) buspirone 7.5 mg tablet 7.5 mg PO BID 12/25/19 06/27/23 History cetirizine 10 mg capsule (Zyrtec) 10 mg PO HS 12/25/19 06/27/23 History lamotrigine 100 mg tablet 100 mg PO HS 12/25/19 06/27/23 History (Lamictal) topiramate 50 mg tablet (Topamax) 50 mg PO BID BIPOLAR 12/25/19 06/27/23 History acetaminophen 500 mg capsule 500 mg PO Q6-8H PRN Pain 01/21/20 06/27/23 History calcium carbonate 500 mg calcium 500 mg PO TID 01/21/20 06/05/23 History (1,250 mg) tablet (Calcium 500) aripiprazole 15 mg tablet (Abilify) 15 mg PO DAILY 07/24/20 06/27/23 History quetiapine 300 mg tablet (Seroquel) 300 mg PO QHS 09/01/21 06/27/23 History magnesium 250 mg tablet 1,000 mg PO BID 10/18/21 06/27/23 History estradiol 0.01% (0.1 mg/gram) 1 applic vaginal 3XW 10/27/21 06/27/23 History vaginal cream pediatric multivitamin 2 tablet PO HS 10/27/21 06/27/23 History albuterol sulfate 90 mcg/actuation 1 - 2 inh inhalation Q4-6H PRN 03/28/22 06/27/23 Rx aerosol inhaler shortness of breath or wheezing #25.5 grams montelukast 10 mg tablet See Rx Instructions .Route 03/28/22 06/27/23 Rx .COMPLEX #90 tabs alendronate 70 mg tablet 70 mg PO WEEKLY 08/14/22 06/27/23 History pravastatin 80 mg tablet 80 mg PO HS #90 tabs 09/13/22 06/27/23 Rx pantoprazole 40 mg tablet,delayed 40 mg PO QAM #90 tabs 12/13/22 06/27/23 Rx release (Protonix) tramadol 50 mg tablet 50 mg PO Q6H PRN pain #20 tabs 01/02/23 06/27/23 Rx fluticasone propionate 50 1 spray intranasal DAILY 02/08/23 06/27/23 History mcg/actuation nasal spray,suspension (Flonase Allergy Relief) Patient hx anesthesia problems: none Family hx anesthesia problems: none Results Review: All pre-operative results and documents have been reviewed as part of the pre-operative evaluation. [facility] Past Medical History Medical History Allergic rhinitis Anxiety Asthma-COPD overlap syndrome Bipolar affective disorder Cellulitis of left lower extremity Essential (primary) hypertension Gastroesophageal reflux disease without esophagitis Mixed hyperlipidemia Osteopenia Pulmonary embolism (2003) Possibly related to hormone use. Right knee DJD Subclinical hyperthyroidism Vitamin B12 deficiency Vitamin D deficiency Surgical History Surgical History History of carpal tunnel surgery of right wrist History of cataract extraction with lens replacement History of fundoplication History of hysterectomy for benign disease History of intestinal surgery Enterotomy, removal of intraluminal obstructing mass on 08/16/22 History of nasal septoplasty S/P total knee arthroplasty Status post total te
[2023-06-27 08:51] VITALS: BP 116/79; PULSE 84; RESP 28; O2SAT 100
[2023-06-27 09:01] VITALS: BP 127/80; PULSE 79; RESP 19; O2SAT 100
[2023-06-27 09:11] VITALS: BP 135/82; PULSE 79; RESP 17; O2SAT 100
== END 2023-06-27 09:18 | disposition home or self-care (01) ==
PROVIDERS: PCP Emergency Medicine; Visit Provider Internal Medicine Gastroenterology
PROC: 0DJD8ZZ Inspection of Lower Intestinal Tract, Via Natural or Artificial Opening Endoscopic (ICD-10-PCS; CPT 45378; principal; 2023-06-27 09:00)
DX: Z12.11 Encounter for screening for malignant neoplasm of colon (principal); K57.30 Diverticulosis of large intestine without perforation or abscess without bleeding; I10 Essential (primary) hypertension; E78.2 Mixed hyperlipidemia; J44.9 Chronic obstructive pulmonary disease, unspecified; K21.9 Gastro-esophageal reflux disease without esophagitis; E55.9 Vitamin D deficiency, unspecified; E53.8 Deficiency of other specified B group vitamins; Z86.711 Personal history of pulmonary embolism; F31.9 Bipolar disorder, unspecified; F41.9 Anxiety disorder, unspecified; Z90.3 Acquired absence of stomach [part of]; Z87.891 Personal history of nicotine dependence; Z79.82 Long term (current) use of aspirin; Z79.51 Long term (current) use of inhaled steroids
CPT/HCPCS: G0121; J2704; J7120

== ENCOUNTER 2023-07-28 07:06 | Outpatient (CLI) | payer OTHER, SELFPAY ==
[2023-07-28 07:51] LABS: Hematocrit 38.9 % (37.0-47.0); Hemoglobin 12.2 g/dL (12.0-15.0); Mean Corpuscular HGB Conc 31.4 g/dl (32-36); Mean Corpuscular Hemoglobin 29.8 pg (26-34); Mean Corpuscular Volume 94.9 fl (80-100); Mean Platelet Volume 9.3 fl (7.4-10.4); Platelet Count Result 286 k/mm3 (150-375); Red Cell Distribution Width 14.6 % (11.5-14.5); White Blood Count 5.1 K/mm3 (4.5-10.0)
[2023-07-28 08:05] LABS: Alanine Aminotransferase 17 U/L (6-35); Albumin Level 3.7 g/dL (3.5-5.1); Alkaline Phosphatase 92 U/L (38-126); Anion Gap 6 mmol/L (8-16); Aspartate Amino Transferase 36 U/L (14-36); Bilirubin,Total 0.4 mg/dL (0.2-1.3); Blood Urea Nitrogen 11 mg/dL (7-17); Calcium 8.6 mg/dL (8.4-10.2); Carbon Dioxide 23 mmol/L (22-30); Chloride 110 mmol/L (98-107); Estimated Glomerular Filt Rate > 60; Glucose 96 mg/dL (65-110); Potassium 4.2 mmol/L (3.4-5.0); Sodium 139 mmol/L (137-145)
[2023-07-28 09:39] LABS: Iron 97 ug/dL (37-170)
[2023-07-28 09:41] LABS: Percent Iron Saturation 34 % (20-50)
[2023-07-28 11:44] LABS: Folic Acid > 20.0 ng/mL (2.76->20)
== END 2023-07-28 07:07 | disposition home or self-care (01) ==
PROVIDERS: PCP Emergency Medicine; Visit Provider Emergency Medicine
DX: E55.9 Vitamin D deficiency, unspecified (principal); I10 Essential (primary) hypertension; E78.5 Hyperlipidemia, unspecified; D64.9 Anemia, unspecified
CPT/HCPCS: 36415; 80053; 82306; 82607; 82746; 83540; 83550; 85027

== ENCOUNTER 2023-08-09 09:26 | Outpatient (CLI) | payer OTHER, SELFPAY ==
--- NOTE | ~2023-08-09 | XR_ITS ---
EXAMINATION: XR ankle RT 2V INDICATION: Right ankle pain TECHNIQUE: Two views of the right ankle are obtained. COMPARISON: 12/25/2019 FINDINGS: Pes planus is noted. There is moderate to severe osteoarthritis of the tibiotalar joint. Th e bones are osteopenic which limits the sensitivity for fracture however none is seen. A plantar calc aneal enthesophyte is noted. There is advanced osteoarthritis of the midfoot. IMPRESSION: 1. Polyarticular osteoarthritis without acute osseous abnormality. Reviewed, dictated and finalized at location B. ATHLETE
== END 2023-08-09 09:27 | disposition home or self-care (01) ==
LOC: ANHIMG 09:28
PROVIDERS: PCP Emergency Medicine; Visit Provider Emergency Medicine
DX: S93.401A Sprain of unspecified ligament of right ankle, initial encounter (principal); M19.071 Primary osteoarthritis, right ankle and foot; X58.XXXA Exposure to other specified factors, initial encounter
CPT/HCPCS: 73600

== ENCOUNTER 2023-08-17 09:18 | Outpatient (CLI) | payer OTHER, SELFPAY ==
--- NOTE | ~2023-08-17 | MM_ITS ---
EXAMINATION: MM screening jr BI w lisa HISTORY: Screening TECHNIQUE: Craniocaudal and mediolateral oblique 3-D tomosynthesis images were obtained and synthetic 2-D images were generated. CAD analysis was submitted and interpreted. COMPARISON: Comparison to multiple prior studies sequentially, with oldest reviewed study dated 03/20. BREAST PARENCHYMAL COMPOSITION: There are scattered areas of fibroglandular density. FINDINGS: There is no evidence of suspicious mass, calcification, or architectural distortion to sugg est malignancy in either breast. There has been no suspicious interval change. IMPRESSION: 1. No mammographic evidence of malignancy. 2. Recommend routine screening mammography in one year. BI-RADS Category 1: Negative Reviewed, dictated and finalized at location A. N [employer]
== END 2023-08-17 09:19 | disposition home or self-care (01) ==
PROVIDERS: PCP Emergency Medicine; Visit Provider Obstetrics & Gynecology
DX: Z12.31 Encounter for screening mammogram for malignant neoplasm of breast (principal)
CPT/HCPCS: 77063; 77067

== ENCOUNTER 2023-11-24 08:26 | Outpatient (CLI) | payer OTHER, SELFPAY ==
[2023-11-24 09:53] LABS: Hematocrit 40.6 % (37.0-47.0); Mean Corpuscular Volume 93.8 fl (80-100); Mean Platelet Volume 9.2 fl (7.4-10.4); Platelet Count Result 324 k/mm3 (150-375); Red Blood Count 4.33 M/mm3 (4.2-5.4); White Blood Count 6.6 K/mm3 (4.5-10.0)
[2023-11-24 10:51] LABS: Hemoglobin A1C 5.1 % (<5.7)
[2023-11-24 11:15] LABS: Alanine Aminotransferase 13 U/L (6-35); Albumin Level 4.2 g/dL (3.5-5.1); Alkaline Phosphatase 89 U/L (38-126); Anion Gap 5 mmol/L (4-12); Aspartate Amino Transferase 31 U/L (14-36); Bilirubin,Total 0.5 mg/dL (0.2-1.3); Blood Urea Nitrogen 11 mg/dL (7-17); Calcium 9.3 mg/dL (8.4-10.2); Carbon Dioxide 26 mmol/L (22-30); Chloride 108 mmol/L (98-107); Cholesterol 176 mg/dL (0-200); Estimated Glomerular Filt Rate > 60; Glucose 93 mg/dL (65-110); HDL Direct 74 mg/dL; Magnesium 2.4 mg/dL (1.6-2.3); Potassium 4.4 mmol/L (3.4-5.0); Sodium 139 mmol/L (137-145); Triglycerides 91 mg/dL (<150)
[2023-11-24 11:20] LABS: Iron 77 ug/dL (37-170)
[2023-11-24 11:25] LABS: LDL Cholesterol Direct 79 mg/dL
[2023-11-24 11:38] LABS: Percent Iron Saturation 28 % (20-50)
[2023-11-24 12:04] LABS: Vitamin D 25 Hydroxy 61.4 ng/mL
[2023-11-24 12:23] LABS: Folic Acid > 20.0 ng/mL (2.76->20)
== END 2023-11-24 08:27 | disposition home or self-care (01) ==
LOC: ANHLAB 08:27
PROVIDERS: PCP Emergency Medicine; Visit Provider Emergency Medicine
DX: E55.9 Vitamin D deficiency, unspecified (principal); E78.2 Mixed hyperlipidemia; E11.9 Type 2 diabetes mellitus without complications; D64.9 Anemia, unspecified; E78.5 Hyperlipidemia, unspecified; E53.8 Deficiency of other specified B group vitamins; E61.2 Magnesium deficiency
CPT/HCPCS: 36415; 80053; 80061; 82306; 82607; 82746; 83036; 83540; 83550; 83735; 85027

== ENCOUNTER 2024-01-09 11:20 | Outpatient (CLI) | payer OTHER, SELFPAY ==
[2024-01-09 12:31] LABS: Creatinine Urine 97.4 mg/dL
[2024-01-09 12:39] LABS: MALB Creatinine Ratio < 6.2 mg/g (0-30); Microalbumin Urine Random < 6.0 mg/L (0-16.7)
== END 2024-01-09 11:21 | disposition home or self-care (01) ==
LOC: ANHLAB 11:23
PROVIDERS: PCP Emergency Medicine; Visit Provider Emergency Medicine
DX: E11.9 Type 2 diabetes mellitus without complications (principal)
CPT/HCPCS: 82043

== ENCOUNTER 2024-02-24 06:56 | Outpatient (CLI) | payer OTHER, SELFPAY ==
[2024-02-24 07:23] LABS: Alanine Aminotransferase 13 U/L (6-35); Alkaline Phosphatase 88 U/L (38-126); Anion Gap 10 mmol/L (4-12); Aspartate Amino Transferase 29 U/L (14-36); Bilirubin,Total 0.3 mg/dL (0.2-1.3); Blood Urea Nitrogen 11 mg/dL (7-17); Calcium 8.9 mg/dL (8.4-10.2); Carbon Dioxide 25 mmol/L (22-30); Chloride 104 mmol/L (98-107); Cholesterol 167 mg/dL (0-200); Estimated Glomerular Filt Rate 55; Glucose 95 mg/dL (65-110); HDL Direct 72 mg/dL; Potassium 4.5 mmol/L (3.4-5.0); Sodium 139 mmol/L (137-145); Triglycerides 98 mg/dL (<150)
[2024-02-24 07:33] LABS: LDL Cholesterol Direct 67 mg/dL
[2024-02-24 09:23] LABS: Vitamin D 25 Hydroxy 40.5 ng/mL
== END 2024-02-24 06:57 | disposition home or self-care (01) ==
LOC: ANHLAB 06:59
PROVIDERS: PCP Emergency Medicine; Visit Provider Emergency Medicine
DX: E78.5 Hyperlipidemia, unspecified (principal); E55.9 Vitamin D deficiency, unspecified
CPT/HCPCS: 36415; 80053; 80061; 82306

== ENCOUNTER 2024-04-09 14:26 | Outpatient (CLI) | payer OTHER, SELFPAY ==
--- NOTE | ~2024-04-09 | XR_ITS ---
3 VIEWS MANDIBLE Ordering provider: Giancarlo Le MD History: . 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 Comparison: None. FINDINGS: BONES: No acute fracture or dislocation. TEMPOROMANDIBULAR JOINTS: Normal. SOFT TISSUES: Normal. IMPRESSION: NO ACUTE OSSEOUS ABNORMALITY OF THE MANDIBLE. IF CLINICALLY STILL SUSPICIOUS CT IS ADVISED. Reviewed, dictated and finalized at location A.
== END 2024-04-09 14:27 | disposition home or self-care (01) ==
PROVIDERS: PCP Emergency Medicine; Visit Provider Emergency Medicine
DX: M26.9 Dentofacial anomaly, unspecified (principal)
CPT/HCPCS: 70110

== ENCOUNTER 2024-04-13 10:40 | Inpatient (IN) | payer OTHER, SELFPAY ==
[2024-04-13] VITALS (15 sets, daily range): BP systolic 105–140; BP diastolic 63–91; PULSE 77–98; RESP 12–22; TEMP 36.3–36.7; O2SAT 99–100; BMI 39.8
--- NOTE | ~2024-04-13 | XR_ITS ---
EXAMINATION: XR sm bowel follow through [facility] DATE: 04/16/2024 13:15 INDICATION: Small bowel obstruction TECHNIQUE: Risk Control Officer radiograph(s) of the abdomen was/were obtained. Water-soluble oral contrast was admi nistered, and sequential radiographs of the abdomen were obtained until oral contrast was noted to be in the proximal colon. A total of 15 radiographs were obtained. COMPARISON: CT dated 04/13/2024 FINDINGS: There are multiple dilated gas-filled loops of small bowel on the district scout executive image consistent with persist ent small bowel obstruction. Cholecystectomy clips in right upper quadrant. Moderate lumbar levoscoli osis with severe spondylosis. Transit time from the stomach to proximal colon was approximately 4 jana rs. The colon remains decompressed throughout the study with small amount of contrast evident at the sigmoid colon on the 4 hour image.. IMPRESSION: 1. Persistent small bowel obstruction with delayed passage of oral contrast requiring 4 hours to reac h the colon passing through persistently dilated small bowel. Reviewed, dictated and finalized at location A. IMPRESSION: 1. Persistent small bowel obstruction with delayed passage of oral contrast req uiring 4 hours to reach the colon passing through persistently dilated small marlene wel.
--- NOTE | ~2024-04-13 | CT_ITS ---
EXAMINATION: CT abdomen pelvis w con DATE: 04/13/2024 12:25 INDICATION: Left lower quadrant abdominal pain. TECHNIQUE: Computed tomography (CT) of the abdomen and pelvis was performed with 100 mL Omnipaque 350 intravenous contrast. Automated exposure control and iterative reconstruction technique were employe d. The dose-length product was 1007.75 mGy-cm. COMPARISON: CT abdomen and pelvis 08/22/2022 FINDINGS: The visualized portions of the lung bases demonstrate mild atelectasis. There is mild bronc hiectasis bilaterally. A calcified right lung nodule is consistent with old granulomatous disease. No pleural effusion. The heart size is normal. No pericardial effusion. There are coronary artery calci fications. There are surgical changes of gastric bypass procedure. There is a small sliding hiatal he rnia. There is mild intrahepatic biliary duct dilatation, likely secondary to prior cholecystectomy. Calcifications in the spleen are consistent with old granulomatous disease. The pancreas, adrenal gla nds, and left kidney are normal. There is a 5 mm cyst in right kidney. There is diverticulosis of the colon without evidence of diverticulitis. There are multiple dilated loops of small bowel with trans ition point in right lower quadrant. There is trace ascites. There are no pathologically enlarged lym ph nodes. There is calcified atherosclerosis of the aorta and many of the other arteries. There is th oracolumbar levoscoliosis and severe spondylosis. IMPRESSION: 1. Small bowel obstruction with transition point in right abdomen. Reviewed, dictated and finalized at location A.
--- NOTE | ~2024-04-13 | XR_ITS ---
EXAMINATION: XR abdomen/kub 1V DATE: 04/18/2024 08:02 INDICATION: Small bowel obstruction. TECHNIQUE: A supine view of the abdomen on 2 radiographs was obtained. COMPARISON: Abdomen radiographs 04/17/2024 FINDINGS: There are dilated loops of small bowel. The colon is decompressed. Surgical clips in the ri t upper quadrant are likely from cholecystectomy. IMPRESSION: 1. Persistently dilated small bowel, consistent with small bowel obstruction. Reviewed, dictated and finalized at location []
--- NOTE | ~2024-04-13 | XR_ITS ---
EXAMINATION: XR abdomen obstructive series DATE: 04/15/2024 08:27 INDICATION: Small bowel obstruction. TECHNIQUE: Upright and supine views of the abdomen on 3 radiographs were obtained. COMPARISON: CT abdomen and pelvis 04/13/2024 FINDINGS: There are multiple dilated loops of small bowel. The colon is decompressed. Surgical clips in the right upper quadrant are likely from cholecystectomy. There are staple lines in the area of th e stomach. No free intraperitoneal gas. IMPRESSION: 1. Persistently dilated small bowel, consistent with small bowel obstruction. Reviewed, dictated and finalized at location []
--- NOTE | ~2024-04-13 | XR_ITS ---
EXAMINATION: XR abdomen obstructive series DATE: 04/17/2024 08:05 INDICATION: Small bowel obstruction. TECHNIQUE: Upright and supine views of the abdomen on 3 radiographs were obtained. COMPARISON: Small bowel series 04/16/2024 FINDINGS: There are multiple dilated loops of small bowel. There is oral contrast in the colon, which is decompressed. No free intraperitoneal gas. Surgical clips in the right upper quadrant are likely from cholecystectomy. IMPRESSION: 1. Persistently dilated small bowel, consistent with small bowel obstruction. Reviewed, dictated and finalized at location []
[2024-04-13 11:36] LABS: Basophils Percent Auto 0.5 % (0.2-1.2); Eosinophils Absolute Auto 0.3 K/mm3 (0-0.3); Eosinophils Percent Auto 3.9 % (0-4.4); Hematocrit 41.9 % (37.0-47.0); Hemoglobin 13.1 g/dL (12.0-15.0); Immature Granulocyte Absolute 0.04 K/mm3 (0.00-0.031); Immature Granulocyte Percent A 0.5 % (0-0.5); Lymphocytes Absolute Auto 1.45 K/mm3 (0.9-3.2); Lymphocytes Percent Auto 17.4 % (18.3-44.2); Mean Corpuscular HGB Conc 31.3 g/dl (32-36); Mean Corpuscular Hemoglobin 29.6 pg (26-34); Mean Corpuscular Volume 94.6 fl (80-100); Mean Platelet Volume 8.7 fl (7.4-10.4); Monocytes Absolute Auto 0.6 K/mm3 (0.1-0.6); Monocytes Percent Auto 7.6 % (2.6-8.5); Neutrophils Absolute Auto 5.8 K/mm3 (1.3-6.7); Neutrophils Percent Auto 70.1 % (45.5-73.1); Platelet Count Result 336 k/mm3 (150-375); Red Blood Count 4.43 M/mm3 (4.2-5.4); Red Cell Distribution Width 14.5 % (11.5-14.5); White Blood Count 8.3 K/mm3 (4.5-10.0)
[2024-04-13 11:49] LABS: Alanine Aminotransferase 14 U/L (6-35); Alkaline Phosphatase 97 U/L (38-126); Anion Gap 8 mmol/L (4-12); Aspartate Amino Transferase 25 U/L (14-36); Bilirubin,Total 0.4 mg/dL (0.2-1.3); Blood Urea Nitrogen 11 mg/dL (7-17); Calcium 8.8 mg/dL (8.4-10.2); Carbon Dioxide 26 mmol/L (22-30); Chloride 103 mmol/L (98-107); Estimated Glomerular Filt Rate > 60; Glucose 110 mg/dL (65-110); Lipase 90 U/L (23-300); Potassium 3.9 mmol/L (3.4-5.0); Sodium 137 mmol/L (137-145)
--- NOTE | 2024-04-13 13:20 | ED_ITS ---
HPI - General Adult General Chief complaint: Abdominal Pain Stated complaint: abd pain Time Seen by Provider: 04/13/24 10:46 History of Present Illness HPI narrative: Patient is a 68-year-old female who presents ER with abdominal pain. Import she started having cramping and bloating last night. She has not had a bowel movement since yesterday evening. She has not passed any gas. She has not belching or vomiting. She does feel mildly nauseous. She has history of small- bowel obstruction and has seen Dr. Bustamante in the past. Related Data Home Medications Medication Instructions Recorded Confirmed aspirin 81 mg tablet,delayed 81 mg PO BID 12/25/19 04/13/24 release (Geni Low Dose Aspirin) buspirone 7.5 mg tablet 7.5 mg PO BID 12/25/19 04/13/24 lamotrigine 100 mg tablet 100 mg PO HS 12/25/19 04/13/24 (Lamictal) topiramate 50 mg tablet (Topamax) 50 mg PO BID BIPOLAR 12/25/19 04/13/24 acetaminophen 500 mg capsule 500 mg PO Q6-8H PRN Pain 01/21/20 04/13/24 calcium carbonate (Calcium 500) 500 mg PO TID 01/21/20 04/13/24 aripiprazole 15 mg tablet (Abilify) 15 mg PO DAILY 07/24/20 04/13/24 quetiapine 300 mg tablet (Seroquel) 300 mg PO QHS 09/01/21 04/13/24 magnesium 250 mg tablet 750 mg PO BID 10/18/21 04/13/24 estradiol 0.01% (0.1 mg/gram) 1 applic vaginal 3XW 10/27/21 04/13/24 vaginal cream pediatric multivitamin 2 tablet PO HS 10/27/21 04/13/24 alendronate 70 mg tablet 70 mg PO WEEKLY 08/14/22 04/13/24 fluticasone propionate 50 1 spray intranasal DAILY 02/08/23 04/13/24 mcg/actuation nasal spray,suspension (Flonase Allergy Relief) Claritin 10 mg PO DAILY 04/13/24 04/13/24 Allergies Allergy/AdvReac Type Severity Reaction Status Date / Time Sulfa (Sulfonamide Allergy Severe Rash Verified 04/13/24 14:43 Antibiotics) Penicillins Allergy Intermediate Rash Verified 04/13/24 14:43 Cephalosporins Allergy Mild Rash IN Verified 04/13/24 14:43 MOUTH succinylcholine Allergy Other Verified 04/13/24 14:43 erythromycin base AdvReac Intermediate GI UPSET, Verified 04/13/24 14:43 ABDOMINAL PAIN ANESTHETIC GASES Allergy Other Uncoded 04/13/24 14:43 Review of Systems Review of Systems: All systems reviewed & are unremarkable except as noted in HPI and below Constitutional: Constitutional: Reports no additional constitutional complaints ENT: Reports system reviewed and no additional complaints, except as documented Cardiovascular: Cardiovascular: Reports no additional cardiovascular complaints Respiratory: Respiratory: Reports no additional respiratory complaints Gastrointestinal: Gastrointestinal: Reports abdominal pain, Reports bloating, Denies constipation, Denies diarrhea, Reports nausea and Denies vomiting [facility] Past Medical History Medical History (Updated 04/13/24 @ 16:50 by Bowen Osborn MD) Allergic rhinitis Anxiety Asthma-COPD overlap syndrome Bipolar affective disorder Cellulitis of left lower extremity Encounter for surgical aftercare following surgery on the digestive system Essential (primary) hypertension Gastroesophageal reflux disease without esophagitis Left hip pain Mixed hyperlipidemia Open abdominal wall wound Osteopenia Pulmonary embolism (2003) Possibly related to hormone use. Right knee DJD SBO (small bowel obstruction) Subclinical hyperthyroidism Superficial postoperative wound infection Traumatic arthritis of right ankle Valgus foot deformity, acquired Vitamin B12 deficiency Vitamin D deficiency Surgical History Surgical History History of carpal tunnel surgery of right wrist History of cataract extraction with lens replacement History of fundoplication History of hysterectomy for benign disease History of intestinal surgery Enterotomy, removal of intraluminal obstructing mass on 08/16/22 History of laparotomy History of nasal septoplasty S/P total knee arthroplasty Status post total gastrectomy and Leonard-en-Y esophagojejunal anastomosis Status post total right knee replacement Family History Family History Father Family history of heart disease in male family member before age 55 Patient's father is , Onset Age: 87 Mother Family history of kidney disease, Onset Age: 86 Social History Social History Social History: Surrogate decision-maker: Nolberto Beard. CODE STATUS: Full code. Smoking packs per day: 2 Smoking cigarettes per day: 40.0 Years smoked: 25 Smoking pack-years: 50.00 Smoking status: Former smoker Tobacco type: cigarettes Second hand tobacco smoke exposure: No Smoking end date: 06/19/99 Additional smoking assessment comments: DENIES ANY FORM OF TOBACCO USE Alcohol intake: never Substance use: never Substance use type: does not use Do You Feel Safe in your Home?: Yes Lack of Transportation: No Lack of Food: Never True Current Housing: I Have Housing Concerned About Future Housing: No Difficulty Paying Gas/Electric Bills: No Difficulty Paying for Meds: No Currently Unemployed: No Education: Bachelor's Degree Difficulty w/ Childcare or Family Care: No Living arrangements: other Additional living arrangements comments: with sp Spiritual care concerns: No Exam Narrative: GENERAL: Well-appearing, well-nourished, and in no acute distress. HEAD: Normocephalic, atraumatic. ENT: Mucous membranes moist. CHEST: Clear to auscultation. No respiratory distress. HEART: Regular rate and rhythm. Normal peripheral pulses. ABDOMEN: Soft, diffuse tenderness, nondistended, hyperactive bowel sounds.. EXTREMITIES: Normal range of motion. No edema. SKIN: Warm, dry, no rash. NEURO: Alert and oriented x3. PSYCH: Normal mood and affect. Course Course Emergency Course: General surgery consulted, admit to hospitalist. Cannot have a blind NG tube due to previous gastric surgery. Vital Signs Vital signs: Vital Signs Temperature 97.6 F 04/13/24 10:43 Pulse Rate 82 04/13/24 10:43 Respiratory Rate 19 04/13/24 10:43 Blood Pressure 126/87 04/13/24 10:43 Pulse Oximetry 100 04/13/24 10:43 Oxygen Delivery Room Air 04/13/24 10:43 Temperature 97.6 F 04/13/24 10:43 Pulse Rate 78 04/13/24 12:46 Respiratory Rate 17 04/13/24 12:46 Blood Pressure 125/75 04/13/24 11:47 Pulse Oximetry 100 04/13/24 11:47 Oxygen Delivery Room Air 04/13/24 10:43 Medical Decision Making Vital Signs Vital Signs: Vital Signs Temperature 97.6 F 04/13/24 10:43 Pulse Rate 82 04/13/24 10:43 Respiratory Rate 19 04/13/24 10:43 Blood Pressure 126/87 04/13/24 10:43 Pulse Oximetry 100 04/13/24 10:43 Oxygen Delivery Room Air 04/13/24 10:43 Temperature 97.6 F 04/13/24 10:43 Pulse Rate 78 04/13/24 12:46 Respiratory Rate 17 04/13/24 12:46 Blood Pressure 125/75 04/13/24 11:47 Pulse Oximetry 100 04/13/24 11:47 Oxygen Delivery Room Air 04/13/24 10:43 Lab Data 04/13/24 11:31 04/13/24 11:31 Labs: Lab Results 04/13/24 Range/Units 11:31 WBC 8.3 (4.5-10.0) K/mm3 RBC 4.43 (4.2-5.4) M/mm3 Hgb 13.1 (12.0-15.0) g/dL Hct 41.9 (37.0-47.0) % MCV 94.6 (80-100) fl MCH 29.6 (26-34) pg MCHC 31.3 L (32-36) g/dl RDW 14.5 (11.5-14.5) % Plt Count 336 (150-375) k/mm3 MPV 8.7 (7.4-10.4) fl Immature Gran % (Auto) 0.5 (0-0.5) % Neut % (Auto) 70.1 (45.5-73.1) % Lymph % (Auto) 17.4 L (18.3-44.2) % Reynolds % (Auto) 7.6 (2.6-8.5) % Eos % (Auto) 3.9 (0-4.4) % Baso % (Auto) 0.5 (0.2-1.2) % Lymph # (Auto) 1.45 (0.9-3.2) K/mm3 Reynolds # (Auto) 0.6 (0.1-0.6) K/mm3 Eos # (Auto) 0.3 (0-0.3) K/mm3 Baso # (Auto) 0.0 (0.0-0.1) K/mm3 Abs Immat Gran (auto) 0.04 H (0.00-0.031) K/mm3 Absolute Neuts (auto) 5.8 (1.3-6.7) K/mm3 Absolute Nucleated RBC 0.000 (0.0-0.012) K/mm3 Nucleated RBC % 0.0 (0.0-0.2) % Sodium 137 (137-145) mmol/L Potassium 3.9 (3.4-5.0) mmol/L Chloride 103 (98-107) mmol/L Carbon Dioxide 26 (22-30) mmol/L Anion Gap 8 (4-12) mmol/L BUN 11 (7-17) mg/dL Creatinine 0.90 (0.7-1.0) mg/dL Estim Creat Clear Calc Not Reportable Estimated GFR > 60 (59 - ) Glucose 110 (65-110) mg/dL Calcium 8.8 (8.4-10.2) mg/dL Total Bilirubin 0.4 (0.2-1.3) mg/dL AST 25 (14-36) U/L ALT 14 (6-35) U/L Alkaline Phosphatase 97 (38-126) U/L Total Protein 7.0 (6.3-8.2) g/dL Albumin 4.0 (3.5-5.1) g/dL Lipase 90 (23-300) U/L Imaging Data Radiologist's impression: ITS Impressions Abdomen/Pelvis CT 04/13/24 12:32 IMPRESSION: 1. Small bowel obstruction with transition point in right abdomen. Discharge Plan Discharge Clinical Impression: SBO (small bowel obstruction) Patient Disposition: Still a Patient Condition: Stable
--- NOTE | 2024-04-13 14:29 | P.HP_ITS ---
H&P: HPI History of Present Illness Date/Time: 04/13/24 14:29 Chief Complaint: Abdominal pain Narrative: This is a 68 year old female with a significant past medical history of anxiety, asthma, COPD, bipolar affective disorder, hypertension, GERD, hyperlipidemia PE, hyperparathyroidism, osteopenia, Gastric Leonard-en-Y who presented to the hospital with complaints of abdominal pain. Patient reports the following history of presenting illness. Patient states that her abdominal discomfort started yesterday and reports it to be bloating and cramping in nature. She reports that her pain is 10/10 and colicky. She does have associated nausea and headache, however no vomiting. She reports belching. She denies any fever, chills, vomiting, diarrhea, chest pain,shortness of breath, and is not passing flatus. She reports that she does have history of a SBO in the past which ended up requiring surgery. She also had surgery before for twisted bowel. Work up in the hospital included an abdomen/pelvis CT which revealed a small bowel obstruction with transition point in right abdomen. Initial labs essentially unremarkable. Patient was started on IVF, given morphine, and zofran while in the ER. General surgery was consulted. Patient is unable to get NGT placement with blind insertion due to her gastric Leonard-en-Y history. Review of Systems Review of Systems: All systems reviewed & are unremarkable except as noted in HPI and below Constitutional: Constitutional: Reports as per HPI and Reports no additional constitutional complaints Eyes: Eyes: Reports as per HPI and Reports no additional eye complaints ENT: Reports system reviewed and no additional complaints, except as documented and Reports as per HPI Cardiovascular: Cardiovascular: Reports as per HPI and Reports no additional cardiovascular complaints Respiratory: Respiratory: Reports as per HPI and Reports no additional respiratory complaints Gastrointestinal: Gastrointestinal: Reports as per HPI and Reports no additional gastrointestinal complaints Genitourinary: Genitourinary: Reports no additional female genitourinary complaints and Reports as per HPI Musculoskeletal: Musculoskeletal: Reports no additional musculoskeletal complaints and Reports as per HPI Integumentary/Breasts: Skin/Breast: Reports system reviewed and no additional complaints, except as docu and Reports as per HPI Neurologic: Reports system reviewed and no additional complaints, except as documented and Reports as per HPI Psychiatric: Psychiatric: Reports no additional psychiatric complaints and Reports as per HPI [facility] Past Medical History Medical History (Updated 04/13/24 @ 16:50 by Bowen Osborn MD) Allergic rhinitis Anxiety Asthma-COPD overlap syndrome Bipolar affective disorder Cellulitis of left lower extremity Encounter for surgical aftercare following surgery on the digestive system Essential (primary) hypertension Gastroesophageal reflux disease without esophagitis Left hip pain Mixed hyperlipidemia Open abdominal wall wound Osteopenia Pulmonary embolism (2003) Possibly related to hormone use. Right knee DJD SBO (small bowel obstruction) Subclinical hyperthyroidism Superficial postoperative wound infection Traumatic arthritis of right ankle Valgus foot deformity, acquired Vitamin B12 deficiency Vitamin D deficiency Surgical History Surgical History History of carpal tunnel surgery of right wrist History of cataract extraction with lens replacement History of fundoplication History of hysterectomy for benign disease History of intestinal surgery Enterotomy, removal of intraluminal obstructing mass on 08/16/22 History of laparotomy History of nasal septoplasty S/P total knee arthroplasty 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 CODE STATUS: Full code. Smoking packs per day: 2 Smoking cigarettes per day: 40.0 Years smoked: 25 Smoking pack-years: 50.00 Smoking status: Former smoker Tobacco type: cigarettes Second hand tobacco smoke exposure: No Smoking end date: 06/19/99 Additional smoking assessment comments: DENIES ANY FORM OF TOBACCO USE Alcohol intake: never Substance use: never Substance use type: does not use Do You Feel Safe in your Home?: Yes Lack of Transportation: No Lack of Food: Never True Current Housing: I Have Housing Concerned About Future Housing: No Difficulty Paying Gas/Electric Bills: No Difficulty Paying for Meds: No Currently Unemployed: No Education: Bachelor's Degree Difficulty w/ Childcare or Family Care: No Living arrangements: other Additional living arrangements comments: with sp Spiritual care concerns: No Meds Home Medications and Allergies Home Medications Medication Instructions Recorded Confirmed Type aspirin 81 mg tablet,delayed 81 mg PO BID 12/25/19 04/13/24 History release (Geni Low Dose Aspirin) buspirone 7.5 mg tablet 7.5 mg PO BID 12/25/19 04/13/24 History lamotrigine 100 mg tablet 100 mg PO HS 12/25/19 04/13/24 History (Lamictal) topiramate 50 mg tablet (Topamax) 50 mg PO BID BIPOLAR 12/25/19 04/13/24 History acetaminophen 500 mg capsule 500 mg PO Q6-8H PRN Pain 01/21/20 04/13/24 History calcium carbonate (Calcium 500) 500 mg PO TID 01/21/20 04/13/24 History aripiprazole 15 mg tablet (Abilify) 15 mg PO DAILY 07/24/20 04/13/24 History quetiapine 300 mg tablet (Seroquel) 300 mg PO QHS 09/01/21 04/13/24 History magnesium 250 mg tablet 750 mg PO BID 10/18/21 04/13/24 History estradiol 0.01% (0.1 mg/gram) 1 applic vaginal 3XW 10/27/21 04/13/24 History vaginal cream pediatric multivitamin 2 tablet PO HS 10/27/21 04/13/24 History albuterol sulfate 90 mcg/actuation 1 - 2 inh inhalation Q4-6H PRN 03/28/22 04/13/24 Rx aerosol inhaler shortness of breath or wheezing #25.5 grams montelukast 10 mg tablet See Rx Instructions .Route 03/28/22 04/13/24 Rx .COMPLEX #90 tabs alendronate 70 mg tablet 70 mg PO WEEKLY 08/14/22 04/13/24 History fluticasone propionate 50 1 spray intranasal DAILY 02/08/23 04/13/24 History mcg/actuation nasal spray,suspension (Flonase Allergy Relief) pravastatin 80 mg tablet See Rx Instructions .Route 08/30/23 04/13/24 Rx .COMPLEX #90 tabs pantoprazole 40 mg tablet,delayed 40 mg PO QAM #90 tabs 09/13/23 04/13/24 Rx release (Protonix) cyclobenzaprine 5 mg tablet 5 mg PO TID PRN muscle spasm #20 10/22/24 10/26/24 Rx tabs Claritin 10 mg PO DAILY 04/13/24 04/13/24 History Allergies Allergy/AdvReac Type Severity Reaction Status Date / Time Sulfa (Sulfonamide Allergy Severe Rash Verified 04/13/24 14:43 Antibiotics) Penicillins Allergy Intermediate Rash Verified 04/13/24 14:43 Cephalosporins Allergy Mild Rash IN Verified 04/13/24 14:43 MOUTH succinylcholine Allergy Other Verified 04/13/24 14:43 erythromycin base AdvReac Intermediate GI UPSET, Verified 04/13/24 14:43 ABDOMINAL PAIN ANESTHETIC GASES Allergy Other Uncoded 04/13/24 14:43 Vital Signs Vital Signs - 24 hr 04/13/24 10:43 04/13/24 10:57 04/13/24 11:00 Temperature 97.6 F Pulse Rate 82 85 88 Respiratory Rate 19 16 18 Blood Pressure 126/87 Pulse Oximetry 100 100 100 Oxygen Delivery Room Air 04/13/24 11:02 04/13/24 11:29 04/13/24 11:30 Temperature Pulse Rate 98 82 85 Respiratory Rate 18 12 13 Blood Pressure 116/83 Pulse Oximetry 100 100 100 Oxygen Delivery 04/13/24 11:33 04/13/24 11:46 04/13/24 11:47 Temperature Pulse Rate 83 81 80 Respiratory Rate 12 14 14 Blood Pressure 108/72 125/75 Pulse Oximetry 100 100 Oxygen Delivery 04/13/24 12:00 04/13/24 12:29 04/13/24 12:30 Temperature Pulse Rate 80 77 78 Respiratory Rate 17 20 20 Blood Pressure Pulse Oximetry Oxygen Delivery 04/13/24 12:46 Temperature Pulse Rate 78 Respiratory Rate 17 Blood Pressure Pulse Oximetry Oxygen Delivery Exam Narrative: General: In no acute distress, well nourished Head: atraumatic, no encephalopathy Eyes: EOMI, PERRLA, sclera clear ENT: moist mucous membranes, nasal passages clear Neck: supple, no JVD, no adenopathy, trachea midline Cardiac: Normal S1 and S2. No murmur, gallops or friction rubs, peripheral pulses intact. Respiratory: Lungs clear to auscultation, no adventitious lung sounds Gastrointestinal: soft, mildly distended, tenderness noted over mid abdomen and upper quadrants, very hypoactive bowel sounds in the upper quadrants, absent in the lower quadrants, reports belching, not passing flatus : voiding without difficulty. Extremities: moves all extremities well, no edema, good ROM, strength 5/5 Skin: clean, dry, intact. No wounds or lesions. Neuro: Alert and oriented x4, cranial nerves intact, no neuro deficits. Psych: normal mood, normal affect, interactive H&P: Results Labs Labs: Short CBC 04/13/24 Range/Units 11:31 WBC 8.3 (4.5-10.0) K/mm3 Hgb 13.1 (12.0-15.0) g/dL Hct 41.9 (37.0-47.0) % Plt Count 336 (150-375) k/mm3 BMP 04/13/24 11:31 Sodium 137 Potassium 3.9 Chloride 103 Carbon Dioxide 26 BUN 11 Creatinine 0.90 Glucose 110 Calcium 8.8 Liver Function 04/13/24 Range/Units 11:31 Total Bilirubin 0.4 (0.2-1.3) mg/dL AST 25 (14-36) U/L ALT 14 (6-35) U/L Alkaline Phosphatase 97 (38-126) U/L Albumin 4.0 (3.5-5.1) g/dL Imaging Abdomen/pelvis CT: Radiologist's impression: EXAMINATION: CT abdomen pelvis w con DATE: 04/13/2024 12:25 INDICATION: Left lower quadrant abdominal pain. TECHNIQUE: Computed tomography (CT) of the abdomen and pelvis was performed with 100 mL Omnipaque 350 intravenous contrast. Automated exposure control and iterative reconstruction technique were employed. The dose-length product was 1007.75 mGy-cm. COMPARISON: CT abdomen and pelvis 08/22/2022 FINDINGS: The visualized portions of the lung bases demonstrate mild atelectasis. There is mild bronchiectasis bilaterally. A calcified right lung nodule is consistent with old granulomatous disease. No pleural effusion. The heart size is normal. No pericardial effusion. There are coronary artery calcifications. There are surgical changes of gastric bypass procedure. There is a small sliding hiatal hernia. There is mild intrahepatic biliary duct dilatation, likely secondary to prior cholecystectomy. Calcifications in the spleen are consistent with old granulomatous disease. The pancreas, adrenal glands, and left kidney are normal. There is a 5 mm cyst in right kidney. There is diverticulosis of the colon without evidence of diverticulitis. There are multiple dilated loops of small bowel with transition point in right lower quadrant. There is trace ascites. There are no pathologically enlarged lymph nodes. There is calcified atherosclerosis of the aorta and many of the other arteries. There is thoracolumbar levoscoliosis and severe spondylosis. IMPRESSION: 1. Small bowel obstruction with transition point in right abdomen. Reviewed, dictated and finalized at location A. Assessment and Plan Assessment and plan (1) SBO (small bowel obstruction): Code(s): K56.609 - Unspecified intestinal obstruction, unspecified as to partial versus complete obstruction Status: Acute Assessment and Plan: --Patient reports abdominal pain that is cramping and bloating in nature that started last night. * CT of the abdomen/pelvis shown SBO with transition point in right abdomen * Continue pain and nausea control * General surgery consulted * Not a candidate for NGT due to Leonard-en-Y procedure, would have to be placed with scope if needed. Continue to monitor for now considering she has not had any vomiting. 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: Code(s): Z90.3 - Acquired absence of stomach [part of]; Z98.0 - Intestinal bypass and anastomosis status Status: Chronic Assessment and Plan: of note, patient can not have NGT placement due to history (3) Gastroesophageal reflux disease without esophagitis: Code(s): K21.9 - Gastro-esophageal reflux disease without esophagitis Status: Chronic Assessment and Plan: * Start Protonix IV (4) Bipolar affective disorder: Qualifiers: Active/Remission status: remission status unspecified Qualified Code(s): F31.9 - Bipolar disorder, unspecified Code(s): F31.9 - Bipolar disorder, unspecified Status: Chronic Assessment and Plan: * Abilify and Seroquel on hold due to NPO status (5) Anxiety: Code(s): F41.9 - Anxiety disorder, unspecified Status: Chronic Assessment and Plan: * Buspirone on hold due to NPO status * monitor for now (6) Hyperlipidemia: Code(s): E78.5 - Hyperlipidemia, unspecified Status: Chronic Assessment and Plan: * aspirin and pravastatin on hold due to NPO status Quality VTE Prophylaxis VTE prophylaxis: mechanical ordered Hospitalist MIPS Advance Care Plan I have confirmed that the patient's Advanced Care Plan is present, code status is documented, or surrogate decision maker is listed in patient medical record.: Yes Medication Reconciliation I have utilized all available resources to obtain, update and review the patients current medications (includes all prescriptions, OTC, herbals, cannabis, and nutritional supplements).: Yes
[2024-04-13] MEDS: ONDANSETRON INJ 4 MG/2 ML VIAL IV PUSH ×3 (14:53→23:25)
[2024-04-13] MEDS: SODIUM CHLORIDE 0.9% IV 1,000 ML 125 ML IV CONT ×2 (14:53→23:25)
[2024-04-13] MEDS: MORPHINE SULFATE (*CRX) 2 MG/ML INJ IV PUSH ×3 (14:53→20:42)
[2024-04-13] MEDS: PANTOPRAZOLE SODIUM IV 40 MG VIAL IV PUSH (15:49)
[2024-04-13] MEDS: MORPHINE SULFATE (*CRX) 2 MG/ML INJ 1 MG IV PUSH (23:25)
[2024-04-14] MEDS: MORPHINE SULFATE (*CRX) 2 MG/ML INJ IV PUSH ×10 (01:22→23:05)
[2024-04-14] MEDS: ONDANSETRON INJ 4 MG/2 ML VIAL IV PUSH (03:26)
--- NOTE | 2024-04-14 05:07 | PCRCNOTE ---
Pt refused use of hospital cpap last night. Pt stated per PA, it could cause unnecessary air in her abdomen.
[2024-04-14 05:31] VITALS: BP 122/80; PULSE 85; RESP 14; TEMP 36.7; O2SAT 98
[2024-04-14 06:37] LABS: Basophils Absolute Auto 0.1 K/mm3 (0.0-0.1); Basophils Percent Auto 0.7 % (0.2-1.2); Eosinophils Absolute Auto 0.1 K/mm3 (0-0.3); Eosinophils Percent Auto 1.2 % (0-4.4); Hematocrit 41.6 % (37.0-47.0); Hemoglobin 13.2 g/dL (12.0-15.0); Immature Granulocyte Absolute 0.04 K/mm3 (0.00-0.031); Immature Granulocyte Percent A 0.6 % (0-0.5); Lymphocytes Percent Auto 15.1 % (18.3-44.2); Mean Corpuscular HGB Conc 31.7 g/dl (32-36); Mean Corpuscular Hemoglobin 30.2 pg (26-34); Mean Corpuscular Volume 95.2 fl (80-100); Mean Platelet Volume 8.8 fl (7.4-10.4); Monocytes Absolute Auto 0.7 K/mm3 (0.1-0.6); Monocytes Percent Auto 8.9 % (2.6-8.5); Neutrophils Absolute Auto 5.3 K/mm3 (1.3-6.7); Neutrophils Percent Auto 73.5 % (45.5-73.1); Platelet Count Result 349 k/mm3 (150-375); Red Blood Count 4.37 M/mm3 (4.2-5.4); Red Cell Distribution Width 14.5 % (11.5-14.5); White Blood Count 7.3 K/mm3 (4.5-10.0)
[2024-04-14 06:49] LABS: Albumin Level 3.6 g/dL (3.5-5.1); Alkaline Phosphatase 208 U/L (38-126); Anion Gap 6 mmol/L (4-12); Aspartate Amino Transferase 726 U/L (14-36); Bilirubin,Total 0.6 mg/dL (0.2-1.3); Blood Urea Nitrogen 11 mg/dL (7-17); Calcium 7.8 mg/dL (8.4-10.2); Carbon Dioxide 23 mmol/L (22-30); Chloride 110 mmol/L (98-107); Estimated Glomerular Filt Rate > 60; Glucose 103 mg/dL (65-110); Magnesium 2.8 mg/dL (1.6-2.3); Potassium 4.1 mmol/L (3.4-5.0); Sodium 139 mmol/L (137-145)
[2024-04-14 06:53] LABS: Alanine Aminotransferase 423 U/L (6-35)
[2024-04-14] MEDS: SODIUM CHLORIDE 0.9% IV 1,000 ML 125 ML IV CONT ×3 (07:33→23:08)
[2024-04-14 08:07] VITALS: O2SAT 99
[2024-04-14] MEDS: PANTOPRAZOLE SODIUM IV 40 MG VIAL IV PUSH (08:54)
[2024-04-14] MEDS: FLUTICASONE PROPIONATE 0.05% NA SPR 16 GM BTL (*BKC) 1 SPRAY NASAL (08:58)
--- NOTE | 2024-04-14 09:26 | ADMGEN ---
This patient, Mariely Beard, was admitted to [facility] Surg Room 320-01 on 04/13/24 at approximately 1550. Patient oriented to hospital policies and general routines including ID bracelet, bed and alarms, visiting hours, pain management, procedures, bathroom and other care routines, personal items, smoking policy, room service/diet, and visiting hours. Information on how to activate the Rapid Response Team has been discussed. Patient was encouraged to report perceived risks to care and to ask questions if they do not understand what they are told or what they should do. Pain under control at this time. No nausea or vomiting. Patient very calm, cooperative, and knowledgeable about her care/medications. CPAP requested from RT, but will probably not use it due to concerns about negative pressure causing increased bowel issues.
--- NOTE | 2024-04-14 11:05 | PC.NURSE ---
Pain level assessed at an 8/10. Patient states she does not want it to ramp up again so she will continue to monitor and report her pain. IV morphine administered per FLOW COORDINATOR protocol.
--- NOTE | 2024-04-14 13:10 | P.PNIM_ITS ---
Progress Note: A&P Assessment and Plan (1) SBO (small bowel obstruction): Code(s): K56.609 - Unspecified intestinal obstruction, unspecified as to partial versus complete obstruction Status: Acute Assessment and Plan: --Patient reports abdominal pain that is cramping and bloating in nature that started last night. * CT of the abdomen/pelvis shown SBO with transition point in right abdomen * Continue pain and nausea control * General surgery consulted * Not a candidate for NGT due to Leonard-en-Y procedure, would have to be placed with scope if needed. Continue to monitor for now considering she has not had any vomiting. 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: Code(s): Z90.3 - Acquired absence of stomach [part of]; Z98.0 - Intestinal bypass and anastomosis status Status: Chronic Assessment and Plan: of note, patient can not have NGT placement due to history (3) Gastroesophageal reflux disease without esophagitis: Code(s): K21.9 - Gastro-esophageal reflux disease without esophagitis Status: Chronic Assessment and Plan: * Start Protonix IV (4) Bipolar affective disorder: Qualifiers: Active/Remission status: remission status unspecified Qualified Code(s): F31.9 - Bipolar disorder, unspecified Code(s): F31.9 - Bipolar disorder, unspecified Status: Chronic Assessment and Plan: * Abilify and Seroquel on hold due to NPO status (5) Anxiety: Code(s): F41.9 - Anxiety disorder, unspecified Status: Chronic Assessment and Plan: * Buspirone on hold due to NPO status * monitor for now (6) Hyperlipidemia: Code(s): E78.5 - Hyperlipidemia, unspecified Status: Chronic Assessment and Plan: * aspirin and pravastatin on hold due to NPO status (7) Elevated liver enzymes: Code(s): R74.8 - Abnormal levels of other serum enzymes Status: Acute Assessment and Plan: * secondary to SBO? * monitor for downtrend * If no improvement will get US Plan Code status: Full code per patient DVT prophylaxis: SCD's Stress ulcer prophylaxis: NA PT/OT notes: Ambulatory Disposition: Patient continues admission to the medical unit for treatment and evaluation SBO remains NPO will have evaluation and recommendations from surgery may require surgical intervention if no resolution. Patient is ambulatory plan will be to return when medically stable. Time Spent With Patient Time with patient: 15 - 25 minutes Subjective Date/time seen: 04/14/24 13:10 Interval history: Patient is a 68-year-old female who admitted to the medical unit with diagnosis of small-bowel obstruction. 04/14/24: Assumed Care Patient still with ABD pain, no BM or flatulence, mild nausea no vomiting, no fever, chills normal WBC however Liver enzymes spiked likely do to SBO. Review of Systems Review of Systems: All systems reviewed & are unremarkable except as noted in HPI and below Exam Narrative: * GENERAL: Alert and oriented x 3. No acute distress. * EYES: EOMI. No scleral icterus. PERRLA. * HEENT: Moist mucous membranes. * LUNGS: Clear to auscultation bilaterally. No accessory muscle use. * CARDIOVASCULAR: Regular rate and rhythm. No murmur. No JVD. S1-S2 * ABDOMEN: soft, mildly distended, tenderness noted over mid abdomen and upper quadrants, very hypoactive bowel sounds in the upper quadrants, absent in the lower quadrants, no belching, not passing flatus * EXTREMITIES: No edema. Non-tender * SKIN: No rashes or lesions. Skin warm, dry. * NEUROLOGIC: No focal neurological deficits. CN II-XII grossly intact * PSYCHIATRIC: Appropriate mood and affect. Good judgement and insight. No visual or auditory hallucinations. Objective Data Vital Signs Vital Signs: Vital Signs - 24 hr 04/13/24 16:00 04/13/24 20:11 04/13/24 20:00 Temperature 97.3 F L 98.1 F Pulse Rate 92 78 Respiratory Rate 22 H 16 Blood Pressure 140/91 H 105/63 Pulse Oximetry 99 100 Oxygen Delivery Room Air 04/14/24 05:31 04/14/24 08:07 04/14/24 08:55 Temperature 98.1 F Pulse Rate 85 Respiratory Rate 14 Blood Pressure 122/80 Pulse Oximetry 98 99 Oxygen Delivery Room Air Room Air Intake/Output Intake/Output: Intake & Output 04/11/24 04/12/24 04/13/24 04/14/24 23:59 23:59 23:59 23:59 Intake Total 1000 1600 Output Total 950 Balance 1000 650 Meds/Results Medications: Active Medications Generic Name Dose Route Start Last Admin Trade Name Freq PRN Reason Stop Dose Admin Albuterol 2 puff 04/13/24 18:53 Albuterol Sulfate (*Sp) Aerosol 1 Puff INHALATION Q4H PRN shortness of breath or wheezing Fluticasone Propionate 1 spray 04/14/24 09:00 04/14/24 08:58 Fluticasone Propionate 0.05% Na Spr 16 Gm Btl (*Bkc) NASAL 1 spray DAILY ABRAHAM Administration Sodium Chloride 1,000 mls @ 125 mls/hr 04/13/24 14:30 04/14/24 07:33 Normal Saline Iv IV CONT 125 mls/hr .Q8H ABRAHAM Administration Morphine Sulfate 2 mg 04/13/24 14:29 04/14/24 11:03 Morphine Sulfate (*Crx) 2 Mg/Ml Inj IV PUSH 2 mg Q2H PRN Administration Pain Rated 7-10 Morphine Sulfate 1 mg 04/13/24 14:43 04/13/24 23:25 Morphine Sulfate (*Crx) 2 Mg/Ml Inj IV PUSH 1 mg Q2H PRN Administration pain 4-6 Ondansetron HCl 4 mg 04/13/24 14:29 04/14/24 03:26 Ondansetron Inj 4 Mg/2 Ml Vial IV PUSH 4 mg Q4H PRN Administration Nausea Pantoprazole Sodium 40 mg 04/13/24 15:05 04/14/24 08:54 Pantoprazole Sodium Iv 40 Mg Vial IV PUSH 40 mg DAILY ABRAHAM Administration Radiology Results: ITS Impressions Abdomen/Pelvis CT 04/13/24 12:32 IMPRESSION: 1. Small bowel obstruction with transition point in right abdomen. Labs Labs: Laboratory Results - last 24 hr 04/14/24 06:13 WBC 7.3 RBC 4.37 Hgb 13.2 Hct 41.6 MCV 95.2 MCH 30.2 MCHC 31.7 L RDW 14.5 Plt Count 349 MPV 8.8 Immature Gran % (Auto) 0.6 H Neut % (Auto) 73.5 H Lymph % (Auto) 15.1 L [place] % (Auto) 8.9 H Eos % (Auto) 1.2 Baso % (Auto) 0.7 Lymph # (Auto) 1.10 [place] # (Auto) 0.7 H Eos # (Auto) 0.1 Baso # (Auto) 0.1 Abs Immat Gran (auto) 0.04 H Absolute Neuts (auto) 5.3 Absolute Nucleated RBC 0.000 Nucleated RBC % 0.0 Sodium 139 Potassium 4.1 Chloride 110 H Carbon Dioxide 23 Anion Gap 6 BUN 11 Creatinine 0.80 Estim Creat Clear Calc Not Reportable Estimated GFR > 60 Glucose 103 Calcium 7.8 L Magnesium 2.8 H Total Bilirubin 0.6 AST 726 H ALT 423 H Alkaline Phosphatase 208 H Total Protein 7.0 Albumin 3.6 Quality VTE Prophylaxis VTE prophylaxis: mechanical ordered -Patient's previous records reviewed on admission -ER notes reviewed in detail on admission -discussed all findings and current treatment plan with patient/Family/POA -Consultations reviewed for recommendations -Patient's disposition for safe discharge discussed with showcase trimmer Dictation performed by [employer] direct speech recognition software, therefore subcontract manager variants and typographical errors may occur. Hospitalist MIPS Advance Care Plan I have confirmed that the patient's Advanced Care Plan is present, code status is documented, or surrogate decision maker is listed in patient medical record.: Yes Medication Reconciliation I have utilized all available resources to obtain, update and review the patients current medications (includes all prescriptions, OTC, herbals, cannabis, and nutritional supplements).: Yes The patient is not eligible for med reconciliation; the patient is in a emergent medical situation where delaying treatment would jeopardize the patients health.: No
[2024-04-14 13:34] VITALS: BP 121/74; PULSE 87; RESP 20; TEMP 36.6; O2SAT 96
--- NOTE | 2024-04-14 14:02 | P.CONGS_ITS ---
Assessment and Plan Assessment and plan (1) SBO (small bowel obstruction): Code(s): K56.609 - Unspecified intestinal obstruction, unspecified as to partial versus complete obstruction Status: Acute Assessment and Plan: * I have reviewed the CT and discussed the findings with the patient. She has evidence of a recurrent small-bowel obstruction. She appears comfortable and is not ill-appearing. She has no peritoneal signs on exam. Will continue bowel rest at this time. NG tube placement could be considered for persistent nausea or vomiting, but at this time patient appears relatively comfortable. Will get a obstructive series in the morning and consider small-bowel follow- through in the next 1-2 days if bowel obstruction persists. Discussed that surgical exploration could be required if bowel obstruction is not resolving. Will continue to follow along with patient with serial abdominal exams. 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 She began having abdominal pain that progressed throughout the day on 04/12/2024. She also began having some nausea but denied any vomiting. She was feeling bloated and having diffuse lower abdominal pain. Her last bowel movement was Monday evening, and currently she denies passing flatus or any bowel movements. She presented to the emergency department on 04/13/[address] showed evidence of a small-bowel obstruction. She states that NG tube cannot be placed blindly because of her history of a gastric bypass and this usually has to be done under fluoroscopic guidance. She has had a couple bowel obstructions in the past. She states that 1 was in 2017 and was treated laparoscopically. She then had another bowel obstruction in 2022 and required exploratory laparotomy with lysis of adhesions. She states she did eat some peanuts prior to her symptoms starting but it was not a large amount. She denies any other dietary changes that could have caused any of these symptoms. Review of Systems Review of Systems: All systems reviewed & are unremarkable except as noted in HPI and below Constitutional: Constitutional: Denies chills and Denies fever(s) Eyes: Eyes: Denies change in vision ENT: Denies hearing loss, Denies neck pain and Denies sore throat Cardiovascular: Cardiovascular: Denies chest pain and Denies dyspnea Respiratory: Respiratory: Denies cough, Denies dyspnea and Denies wheezing Gastrointestinal: Gastrointestinal: Reports as per HPI Genitourinary: Genitourinary: Denies hematuria and Denies dysuria Musculoskeletal: Musculoskeletal: Denies arthralgias, Denies joint swelling and Denies neck pain Allergic/Immunologic: Allergic/Immunologic: Denies wheezing [facility] Past Medical History Medical History (Updated 04/14/24 @ 13:27 by Tereza Ovalle APRN) Allergic rhinitis Anxiety Asthma-COPD overlap syndrome Bipolar affective disorder Cellulitis of left lower extremity Encounter for surgical aftercare following surgery on the digestive system Essential (primary) hypertension Gastroesophageal reflux disease without esophagitis Left hip pain Mixed hyperlipidemia Open abdominal wall wound Osteopenia Pulmonary embolism (2003) Possibly related to hormone use. Right knee DJD SBO (small bowel obstruction) Subclinical hyperthyroidism Superficial postoperative wound infection Traumatic arthritis of right ankle Valgus foot deformity, acquired Vitamin B12 deficiency Vitamin D deficiency Surgical History Surgical History History of carpal tunnel surgery of right wrist History of cataract extraction with lens replacement History of fundoplication History of hysterectomy for benign disease History of intestinal surgery Enterotomy, removal of intraluminal obstructing mass on 08/16/22 History of laparotomy History of nasal septoplasty S/P total knee arthroplasty 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 CODE STATUS: Full code. Smoking packs per day: 2 Smoking cigarettes per day: 40.0 Years smoked: 25 Smoking pack-years: 50.00 Smoking status: Former smoker Tobacco type: cigarettes Second hand tobacco smoke exposure: No Smoking end date: 06/19/99 Additional smoking assessment comments: DENIES ANY FORM OF TOBACCO USE Alcohol intake: never Substance use: never Substance use type: does not use Do You Feel Safe in your Home?: Yes Lack of Transportation: No Lack of Food: Never True Current Housing: I Have Housing Concerned About Future Housing: No Difficulty Paying Gas/Electric Bills: No Difficulty Paying for Meds: No Currently Unemployed: No Education: Bachelor's Degree Difficulty w/ Childcare or Family Care: No Living arrangements: other Additional living arrangements comments: with sp Spiritual care concerns: No Meds Home Medications and Allergies Home Medications Medication Instructions Recorded Confirmed Type aspirin 81 mg tablet,delayed 81 mg PO BID 12/25/19 04/13/24 History release (Geni Low Dose Aspirin) buspirone 7.5 mg tablet 7.5 mg PO BID 12/25/19 04/13/24 History lamotrigine 100 mg tablet 100 mg PO HS 12/25/19 04/13/24 History (Lamictal) topiramate 50 mg tablet (Topamax) 50 mg PO BID BIPOLAR 12/25/19 04/13/24 History acetaminophen 500 mg capsule 500 mg PO Q6-8H PRN Pain 01/21/20 04/13/24 History calcium carbonate (Calcium 500) 500 mg PO TID 01/21/20 04/13/24 History aripiprazole 15 mg tablet (Abilify) 15 mg PO DAILY 07/24/20 04/13/24 History quetiapine 300 mg tablet (Seroquel) 300 mg PO QHS 09/01/21 04/13/24 History magnesium 250 mg tablet 750 mg PO BID 10/18/21 04/13/24 History estradiol 0.01% (0.1 mg/gram) 1 applic vaginal 3XW 10/27/21 04/13/24 History vaginal cream pediatric multivitamin 2 tablet PO HS 10/27/21 04/13/24 History albuterol sulfate 90 mcg/actuation 1 - 2 inh inhalation Q4-6H PRN 03/28/22 04/13/24 Rx aerosol inhaler shortness of breath or wheezing #25.5 grams montelukast 10 mg tablet See Rx Instructions .Route 03/28/22 04/13/24 Rx .COMPLEX #90 tabs alendronate 70 mg tablet 70 mg PO WEEKLY 08/14/22 04/13/24 History fluticasone propionate 50 1 spray intranasal DAILY 02/08/23 04/13/24 History mcg/actuation nasal spray,suspension (Flonase Allergy Relief) pravastatin 80 mg tablet See Rx Instructions .Route 08/30/23 04/13/24 Rx .COMPLEX #90 tabs pantoprazole 40 mg tablet,delayed 40 mg PO QAM #90 tabs 09/13/23 04/13/24 Rx release (Protonix) cyclobenzaprine 5 mg tablet 5 mg PO TID PRN muscle spasm #20 04/09/24 04/13/24 Rx tabs Claritin 10 mg PO DAILY 04/13/24 04/13/24 History Allergies Allergy/AdvReac Type Severity Reaction Status Date / Time Sulfa (Sulfonamide Allergy Severe Rash Verified 04/13/24 14:43 Antibiotics) Penicillins Allergy Intermediate Rash Verified 04/13/24 14:43 Cephalosporins Allergy Mild Rash IN Verified 04/13/24 14:43 MOUTH succinylcholine Allergy Other Verified 04/13/24 14:43 erythromycin base AdvReac Intermediate GI UPSET, Verified 04/13/24 14:43 ABDOMINAL PAIN ANESTHETIC GASES Allergy Other Uncoded 04/13/24 14:43 Vital Signs Vital Signs - 24 hr 04/13/24 16:00 04/13/24 20:11 04/13/24 20:00 Temperature 97.3 F L 98.1 F Pulse Rate 92 78 Respiratory Rate 22 H 16 Blood Pressure 140/91 H 105/63 Pulse Oximetry 99 100 Oxygen Delivery Room Air 04/14/24 05:31 04/14/24 08:07 04/14/24 08:55 Temperature 98.1 F Pulse Rate 85 Respiratory Rate 14 Blood Pressure 122/80 Pulse Oximetry 98 99 Oxygen Delivery Room Air Room Air 04/14/24 13:34 Temperature 98 F Pulse Rate 87 Respiratory Rate 20 Blood Pressure 121/74 Pulse Oximetry 96 Oxygen Delivery Exam Const: General: alert; No acute distress Orientation/consciousness: patient oriented x3 Limitations: no limitations HENMT: Head: normocephalic and atraumatic Ears: hearing grossly normal bilaterally Face/Nose/Sinus: Normal external nose present and Normal nares present Mouth: Yes Normal oral and palatal mucosa present and Yes moist mucous membranes Eyes: General: appearance normal, both eyes and all related structures Conjunctivae: conjunctivae normal Sclera: sclerae normal Pupils: Equal, round and reactive pupils present EOM: EOMs intact bilaterally Neck: Neck: normal visual inspection, full ROM, no lymphadenopathy, supple and no JVD Lymphatic: no lymphadenopathy noted Chest: Chest palpation & inspection: normal inspection of the chest Resp: Effort & Inspection: normal respiratory effort and able to speak in complete sentences Auscultation: clear to auscultation bilaterally Percussion: percussion normal Cardio: Jugular venous distension: no JVD Rate: regular rate Rhythm: regular rhythm Heart sounds: S1 normal heart sound present and S2 normal heart sound present Peripheral pulses: Peripheral pulses 2+ throughout GI: Inspection: normal to inspection GI Palp: Yes Soft to palpation, Yes Tenderness to palpation present (GI) (Mild lower abdominal), No Guarding due to palpation present (GI) and No Rebound tenderness present Auscultation: Hypoactive bowel sounds present : General: Yes no CVA tenderness Back/Spine/Pelvis: Back: no CVA tenderness Skin: General skin exam: normal color and dry skin Neuro: General: patient oriented x3, gait normal, moves all extremities, no focal motor deficits and CN's II-XI intact bilaterally Cranial nerves: Yes Equal, round and reactive pupils present Speech: normal speech Extrem: General: normal to inspection and capillary refill normal Results Labs 04/14/24 06:13 04/14/24 06:13 Labs: Abnormal lab results 04/14/24 Range/Units 06:13 MCHC 31.7 L (32-36) g/dl Immature Gran % (Auto) 0.6 H (0-0.5) % Neut % (Auto) 73.5 H (45.5-73.1) % Lymph % (Auto) 15.1 L (18.3-44.2) % [place] % (Auto) 8.9 H (2.6-8.5) % [place] # (Auto) 0.7 H (0.1-0.6) K/mm3 Abs Immat Gran (auto) 0.04 H (0.00-0.031) K/mm3 Chloride 110 H (98-107) mmol/L Calcium 7.8 L (8.4-10.2) mg/dL Magnesium 2.8 H (1.6-2.3) mg/dL AST 726 H (14-36) U/L ALT 423 H (6-35) U/L Alkaline Phosphatase 208 H (38-126) U/L Diabetes panel 04/14/24 Range/Units 06:13 Sodium 139 (137-145) mmol/L Potassium 4.1 (3.4-5.0) mmol/L Chloride 110 H (98-107) mmol/L Carbon Dioxide 23 (22-30) mmol/L BUN 11 (7-17) mg/dL Creatinine 0.80 (0.7-1.0) mg/dL Glucose 103 (65-110) mg/dL Calcium 7.8 L (8.4-10.2) mg/dL AST 726 H (14-36) U/L ALT 423 H (6-35) U/L Alkaline Phosphatase 208 H (38-126) U/L Total Protein 7.0 (6.3-8.2) g/dL Albumin 3.6 (3.5-5.1) g/dL Calcium panel 04/14/24 Range/Units 06:13 Calcium 7.8 L (8.4-10.2) mg/dL Albumin 3.6 (3.5-5.1) g/dL Pituitary panel 04/14/24 Range/Units 06:13 Sodium 139 (137-145) mmol/L Potassium 4.1 (3.4-5.0) mmol/L Chloride 110 H (98-107) mmol/L Carbon Dioxide 23 (22-30) mmol/L BUN 11 (7-17) mg/dL Creatinine 0.80 (0.7-1.0) mg/dL Glucose 103 (65-110) mg/dL Calcium 7.8 L (8.4-10.2) mg/dL Adrenal panel 04/14/24 Range/Units 06:13 Sodium 139 (137-145) mmol/L Potassium 4.1 (3.4-5.0) mmol/L Chloride 110 H (98-107) mmol/L Carbon Dioxide 23 (22-30) mmol/L BUN 11 (7-17) mg/dL Creatinine 0.80 (0.7-1.0) mg/dL Glucose 103 (65-110) mg/dL Calcium 7.8 L (8.4-10.2) mg/dL Total Bilirubin 0.6 (0.2-1.3) mg/dL AST 726 H (14-36) U/L ALT 423 H (6-35) U/L Alkaline Phosphatase 208 H (38-126) U/L Total Protein 7.0 (6.3-8.2) g/dL Albumin 3.6 (3.5-5.1) g/dL All other labs normal. Imaging Additional studies: ITS Impressions Abdomen/Pelvis CT 04/13/24 12:32 IMPRESSION: 1. Small bowel obstruction with transition point in right abdomen.
--- NOTE | 2024-04-14 17:40 | PC.NURSE ---
On 04/14/24, the SPECIAL EDUCATION SUPERINTENDENT, Tawnya Harrell, provided care and completed [facility] documentation on this patient. I have reviewed the SPECIAL EDUCATION SUPERINTENDENT's documentation and agree with the findings.
[2024-04-14 20:59] VITALS: BP 127/89; PULSE 94; RESP 18; TEMP 36.4; O2SAT 97
[2024-04-15] MEDS: MORPHINE SULFATE (*CRX) 2 MG/ML INJ IV PUSH ×3 (01:23→20:02)
[2024-04-15 05:21] VITALS: BP 110/78; PULSE 85; RESP 17; TEMP 36.8; O2SAT 99
[2024-04-15 06:34] LABS: Basophils Absolute Auto 0.1 K/mm3 (0.0-0.1); Basophils Percent Auto 0.9 % (0.2-1.2); Eosinophils Absolute Auto 0.2 K/mm3 (0-0.3); Eosinophils Percent Auto 2.2 % (0-4.4); Hematocrit 42.4 % (37.0-47.0); Hemoglobin 12.6 g/dL (12.0-15.0); Immature Granulocyte Absolute 0.08 K/mm3 (0.00-0.031); Immature Granulocyte Percent A 1.1 % (0-0.5); Lymphocytes Absolute Auto 0.87 K/mm3 (0.9-3.2); Lymphocytes Percent Auto 11.5 % (18.3-44.2); Mean Corpuscular HGB Conc 29.7 g/dl (32-36); Mean Corpuscular Hemoglobin 29.6 pg (26-34); Mean Corpuscular Volume 99.5 fl (80-100); Mean Platelet Volume 8.9 fl (7.4-10.4); Monocytes Absolute Auto 0.7 K/mm3 (0.1-0.6); Monocytes Percent Auto 8.9 % (2.6-8.5); Neutrophils Absolute Auto 5.7 K/mm3 (1.3-6.7); Neutrophils Percent Auto 75.4 % (45.5-73.1); Platelet Count Result 332 k/mm3 (150-375); Red Blood Count 4.26 M/mm3 (4.2-5.4); Red Cell Distribution Width 14.9 % (11.5-14.5); White Blood Count 7.6 K/mm3 (4.5-10.0)
[2024-04-15 06:44] LABS: Alanine Aminotransferase 315 U/L (6-35); Albumin Level 3.6 g/dL (3.5-5.1); Alkaline Phosphatase 289 U/L (38-126); Anion Gap 11 mmol/L (4-12); Aspartate Amino Transferase 345 U/L (14-36); Bilirubin,Total 0.9 mg/dL (0.2-1.3); Blood Urea Nitrogen 13 mg/dL (7-17); Calcium 7.6 mg/dL (8.4-10.2); Carbon Dioxide 17 mmol/L (22-30); Chloride 110 mmol/L (98-107); Estimated Glomerular Filt Rate > 60; Glucose 81 mg/dL (65-110); Potassium 4.2 mmol/L (3.4-5.0); Sodium 138 mmol/L (137-145)
[2024-04-15 07:09] LABS: Platelet Estimate Adequate (Adequate); Schistocytes None Seen
[2024-04-15] MEDS: PANTOPRAZOLE SODIUM IV 40 MG VIAL IV PUSH (08:10)
[2024-04-15] MEDS: FLUTICASONE PROPIONATE 0.05% NA SPR 16 GM BTL (*BKC) 1 SPRAY NASAL (08:10)
--- NOTE | 2024-04-15 11:17 | P.PNGS_ITS ---
Progress Note: A&P Assessment and Plan (1) SBO (small bowel obstruction): Code(s): K56.609 - Unspecified intestinal obstruction, unspecified as to partial versus complete obstruction Status: Acute Assessment and Plan: * Abdominal pain and nausea improved, but no signs of bowel function yet. Obstructive series still showing small bowel obstruction. * Will order a Dulcolax suppository today. Encouraged her to get up and walk the halls. * Continue bowel rest and IV fluids. Will still defer NG placement as her nausea has subsided. * Plan for a small bowel follow through tomorrow morning to further evaluate. 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 Turner. Subjective Subjective Date/Time Seen: 04/15/24 11:17 Patient reports: feels better, pain is less, voiding w/o difficulty, no flatus and no bowel movement Interval history: She reports feeling better today. Her abdominal pain is much better. She is no longer feeling nauseated. She feels like she could pass flatus, but has not yet. No bowel movement. Exam Const: General: comfortable and no acute distress Nutritional Appearance: overweight Orientation/consciousness: patient oriented x3 GI: Inspection: distended GI Palp: Yes Soft to palpation, Yes Tenderness to palpation present (GI) (Mild tenderness in the left upper quadrant and left lower quadrant), No Guarding due to palpation present (GI) and No Rebound tenderness present Auscultation: Hypoactive bowel sounds present Objective Data Vital Signs Vital Signs: Vital Signs - 24 hr 04/14/24 13:34 04/14/24 20:59 04/15/24 05:21 Temperature 98 F 97.6 F 98.3 F Pulse Rate 87 94 85 Respiratory Rate 20 18 17 Blood Pressure 121/74 127/89 110/78 Pulse Oximetry 96 97 99 Oxygen Delivery 04/15/24 08:14 Temperature Pulse Rate Respiratory Rate Blood Pressure Pulse Oximetry Oxygen Delivery Room Air Intake/Output Intake/Output: Intake & Output 04/12/24 04/13/24 04/14/24 04/15/24 23:59 23:59 23:59 23:59 Intake Total 1000 3502.1 130 Output Total 1400 500 Balance 1000 2102.1 -370 Meds/Results Medications: Active Medications Generic Name Dose Route Start Last Admin Trade Name Freq PRN Reason Stop Dose Admin Albuterol 2 puff 04/13/24 18:53 Albuterol Sulfate (*Sp) Aerosol 1 Puff INHALATION Q4H PRN shortness of breath or wheezing Fluticasone Propionate 1 spray 04/14/24 09:00 04/15/24 08:10 Fluticasone Propionate 0.05% Na Spr 16 Gm Btl (*Bkc) NASAL 1 spray DAILY ABRAHAM Administration Sodium Chloride 1,000 mls @ 125 mls/hr 04/13/24 14:30 04/14/24 23:08 Normal Saline Iv IV CONT 125 mls/hr .Q8H ABRAHAM Administration Morphine Sulfate 2 mg 04/13/24 14:29 04/15/24 05:00 Morphine Sulfate (*Crx) 2 Mg/Ml Inj IV PUSH 2 mg Q2H PRN Administration Pain Rated 7-10 Morphine Sulfate 1 mg 04/13/24 14:43 04/13/24 23:25 Morphine Sulfate (*Crx) 2 Mg/Ml Inj IV PUSH 1 mg Q2H PRN Administration pain 4-6 Ondansetron HCl 4 mg 04/13/24 14:29 04/14/24 03:26 Ondansetron Inj 4 Mg/2 Ml Vial IV PUSH 4 mg Q4H PRN Administration Nausea Pantoprazole Sodium 40 mg 04/13/24 15:05 04/15/24 08:10 Pantoprazole Sodium Iv 40 Mg Vial IV PUSH 40 mg DAILY ABRAHAM Administration Radiology Results: ITS Impressions Abdomen/Pelvis CT 04/13/24 12:32 IMPRESSION: 1. Small bowel obstruction with transition point in right abdomen. Abdomen X-Ray 04/15/24 08:50 IMPRESSION: 1. Persistently dilated small bowel, consistent with small bowel obstruction. Labs Labs: Laboratory Results - last 24 hr 04/15/24 06:06 WBC 7.6 RBC 4.26 Hgb 12.6 Hct 42.4 MCV 99.5 MCH 29.6 MCHC 29.7 L RDW 14.9 H Plt Count 332 MPV 8.9 Immature Gran % (Auto) 1.1 H Neut % (Auto) 75.4 H Lymph % (Auto) 11.5 L [place] % (Auto) 8.9 H Eos % (Auto) 2.2 Baso % (Auto) 0.9 Lymph # (Auto) 0.87 L [place] # (Auto) 0.7 H Eos # (Auto) 0.2 Baso # (Auto) 0.1 Abs Immat Gran (auto) 0.08 H Absolute Neuts (auto) 5.7 Absolute Nucleated RBC 0.000 Nucleated RBC % 0.0 Platelet Estimate Adequate Schistocytes None seen Sodium 138 Potassium 4.2 Chloride 110 H Carbon Dioxide 17 L Anion Gap 11 BUN 13 Creatinine 0.80 Estim Creat Clear Calc Not Reportable Estimated GFR > 60 Glucose 81 Calcium 7.6 L Total Bilirubin 0.9 AST 345 H ALT 315 H Alkaline Phosphatase 289 H Total Protein 7.0 Albumin 3.6
[2024-04-15] MEDS: BISACODYL 10 MG SUPPOSITORY RECTAL (11:35)
[2024-04-15 14:00] VITALS: BP 113/65; PULSE 88; RESP 19; TEMP 36.4; O2SAT 97
--- NOTE | 2024-04-15 14:31 | P.PNIM_ITS ---
Progress Note: A&P Assessment and Plan (1) SBO (small bowel obstruction): Code(s): K56.609 - Unspecified intestinal obstruction, unspecified as to partial versus complete obstruction Status: Acute Assessment and Plan: --Patient reports abdominal pain that is cramping and bloating in nature that started last night. * CT of the abdomen/pelvis shown SBO with transition point in right abdomen * Continue pain and nausea control * General surgery consulted * Not a candidate for NGT due to Leonard-en-Y procedure, would have to be placed with scope if needed. Continue to monitor for now considering she has not had any vomiting. * Initial labs unremarkable * Continue IVF for hydration * Keep NPO 04/14/24 * still BM or flatus * liver ALT/AST/ALKPHOS elevated today * NPO ice chips * Likely need surgical intervention will wait on surgery recommendations * Antimetics * normal WBC * Pain control * encourage ambulation 04/15/24: * Pts exam still without bowel sounds. * Continue to follow surgery recommendations. * PRN pain meds and anti-emetics as needed. * NPO except ice chips * SBFT ordered for AM per surgery. 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: Code(s): Z90.3 - Acquired absence of stomach [part of]; Z98.0 - Intestinal bypass and anastomosis status Status: Chronic Assessment and Plan: of note, patient can not have NGT placement due to history (3) Gastroesophageal reflux disease without esophagitis: Code(s): K21.9 - Gastro-esophageal reflux disease without esophagitis Status: Chronic Assessment and Plan: * Start Protonix IV (4) Bipolar affective disorder: Qualifiers: Active/Remission status: remission status unspecified Qualified Code(s): F31.9 - Bipolar disorder, unspecified Code(s): F31.9 - Bipolar disorder, unspecified Status: Chronic Assessment and Plan: * Abilify and Seroquel on hold due to NPO status (5) Anxiety: Code(s): F41.9 - Anxiety disorder, unspecified Status: Chronic Assessment and Plan: * Buspirone on hold due to NPO status * monitor for now (6) Hyperlipidemia: Code(s): E78.5 - Hyperlipidemia, unspecified Status: Chronic Assessment and Plan: * aspirin and pravastatin on hold due to NPO status (7) Elevated liver enzymes: Code(s): R74.8 - Abnormal levels of other serum enzymes Status: Acute Assessment and Plan: * secondary to SBO? * monitor for downtrend * If no improvement will get US 04/15/24: * Transaminitis remains, however trending downward. * Pt without any abdominal pain today * Continue to trend, but agree with US if any worsening of pain or rise in levels of ALT and AST. * Appreciate Surgery input as to whether or not this is possibly due to the SBO. Plan Code status: Full code per patient DVT prophylaxis: SCD's Stress ulcer prophylaxis: NA PT/OT notes: Ambulatory Disposition: Patient continues admission to the medical unit for treatment and evaluation SBO remains NPO will have evaluation and recommendations from surgery may require surgical intervention if no resolution. Patient is ambulatory plan will be to return when medically stable. Time Spent With Patient Time with patient: 15 - 25 minutes Subjective Date/time seen: 04/15/24 1230 Interval history: This very pleasant pt was examined at the bedside today after being admitted for SBO. She is being followed by surgery and is a special case as she has hx of Leonard-en-Y gastric bypass. Thus far, she is still showing s/s of SBO without any bowel function, however her nausea has resolved today and her pain has improved greatly. She is not vomiting, and has no other acute complaints at this time. We will continue to follow surgeries lead. Review of Systems Review of Systems: All systems reviewed & are unremarkable except as noted in HPI and below Exam Narrative: * GENERAL: Alert and oriented x 3. No acute distress. * EYES: EOMI. No scleral icterus. PERRLA. * HEENT: Moist mucous membranes. * LUNGS: Clear to auscultation bilaterally. No accessory muscle use. * CARDIOVASCULAR: Regular rate and rhythm. No murmur. No JVD. S1-S2 * ABDOMEN: Soft, NT, no bowel sounds audible. * EXTREMITIES: No edema. Non-tender * SKIN: No rashes or lesions. Skin warm, dry. * NEUROLOGIC: No focal neurological deficits. CN II-XII grossly intact * PSYCHIATRIC: Appropriate mood and affect. Good judgement and insight. No visual or auditory hallucinations. Objective Data Vital Signs Vital Signs: Vital Signs - 24 hr 04/14/24 20:59 04/15/24 05:21 04/15/24 08:14 Temperature 97.6 F 98.3 F Pulse Rate 94 85 Respiratory Rate 18 17 Blood Pressure 127/89 110/78 Pulse Oximetry 97 99 Oxygen Delivery Room Air 04/15/24 14:00 Temperature 97.5 F L Pulse Rate 88 Respiratory Rate 19 Blood Pressure 113/65 Pulse Oximetry 97 Oxygen Delivery Intake/Output Intake/Output: Intake & Output 04/12/24 04/13/24 04/14/24 04/15/24 23:59 23:59 23:59 23:59 Intake Total 1000 3502.1 250 Output Total 1400 700 Balance 1000 2102.1 -450 Meds/Results Medications: Active Medications Generic Name Dose Route Start Last Admin Trade Name Freq PRN Reason Stop Dose Admin Albuterol 2 puff 04/13/24 18:53 Albuterol Sulfate (*Sp) Aerosol 1 Puff INHALATION Q4H PRN shortness of breath or wheezing Fluticasone Propionate 1 spray 04/14/24 09:00 04/15/24 08:10 Fluticasone Propionate 0.05% Na Spr 16 Gm Btl (*Bkc) NASAL 1 spray DAILY ABRAHAM Administration Sodium Chloride 1,000 mls @ 125 mls/hr 04/13/24 14:30 04/14/24 23:08 Normal Saline Iv IV CONT 125 mls/hr .Q8H ABRAHAM Administration Morphine Sulfate 2 mg 04/13/24 14:29 04/15/24 05:00 Morphine Sulfate (*Crx) 2 Mg/Ml Inj IV PUSH 2 mg Q2H PRN Administration Pain Rated 7-10 Morphine Sulfate 1 mg 04/13/24 14:43 04/13/24 23:25 Morphine Sulfate (*Crx) 2 Mg/Ml Inj IV PUSH 1 mg Q2H PRN Administration pain 4-6 Ondansetron HCl 4 mg 04/13/24 14:29 04/14/24 03:26 Ondansetron Inj 4 Mg/2 Ml Vial IV PUSH 4 mg Q4H PRN Administration Nausea Pantoprazole Sodium 40 mg 04/13/24 15:05 04/15/24 08:10 Pantoprazole Sodium Iv 40 Mg Vial IV PUSH 40 mg DAILY ABRAHAM Administration Radiology Results: ITS Impressions Abdomen/Pelvis CT 04/13/24 12:32 IMPRESSION: 1. Small bowel obstruction with transition point in right abdomen. Abdomen X-Ray 04/15/24 08:50 IMPRESSION: 1. Persistently dilated small bowel, consistent with small bowel obstruction. Labs Labs: Laboratory Results - last 24 hr 04/15/24 06:06 WBC 7.6 RBC 4.26 Hgb 12.6 Hct 42.4 MCV 99.5 MCH 29.6 MCHC 29.7 L RDW 14.9 H Plt Count 332 MPV 8.9 Immature Gran % (Auto) 1.1 H Neut % (Auto) 75.4 H Lymph % (Auto) 11.5 L [place] % (Auto) 8.9 H Eos % (Auto) 2.2 Baso % (Auto) 0.9 Lymph # (Auto) 0.87 L [place] # (Auto) 0.7 H Eos # (Auto) 0.2 Baso # (Auto) 0.1 Abs Immat Gran (auto) 0.08 H Absolute Neuts (auto) 5.7 Absolute Nucleated RBC 0.000 Nucleated RBC % 0.0 Platelet Estimate Adequate Schistocytes None seen Sodium 138 Potassium 4.2 Chloride 110 H Carbon Dioxide 17 L Anion Gap 11 BUN 13 Creatinine 0.80 Estim Creat Clear Calc Not Reportable Estimated GFR > 60 Glucose 81 Calcium 7.6 L Total Bilirubin 0.9 AST 345 H ALT 315 H Alkaline Phosphatase 289 H Total Protein 7.0 Albumin 3.6 Quality VTE Prophylaxis VTE prophylaxis: mechanical ordered
[2024-04-15] MEDS: SODIUM CHLORIDE 0.9% IV 1,000 ML 125 ML IV CONT ×2 (15:50→23:45)
[2024-04-15 20:30] VITALS: BP 169/69; PULSE 89; RESP 18; TEMP 36.6; O2SAT 98
[2024-04-16 04:58] VITALS: BP 138/69; PULSE 89; RESP 17; TEMP 36.8; O2SAT 100
[2024-04-16] MEDS: SODIUM CHLORIDE 0.9% IV 1,000 ML 125 ML IV CONT ×2 (07:45→21:16)
[2024-04-16 08:01] LABS: Alanine Aminotransferase 222 U/L (6-35); Albumin Level 3.8 g/dL (3.5-5.1); Alkaline Phosphatase 239 U/L (38-126); Anion Gap 18 mmol/L (4-12); Aspartate Amino Transferase 130 U/L (14-36); Bilirubin,Total 0.5 mg/dL (0.2-1.3); Blood Urea Nitrogen 9 mg/dL (7-17); Calcium 7.9 mg/dL (8.4-10.2); Carbon Dioxide 12 mmol/L (22-30); Chloride 113 mmol/L (98-107); Estimated Glomerular Filt Rate > 60; Glucose 73 mg/dL (65-110); Magnesium 2.6 mg/dL (1.6-2.3); Potassium 4.6 mmol/L (3.4-5.0); Sodium 143 mmol/L (137-145)
[2024-04-16 08:02] LABS: Basophils Absolute Auto 0.1 K/mm3 (0.0-0.1); Basophils Percent Auto 0.9 % (0.2-1.2); Eosinophils Absolute Auto 0.2 K/mm3 (0-0.3); Eosinophils Percent Auto 2.2 % (0-4.4); Hematocrit 41.9 % (37.0-47.0); Hemoglobin 12.7 g/dL (12.0-15.0); Immature Granulocyte Absolute 0.16 K/mm3 (0.00-0.031); Immature Granulocyte Percent A 2.3 % (0-0.5); Lymphocytes Absolute Auto 0.76 K/mm3 (0.9-3.2); Mean Corpuscular HGB Conc 30.3 g/dl (32-36); Mean Corpuscular Volume 99.1 fl (80-100); Mean Platelet Volume 8.9 fl (7.4-10.4); Monocytes Absolute Auto 0.4 K/mm3 (0.1-0.6); Monocytes Percent Auto 5.7 % (2.6-8.5); Neutrophils Absolute Auto 5.4 K/mm3 (1.3-6.7); Neutrophils Percent Auto 77.9 % (45.5-73.1); Platelet Count Result 353 k/mm3 (150-375); Red Blood Count 4.23 M/mm3 (4.2-5.4); Red Cell Distribution Width 14.8 % (11.5-14.5); White Blood Count 6.9 K/mm3 (4.5-10.0)
--- NOTE | 2024-04-16 13:45 | P.PNIM_ITS ---
Progress Note: A&P Assessment and Plan (1) SBO (small bowel obstruction): Code(s): K56.609 - Unspecified intestinal obstruction, unspecified as to partial versus complete obstruction Status: Acute Assessment and Plan: --Patient reports abdominal pain that is cramping and bloating in nature that started last night. * CT of the abdomen/pelvis shown SBO with transition point in right abdomen * Continue pain and nausea control * General surgery consulted * Not a candidate for NGT due to Leonard-en-Y procedure, would have to be placed with scope if needed. Continue to monitor for now considering she has not had any vomiting. * Initial labs unremarkable * Continue IVF for hydration * Keep NPO 04/14/24 * still BM or flatus * liver ALT/AST/ALKPHOS elevated today * NPO ice chips * Likely need surgical intervention will wait on surgery recommendations * Antimetics * normal WBC * Pain control * encourage ambulation 04/15/24: * Pts exam still without bowel sounds. * Continue to follow surgery recommendations. * PRN pain meds and anti-emetics as needed. * NPO except ice chips * SBFT ordered for AM per surgery. 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: Code(s): Z90.3 - Acquired absence of stomach [part of]; Z98.0 - Intestinal bypass and anastomosis status Status: Chronic Assessment and Plan: of note, patient can not have NGT placement due to history (3) Gastroesophageal reflux disease without esophagitis: Code(s): K21.9 - Gastro-esophageal reflux disease without esophagitis Status: Chronic Assessment and Plan: * Start Protonix IV (4) Bipolar affective disorder: Qualifiers: Active/Remission status: remission status unspecified Qualified Code(s): F31.9 - Bipolar disorder, unspecified Code(s): F31.9 - Bipolar disorder, unspecified Status: Chronic Assessment and Plan: * Abilify and Seroquel on hold due to NPO status (5) Anxiety: Code(s): F41.9 - Anxiety disorder, unspecified Status: Chronic Assessment and Plan: * Buspirone on hold due to NPO status * monitor for now (6) Hyperlipidemia: Code(s): E78.5 - Hyperlipidemia, unspecified Status: Chronic Assessment and Plan: * aspirin and pravastatin on hold due to NPO status (7) Elevated liver enzymes: Code(s): R74.8 - Abnormal levels of other serum enzymes Status: Acute Assessment and Plan: * secondary to SBO? * monitor for downtrend * If no improvement will get US 04/15/24: * Transaminitis remains, however trending downward. * Pt without any abdominal pain today * Continue to trend, but agree with US if any worsening of pain or rise in levels of ALT and AST. * Appreciate Surgery input as to whether or not this is possibly due to the SBO. Plan Code status: Full code per patient DVT prophylaxis: SCD's Stress ulcer prophylaxis: NA PT/OT notes: Ambulatory Disposition: Patient continues admission to the medical unit for treatment and evaluation SBO remains NPO will have evaluation and recommendations from surgery may require surgical intervention if no resolution. Patient is ambulatory plan will be to return when medically stable. Time Spent With Patient Time with patient: 15 - 25 minutes Subjective Date/time seen: 04/16/24 13:45 Interval history: Patient is a 68-year-old female who admitted to the medical unit with diagnosis of small-bowel obstruction. 04/16/24: Assumed Care Minimal ABD pain. report flatulence and 2 small stools and denied nausea however obstructive series still showing small bowel obstruction with delayed passage. Patient with no fevers or chills no leukocytosis SBO is persistent will likely need exploratory bowel surgery. Review of Systems Review of Systems: All systems reviewed & are unremarkable except as noted in HPI and below Exam Narrative: * GENERAL: Alert and oriented x 3. No acute distress. * EYES: EOMI. No scleral icterus. PERRLA. * HEENT: Moist mucous membranes. * LUNGS: Clear to auscultation bilaterally. No accessory muscle use. * CARDIOVASCULAR: Regular rate and rhythm. No murmur. No JVD. S1-S2 * ABDOMEN: Soft, NT, no bowel sounds audible. * EXTREMITIES: No edema. Non-tender * SKIN: No rashes or lesions. Skin warm, dry. * NEUROLOGIC: No focal neurological deficits. CN II-XII grossly intact * PSYCHIATRIC: Appropriate mood and affect. Good judgement and insight. No visual or auditory hallucinations. Objective Data Vital Signs Vital Signs: Vital Signs - 24 hr 04/15/24 14:00 04/15/24 20:30 04/16/24 04:58 Temperature 97.5 F L 97.8 F 98.3 F Pulse Rate 88 89 89 Respiratory Rate 19 18 17 Blood Pressure 113/65 169/69 H 138/69 Pulse Oximetry 97 98 100 Oxygen Delivery 04/16/24 08:00 Temperature Pulse Rate Respiratory Rate Blood Pressure Pulse Oximetry Oxygen Delivery Room Air Intake/Output Intake/Output: Intake & Output 04/13/24 04/14/24 04/15/24 04/16/24 23:59 23:59 23:59 23:59 Intake Total 1000 3502.1 2290 10 Output Total 1400 1300 500 Balance 1000 2102.1 990 -490 Meds/Results Medications: Active Medications Generic Name Dose Route Start Last Admin Trade Name Freq PRN Reason Stop Dose Admin Albuterol 2 puff 04/13/24 18:53 Albuterol Sulfate (*Sp) Aerosol 1 Puff INHALATION Q4H PRN shortness of breath or wheezing Fluticasone Propionate 1 spray 04/14/24 09:00 04/15/24 08:10 Fluticasone Propionate 0.05% Na Spr 16 Gm Btl (*Bkc) NASAL 1 spray DAILY ABRAHAM Administration Sodium Chloride 1,000 mls @ 125 mls/hr 04/13/24 14:30 04/15/24 23:45 Normal Saline Iv IV CONT 125 mls/hr .Q8H ABRAHAM Administration Morphine Sulfate 2 mg 04/13/24 14:29 04/15/24 20:02 Morphine Sulfate (*Crx) 2 Mg/Ml Inj IV PUSH 2 mg Q2H PRN Administration Pain Rated 7-10 Morphine Sulfate 1 mg 04/13/24 14:43 04/13/24 23:25 Morphine Sulfate (*Crx) 2 Mg/Ml Inj IV PUSH 1 mg Q2H PRN Administration pain 4-6 Ondansetron HCl 4 mg 04/13/24 14:29 04/14/24 03:26 Ondansetron Inj 4 Mg/2 Ml Vial IV PUSH 4 mg Q4H PRN Administration Nausea Pantoprazole Sodium 40 mg 04/13/24 15:05 04/15/24 08:10 Pantoprazole Sodium Iv 40 Mg Vial IV PUSH 40 mg DAILY ABRAHAM Administration Radiology Results: ITS Impressions Abdomen/Pelvis CT 04/13/24 12:32 IMPRESSION: 1. Small bowel obstruction with transition point in right abdomen. Abdomen X-Ray 04/15/24 08:50 IMPRESSION: 1. Persistently dilated small bowel, consistent with small bowel obstruction. Small Bowel X-Ray 04/16/24 13:19 IMPRESSION: 1. Persistent small bowel obstruction with delayed passage of oral contrast requiring 4 hours to reach the colon passing through persistently dilated small bowel. Labs Labs: Laboratory Results - last 24 hr 04/16/24 07:20 WBC 6.9 RBC 4.23 Hgb 12.7 Hct 41.9 MCV 99.1 MCH 30.0 MCHC 30.3 L RDW 14.8 H Plt Count 353 MPV 8.9 Immature Gran % (Auto) 2.3 H Neut % (Auto) 77.9 H Lymph % (Auto) 11.0 L [place] % (Auto) 5.7 Eos % (Auto) 2.2 Baso % (Auto) 0.9 Lymph # (Auto) 0.76 L [place] # (Auto) 0.4 Eos # (Auto) 0.2 Baso # (Auto) 0.1 Abs Immat Gran (auto) 0.16 H Absolute Neuts (auto) 5.4 Absolute Nucleated RBC 0.000 Nucleated RBC % 0.0 Sodium 143 Potassium 4.6 Chloride 113 H Carbon Dioxide 12 L Anion Gap 18 H BUN 9 Creatinine 0.60 L Estim Creat Clear Calc Not Reportable Estimated GFR > 60 Glucose 73 Calcium 7.9 L Magnesium 2.6 H Total Bilirubin 0.5 AST 130 H ALT 222 H Alkaline Phosphatase 239 H Total Protein 7.0 Albumin 3.8 Quality VTE Prophylaxis VTE prophylaxis: mechanical ordered -Patient's previous records reviewed on admission -ER notes reviewed in detail on admission -discussed all findings and current treatment plan with patient/Family/POA -Consultations reviewed for recommendations -Patient's disposition for safe discharge discussed with case investigator Dictation performed by [id number] direct speech recognition software, therefore batch weigher variants and typographical errors may occur. Hospitalist MIPS Advance Care Plan I have confirmed that the patient's Advanced Care Plan is present, code status is documented, or surrogate decision maker is listed in patient medical record.: Yes Medication Reconciliation The patient is not eligible for med reconciliation; the patient is in a emergent medical situation where delaying treatment would jeopardize the patients health.: No
[2024-04-16 14:00] VITALS: BP 135/74; PULSE 95; RESP 20; TEMP 37.2; O2SAT 99
[2024-04-16] MEDS: PANTOPRAZOLE SODIUM IV 40 MG VIAL IV PUSH (14:18)
[2024-04-16] MEDS: FLUTICASONE PROPIONATE 0.05% NA SPR 16 GM BTL (*BKC) 1 SPRAY NASAL (14:19)
--- NOTE | 2024-04-16 15:38 | P.PNGS_ITS ---
Progress Note: A&P Assessment and Plan (1) SBO (small bowel obstruction): Code(s): K56.609 - Unspecified intestinal obstruction, unspecified as to partial versus complete obstruction Status: Acute Assessment and Plan: * Small bowel series today still showed a small bowel obstruction with oral contrast requiring 4 hours to reach the colon with persistently dilated small bowel. * She is now having bowel function and her abdominal pain has significantly improved. She is not having any nausea or vomiting. * Will keep her NPO again today with IV fluids. * We will repeat an obstructive series tomorrow morning to re-evaluate. If she still appears to have a small bowel obstruction, then she will likely require surgical exploration. Although, if it appears to be resolving, then we could try advancing her diet. 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 Turner. Subjective Subjective Date/Time Seen: 04/16/24 15:38 Patient reports: flatus and bowel movement Interval history: Patient had her small bowel series this morning. She tolerated this well with no nausea or vomiting. She denies any abdominal pain at the time of my exam. She reports still having some mild tenderness and soreness in the left lower quadrant. She had a formed bowel movement early this morning prior to the small-bowel series. Since then, she has had 4 more loose stools. Exam Const: General: comfortable and no acute distress Orientation/consciousness: patient oriented x3 GI: Inspection: other (less distended) GI Palp: Yes Soft to palpation (softer today), Yes Tenderness to palpation present (GI) (mild tenderness in the LLQ), No Guarding due to palpation present (GI) and No Rebound tenderness present Auscultation: Hypoactive bowel sounds present Objective Data Vital Signs Vital Signs: Vital Signs - 24 hr 04/15/24 20:30 04/16/24 04:58 04/16/24 08:00 Temperature 97.8 F 98.3 F Pulse Rate 89 89 Respiratory Rate 18 17 Blood Pressure 169/69 H 138/69 Pulse Oximetry 98 100 Oxygen Delivery Room Air Intake/Output Intake/Output: Intake & Output 04/13/24 04/14/24 04/15/24 04/16/24 23:59 23:59 23:59 23:59 Intake Total 1000 3502.1 2290 1010 Output Total 1400 1300 500 Balance 1000 2102.1 990 510 Meds/Results Medications: Active Medications Generic Name Dose Route Start Last Admin Trade Name Freq PRN Reason Stop Dose Admin Albuterol 2 puff 04/13/24 18:53 Albuterol Sulfate (*Sp) Aerosol 1 Puff INHALATION Q4H PRN shortness of breath or wheezing Fluticasone Propionate 1 spray 04/14/24 09:00 04/16/24 14:19 Fluticasone Propionate 0.05% Na Spr 16 Gm Btl (*Bkc) NASAL 1 spray DAILY ABRAHAM Administration Sodium Chloride 1,000 mls @ 125 mls/hr 04/13/24 14:30 04/16/24 07:45 Normal Saline Iv IV CONT 125 mls/hr .Q8H ABRAHAM Administration Morphine Sulfate 2 mg 04/13/24 14:29 04/15/24 20:02 Morphine Sulfate (*Crx) 2 Mg/Ml Inj IV PUSH 2 mg Q2H PRN Administration Pain Rated 7-10 Morphine Sulfate 1 mg 04/13/24 14:43 04/13/24 23:25 Morphine Sulfate (*Crx) 2 Mg/Ml Inj IV PUSH 1 mg Q2H PRN Administration pain 4-6 Ondansetron HCl 4 mg 04/13/24 14:29 04/14/24 03:26 Ondansetron Inj 4 Mg/2 Ml Vial IV PUSH 4 mg Q4H PRN Administration Nausea Pantoprazole Sodium 40 mg 04/13/24 15:05 04/16/24 14:18 Pantoprazole Sodium Iv 40 Mg Vial IV PUSH 40 mg DAILY ABRAHAM Administration Radiology Results: ITS Impressions Abdomen/Pelvis CT 04/13/24 12:32 IMPRESSION: 1. Small bowel obstruction with transition point in right abdomen. Abdomen X-Ray 04/15/24 08:50 IMPRESSION: 1. Persistently dilated small bowel, consistent with small bowel obstruction. Small Bowel X-Ray 04/16/24 13:19 IMPRESSION: 1. Persistent small bowel obstruction with delayed passage of oral contrast requiring 4 hours to reach the colon passing through persistently dilated small bowel. Labs Labs: Laboratory Results - last 24 hr 04/16/24 07:20 WBC 6.9 RBC 4.23 Hgb 12.7 Hct 41.9 MCV 99.1 MCH 30.0 MCHC 30.3 L RDW 14.8 H Plt Count 353 MPV 8.9 Immature Gran % (Auto) 2.3 H Neut % (Auto) 77.9 H Lymph % (Auto) 11.0 L [place] % (Auto) 5.7 Eos % (Auto) 2.2 Baso % (Auto) 0.9 Lymph # (Auto) 0.76 L [place] # (Auto) 0.4 Eos # (Auto) 0.2 Baso # (Auto) 0.1 Abs Immat Gran (auto) 0.16 H Absolute Neuts (auto) 5.4 Absolute Nucleated RBC 0.000 Nucleated RBC % 0.0 Sodium 143 Potassium 4.6 Chloride 113 H Carbon Dioxide 12 L Anion Gap 18 H BUN 9 Creatinine 0.60 L Estim Creat Clear Calc Not Reportable Estimated GFR > 60 Glucose 73 Calcium 7.9 L Magnesium 2.6 H Total Bilirubin 0.5 AST 130 H ALT 222 H Alkaline Phosphatase 239 H Total Protein 7.0 Albumin 3.8
[2024-04-16 16:32] LABS: Lactic Acid Reflex 0.8 mmol/L (0.7-2.0)
[2024-04-16 20:29] VITALS: BP 130/86; PULSE 93; RESP 18; TEMP 36.9; O2SAT 97
[2024-04-17 05:03] VITALS: BP 121/67; PULSE 81; RESP 17; TEMP 37.1; O2SAT 100
[2024-04-17] MEDS: SODIUM CHLORIDE 0.9% IV 1,000 ML 125 ML IV CONT ×3 (05:16→21:31)
[2024-04-17 07:24] LABS: Basophils Absolute Auto 0.1 K/mm3 (0.0-0.1); Basophils Percent Auto 1.2 % (0.2-1.2); Eosinophils Absolute Auto 0.3 K/mm3 (0-0.3); Eosinophils Percent Auto 3.3 % (0-4.4); Hematocrit 39.6 % (37.0-47.0); Hemoglobin 12.1 g/dL (12.0-15.0); Immature Granulocyte Absolute 0.37 K/mm3 (0.00-0.031); Immature Granulocyte Percent A 4.6 % (0-0.5); Lymphocytes Absolute Auto 0.87 K/mm3 (0.9-3.2); Lymphocytes Percent Auto 10.7 % (18.3-44.2); Mean Corpuscular HGB Conc 30.6 g/dl (32-36); Mean Corpuscular Hemoglobin 30.4 pg (26-34); Mean Corpuscular Volume 99.5 fl (80-100); Mean Platelet Volume 8.9 fl (7.4-10.4); Monocytes Absolute Auto 0.5 K/mm3 (0.1-0.6); Monocytes Percent Auto 6.2 % (2.6-8.5); Platelet Count Result 322 k/mm3 (150-375); Red Blood Count 3.98 M/mm3 (4.2-5.4); Red Cell Distribution Width 14.9 % (11.5-14.5); White Blood Count 8.1 K/mm3 (4.5-10.0)
[2024-04-17 07:47] LABS: Magnesium 2.1 mg/dL (1.6-2.3)
[2024-04-17 07:54] LABS: Alanine Aminotransferase 147 U/L (6-35); Albumin Level 3.7 g/dL (3.5-5.1); Alkaline Phosphatase 192 U/L (38-126); Anion Gap 17 mmol/L (4-12); Aspartate Amino Transferase 64 U/L (14-36); Bilirubin,Total 0.3 mg/dL (0.2-1.3); Blood Urea Nitrogen 6 mg/dL (7-17); Calcium 8.1 mg/dL (8.4-10.2); Carbon Dioxide 8 mmol/L (22-30); Chloride 119 mmol/L (98-107); Estimated Glomerular Filt Rate > 60; Glucose 64 mg/dL (65-110); Potassium 4.2 mmol/L (3.4-5.0); Sodium 144 mmol/L (137-145)
[2024-04-17] MEDS: PANTOPRAZOLE SODIUM IV 40 MG VIAL IV PUSH (08:40)
[2024-04-17] MEDS: FLUTICASONE PROPIONATE 0.05% NA SPR 16 GM BTL (*BKC) 1 SPRAY NASAL (08:40)
--- NOTE | 2024-04-17 09:05 | PM.PNGS ---
Progress Note: A&P Assessment and Plan (1) SBO (small bowel obstruction): Code(s): K56.609 - Unspecified intestinal obstruction, unspecified as to partial versus complete obstruction Status: Acute Assessment and Plan: Xray this AM shows most of the contrast gone now. Clinically patient appears resolved despite dilated bowel on Xray. Will try clear liquids today. Discussed that if recurrent obstruction symptoms develop, she will probably need surgery. 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 No pain, nausea, or bloating. Exam GI: Inspection: non-distended GI Palp: Yes Soft to palpation, No Tenderness to palpation present (GI) and No Guarding due to palpation present (GI) Auscultation: normal bowel sounds Objective Data Vital Signs Vital Signs: Vital Signs - 24 hr 04/16/24 14:00 04/16/24 20:29 04/16/24 20:00 Temperature 99.0 F 98.5 F Pulse Rate 95 93 Respiratory Rate 20 18 Blood Pressure 135/74 130/86 Pulse Oximetry 99 97 Oxygen Delivery Room Air 04/17/24 05:03 Temperature 98.8 F Pulse Rate 81 Respiratory Rate 17 Blood Pressure 121/67 Pulse Oximetry 100 Oxygen Delivery Intake/Output Intake/Output: Intake & Output 04/14/24 04/15/24 04/16/24 04/17/24 23:59 23:59 23:59 23:59 Intake Total 3502.1 2290 3510 1437.1 Output Total 1400 7712 475 1555 Balance 2102.1 990 2710 -162.9 Meds/Results Medications: Active Medications Generic Name Dose Route Start Last Admin Trade Name Freq PRN Reason Stop Dose Admin Albuterol 2 puff 04/13/24 18:53 Albuterol Sulfate (*Sp) Aerosol 1 Puff INHALATION Q4H PRN shortness of breath or wheezing Fluticasone Propionate 1 spray 04/14/24 09:00 04/17/24 08:40 Fluticasone Propionate 0.05% Na Spr 16 Gm Btl (*Bkc) NASAL 1 spray DAILY ABRAHAM Administration Sodium Chloride 1,000 mls @ 125 mls/hr 04/13/24 14:30 04/17/24 08:41 Normal Saline Iv IV CONT 125 mls/hr .Q8H ABRAHAM Administration Morphine Sulfate 2 mg 04/13/24 14:29 04/15/24 20:02 Morphine Sulfate (*Crx) 2 Mg/Ml Inj IV PUSH 2 mg Q2H PRN Administration Pain Rated 7-10 Morphine Sulfate 1 mg 04/13/24 14:43 04/13/24 23:25 Morphine Sulfate (*Crx) 2 Mg/Ml Inj IV PUSH 1 mg Q2H PRN Administration pain 4-6 Ondansetron HCl 4 mg 04/13/24 14:29 04/14/24 03:26 Ondansetron Inj 4 Mg/2 Ml Vial IV PUSH 4 mg Q4H PRN Administration Nausea Pantoprazole Sodium 40 mg 04/13/24 15:05 04/17/24 08:40 Pantoprazole Sodium Iv 40 Mg Vial IV PUSH 40 mg DAILY ABRAHAM Administration Radiology Results: ITS Impressions Abdomen/Pelvis CT 04/13/24 12:32 IMPRESSION: 1. Small bowel obstruction with transition point in right abdomen. Small Bowel X-Ray 04/16/24 13:19 IMPRESSION: 1. Persistent small bowel obstruction with delayed passage of oral contrast requiring 4 hours to reach the colon passing through persistently dilated small bowel. Abdomen X-Ray 04/17/24 08:14 IMPRESSION: 1. Persistently dilated small bowel, consistent with small bowel obstruction. Labs Labs: Laboratory Results - last 24 hr 04/16/24 04/17/24 16:02 07:00 WBC 8.1 RBC 3.98 L Hgb 12.1 Hct 39.6 MCV 99.5 MCH 30.4 MCHC 30.6 L RDW 14.9 H Plt Count 322 MPV 8.9 Immature Gran % (Auto) 4.6 H Neut % (Auto) 74.0 H Lymph % (Auto) 10.7 L [place] % (Auto) 6.2 Eos % (Auto) 3.3 Baso % (Auto) 1.2 Lymph # (Auto) 0.87 L [place] # (Auto) 0.5 Eos # (Auto) 0.3 Baso # (Auto) 0.1 Abs Immat Gran (auto) 0.37 H Absolute Neuts (auto) 6.0 Absolute Nucleated RBC 0.000 Nucleated RBC % 0.0 Sodium 144 Potassium 4.2 Chloride 119 H Carbon Dioxide 8 L Anion Gap 17 H BUN 6 L Creatinine 0.50 L Estim Creat Clear Calc Not Reportable Estimated GFR > 60 Glucose 64 L Lactic Acid 0.8 Calcium 8.1 L Magnesium 2.1 Total Bilirubin 0.3 AST 64 H ALT 147 H Alkaline Phosphatase 192 H Total Protein 7.0 Albumin 3.7
[2024-04-17 14:00] VITALS: BP 114/63; PULSE 77; RESP 18; TEMP 36.6; O2SAT 99
--- NOTE | 2024-04-17 17:09 | P.PNIM_ITS ---
Progress Note: A&P Assessment and Plan (1) SBO (small bowel obstruction): Code(s): K56.609 - Unspecified intestinal obstruction, unspecified as to partial versus complete obstruction Status: Acute Assessment and Plan: --Patient reports abdominal pain that is cramping and bloating in nature that started last night. * CT of the abdomen/pelvis shown SBO with transition point in right abdomen * Continue pain and nausea control * General surgery consulted * Not a candidate for NGT due to Leonard-en-Y procedure, would have to be placed with scope if needed. Continue to monitor for now considering she has not had any vomiting. * Initial labs unremarkable * Continue IVF for hydration * Keep NPO 04/14/24 * still BM or flatus * liver ALT/AST/ALKPHOS elevated today * NPO ice chips * Likely need surgical intervention will wait on surgery recommendations * Antimetics * normal WBC * Pain control * encourage ambulation 04/15/24: * Pts exam still without bowel sounds. * Continue to follow surgery recommendations. * PRN pain meds and anti-emetics as needed. * NPO except ice chips * SBFT ordered for AM per surgery. 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: Code(s): Z90.3 - Acquired absence of stomach [part of]; Z98.0 - Intestinal bypass and anastomosis status Status: Chronic Assessment and Plan: of note, patient can not have NGT placement due to history (3) Gastroesophageal reflux disease without esophagitis: Code(s): K21.9 - Gastro-esophageal reflux disease without esophagitis Status: Chronic Assessment and Plan: * Continue Protonix IV (4) Bipolar affective disorder: Qualifiers: Active/Remission status: remission status unspecified Qualified Code(s): F31.9 - Bipolar disorder, unspecified Code(s): F31.9 - Bipolar disorder, unspecified Status: Chronic Assessment and Plan: * Continue Abilify and Seroquel (5) Anxiety: Code(s): F41.9 - Anxiety disorder, unspecified Status: Chronic Assessment and Plan: * Continue BuSpar and Abilify (6) Hyperlipidemia: Code(s): E78.5 - Hyperlipidemia, unspecified Status: Chronic Assessment and Plan: * Continue aspirin and pravastatin (7) Elevated liver enzymes: Code(s): R74.8 - Abnormal levels of other serum enzymes Status: Acute Assessment and Plan: * secondary to SBO? * monitor for downtrend * If no improvement will get US 04/15/24: * Transaminitis remains, however trending downward. * Pt without any abdominal pain today * Continue to trend, but agree with US if any worsening of pain or rise in levels of ALT and AST. * Appreciate Surgery input as to whether or not this is possibly due to the SBO. 04/17/24: * AST 64, ALT 147 * Trending downward Time Spent With Patient Time with patient: Greater than 35 minutes Subjective Date/time seen: 04/17/24 17:09 Interval history: Interval history: This is a 68 year old female with a significant past medical history of anx iety, asthma, COPD, bipolar affective disorder, hypertension, GERD, hyperlipidemia PE, hyperparathyroidism, osteopenia, Gastric Leonard-en-Y who presented to the hospital with complaints of abdominal pain. Patient reports the following history of presenting illness. Patient states that her abdominal discomfort started yesterday and reports it to be bloating and cramping in nature. She reports that her pain is 10/10 and colicky. She does have associated nausea and headache, however no vomiting. She reports belching. She denies any fever, chills, vomiting, diarrhea, chest pain,shortness of breath, and is not passing flatus. She reports that she does have history of a SBO in the past which ended up requiring surgery. She also had surgery before for twisted bowel. Work up in the hospital included an abdomen/pelvis CT which revealed a small bowel obstruction with transition point in right abdomen. Initial labs essentially unremarkable. Patient was started on IVF, given morphine, and zofran while in the ER. General surgery was consulted. Patient is unable to get NGT placement with blind insertion due to her gastric Leonard-en-Y history. Subjective: Patient feeling much better today. She had an obstructive series which showed contrast that went all the way through the bowel. She was started on clear liquid diet by General surgery team and is tolerating that well. She denies any new complaints today. Labs and imaging reviewed. Review of Systems Review of Systems: All systems reviewed & are unremarkable except as noted in HPI and below Constitutional: Constitutional: Reports as per HPI and Reports no additional constitutional complaints Eyes: Eyes: Reports as per HPI and Reports no additional eye complaints ENT: Reports system reviewed and no additional complaints, except as documented and Reports as per HPI Cardiovascular: Cardiovascular: Reports as per HPI and Reports no additional cardiovascular complaints Respiratory: Respiratory: Reports as per HPI and Reports no additional respiratory complaints Gastrointestinal: Gastrointestinal: Reports as per HPI and Reports no additional gastrointestinal complaints Genitourinary: Genitourinary: Reports no additional female genitourinary complaints and Reports as per HPI Musculoskeletal: Musculoskeletal: Reports no additional musculoskeletal complaints and Reports as per HPI Integumentary/Breasts: Skin/Breast: Reports system reviewed and no additional complaints, except as docu and Reports as per HPI Neurologic: Reports system reviewed and no additional complaints, except as documented and Reports as per HPI Psychiatric: Psychiatric: Reports no additional psychiatric complaints and Reports as per HPI Objective Data Vital Signs Vital Signs: Vital Signs - 24 hr 04/16/24 20:29 04/16/24 20:00 04/17/24 05:03 Temperature 98.5 F 98.8 F Pulse Rate 93 81 Respiratory Rate 18 17 Blood Pressure 130/86 121/67 Pulse Oximetry 97 100 Oxygen Delivery Room Air 04/17/24 08:00 04/17/24 14:00 Temperature 97.9 F Pulse Rate 77 Respiratory Rate 18 Blood Pressure 114/63 Pulse Oximetry 99 Oxygen Delivery Room Air Intake/Output Intake/Output: Intake & Output 04/14/24 04/15/24 04/16/24 04/17/24 23:59 23:59 23:59 23:59 Intake Total 3502.1 2290 3510 1437.1 Output Total 1400 5408 142 1164 Balance 2102.1 990 2710 -162.9 Meds/Results Medications: Active Medications Generic Name Dose Route Start Last Admin Trade Name Freq PRN Reason Stop Dose Admin Albuterol 2 puff 04/13/24 18:53 Albuterol Sulfate (*Sp) Aerosol 1 Puff INHALATION Q4H PRN shortness of breath or wheezing Fluticasone Propionate 1 spray 04/14/24 09:00 04/17/24 08:40 Fluticasone Propionate 0.05% Na Spr 16 Gm Btl (*Bkc) NASAL 1 spray DAILY ABRAHAM Administration Sodium Chloride 1,000 mls @ 125 mls/hr 04/13/24 14:30 04/17/24 08:41 Normal Saline Iv IV CONT 125 mls/hr .Q8H ABRAHAM Administration Morphine Sulfate 2 mg 04/13/24 14:29 04/15/24 20:02 Morphine Sulfate (*Crx) 2 Mg/Ml Inj IV PUSH 2 mg Q2H PRN Administration Pain Rated 7-10 Morphine Sulfate 1 mg 04/13/24 14:43 04/13/24 23:25 Morphine Sulfate (*Crx) 2 Mg/Ml Inj IV PUSH 1 mg Q2H PRN Administration pain 4-6 Ondansetron HCl 4 mg 04/13/24 14:29 04/14/24 03:26 Ondansetron Inj 4 Mg/2 Ml Vial IV PUSH 4 mg Q4H PRN Administration Nausea Pantoprazole Sodium 40 mg 04/13/24 15:05 04/17/24 08:40 Pantoprazole Sodium Iv 40 Mg Vial IV PUSH 40 mg DAILY ABRAHAM Administration Radiology Results: ITS Impressions Abdomen/Pelvis CT 04/13/24 12:32 IMPRESSION: 1. Small bowel obstruction with transition point in right abdomen. Small Bowel X-Ray 04/16/24 13:19 IMPRESSION: 1. Persistent small bowel obstruction with delayed passage of oral contrast requiring 4 hours to reach the colon passing through persistently dilated small bowel. Abdomen X-Ray 04/17/24 08:14 IMPRESSION: 1. Persistently dilated small bowel, consistent with small bowel obstruction. Labs Labs: Laboratory Results - last 24 hr 04/17/24 07:00 WBC 8.1 RBC 3.98 L Hgb 12.1 Hct 39.6 MCV 99.5 MCH 30.4 MCHC 30.6 L RDW 14.9 H Plt Count 322 MPV 8.9 Immature Gran % (Auto) 4.6 H Neut % (Auto) 74.0 H Lymph % (Auto) 10.7 L [place] % (Auto) 6.2 Eos % (Auto) 3.3 Baso % (Auto) 1.2 Lymph # (Auto) 0.87 L [place] # (Auto) 0.5 Eos # (Auto) 0.3 Baso # (Auto) 0.1 Abs Immat Gran (auto) 0.37 H Absolute Neuts (auto) 6.0 Absolute Nucleated RBC 0.000 Nucleated RBC % 0.0 Sodium 144 Potassium 4.2 Chloride 119 H Carbon Dioxide 8 L Anion Gap 17 H BUN 6 L Creatinine 0.50 L Estim Creat Clear Calc Not Reportable Estimated GFR > 60 Glucose 64 L Calcium 8.1 L Magnesium 2.1 Total Bilirubin 0.3 AST 64 H ALT 147 H Alkaline Phosphatase 192 H Total Protein 7.0 Albumin 3.7 Quality VTE Prophylaxis VTE prophylaxis: mechanical ordered
[2024-04-17] MEDS: QUEtiapine FUMARATE 100 MG TABLET 300 MG PO (21:29)
[2024-04-17] MEDS: lamoTRIgine 100 MG TABLET PO (21:30)
[2024-04-17] MEDS: MONTELUKAST SODIUM 10 MG TABLET PO (21:30)
[2024-04-17] MEDS: PRAVASTATIN SODIUM 20 MG TABLET PO (21:30)
[2024-04-17] MEDS: busPIRone HCL 2.5 MG TABLET PO (21:30)
[2024-04-17] MEDS: busPIRone HCL 5 MG TABLET PO (21:30)
[2024-04-17 22:00] VITALS: BP 137/58; PULSE 68; RESP 20; TEMP 37.1; O2SAT 98
[2024-04-18 05:30] VITALS: BP 115/61; PULSE 76; RESP 18; TEMP 36.4; O2SAT 100
[2024-04-18] MEDS: SODIUM CHLORIDE 0.9% IV 1,000 ML 125 ML IV CONT ×2 (06:00→17:10)
[2024-04-18 07:49] LABS: Basophils Absolute Auto 0.1 K/mm3 (0.0-0.1); Basophils Percent Auto 1.3 % (0.2-1.2); Eosinophils Absolute Auto 0.4 K/mm3 (0-0.3); Eosinophils Percent Auto 7.3 % (0-4.4); Hematocrit 37.2 % (37.0-47.0); Hemoglobin 11.8 g/dL (12.0-15.0); Immature Granulocyte Absolute 0.15 K/mm3 (0.00-0.031); Immature Granulocyte Percent A 2.5 % (0-0.5); Lymphocytes Absolute Auto 1.06 K/mm3 (0.9-3.2); Lymphocytes Percent Auto 17.6 % (18.3-44.2); Mean Corpuscular HGB Conc 31.7 g/dl (32-36); Mean Corpuscular Volume 94.7 fl (80-100); Monocytes Absolute Auto 0.4 K/mm3 (0.1-0.6); Monocytes Percent Auto 7.2 % (2.6-8.5); Neutrophils Absolute Auto 3.9 K/mm3 (1.3-6.7); Neutrophils Percent Auto 64.1 % (45.5-73.1); Platelet Count Result 328 k/mm3 (150-375); Red Blood Count 3.93 M/mm3 (4.2-5.4); Red Cell Distribution Width 15.1 % (11.5-14.5)
[2024-04-18 08:00] LABS: Alanine Aminotransferase 103 U/L (6-35); Albumin Level 3.3 g/dL (3.5-5.1); Alkaline Phosphatase 149 U/L (38-126); Anion Gap 10 mmol/L (4-12); Aspartate Amino Transferase 42 U/L (14-36); Bilirubin,Total 0.3 mg/dL (0.2-1.3); Calcium 8.4 mg/dL (8.4-10.2); Carbon Dioxide 17 mmol/L (22-30); Chloride 116 mmol/L (98-107); Estimated Glomerular Filt Rate > 60; Glucose 85 mg/dL (65-110); Magnesium 1.6 mg/dL (1.6-2.3); Potassium 3.7 mmol/L (3.4-5.0); Sodium 143 mmol/L (137-145)
[2024-04-18 08:40] LABS: Blood Urea Nitrogen < 2 mg/dL (7-17)
[2024-04-18] MEDS: TOPIRAMATE 25 MG TABLET 50 MG PO ×2 (08:59→17:10)
[2024-04-18] MEDS: ASPIRIN 81 MG ENTERIC TABLET PO (08:59)
[2024-04-18] MEDS: PRAVASTATIN SODIUM 20 MG TABLET PO (08:59)
[2024-04-18] MEDS: MONTELUKAST SODIUM 10 MG TABLET PO (08:59)
[2024-04-18] MEDS: busPIRone HCL 2.5 MG TABLET PO ×2 (08:59→20:54)
[2024-04-18] MEDS: ARIPiprazole 5 MG TABLET 15 MG PO (08:59)
[2024-04-18] MEDS: FLUTICASONE PROPIONATE 0.05% NA SPR 16 GM BTL (*BKC) 1 SPRAY NASAL (09:00)
[2024-04-18] MEDS: PANTOPRAZOLE SODIUM IV 40 MG VIAL IV PUSH (09:00)
[2024-04-18] MEDS: busPIRone HCL 5 MG TABLET PO ×2 (09:00→20:54)
--- NOTE | 2024-04-18 12:07 | P.PNIM_ITS ---
Progress Note: A&P Assessment and Plan (1) SBO (small bowel obstruction): Code(s): K56.609 - Unspecified intestinal obstruction, unspecified as to partial versus complete obstruction Status: Acute Assessment and Plan: Patient presented with abdominal pain that is cramping and bloating in nature that started night prior to admission 04/13 CT abdomen/pelvis shown SBO with transition point in right abdomen General surgery following, appreciate recommendations. LFT's elevated on admission, improving, unclear if obstructive Not a candidate for NGT due to Leonard-en-Y procedure, would have to be placed with scope if needed. --Tolerating clear liquids so far but with persistent SBO on x-ray and no BM --Surgery taking her for an ex lap in the morning. 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: Code(s): Z90.3 - Acquired absence of stomach [part of]; Z98.0 - Intestinal bypass and anastomosis status Status: Chronic Assessment and Plan: of note, patient can not have NGT placement due to history (3) Gastroesophageal reflux disease without esophagitis: Code(s): K21.9 - Gastro-esophageal reflux disease without esophagitis Status: Chronic Assessment and Plan: * Continue Protonix IV (4) Bipolar affective disorder: Qualifiers: Active/Remission status: remission status unspecified Qualified Code(s): F31.9 - Bipolar disorder, unspecified Code(s): F31.9 - Bipolar disorder, unspecified Status: Chronic Assessment and Plan: * Continue Abilify and Seroquel (5) Anxiety: Code(s): F41.9 - Anxiety disorder, unspecified Status: Chronic Assessment and Plan: * Continue BuSpar and Abilify (6) Hyperlipidemia: Code(s): E78.5 - Hyperlipidemia, unspecified Status: Chronic Assessment and Plan: * Continue aspirin and pravastatin (7) Elevated liver enzymes: Code(s): R74.8 - Abnormal levels of other serum enzymes Status: Acute Assessment and Plan: LFT's elevated on admission, trending down. Unclear etiology, CT Abd/pelvis hx cholecystecomy Tbili 0.9>0.3, AST 345>42, ALT 315>103, Alk phos 289>149 Time Spent With Patient Time: 49 minutes Subjective Date/time seen: 04/18/24 12:07 Interval history: Tolerating clear liquids without nausea or abdominal pain. Passed gas once today, but no BM. X-ray today showed persistently dilated loops of bowel, SBO. Planning OR tomorrow. Review of Systems Review of Systems: All systems reviewed & are unremarkable except as noted in HPI and below Exam Narrative: * GENERAL: Alert and oriented x 3. No acute distress. * EYES: EOMI. No scleral icterus. PERRLA. * HEENT: Moist mucous membranes. * LUNGS: Clear to auscultation bilaterally. No accessory muscle use. * CARDIOVASCULAR: Regular rate and rhythm. No murmur. No JVD. S1-S2 * ABDOMEN: Soft, NT, no bowel sounds audible. * EXTREMITIES: No edema. Non-tender * SKIN: No rashes or lesions. Skin warm, dry. * NEUROLOGIC: No focal neurological deficits. CN II-XII grossly intact * PSYCHIATRIC: Appropriate mood and affect. Good judgement and insight. No visual or auditory hallucinations. Objective Data Vital Signs Vital Signs: Vital Signs - 24 hr 04/17/24 14:00 04/17/24 22:00 04/17/24 20:00 Temperature 97.9 F 98.8 F Pulse Rate 77 68 Respiratory Rate 18 20 Blood Pressure 114/63 137/58 L Pulse Oximetry 99 98 Oxygen Delivery Room Air 04/18/24 05:30 04/18/24 08:00 Temperature 97.6 F Pulse Rate 76 Respiratory Rate 18 Blood Pressure 115/61 Pulse Oximetry 100 Oxygen Delivery Room Air Intake/Output Intake/Output: Intake & Output 04/15/24 04/16/24 04/17/24 04/18/24 23:59 23:59 23:59 23:59 Intake Total 2290 3510 2677.1 1908 Output Total 9135 938 8829 Balance 990 2710 1077.1 1908 Meds/Results Medications: Active Medications Generic Name Dose Route Start Last Admin Trade Name Freq PRN Reason Stop Dose Admin Albuterol 2 puff 04/13/24 18:53 Albuterol Sulfate (*Sp) Aerosol 1 Puff INHALATION Q4H PRN shortness of breath or wheezing Aripiprazole 15 mg 04/18/24 09:00 04/18/24 08:59 Aripiprazole 5 Mg Tablet PO 15 mg DAILY ABRAHAM Administration Aspirin 81 mg 04/18/24 09:00 04/18/24 08:59 Aspirin 81 Mg Enteric Tablet PO 81 mg BID ABRAHAM Administration Buspirone HCl 5 mg 04/17/24 21:00 04/18/24 09:00 Buspirone Hcl 5 Mg Tablet PO 5 mg Q12HR ABRAHAM Administration Buspirone HCl 2.5 mg 04/17/24 21:00 04/18/24 08:59 Buspirone Hcl 2.5 Mg Tablet PO 2.5 mg Q12HR ABRAHAM Administration Fluticasone Propionate 1 spray 04/14/24 09:00 04/18/24 09:00 Fluticasone Propionate 0.05% Na Spr 16 Gm Btl (*Bkc) NASAL 1 spray DAILY ABRAHAM Administration Sodium Chloride 1,000 mls @ 125 mls/hr 04/13/24 14:30 04/18/24 06:00 Normal Saline Iv IV CONT 125 mls/hr .Q8H ABRAHAM Administration Lamotrigine 100 mg 04/17/24 21:00 04/17/24 21:30 Lamotrigine 100 Mg Tablet PO 100 mg HS ABRAHAM Administration Montelukast Sodium 10 mg 04/17/24 17:10 04/18/24 08:59 Montelukast Sodium 10 Mg Tablet PO 10 mg DAILY ABRAHAM Administration Morphine Sulfate 2 mg 04/13/24 14:29 04/15/24 20:02 Morphine Sulfate (*Crx) 2 Mg/Ml Inj IV PUSH 2 mg Q2H PRN Administration Pain Rated 7-10 Morphine Sulfate 1 mg 04/13/24 14:43 04/13/24 23:25 Morphine Sulfate (*Crx) 2 Mg/Ml Inj IV PUSH 1 mg Q2H PRN Administration pain 4-6 Ondansetron HCl 4 mg 04/13/24 14:29 04/14/24 03:26 Ondansetron Inj 4 Mg/2 Ml Vial IV PUSH 4 mg Q4H PRN Administration Nausea Pantoprazole Sodium 40 mg 04/13/24 15:05 04/18/24 09:00 Pantoprazole Sodium Iv 40 Mg Vial IV PUSH 40 mg DAILY ABRAHAM Administration Pantoprazole Sodium 40 mg 04/18/24 09:00 04/18/24 09:00 Pantoprazole 40 Mg Tablet PO 40 mg QAM ABRAHAM Administration Pravastatin Sodium 20 mg 04/17/24 18:00 04/18/24 08:59 Pravastatin Sodium 20 Mg Tablet PO 20 mg DAILY ABRAHAM Administration Quetiapine Fumarate 300 mg 04/17/24 21:00 04/17/24 21:29 Quetiapine Fumarate 100 Mg Tablet PO 300 mg QHS ABRAHAM Administration Topiramate 50 mg 04/18/24 09:00 04/18/24 08:59 Topiramate 25 Mg Tablet PO 50 mg BID ABRAHAM Administration Radiology Results: ITS Impressions Abdomen/Pelvis CT 04/13/24 12:32 IMPRESSION: 1. Small bowel obstruction with transition point in right abdomen. Small Bowel X-Ray 04/16/24 13:19 IMPRESSION: 1. Persistent small bowel obstruction with delayed passage of oral contrast requiring 4 hours to reach the colon passing through persistently dilated small bowel. Abdomen X-Ray 04/18/24 08:07 IMPRESSION: 1. Persistently dilated small bowel, consistent with small bowel obstruction. Labs Labs: Laboratory Results - last 24 hr 04/18/24 07:22 WBC 6.0 RBC 3.93 L Hgb 11.8 L Hct 37.2 MCV 94.7 MCH 30.0 MCHC 31.7 L RDW 15.1 H Plt Count 328 MPV 9.0 Immature Gran % (Auto) 2.5 H Neut % (Auto) 64.1 Lymph % (Auto) 17.6 L [place] % (Auto) 7.2 Eos % (Auto) 7.3 H Baso % (Auto) 1.3 H Lymph # (Auto) 1.06 [place] # (Auto) 0.4 Eos # (Auto) 0.4 H Baso # (Auto) 0.1 Abs Immat Gran (auto) 0.15 H Absolute Neuts (auto) 3.9 Absolute Nucleated RBC 0.000 Nucleated RBC % 0.0 Sodium 143 Potassium 3.7 Chloride 116 H Carbon Dioxide 17 L Anion Gap 10 BUN < 2 L Creatinine 0.50 L Estim Creat Clear Calc Not Reportable Estimated GFR > 60 Glucose 85 Calcium 8.4 Magnesium 1.6 Total Bilirubin 0.3 AST 42 H ALT 103 H Alkaline Phosphatase 149 H Total Protein 6.0 L Albumin 3.3 L Quality VTE Prophylaxis VTE prophylaxis: mechanical ordered Hospitalist [facility] Advance Care Plan I have confirmed that the patient's Advanced Care Plan is present, code status is documented, or surrogate decision maker is listed in patient medical record.: Yes Medication Reconciliation I have utilized all available resources to obtain, update and review the patients current medications (includes all prescriptions, OTC, herbals, cannabis, and nutritional supplements).: Yes
--- NOTE | 2024-04-18 12:24 | P.PNGS_ITS ---
Progress Note: A&P Assessment and Plan (1) SBO (small bowel obstruction): Code(s): K56.609 - Unspecified intestinal obstruction, unspecified as to partial versus complete obstruction Status: Acute Assessment and Plan: * Bowel obstruction might be partial, but still no significant improvement after 2 days since the SBFT. Was moving bowels yesterday and asymptomatic, but now more bloating and no BM or flatus today. Discussed further observation and trial of advancing diet vs proceeding with surgical intervention. She has not completely resolved with a generous amount of time, therefore I think it would be more beneficial to proceed with surgery. I have recommended diagnostic laparoscopy, possible open, possible bowel resection. I discussed the procedure, risks, benefits, and alternatives. Questions answered. 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 Feeling a little more bloated, but no nausea or vomiting. No abdominal pain. Exam GI: Inspection: distended GI Palp: Yes Soft to palpation, No Tenderness to palpation present (GI) and No Guarding due to palpation present (GI) Objective Data Vital Signs Vital Signs: Vital Signs - 24 hr 04/17/24 14:00 04/17/24 22:00 04/17/24 20:00 Temperature 97.9 F 98.8 F Pulse Rate 77 68 Respiratory Rate 18 20 Blood Pressure 114/63 137/58 L Pulse Oximetry 99 98 Oxygen Delivery Room Air 04/18/24 05:30 04/18/24 08:00 Temperature 97.6 F Pulse Rate 76 Respiratory Rate 18 Blood Pressure 115/61 Pulse Oximetry 100 Oxygen Delivery Room Air Intake/Output Intake/Output: Intake & Output 04/15/24 04/16/24 04/17/24 04/18/24 23:59 23:59 23:59 23:59 Intake Total 2290 3510 2677.1 1908 Output Total 6846 819 9367 Balance 990 2710 1077.1 1908 Meds/Results Medications: Active Medications Generic Name Dose Route Start Last Admin Trade Name Freq PRN Reason Stop Dose Admin Albuterol 2 puff 04/13/24 18:53 Albuterol Sulfate (*Sp) Aerosol 1 Puff INHALATION Q4H PRN shortness of breath or wheezing Aripiprazole 15 mg 04/18/24 09:00 04/18/24 08:59 Aripiprazole 5 Mg Tablet PO 15 mg DAILY ABRAHAM Administration Aspirin 81 mg 04/18/24 09:00 04/18/24 08:59 Aspirin 81 Mg Enteric Tablet PO 81 mg BID ABRAHAM Administration Buspirone HCl 5 mg 04/17/24 21:00 04/18/24 09:00 Buspirone Hcl 5 Mg Tablet PO 5 mg Q12HR ABRAHAM Administration Buspirone HCl 2.5 mg 04/17/24 21:00 04/18/24 08:59 Buspirone Hcl 2.5 Mg Tablet PO 2.5 mg Q12HR ABRAHAM Administration Fluticasone Propionate 1 spray 04/14/24 09:00 04/18/24 09:00 Fluticasone Propionate 0.05% Na Spr 16 Gm Btl (*Bkc) NASAL 1 spray DAILY ABRAHAM Administration Sodium Chloride 1,000 mls @ 125 mls/hr 04/13/24 14:30 04/18/24 06:00 Normal Saline Iv IV CONT 125 mls/hr .Q8H ABRAHAM Administration Lamotrigine 100 mg 04/17/24 21:00 04/17/24 21:30 Lamotrigine 100 Mg Tablet PO 100 mg HS ABRAHAM Administration Montelukast Sodium 10 mg 04/17/24 17:10 04/18/24 08:59 Montelukast Sodium 10 Mg Tablet PO 10 mg DAILY ABRAHAM Administration Morphine Sulfate 2 mg 04/13/24 14:29 04/15/24 20:02 Morphine Sulfate (*Crx) 2 Mg/Ml Inj IV PUSH 2 mg Q2H PRN Administration Pain Rated 7-10 Morphine Sulfate 1 mg 04/13/24 14:43 04/13/24 23:25 Morphine Sulfate (*Crx) 2 Mg/Ml Inj IV PUSH 1 mg Q2H PRN Administration pain 4-6 Ondansetron HCl 4 mg 04/13/24 14:29 04/14/24 03:26 Ondansetron Inj 4 Mg/2 Ml Vial IV PUSH 4 mg Q4H PRN Administration Nausea Pantoprazole Sodium 40 mg 04/13/24 15:05 04/18/24 09:00 Pantoprazole Sodium Iv 40 Mg Vial IV PUSH 40 mg DAILY ABRAHAM Administration Pantoprazole Sodium 40 mg 04/18/24 09:00 04/18/24 09:00 Pantoprazole 40 Mg Tablet PO 40 mg QAM ABRAHAM Administration Pravastatin Sodium 20 mg 04/17/24 18:00 04/18/24 08:59 Pravastatin Sodium 20 Mg Tablet PO 20 mg DAILY ABRAHAM Administration Quetiapine Fumarate 300 mg 04/17/24 21:00 04/17/24 21:29 Quetiapine Fumarate 100 Mg Tablet PO 300 mg QHS ABRAHAM Administration Topiramate 50 mg 04/18/24 09:00 04/18/24 08:59 Topiramate 25 Mg Tablet PO 50 mg BID ABRAHAM Administration Radiology Results: ITS Impressions Abdomen/Pelvis CT 04/13/24 12:32 IMPRESSION: 1. Small bowel obstruction with transition point in right abdomen. Small Bowel X-Ray 04/16/24 13:19 IMPRESSION: 1. Persistent small bowel obstruction with delayed passage of oral contrast requiring 4 hours to reach the colon passing through persistently dilated small bowel. Abdomen X-Ray 04/18/24 08:07 IMPRESSION: 1. Persistently dilated small bowel, consistent with small bowel obstruction. Labs Labs: Laboratory Results - last 24 hr 04/18/24 07:22 WBC 6.0 RBC 3.93 L Hgb 11.8 L Hct 37.2 MCV 94.7 MCH 30.0 MCHC 31.7 L RDW 15.1 H Plt Count 328 MPV 9.0 Immature Gran % (Auto) 2.5 H Neut % (Auto) 64.1 Lymph % (Auto) 17.6 L [place] % (Auto) 7.2 Eos % (Auto) 7.3 H Baso % (Auto) 1.3 H Lymph # (Auto) 1.06 [place] # (Auto) 0.4 Eos # (Auto) 0.4 H Baso # (Auto) 0.1 Abs Immat Gran (auto) 0.15 H Absolute Neuts (auto) 3.9 Absolute Nucleated RBC 0.000 Nucleated RBC % 0.0 Sodium 143 Potassium 3.7 Chloride 116 H Carbon Dioxide 17 L Anion Gap 10 BUN < 2 L Creatinine 0.50 L Estim Creat Clear Calc Not Reportable Estimated GFR > 60 Glucose 85 Calcium 8.4 Magnesium 1.6 Total Bilirubin 0.3 AST 42 H ALT 103 H Alkaline Phosphatase 149 H Total Protein 6.0 L Albumin 3.3 L
[2024-04-18 14:00] VITALS: BP 139/83; PULSE 96; RESP 18; TEMP 36.8; O2SAT 99
[2024-04-18 20:45] VITALS: BP 130/79; PULSE 75; RESP 16; TEMP 36.6; O2SAT 99
[2024-04-18] MEDS: lamoTRIgine 100 MG TABLET PO (20:54)
[2024-04-18] MEDS: QUEtiapine FUMARATE 100 MG TABLET 300 MG PO (20:55)
[2024-04-18] MEDS: MORPHINE SULFATE (*CRX) 2 MG/ML INJ 1 MG IV PUSH (22:28)
[2024-04-18 22:50] VITALS: O2SAT 99
[2024-04-19] VITALS (9 sets, daily range): BP systolic 96–130; BP diastolic 54–77; PULSE 68–90; RESP 12–18; TEMP 36–37; O2SAT 96–100; BMI 39.8
[2024-04-19 06:43] LABS: Basophils Absolute Auto 0.1 K/mm3 (0.0-0.1); Eosinophils Absolute Auto 0.5 K/mm3 (0-0.3); Eosinophils Percent Auto 8.4 % (0-4.4); Hematocrit 35.3 % (37.0-47.0); Hemoglobin 11.8 g/dL (12.0-15.0); Immature Granulocyte Absolute 0.13 K/mm3 (0.00-0.031); Immature Granulocyte Percent A 2.3 % (0-0.5); Lymphocytes Percent Auto 19.2 % (18.3-44.2); Mean Corpuscular HGB Conc 33.4 g/dl (32-36); Mean Corpuscular Hemoglobin 30.7 pg (26-34); Mean Corpuscular Volume 91.9 fl (80-100); Mean Platelet Volume 8.7 fl (7.4-10.4); Monocytes Absolute Auto 0.5 K/mm3 (0.1-0.6); Monocytes Percent Auto 9.4 % (2.6-8.5); Neutrophils Absolute Auto 3.4 K/mm3 (1.3-6.7); Neutrophils Percent Auto 59.7 % (45.5-73.1); Platelet Count Result 300 k/mm3 (150-375); Red Blood Count 3.84 M/mm3 (4.2-5.4); Red Cell Distribution Width 15.2 % (11.5-14.5); White Blood Count 5.7 K/mm3 (4.5-10.0)
[2024-04-19 07:09] LABS: Alanine Aminotransferase 79 U/L (6-35); Albumin Level 3.1 g/dL (3.5-5.1); Alkaline Phosphatase 143 U/L (38-126); Anion Gap 7 mmol/L (4-12); Aspartate Amino Transferase 34 U/L (14-36); Bilirubin,Total 0.4 mg/dL (0.2-1.3); Calcium 8.6 mg/dL (8.4-10.2); Carbon Dioxide 23 mmol/L (22-30); Chloride 111 mmol/L (98-107); Estimated Glomerular Filt Rate > 60; Glucose 89 mg/dL (65-110); Potassium 3.2 mmol/L (3.4-5.0); Sodium 141 mmol/L (137-145)
[2024-04-19 08:16] LABS: Blood Urea Nitrogen < 2 mg/dL (7-17)
[2024-04-19] MEDS: ARIPiprazole 5 MG TABLET 15 MG PO (08:35)
[2024-04-19] MEDS: busPIRone HCL 2.5 MG TABLET PO ×2 (08:35→20:40)
[2024-04-19] MEDS: MONTELUKAST SODIUM 10 MG TABLET PO (08:35)
[2024-04-19] MEDS: PANTOPRAZOLE SODIUM IV 40 MG VIAL IV PUSH (08:36)
[2024-04-19] MEDS: busPIRone HCL 5 MG TABLET PO ×2 (08:36→20:40)
[2024-04-19] MEDS: PRAVASTATIN SODIUM 20 MG TABLET PO (08:36)
[2024-04-19] MEDS: TOPIRAMATE 25 MG TABLET 50 MG PO ×2 (08:36→18:17)
[2024-04-19] MEDS: FLUTICASONE PROPIONATE 0.05% NA SPR 16 GM BTL (*BKC) 1 SPRAY NASAL (08:37)
[2024-04-19] MEDS: ALBUTEROL SULFATE (*SP) AEROSOL 1 PUFF 2 PUFF INHALATION (12:42)
--- NOTE | 2024-04-19 14:22 | PM.IMPN ---
Progress Note: A&P Assessment and Plan (1) SBO (small bowel obstruction): Code(s): K56.609 - Unspecified intestinal obstruction, unspecified as to partial versus complete obstruction Status: Acute Assessment and Plan: - Patient presented with abdominal pain that is cramping and bloating in nature that started night prior to admission 04/13. - CT abdomen/pelvis showed SBO with transition point in right abdomen - General surgery following and patient scheduled for diagnostic Ex-Lap later today. LFT's elevated on admission, improving, unclear if obstructive. Not a candidate for NGT due to Leonard-en-Y procedure, would have to be placed with scope if needed. --Was tolerating clear liquids but with persistent SBO, on x-ray and no BM, scheduled for Exp. Lap prior later today. --Antiemetics, pain meds if needed. 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 - Supportive care. (3) Gastroesophageal reflux disease without esophagitis: Code(s): K21.9 - Gastro-esophageal reflux disease without esophagitis Status: Chronic Assessment and Plan: Continue Protonix IV (4) Bipolar affective disorder: Qualifiers: Active/Remission status: remission status unspecified Qualified Code(s): F31.9 - Bipolar disorder, unspecified Code(s): F31.9 - Bipolar disorder, unspecified Status: Chronic Assessment and Plan: Continue Abilify and Seroquel (5) Anxiety: Code(s): F41.9 - Anxiety disorder, unspecified Status: Chronic Assessment and Plan: Continue BuSpar and Abilify (6) Hyperlipidemia: Code(s): E78.5 - Hyperlipidemia, unspecified Status: Chronic Assessment and Plan: Continue aspirin and pravastatin (7) Elevated liver enzymes: Code(s): R74.8 - Abnormal levels of other serum enzymes Status: Acute Assessment and Plan: - LFT's elevated on admission. - Unclear etiology, CT Abd/pelvis; hx cholecystecomy. - Continues to trend down with AST currently wnl. - Continue to trend for now. (8) Hypokalemia: Code(s): E87.6 - Hypokalemia Status: Acute Assessment and Plan: - Continue to replete as needed. Time Spent With Patient Time with patient: 25 - 35 minutes Subjective Date/time seen: 04/19/24 11:22 Patient calm on bedrest and denies any acute distress. Interval history: Tolerating clear liquids without nausea or abdominal pain. Passed gas once yesterday, but no BM. Not passing gas or BM today. X-ray today showed persistently dilated loops of bowel, SBO. Planning OR later today for ex lap. Review of Systems Review of Systems: All systems reviewed & are unremarkable except as noted in HPI and below Exam Narrative: GENERAL: Alert and oriented x 3. No acute distress. EYES: EOMI. No scleral icterus. PERRLA. HEENT: Moist mucous membranes. LUNGS: Clear to auscultation bilaterally. No accessory muscle use. CARDIOVASCULAR: Regular rate and rhythm. No murmur. No JVD. S1-S2 ABDOMEN: Soft, NT, non-distended, no bowel sounds audible. EXTREMITIES: No edema. Non-tender SKIN: No rashes or lesions. Skin warm, dry. NEUROLOGIC: No focal neurological deficits. CN II-XII grossly intact PSYCHIATRIC: Appropriate mood and affect. Good judgement and insight. No visual or auditory hallucinations. Objective Data Vital Signs Vital Signs: Vital Signs - 24 hr 04/18/24 20:45 04/18/24 22:50 04/19/24 05:40 Temperature 97.9 F 96.8 F L Pulse Rate 75 76 Respiratory Rate 16 16 Blood Pressure 130/79 119/67 Pulse Oximetry 99 99 99 Oxygen Delivery Room Air 04/19/24 08:00 Temperature Pulse Rate Respiratory Rate Blood Pressure Pulse Oximetry Oxygen Delivery Room Air Intake/Output Intake/Output: Intake & Output 04/16/24 04/17/24 04/18/24 04/19/24 23:59 23:59 23:59 23:59 Intake Total 3510 2677.1 5648 400 Output Total 800 1600 1000 Balance 2710 1077.1 5648 -600 Meds/Results Medications: Active Medications Generic Name Dose Route Start Last Admin Trade Name Freq PRN Reason Stop Dose Admin Albuterol 2 puff 04/13/24 18:53 Albuterol Sulfate (*Sp) Aerosol 1 Puff INHALATION Q4H PRN shortness of breath or wheezing Albuterol 2 puff 04/18/24 12:28 Albuterol Sulfate (*Sp) Aerosol 1 Puff INHALATION QIDRT PRN Shortness Of Breath Aripiprazole 15 mg 04/18/24 09:00 04/19/24 08:35 Aripiprazole 5 Mg Tablet PO 15 mg DAILY ABRAHAM Administration Aspirin 81 mg 04/18/24 09:00 04/19/24 08:33 Aspirin 81 Mg Enteric Tablet PO Not Given BID ABRAHAM Buspirone HCl 5 mg 04/17/24 21:00 04/19/24 08:36 Buspirone Hcl 5 Mg Tablet PO 5 mg Q12HR ABRAHAM Administration Buspirone HCl 2.5 mg 04/17/24 21:00 04/19/24 08:35 Buspirone Hcl 2.5 Mg Tablet PO 2.5 mg Q12HR ABRAHAM Administration Fluticasone Propionate 1 spray 04/14/24 09:00 04/19/24 08:37 Fluticasone Propionate 0.05% Na Spr 16 Gm Btl (*Bkc) NASAL 1 spray DAILY ABRAHAM Administration Sodium Chloride 1,000 mls @ 125 mls/hr 04/13/24 14:30 04/18/24 17:10 Normal Saline Iv IV CONT 125 mls/hr .Q8H ABRAHAM Administration Lactated Ringer's 1,000 mls @ 30 mls/hr 04/19/24 14:00 Lr - Lactated Ringers Iv IV CONT .Q24H ABRAHAM Lamotrigine 100 mg 04/17/24 21:00 04/18/24 20:54 Lamotrigine 100 Mg Tablet PO 100 mg HS ABRAHAM Administration Montelukast Sodium 10 mg 04/17/24 17:10 04/19/24 08:35 Montelukast Sodium 10 Mg Tablet PO 10 mg DAILY ABRAHAM Administration Morphine Sulfate 2 mg 04/13/24 14:29 04/15/24 20:02 Morphine Sulfate (*Crx) 2 Mg/Ml Inj IV PUSH 2 mg Q2H PRN Administration Pain Rated 7-10 Morphine Sulfate 1 mg 04/13/24 14:43 04/18/24 22:28 Morphine Sulfate (*Crx) 2 Mg/Ml Inj IV PUSH 1 mg Q2H PRN Administration pain 4-6 Ondansetron HCl 4 mg 04/13/24 14:29 04/14/24 03:26 Ondansetron Inj 4 Mg/2 Ml Vial IV PUSH 4 mg Q4H PRN Administration Nausea Pantoprazole Sodium 40 mg 04/13/24 15:05 04/19/24 08:36 Pantoprazole Sodium Iv 40 Mg Vial IV PUSH 40 mg DAILY ABRAHAM Administration Pravastatin Sodium 20 mg 04/17/24 18:00 04/19/24 08:36 Pravastatin Sodium 20 Mg Tablet PO 20 mg DAILY ABRAHAM Administration Quetiapine Fumarate 300 mg 04/17/24 21:00 04/18/24 20:55 Quetiapine Fumarate 100 Mg Tablet PO 300 mg QHS ABRAHAM Administration Topiramate 50 mg 04/18/24 09:00 04/19/24 08:36 Topiramate 25 Mg Tablet PO 50 mg BID ABRAHAM Administration Radiology Results: ITS Impressions Abdomen/Pelvis CT 04/13/24 12:32 IMPRESSION: 1. Small bowel obstruction with transition point in right abdomen. Small Bowel X-Ray 04/16/24 13:19 IMPRESSION: 1. Persistent small bowel obstruction with delayed passage of oral contrast requiring 4 hours to reach the colon passing through persistently dilated small bowel. Abdomen X-Ray 04/18/24 08:07 IMPRESSION: 1. Persistently dilated small bowel, consistent with small bowel obstruction. Labs Labs: Laboratory Results - last 24 hr 04/19/24 06:31 WBC 5.7 RBC 3.84 L Hgb 11.8 L Hct 35.3 L MCV 91.9 MCH 30.7 MCHC 33.4 RDW 15.2 H Plt Count 300 MPV 8.7 Immature Gran % (Auto) 2.3 H Neut % (Auto) 59.7 Lymph % (Auto) 19.2 [place] % (Auto) 9.4 H Eos % (Auto) 8.4 H Baso % (Auto) 1.0 Lymph # (Auto) 1.10 [place] # (Auto) 0.5 Eos # (Auto) 0.5 H Baso # (Auto) 0.1 Abs Immat Gran (auto) 0.13 H Absolute Neuts (auto) 3.4 Absolute Nucleated RBC 0.000 Nucleated RBC % 0.0 Sodium 141 Potassium 3.2 L Chloride 111 H Carbon Dioxide 23 Anion Gap 7 BUN < 2 L Creatinine 0.60 L Estim Creat Clear Calc Not Reportable Estimated GFR > 60 Glucose 89 Calcium 8.6 Total Bilirubin 0.4 AST 34 ALT 79 H Alkaline Phosphatase 143 H Total Protein 6.0 L Albumin 3.1 L Quality VTE Prophylaxis VTE prophylaxis: mechanical ordered Hospitalist [facility] Advance Care Plan I have confirmed that the patient's Advanced Care Plan is present, code status is documented, or surrogate decision maker is listed in patient medical record.: Yes Medication Reconciliation I have utilized all available resources to obtain, update and review the patients current medications (includes all prescriptions, OTC, herbals, cannabis, and nutritional supplements).: Yes
--- NOTE | 2024-04-19 14:46 | WPDHPUPDATE1 ---
History and Physical Update Update Date/Time: 04/19/24 14:46 History and Physical has been reviewed, including an updated exam of the patient. There are NO changes in the patient's condition. Risks, benefits, and alternatives have been discussed and questions answered. Patient agrees to proceed with procedure.
--- NOTE | 2024-04-19 14:53 | P.PNAN_ITS ---
Anes - Initial Pre Proc Eval Procedure: Operation Date: 04/19/24 14:30 Proposed Procedures p Diagnostic Laparoscopy, - Caleb Turner DO s Possible Open, Possible Bowel Resection - Calbe Turner DO Date/Time: 04/19/24 14:53 Surgeon: Angelique Tony APRN Pre Op Diagnosis: small bowel obstruction Patient Data Age: 68 Gender: F Height: 1.45 m Weight: 83.5 kg Last Vital Signs Temp 36.0 C L 04/19/24 05:40 Pulse 76 04/19/24 05:40 Resp 16 04/19/24 05:40 BP 119/67 04/19/24 05:40 Pulse Ox 99 04/19/24 05:40 O2 Del Method Room Air 04/19/24 08:00 Allergies Allergy/AdvReac Type Severity Reaction Status Date / Time Sulfa (Sulfonamide Allergy Severe Rash Verified 04/13/24 14:43 Antibiotics) Penicillins Allergy Intermediate Rash Verified 04/13/24 14:43 Cephalosporins Allergy Mild Rash IN Verified 04/13/24 14:43 MOUTH succinylcholine Allergy Other Verified 04/13/24 14:43 erythromycin base AdvReac Intermediate GI UPSET, Verified 04/13/24 14:43 ABDOMINAL PAIN ANESTHETIC GASES Allergy Other Uncoded 04/13/24 14:43 Home Medications Medication Instructions Recorded Confirmed Type aspirin 81 mg tablet,delayed 81 mg PO BID 12/25/19 04/13/24 History release (Geni Low Dose Aspirin) buspirone 7.5 mg tablet 7.5 mg PO BID 12/25/19 04/13/24 History lamotrigine 100 mg tablet 100 mg PO HS 12/25/19 04/13/24 History (Lamictal) topiramate 50 mg tablet (Topamax) 50 mg PO BID BIPOLAR 12/25/19 04/13/24 History acetaminophen 500 mg capsule 500 mg PO Q6-8H PRN Pain 01/21/20 04/13/24 History calcium carbonate (Calcium 500) 500 mg PO TID 01/21/20 04/13/24 History aripiprazole 15 mg tablet (Abilify) 15 mg PO DAILY 07/24/20 04/13/24 History quetiapine 300 mg tablet (Seroquel) 300 mg PO QHS 09/01/21 04/13/24 History magnesium 250 mg tablet 750 mg PO BID 10/18/21 04/13/24 History estradiol 0.01% (0.1 mg/gram) 1 applic vaginal 3XW 10/27/21 04/13/24 History vaginal cream pediatric multivitamin 2 tablet PO HS 10/27/21 04/13/24 History albuterol sulfate 90 mcg/actuation 1 - 2 inh inhalation Q4-6H PRN 03/28/22 04/13/24 Rx aerosol inhaler shortness of breath or wheezing #25.5 grams montelukast 10 mg tablet See Rx Instructions .Route 03/28/22 04/13/24 Rx .COMPLEX #90 tabs alendronate 70 mg tablet 70 mg PO WEEKLY 08/14/22 04/13/24 History fluticasone propionate 50 1 spray intranasal DAILY 02/08/23 04/13/24 History mcg/actuation nasal spray,suspension (Flonase Allergy Relief) pravastatin 80 mg tablet See Rx Instructions .Route 08/30/23 04/13/24 Rx .COMPLEX #90 tabs pantoprazole 40 mg tablet,delayed 40 mg PO QAM #90 tabs 09/13/23 04/13/24 Rx release (Protonix) cyclobenzaprine 5 mg tablet 5 mg PO TID PRN muscle spasm #20 04/09/24 04/13/24 Rx tabs Claritin 10 mg PO DAILY 04/13/24 04/13/24 History Laboratory Tests 04/19/24 06:31 WBC 5.7 K/mm3 (4.5-10.0) RBC 3.84 L M/mm3 (4.2-5.4) Hgb 11.8 L g/dL (12.0-15.0) Hct 35.3 L % (37.0-47.0) MCV 91.9 fl (80-100) MCH 30.7 pg (26-34) MCHC 33.4 g/dl (32-36) RDW 15.2 H % (11.5-14.5) Plt Count 300 k/mm3 (150-375) MPV 8.7 fl (7.4-10.4) Immature Gran % (Auto) 2.3 H % (0-0.5) Neut % (Auto) 59.7 % (45.5-73.1) Lymph % (Auto) 19.2 % (18.3-44.2) [place] % (Auto) 9.4 H % (2.6-8.5) Eos % (Auto) 8.4 H % (0-4.4) Baso % (Auto) 1.0 % (0.2-1.2) Lymph # (Auto) 1.10 K/mm3 (0.9-3.2) [place] # (Auto) 0.5 K/mm3 (0.1-0.6) Eos # (Auto) 0.5 H K/mm3 (0-0.3) Baso # (Auto) 0.1 K/mm3 (0.0-0.1) Abs Immat Gran (auto) 0.13 H K/mm3 (0.00-0.031) Absolute Neuts (auto) 3.4 K/mm3 (1.3-6.7) Absolute Nucleated RBC 0.000 K/mm3 (0.0-0.012) Nucleated RBC % 0.0 % (0.0-0.2) Sodium 141 mmol/L (137-145) Potassium 3.2 L mmol/L (3.4-5.0) Chloride 111 H mmol/L (98-107) Carbon Dioxide 23 mmol/L (22-30) Anion Gap 7 mmol/L (4-12) BUN < 2 L mg/dL (7-17) Creatinine 0.60 L mg/dL (0.7-1.0) Estim Creat Clear Calc Not Reportable Estimated GFR > 60 (59 - ) Glucose 89 mg/dL (65-110) Calcium 8.6 mg/dL (8.4-10.2) Total Bilirubin 0.4 mg/dL (0.2-1.3) AST 34 U/L (14-36) ALT 79 H U/L (6-35) Alkaline Phosphatase 143 H U/L (38-126) Total Protein 6.0 L g/dL (6.3-8.2) Albumin 3.1 L g/dL (3.5-5.1) Patient hx anesthesia problems: hx of malignant hyperthermia (strong family hx) Family hx anesthesia problems: none Results Review: All pre-operative results and documents have been reviewed as part of the pre-op erative evaluation. FORMERLY [facility], [facility]–1983 Past Medical History Medical History Allergic rhinitis Anxiety Asthma-COPD overlap syndrome Bipolar affective disorder Cellulitis of left lower extremity Encounter for surgical aftercare following surgery on the digestive system Essential (primary) hypertension Gastroesophageal reflux disease without esophagitis Left hip pain Mixed hyperlipidemia Open abdominal wall wound Osteopenia Pulmonary embolism (2003) Possibly related to hormone use. Right knee DJD SBO (small bowel obstruction) Subclinical hyperthyroidism Superficial postoperative wound infection Traumatic arthritis of right ankle Valgus foot deformity, acquired Vitamin B12 deficiency Vitamin D deficiency Surgical History Surgical History History of carpal tunnel surgery of right wrist History of cataract extraction with lens replacement History of fundoplication History of hysterectomy for benign disease History of intestinal surgery Enterotomy, removal of intraluminal obstructing mass on 08/16/22 History of laparotomy History of nasal septoplasty S/P total knee arthroplasty 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 CODE STATUS: Full code. Smoking packs per day: 2 Smoking cigarettes per day: 40.0 Years smoked: 25 Smoking pack-years: 50.00 Smoking status: Former smoker Tobacco type: cigarettes Second hand tobacco smoke exposure: No Smoking end date: 06/19/99 Additional smoking assessment comments: DENIES ANY FORM OF TOBACCO USE Alcohol intake: never Substance use: never Substance use type: does not use Do You Feel Safe in your Home?: Yes Lack of Transportation: No Lack of Food: Never True Current Housing: I Have Housing Concerned About Future Housing: No Difficulty Paying Gas/Electric Bills: No Difficulty Paying for Meds: No Currently Unemployed: No Education: Bachelor's Degree Difficulty w/ Childcare or Family Care: No Living arrangements: other Additional living arrangements comments: with sp Spiritual care concerns: No Anes - Eval Final PreProcedure Day of Procedure 04/19/24 14:53 Patient weight: obese Heart: regular rate and rhythm Lungs: clear to auscultation Airway: Mallampati scale class II Neurological: alert and oriented Last oral intake: >/= 8 hours ASA classification: III Emergent: no Anesthetic plan: proceed (non triggering anesthetic) Anesthesia type and monitoring: general (non triggering ) ETT and standard monitoring Results Review: All pre-operative results and documents have been reviewed as part of the pre- operative evaluation. Informed Consent: The patient's anesthetic plan and its attendant risks and benefits were discussed with the patient/family/POA. Questions were solicited and answers provided to the satisfaction of the patient/family/POA.
[2024-04-19] MEDS: ceFAZolin 2 GM/D5W 50 ML 2 GM/50 ML BAG IVPB (15:10)
[2024-04-19] MEDS: BUPIVACAINE/EPINEPHRINE 0.5% 50 ML VIAL INFILTRATE (16:20)
--- NOTE | 2024-04-19 16:37 | P.OP_ITS ---
Procedure Note - Detailed Date of Procedure 04/19/24 Pre-op Diagnosis small bowel obstruction Post-op Diagnosis Same (Partial small-bowel obstruction) Procedure Performed Laparoscopic enterolysis with release of small-bowel obstruction Surgeon Caleb Turner, DO Anesthesia General and Local (0.5% bupivacaine with epinephrine) Indications This is a 68-year-old woman who presented with a recurrent small-bowel obstruction. She has a history of multiple abdominal surgeries including a laparoscopic Leonard-en-Y gastric bypass, laparoscopic cholecystectomy, and laparoscopic hysterectomy. She had a small-bowel obstruction in 2022 and had gone exploratory laparotomy for this. She was having some bowel function initially on presentation during this hospital stay and contrast from the small bowel follow-through eventually did make its way into the colon and she did begin having bowel movements. About 1 day later however she then stopped having bowel movements and was feeling more bloated again. Her abdominal x-rays showed persistent obstruction. Discussions were made with the patient about treatment options and decision was made to proceed with diagnostic laparoscopy, possible open, possible bowel resection. Findings Upon inspecting the abdomen laparoscopically, I did identify 1 adhesive band that was potentially causing the partial obstruction. I took this down and then was able to began running the bowel. This started at the ileocecal valve and ran the bowel proximally. There was 1 other area of small-bowel adhesions to itself that was possibly causing a partial obstruction as well. These adhesions were taken down carefully with laparoscopic scissors and after doing so, the bowel did not appear to have any other signs of obstruction. The previous Leonard-en-Y anastomosis appeared intact. There did not appear to be any internal hernias from this prior surgery. The bowel was run from the ligament of Treitz to the anastomosis and then from the gastrojejunostomy all the way to the ileocecal valve. No other signs of obstruction were noted. Description of Procedure Procedure as well as risks, benefits, and alternatives were discussed with the patient. Written consent was obtained and placed in chart prior to procedure. Patient was brought back to surgical suite. She was placed supine operating table. Time-out was done to confirm patient and procedure. She was then intuba santos by the anesthesia department. Her abdomen was then prepped and draped in sterile fashion using chlorhexidine prep. A 5 mm incision was made in the right upper quadrant and a 5 mm Optiview trocar was advanced through the abdominal layers under direct visualization. Once inside the abdominal cavity, carbon dioxide insufflation was used to create a pneumoperitoneum. The camera was inserted in the abdomen was inspected. The patient was then placed in slight Trendelenburg position and rotated to the left. Another 5 mm incision was made in the right lower quadrant a 5 mm trocar was inserted under direct visualization. One more 5 mm incision was made in the right lateral abdomen and a 5 mm trocar was inserted under direct visualization. Was an area the cecum adhesed to the abdominal wall in the periumbilical region. This was taken down using laparoscopic scissors. I was then able to identify the ileocecal valve and terminal ileum. I began tracing the terminal ileum proximally and identified a single adhesive band causing a small loop. This adhesive band was excised using laparoscopic scissors. The small bowel was then continued to be inspected as I ran the bowel proximally I found another loop of small bowel adhesions to itself but this did not likely appear to be causing an obstruction. Some of these adhesions were taken down carefully using laparoscopic scissors to minimize the angle that the bowel was creating with the adhesions. We then continued to run the bowel proximally and then identified the jejunojejunostomy. I then ran the 2 limbs proximally to the gastrojejunostomy and the ligament of Treitz. No other signs of obstruction were noted proximally and no internal hernias were identified. I then ran the bowel 1 final time to ensure that there were no other sites adhesions and no other signs of bowel injuries. There did appear to be 1 more adhesion at the terminal ileum near the cecum. This was taken down using laparoscopic scissors. No other signs of obstruction were identified at this point. The colon all appeared healthy and viable. No other significant findings were noted. Patient was then flattened out in bed. The ports were then removed under direct visualization, the camera was removed, and the pneumoperitoneum was released. 0.5% bupivacaine with epinephrine was infiltrated locally at each of the port sites. The skin of the incisions was then approximated using 4-0 Monocryl subcuticular suture. Exofin glue was then applied on top. Patient was then awakened from anesthesia, extubated, and transferred to recovery. Estimated Blood Loss 5 Urine Output 500 Complications No immediate complications Condition Stable Disposition Floor [facility] Billing Surgery - Charge Forward: Surgery Billing
[2024-04-19] MEDS: LACTATED RINGERS 1,000 ML 30 ML IV CONT ×2 (16:47)
[2024-04-19] MEDS: POTASSIUM CHLORIDE INJ 40 MEQ in SODIUM CHLORIDE 0.9% IV 500 ML 130 MEQ IVPB (18:17)
[2024-04-19] MEDS: QUEtiapine FUMARATE 100 MG TABLET 300 MG PO (20:38)
[2024-04-19] MEDS: HYDROcodone/acetaminophen (*CRX) 7.5-325 MG TABLET 1 TAB PO (20:39)
[2024-04-19] MEDS: lamoTRIgine 100 MG TABLET PO (20:40)
[2024-04-19] MEDS: LACTATED RINGERS 1,000 ML 100 ML IV CONT (23:05)
[2024-04-20] VITALS (8 sets, daily range): BP systolic 121–154; BP diastolic 69–85; PULSE 69–81; RESP 18; TEMP 36–37.2; O2SAT 98–100
[2024-04-20] MEDS: IBUPROFEN IV 800 MG/200 ML 800 MG/200 ML BAG 400 MG IVPB ×2 (06:15→12:19)
[2024-04-20 06:50] LABS: Basophils Percent Auto 0.6 % (0.2-1.2); Eosinophils Absolute Auto 0.1 K/mm3 (0-0.3); Eosinophils Percent Auto 1.3 % (0-4.4); Hematocrit 37.5 % (37.0-47.0); Hemoglobin 12.1 g/dL (12.0-15.0); Immature Granulocyte Absolute 0.11 K/mm3 (0.00-0.031); Immature Granulocyte Percent A 1.6 % (0-0.5); Lymphocytes Absolute Auto 0.93 K/mm3 (0.9-3.2); Lymphocytes Percent Auto 13.7 % (18.3-44.2); Mean Corpuscular HGB Conc 32.3 g/dl (32-36); Mean Corpuscular Hemoglobin 29.7 pg (26-34); Mean Corpuscular Volume 92.1 fl (80-100); Mean Platelet Volume 8.8 fl (7.4-10.4); Monocytes Absolute Auto 0.5 K/mm3 (0.1-0.6); Monocytes Percent Auto 7.7 % (2.6-8.5); Neutrophils Absolute Auto 5.1 K/mm3 (1.3-6.7); Neutrophils Percent Auto 75.1 % (45.5-73.1); Platelet Count Result 311 k/mm3 (150-375); Red Blood Count 4.07 M/mm3 (4.2-5.4); Red Cell Distribution Width 15.1 % (11.5-14.5); White Blood Count 6.8 K/mm3 (4.5-10.0)
[2024-04-20 07:03] LABS: Alanine Aminotransferase 64 U/L (6-35); Albumin Level 3.6 g/dL (3.5-5.1); Alkaline Phosphatase 157 U/L (38-126); Anion Gap 8 mmol/L (4-12); Aspartate Amino Transferase 31 U/L (14-36); Bilirubin,Total 0.4 mg/dL (0.2-1.3); Calcium 8.8 mg/dL (8.4-10.2); Carbon Dioxide 26 mmol/L (22-30); Chloride 105 mmol/L (98-107); Estimated Glomerular Filt Rate > 60; Glucose 108 mg/dL (65-110); Potassium 3.7 mmol/L (3.4-5.0); Sodium 139 mmol/L (137-145)
[2024-04-20 07:26] LABS: Blood Urea Nitrogen < 2 mg/dL (7-17)
--- NOTE | 2024-04-20 08:08 | PC.NURSE ---
On 04/20/24, the student, [Annamarie Huizar], provided care and completed [facility] documentation on this patient. I have reviewed the student's documentation and agree with the findings.
[2024-04-20] MEDS: MONTELUKAST SODIUM 10 MG TABLET PO (08:17)
[2024-04-20] MEDS: PRAVASTATIN SODIUM 20 MG TABLET PO (08:17)
[2024-04-20] MEDS: ARIPiprazole 5 MG TABLET 15 MG PO (08:18)
[2024-04-20] MEDS: busPIRone HCL 2.5 MG TABLET PO ×2 (08:18→20:47)
[2024-04-20] MEDS: busPIRone HCL 5 MG TABLET PO ×2 (08:20→20:47)
[2024-04-20] MEDS: TOPIRAMATE 25 MG TABLET 50 MG PO ×2 (08:20→16:56)
[2024-04-20] MEDS: ASPIRIN 81 MG ENTERIC TABLET PO ×2 (08:22→16:55)
[2024-04-20] MEDS: ENOXAPARIN 40 MG/0.4 ML SYRINGE SUB-Q (08:22)
[2024-04-20] MEDS: FLUTICASONE PROPIONATE 0.05% NA SPR 16 GM BTL (*BKC) 1 SPRAY NASAL (08:25)
[2024-04-20] MEDS: PANTOPRAZOLE SODIUM IV 40 MG VIAL IV PUSH (09:16)
--- NOTE | 2024-04-20 10:52 | PC.NURSE ---
Students ambulated with patient in the hallway. Patient denies any pain. Patient ambulated for 10 minutes.
--- NOTE | 2024-04-20 13:11 | P.PNIM_ITS ---
Progress Note: A&P Assessment and Plan (1) SBO (small bowel obstruction): Code(s): K56.609 - Unspecified intestinal obstruction, unspecified as to partial versus complete obstruction Status: Acute Assessment and Plan: - Patient presented with abdominal pain that is cramping and bloating in nature that started night prior to admission 04/13. - CT abdomen/pelvis showed SBO with transition point in right abdomen - General surgery following and patient had an Ex-Lap yesterday with lysis of adhesions. - Patient started on clear liquid diet per general surgery. - LFT's slowly trending down. --Monitor tolerate of clear liquids and advance per general surgery. --Antiemetics, pain meds if needed. --Encouraged with ambulation. 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 - Supportive care for now. (3) Gastroesophageal reflux disease without esophagitis: Code(s): K21.9 - Gastro-esophageal reflux disease without esophagitis Status: Chronic Assessment and Plan: * Continue Protonix IV (4) Bipolar affective disorder: Qualifiers: Active/Remission status: remission status unspecified Qualified Code(s): F31.9 - Bipolar disorder, unspecified Code(s): F31.9 - Bipolar disorder, unspecified Status: Chronic Assessment and Plan: * Continue Abilify and Seroquel (5) Anxiety: Code(s): F41.9 - Anxiety disorder, unspecified Status: Chronic Assessment and Plan: * Continue BuSpar and Abilify (6) Hyperlipidemia: Code(s): E78.5 - Hyperlipidemia, unspecified Status: Chronic Assessment and Plan: * Continue aspirin and pravastatin (7) Elevated liver enzymes: Code(s): R74.8 - Abnormal levels of other serum enzymes Status: Acute Assessment and Plan: - LFT's elevated on admission. - Unclear etiology, CT Abd/pelvis; hx cholecystecomy. - Continues to trend down with AST normalized. - Continue to trend for now. (8) Hypokalemia: Code(s): E87.6 - Hypokalemia Status: Acute Assessment and Plan: - Continue to replete as needed. - Currently wnl. Time Spent With Patient Time with patient: 15 - 25 minutes Subjective Date/time seen: 04/20/24 11:10 Patient calm on bedrest and states feels good. States had a clear liquid diet earlier and tolerated well. States passing flatus but no BM yet. Interval history: Patient calm on bedrest and appears to be in no acute distress. Review of Systems Review of Systems: All systems reviewed & are unremarkable except as noted in HPI and below Exam Narrative: * GENERAL: Alert and oriented x 3. No acute distress. * EYES: EOMI. No scleral icterus. PERRLA. * HEENT: Moist mucous membranes. * LUNGS: Clear to auscultation bilaterally. No accessory muscle use. * CARDIOVASCULAR: Regular rate and rhythm. No murmur. No JVD. * ABDOMEN: Soft, NT, non-distended, hypoactive bowel sounds. * EXTREMITIES: No edema. Non-tender. * SKIN: No rashes or lesions. Skin warm, dry. * NEUROLOGIC: No focal neurological deficits. CN II-XII grossly intact * PSYCHIATRIC: Appropriate mood and affect. Good judgement and insight. No visual or auditory hallucinations. Objective Data Vital Signs Vital Signs: Vital Signs - 24 hr 04/19/24 16:47 04/19/24 17:00 04/19/24 17:15 Temperature 98.5 F 98.6 F Pulse Rate 90 82 82 Respiratory Rate 12 12 16 Blood Pressure 96/54 L 97/54 L 106/68 Pulse Oximetry 100 100 96 Oxygen Delivery Simple Face Mask Room Air Room Air Oxygen Flow Rate 8 Fraction of Inspired Oxygen 04/19/24 17:30 04/19/24 17:40 04/19/24 18:07 Temperature 97.1 F L 97.1 F L Pulse Rate 79 68 68 Respiratory Rate 16 16 18 Blood Pressure 112/75 114/66 128/68 Pulse Oximetry 100 98 100 Oxygen Delivery Room Air Room Air Oxygen Flow Rate Fraction of Inspired Oxygen 04/19/24 18:32 04/19/24 20:05 04/20/24 01:25 Temperature 97.7 F 98.4 F 98 F Pulse Rate 71 80 73 Respiratory Rate 18 16 18 Blood Pressure 123/72 130/77 121/69 Pulse Oximetry 99 98 98 Oxygen Delivery Oxygen Flow Rate Fraction of Inspired Oxygen 04/20/24 06:05 04/20/24 08:09 04/20/24 08:27 Temperature 96.8 F L 97.3 F L Pulse Rate 69 73 Respiratory Rate 18 18 Blood Pressure 135/85 154/77 H Pulse Oximetry 100 99 100 Oxygen Delivery Room Air Oxygen Flow Rate Fraction of Inspired Oxygen 21 04/20/24 08:00 04/20/24 11:37 Temperature 97.7 F Pulse Rate 81 Respiratory Rate 18 Blood Pressure 124/74 Pulse Oximetry 100 Oxygen Delivery Room Air Oxygen Flow Rate Fraction of Inspired Oxygen Intake/Output Intake/Output: Intake & Output 04/17/24 04/18/24 04/19/24 04/20/24 23:59 23:59 23:59 23:59 Intake Total 2677.1 5648 650 1272 Output Total 1600 1500 Balance 1077.1 5648 -850 1272 Meds/Results Medications: Active Medications Generic Name Dose Route Start Last Admin Trade Name Freq PRN Reason Stop Dose Admin Hydrocodone Bitart/Acetaminophen 1 tab 04/19/24 17:52 Hydrocodone/Acetaminophen (*Crx) 5-325 Mg Tablet PO Q4H PRN Pain Rated 4-6 Hydrocodone Bitart/Acetaminophen 1 tab 04/19/24 17:52 04/19/24 20:39 Hydrocodone/Acetaminophen (*Crx) 7.5-325 Mg Tablet PO 1 tab Q4H PRN Administration Pain Rated 7-10 Albuterol 2 puff 04/13/24 18:53 Albuterol Sulfate (*Sp) Aerosol 1 Puff INHALATION Q4H PRN shortness of breath or wheezing Albuterol 2 puff 04/18/24 12:28 Albuterol Sulfate (*Sp) Aerosol 1 Puff INHALATION QIDRT PRN Shortness Of Breath Aripiprazole 15 mg 04/18/24 09:00 04/20/24 08:18 Aripiprazole 5 Mg Tablet PO 15 mg DAILY ABRAHAM Administration Aspirin 81 mg 04/18/24 09:00 04/20/24 08:22 Aspirin 81 Mg Enteric Tablet PO 81 mg BID ABRAHAM Administration Buspirone HCl 5 mg 04/17/24 21:00 04/20/24 08:20 Buspirone Hcl 5 Mg Tablet PO 5 mg Q12HR ABRAHAM Administration Buspirone HCl 2.5 mg 04/17/24 21:00 04/20/24 08:18 Buspirone Hcl 2.5 Mg Tablet PO 2.5 mg Q12HR ABRAHAM Administration Enoxaparin Sodium 40 mg 04/20/24 09:00 04/20/24 08:22 Enoxaparin 40 Mg/0.4 Ml Syringe SUB-Q 40 mg DAILY ABRAHAM Administration Fluticasone Propionate 1 spray 04/14/24 09:00 04/20/24 08:25 Fluticasone Propionate 0.05% Na Spr 16 Gm Btl (*Bkc) NASAL 1 spray DAILY ABRAHAM Administration Ibuprofen 800 mg in 200 mls @ 400 mls/hr 04/19/24 17:52 04/20/24 12:19 Caldolor 800 Mg/200 Ml IVPB 400 mls/hr Q6H PRN Administration Breakthrough Pain Rated 1-3 or NPO Lamotrigine 100 mg 04/17/24 21:00 04/19/24 20:40 Lamotrigine 100 Mg Tablet PO 100 mg HS ABRAHAM Administration Montelukast Sodium 10 mg 04/17/24 17:10 04/20/24 08:17 Montelukast Sodium 10 Mg Tablet PO 10 mg DAILY ABRAHAM Administration Morphine Sulfate 2 mg 04/19/24 17:52 Morphine Sulfate (*Crx) 2 Mg/Ml Inj IV PUSH Q2H PRN Breakthrough Pain Rated 4-6 or NPO Morphine Sulfate 4 mg 04/19/24 17:52 Morphine Sulfate (*Crx) 4 Mg/Ml Inj IV PUSH Q2H PRN Breakthrough Pain Rated 7-10 or NPO Naloxone HCl 0.1 mg 04/19/24 17:52 Naloxone Hcl 0.4 Mg/Ml Vial IV PUSH Q2M PRN Opiate Reversal Ondansetron HCl 4 mg 04/13/24 14:29 04/14/24 03:26 Ondansetron Inj 4 Mg/2 Ml Vial IV PUSH 4 mg Q4H PRN Administration Nausea Pantoprazole Sodium 40 mg 04/13/24 15:05 04/20/24 09:16 Pantoprazole Sodium Iv 40 Mg Vial IV PUSH 40 mg DAILY ABRAHAM Administration Pravastatin Sodium 20 mg 04/17/24 18:00 04/20/24 08:17 Pravastatin Sodium 20 Mg Tablet PO 20 mg DAILY ABRAHAM Administration Quetiapine Fumarate 300 mg 04/17/24 21:00 04/19/24 20:38 Quetiapine Fumarate 100 Mg Tablet PO 300 mg QHS ABRAHAM Administration Topiramate 50 mg 04/18/24 09:00 04/20/24 08:20 Topiramate 25 Mg Tablet PO 50 mg BID ABRAHAM Administration Radiology Results: ITS Impressions Abdomen/Pelvis CT 04/13/24 12:32 IMPRESSION: 1. Small bowel obstruction with transition point in right abdomen. Small Bowel X-Ray 04/16/24 13:19 IMPRESSION: 1. Persistent small bowel obstruction with delayed passage of oral contrast requiring 4 hours to reach the colon passing through persistently dilated small bowel. Abdomen X-Ray 04/18/24 08:07 IMPRESSION: 1. Persistently dilated small bowel, consistent with small bowel obstruction. Labs Labs: Laboratory Results - last 24 hr 04/20/24 06:24 WBC 6.8 RBC 4.07 L Hgb 12.1 Hct 37.5 MCV 92.1 MCH 29.7 MCHC 32.3 RDW 15.1 H Plt Count 311 MPV 8.8 Immature Gran % (Auto) 1.6 H Neut % (Auto) 75.1 H Lymph % (Auto) 13.7 L [place] % (Auto) 7.7 Eos % (Auto) 1.3 Baso % (Auto) 0.6 Lymph # (Auto) 0.93 [place] # (Auto) 0.5 Eos # (Auto) 0.1 Baso # (Auto) 0.0 Abs Immat Gran (auto) 0.11 H Absolute Neuts (auto) 5.1 Absolute Nucleated RBC 0.000 Nucleated RBC % 0.0 Sodium 139 Potassium 3.7 Chloride 105 Carbon Dioxide 26 Anion Gap 8 BUN < 2 L Creatinine 0.60 L Estim Creat Clear Calc Not Reportable Estimated GFR > 60 Glucose 108 Calcium 8.8 Total Bilirubin 0.4 AST 31 ALT 64 H Alkaline Phosphatase 157 H Total Protein 7.0 Albumin 3.6 Quality VTE Prophylaxis VTE prophylaxis: mechanical ordered Hospitalist MIPS Advance Care Plan I have confirmed that the patient's Advanced Care Plan is present, code status is documented, or surrogate decision maker is listed in patient medical record.: Yes Medication Reconciliation I have utilized all available resources to obtain, update and review the patients current medications (includes all prescriptions, OTC, herbals, cannabis, and nutritional supplements).: Yes
--- NOTE | 2024-04-20 14:25 | P.PN_ITS ---
Progress Note: A&P Assessment and Plan (1) SBO (small bowel obstruction): Code(s): K56.609 - Unspecified intestinal obstruction, unspecified as to partial versus complete obstruction Status: Acute Assessment and Plan: Small-bowel obstruction resolved after laparoscopic adhesiolysis. Seems to be progressing well. We will go ahead advanced her diet to soft food. If she is doing as well if not better tomorrow then likely will discharge home tomorrow. Subjective Date/time seen: 04/20/24 14:25 Interval history: Patient is doing well today. Had laparoscopic adhesiolysis for small bowel obstruction yesterday by . She has been tolerating clear liquids. She is passing flatus and had a small bowel movement today. Her pain is well controlled only on IV ibuprofen. She has been able to get up and ambulate to the bathroom dependently. Exam GI: Other: Abdomen is soft and nondistended. Laparoscopic port site incisions are healing well the about any drainage or redness. Slight ecchymosis noted around the incisions. Objective Data Vital Signs Vital Signs: Vital Signs - 24 hr 04/19/24 16:47 04/19/24 17:00 04/19/24 17:15 Temperature 36.9 C 37.0 C Pulse Rate 90 82 82 Respiratory Rate 12 12 16 Blood Pressure 96/54 L 97/54 L 106/68 Pulse Oximetry 100 100 96 Oxygen Delivery Simple Face Mask Room Air Room Air Oxygen Flow Rate 8 Fraction of Inspired Oxygen 04/19/24 17:30 04/19/24 17:40 04/19/24 18:07 Temperature 36.2 C L 36.2 C L Pulse Rate 79 68 68 Respiratory Rate 16 16 18 Blood Pressure 112/75 114/66 128/68 Pulse Oximetry 100 98 100 Oxygen Delivery Room Air Room Air Oxygen Flow Rate Fraction of Inspired Oxygen 04/19/24 18:32 04/19/24 20:05 04/20/24 01:25 Temperature 36.5 C 36.9 C 36.6 C Pulse Rate 71 80 73 Respiratory Rate 18 16 18 Blood Pressure 123/72 130/77 121/69 Pulse Oximetry 99 98 98 Oxygen Delivery Oxygen Flow Rate Fraction of Inspired Oxygen 04/20/24 06:05 04/20/24 08:09 04/20/24 08:27 Temperature 36.0 C L 36.3 C L Pulse Rate 69 73 Respiratory Rate 18 18 Blood Pressure 135/85 154/77 H Pulse Oximetry 100 99 100 Oxygen Delivery Room Air Oxygen Flow Rate Fraction of Inspired Oxygen 04/20/24 08:00 04/20/24 11:37 Temperature 36.5 C Pulse Rate 81 Respiratory Rate 18 Blood Pressure 124/74 Pulse Oximetry 100 Oxygen Delivery Room Air Oxygen Flow Rate Fraction of Inspired Oxygen Intake/Output Intake/Output: Intake & Output 04/17/24 04/18/24 04/19/24 04/20/24 23:59 23:59 23:59 23:59 Intake Total 2677.1 5648 650 1272 Output Total 1600 1500 Balance 1077.1 5648 -850 1272 Meds/Results Medications: Active Medications Generic Name Dose Route Start Last Admin Trade Name Freq PRN Reason Stop Dose Admin Hydrocodone Bitart/Acetaminophen 1 tab 04/19/24 17:52 Hydrocodone/Acetaminophen (*Crx) 5-325 Mg Tablet PO Q4H PRN Pain Rated 4-6 Hydrocodone Bitart/Acetaminophen 1 tab 04/19/24 17:52 04/19/24 20:39 Hydrocodone/Acetaminophen (*Crx) 7.5-325 Mg Tablet PO 1 tab Q4H PRN Administration Pain Rated 7-10 Albuterol 2 puff 04/13/24 18:53 Albuterol Sulfate (*Sp) Aerosol 1 Puff INHALATION Q4H PRN shortness of breath or wheezing Albuterol 2 puff 04/18/24 12:28 Albuterol Sulfate (*Sp) Aerosol 1 Puff INHALATION QIDRT PRN Shortness Of Breath Aripiprazole 15 mg 04/18/24 09:00 04/20/24 08:18 Aripiprazole 5 Mg Tablet PO 15 mg DAILY ABRAHAM Administration Aspirin 81 mg 04/18/24 09:00 04/20/24 08:22 Aspirin 81 Mg Enteric Tablet PO 81 mg BID ABRAHAM Administration Buspirone HCl 5 mg 04/17/24 21:00 04/20/24 08:20 Buspirone Hcl 5 Mg Tablet PO 5 mg Q12HR ABRAHAM Administration Buspirone HCl 2.5 mg 04/17/24 21:00 04/20/24 08:18 Buspirone Hcl 2.5 Mg Tablet PO 2.5 mg Q12HR ABRAHAM Administration Enoxaparin Sodium 40 mg 04/20/24 09:00 04/20/24 08:22 Enoxaparin 40 Mg/0.4 Ml Syringe SUB-Q 40 mg DAILY ABRAHAM Administration Fluticasone Propionate 1 spray 04/14/24 09:00 04/20/24 08:25 Fluticasone Propionate 0.05% Na Spr 16 Gm Btl (*Bkc) NASAL 1 spray DAILY ABRAHAM Administration Ibuprofen 800 mg in 200 mls @ 400 mls/hr 04/19/24 17:52 04/20/24 12:19 Caldolor 800 Mg/200 Ml IVPB 400 mls/hr Q6H PRN Administration Breakthrough Pain Rated 1-3 or NPO Lamotrigine 100 mg 04/17/24 21:00 04/19/24 20:40 Lamotrigine 100 Mg Tablet PO 100 mg HS ABRAHAM Administration Montelukast Sodium 10 mg 04/17/24 17:10 04/20/24 08:17 Montelukast Sodium 10 Mg Tablet PO 10 mg DAILY ABRAHAM Administration Morphine Sulfate 2 mg 04/19/24 17:52 Morphine Sulfate (*Crx) 2 Mg/Ml Inj IV PUSH Q2H PRN Breakthrough Pain Rated 4-6 or NPO Morphine Sulfate 4 mg 04/19/24 17:52 Morphine Sulfate (*Crx) 4 Mg/Ml Inj IV PUSH Q2H PRN Breakthrough Pain Rated 7-10 or NPO Naloxone HCl 0.1 mg 04/19/24 17:52 Naloxone Hcl 0.4 Mg/Ml Vial IV PUSH Q2M PRN Opiate Reversal Ondansetron HCl 4 mg 04/13/24 14:29 04/14/24 03:26 Ondansetron Inj 4 Mg/2 Ml Vial IV PUSH 4 mg Q4H PRN Administration Nausea Pantoprazole Sodium 40 mg 04/13/24 15:05 04/20/24 09:16 Pantoprazole Sodium Iv 40 Mg Vial IV PUSH 40 mg DAILY ABRAHAM Administration Pravastatin Sodium 20 mg 04/17/24 18:00 04/20/24 08:17 Pravastatin Sodium 20 Mg Tablet PO 20 mg DAILY ABRAHAM Administration Quetiapine Fumarate 300 mg 04/17/24 21:00 04/19/24 20:38 Quetiapine Fumarate 100 Mg Tablet PO 300 mg QHS ABRAHAM Administration Topiramate 50 mg 04/18/24 09:00 04/20/24 08:20 Topiramate 25 Mg Tablet PO 50 mg BID ABRAHAM Administration Radiology Results: ITS Impressions Abdomen/Pelvis CT 04/13/24 12:32 IMPRESSION: 1. Small bowel obstruction with transition point in right abdomen. Small Bowel X-Ray 04/16/24 13:19 IMPRESSION: 1. Persistent small bowel obstruction with delayed passage of oral contrast requiring 4 hours to reach the colon passing through persistently dilated small bowel. Abdomen X-Ray 04/18/24 08:07 IMPRESSION: 1. Persistently dilated small bowel, consistent with small bowel obstruction. Labs Labs: Laboratory Results - last 24 hr 04/20/24 06:24 WBC 6.8 RBC 4.07 L Hgb 12.1 Hct 37.5 MCV 92.1 MCH 29.7 MCHC 32.3 RDW 15.1 H Plt Count 311 MPV 8.8 Immature Gran % (Auto) 1.6 H Neut % (Auto) 75.1 H Lymph % (Auto) 13.7 L [place] % (Auto) 7.7 Eos % (Auto) 1.3 Baso % (Auto) 0.6 Lymph # (Auto) 0.93 [place] # (Auto) 0.5 Eos # (Auto) 0.1 Baso # (Auto) 0.0 Abs Immat Gran (auto) 0.11 H Absolute Neuts (auto) 5.1 Absolute Nucleated RBC 0.000 Nucleated RBC % 0.0 Sodium 139 Potassium 3.7 Chloride 105 Carbon Dioxide 26 Anion Gap 8 BUN < 2 L Creatinine 0.60 L Estim Creat Clear Calc Not Reportable Estimated GFR > 60 Glucose 108 Calcium 8.8 Total Bilirubin 0.4 AST 31 ALT 64 H Alkaline Phosphatase 157 H Total Protein 7.0 Albumin 3.6
[2024-04-20] MEDS: QUEtiapine FUMARATE 100 MG TABLET 300 MG PO (20:47)
[2024-04-20] MEDS: lamoTRIgine 100 MG TABLET PO (20:47)
--- NOTE | 2024-04-21 01:34 | PC.NURSE ---
Daylight Savings Time For Daylight Savings Time Ending in the Fall - Clocks are moved back. For Daylight Savings Time Beginning in the Spring - Clocks are moved ahead. For [facility], the time of change occurs at 0200 hrs. Time is taken from the food beverage server. This entry on the patient's chart recognizes the change in time reflected during documentation. Example: 2 entries for vital signs may be charted for 0200 hrs.
[2024-04-21 06:23] VITALS: BP 105/60; PULSE 74; RESP 20; TEMP 36.3; O2SAT 100
[2024-04-21 07:21] LABS: Basophils Absolute Auto 0.1 K/mm3 (0.0-0.1); Basophils Percent Auto 1.1 % (0.2-1.2); Eosinophils Absolute Auto 0.6 K/mm3 (0-0.3); Hemoglobin 11.6 g/dL (12.0-15.0); Immature Granulocyte Absolute 0.23 K/mm3 (0.00-0.031); Immature Granulocyte Percent A 3.8 % (0-0.5); Lymphocytes Absolute Auto 1.53 K/mm3 (0.9-3.2); Mean Corpuscular HGB Conc 32.2 g/dl (32-36); Mean Corpuscular Hemoglobin 29.7 pg (26-34); Mean Corpuscular Volume 92.3 fl (80-100); Mean Platelet Volume 9.2 fl (7.4-10.4); Monocytes Absolute Auto 0.6 K/mm3 (0.1-0.6); Monocytes Percent Auto 9.3 % (2.6-8.5); Neutrophils Absolute Auto 3.2 K/mm3 (1.3-6.7); Neutrophils Percent Auto 51.8 % (45.5-73.1); Platelet Count Result 319 k/mm3 (150-375); Red Cell Distribution Width 15.5 % (11.5-14.5); White Blood Count 6.1 K/mm3 (4.5-10.0)
[2024-04-21 08:20] LABS: Alanine Aminotransferase 43 U/L (6-35); Albumin Level 3.3 g/dL (3.5-5.1); Alkaline Phosphatase 124 U/L (38-126); Anion Gap 6 mmol/L (4-12); Aspartate Amino Transferase 29 U/L (14-36); Bilirubin,Total 0.3 mg/dL (0.2-1.3); Blood Urea Nitrogen 2 mg/dL (7-17); Calcium 8.7 mg/dL (8.4-10.2); Carbon Dioxide 29 mmol/L (22-30); Chloride 107 mmol/L (98-107); Estimated Glomerular Filt Rate > 60; Glucose 94 mg/dL (65-110); Potassium 3.6 mmol/L (3.4-5.0); Sodium 142 mmol/L (137-145)
[2024-04-21] MEDS: ARIPiprazole 5 MG TABLET 15 MG PO (09:20)
[2024-04-21] MEDS: busPIRone HCL 5 MG TABLET PO (09:20)
[2024-04-21] MEDS: TOPIRAMATE 25 MG TABLET 50 MG PO (09:20)
[2024-04-21] MEDS: ASPIRIN 81 MG ENTERIC TABLET PO (09:20)
[2024-04-21] MEDS: busPIRone HCL 2.5 MG TABLET PO (09:20)
[2024-04-21] MEDS: PRAVASTATIN SODIUM 20 MG TABLET PO (09:20)
[2024-04-21] MEDS: MONTELUKAST SODIUM 10 MG TABLET PO (09:20)
[2024-04-21] MEDS: FLUTICASONE PROPIONATE 0.05% NA SPR 16 GM BTL (*BKC) 1 SPRAY NASAL (09:21)
[2024-04-21] MEDS: PANTOPRAZOLE SODIUM IV 40 MG VIAL IV PUSH (09:23)
[2024-04-21] MEDS: ENOXAPARIN 40 MG/0.4 ML SYRINGE SUB-Q (09:23)
--- NOTE | 2024-04-21 11:11 | P.PN_ITS ---
Progress Note: A&P Assessment and Plan (1) SBO (small bowel obstruction): Code(s): K56.609 - Unspecified intestinal obstruction, unspecified as to partial versus complete obstruction Status: Acute Assessment and Plan: Small-bowel obstruction resolved after laparoscopic adhesiolysis. She is doing well now and tolerated soft diet. She had a bowel movement this morning. She can be discharged today with follow-up to see Dr. Turner in the office in about 2 weeks. Discharge instructions are written. Continue all home medications. Prescription for [place] sent to her pharmacy. Subjective Date/time seen: 04/21/24 11:11 Interval history: Patient is doing well today. She had a small bowel movement this morning. Passing a lot of flatus. Tolerated low-fiber soft diet without difficulty. No nausea. No significant abdominal pain needing any narcotic pain medications. She has been up walking in the hallways and to the bathroom. White blood count normal and electrolytes are normal. Exam GI: Other: Abdomen is soft and nondistended. Port site incisions healing well. No redness or drainage. Minimal ecchymosis. Objective Data Vital Signs Vital Signs: Vital Signs - 24 hr 04/20/24 15:37 04/20/24 20:03 04/20/24 19:37 Temperature 37.2 C 36.1 C L Pulse Rate 81 73 Respiratory Rate 18 18 Blood Pressure 130/80 123/78 Pulse Oximetry 100 98 98 Oxygen Delivery Room Air Fraction of Inspired Oxygen 21 04/21/24 06:23 Temperature 36.3 C L Pulse Rate 74 Respiratory Rate 20 Blood Pressure 105/60 Pulse Oximetry 100 Oxygen Delivery Fraction of Inspired Oxygen Intake/Output Intake/Output: Intake & Output 04/18/24 04/19/24 04/20/24 04/21/24 23:59 23:59 23:59 22:59 Intake Total 5648 650 2 790 Output Total 1500 Balance 5648 -850 1952 790 Meds/Results Medications: Active Medications Generic Name Dose Route Start Last Admin Trade Name Freq PRN Reason Stop Dose Admin Hydrocodone Bitart/Acetaminophen 1 tab 04/19/24 17:52 Hydrocodone/Acetaminophen (*Crx) 5-325 Mg Tablet PO Q4H PRN Pain Rated 4-6 Hydrocodone Bitart/Acetaminophen 1 tab 04/19/24 17:52 04/19/24 20:39 Hydrocodone/Acetaminophen (*Crx) 7.5-325 Mg Tablet PO 1 tab Q4H PRN Administration Pain Rated 7-10 Albuterol 2 puff 04/13/24 18:53 Albuterol Sulfate (*Sp) Aerosol 1 Puff INHALATION Q4H PRN shortness of breath or wheezing Albuterol 2 puff 04/18/24 12:28 Albuterol Sulfate (*Sp) Aerosol 1 Puff INHALATION QIDRT PRN Shortness Of Breath Aripiprazole 15 mg 04/18/24 09:00 04/21/24 09:20 Aripiprazole 5 Mg Tablet PO 15 mg DAILY ABRAHAM Administration Aspirin 81 mg 04/18/24 09:00 04/21/24 09:20 Aspirin 81 Mg Enteric Tablet PO 81 mg BID ABRAHAM Administration Buspirone HCl 5 mg 04/17/24 21:00 04/21/24 09:20 Buspirone Hcl 5 Mg Tablet PO 5 mg Q12HR ABRAHAM Administration Buspirone HCl 2.5 mg 04/17/24 21:00 04/21/24 09:20 Buspirone Hcl 2.5 Mg Tablet PO 2.5 mg Q12HR ABRAHAM Administration Enoxaparin Sodium 40 mg 04/20/24 09:00 04/21/24 09:23 Enoxaparin 40 Mg/0.4 Ml Syringe SUB-Q 40 mg DAILY ABRAHAM Administration Fluticasone Propionate 1 spray 04/14/24 09:00 04/21/24 09:21 Fluticasone Propionate 0.05% Na Spr 16 Gm Btl (*Bkc) NASAL 1 spray DAILY ABRAHAM Administration Ibuprofen 800 mg in 200 mls @ 400 mls/hr 04/19/24 17:52 04/20/24 12:49 Caldolor 800 Mg/200 Ml IVPB Infused Q6H PRN Infusion Breakthrough Pain Rated 1-3 or NPO Lamotrigine 100 mg 04/17/24 21:00 04/20/24 20:47 Lamotrigine 100 Mg Tablet PO 100 mg HS ABRAHAM Administration Montelukast Sodium 10 mg 04/17/24 17:10 04/21/24 09:20 Montelukast Sodium 10 Mg Tablet PO 10 mg DAILY ABRAHAM Administration Morphine Sulfate 2 mg 04/19/24 17:52 Morphine Sulfate (*Crx) 2 Mg/Ml Inj IV PUSH Q2H PRN Breakthrough Pain Rated 4-6 or NPO Morphine Sulfate 4 mg 04/19/24 17:52 Morphine Sulfate (*Crx) 4 Mg/Ml Inj IV PUSH Q2H PRN Breakthrough Pain Rated 7-10 or NPO Naloxone HCl 0.1 mg 04/19/24 17:52 Naloxone Hcl 0.4 Mg/Ml Vial IV PUSH Q2M PRN Opiate Reversal Ondansetron HCl 4 mg 04/13/24 14:29 04/14/24 03:26 Ondansetron Inj 4 Mg/2 Ml Vial IV PUSH 4 mg Q4H PRN Administration Nausea Pantoprazole Sodium 40 mg 04/13/24 15:05 04/21/24 09:23 Pantoprazole Sodium Iv 40 Mg Vial IV PUSH 40 mg DAILY ABRAHAM Administration Pravastatin Sodium 20 mg 04/17/24 18:00 04/21/24 09:20 Pravastatin Sodium 20 Mg Tablet PO 20 mg DAILY ABRAHAM Administration Quetiapine Fumarate 300 mg 04/17/24 21:00 04/20/24 20:47 Quetiapine Fumarate 100 Mg Tablet PO 300 mg QHS ABRAHAM Administration Topiramate 50 mg 04/18/24 09:00 04/21/24 09:20 Topiramate 25 Mg Tablet PO 50 mg BID ABRAHAM Administration Radiology Results: ITS Impressions Abdomen/Pelvis CT 04/13/24 12:32 IMPRESSION: 1. Small bowel obstruction with transition point in right abdomen. Small Bowel X-Ray 04/16/24 13:19 IMPRESSION: 1. Persistent small bowel obstruction with delayed passage of oral contrast requiring 4 hours to reach the colon passing through persistently dilated small bowel. Abdomen X-Ray 04/18/24 08:07 IMPRESSION: 1. Persistently dilated small bowel, consistent with small bowel obstruction. Labs Labs: Laboratory Results - last 24 hr 04/21/24 06:54 WBC 6.1 RBC 3.90 L Hgb 11.6 L Hct 36.0 L MCV 92.3 MCH 29.7 MCHC 32.2 RDW 15.5 H Plt Count 319 MPV 9.2 Immature Gran % (Auto) 3.8 H Neut % (Auto) 51.8 Lymph % (Auto) 25.0 [place] % (Auto) 9.3 H Eos % (Auto) 9.0 H Baso % (Auto) 1.1 Lymph # (Auto) 1.53 [place] # (Auto) 0.6 Eos # (Auto) 0.6 H Baso # (Auto) 0.1 Abs Immat Gran (auto) 0.23 H Absolute Neuts (auto) 3.2 Absolute Nucleated RBC 0.000 Nucleated RBC % 0.0 Sodium 142 Potassium 3.6 Chloride 107 Carbon Dioxide 29 Anion Gap 6 BUN 2 L Creatinine 0.80 Estim Creat Clear Calc Not Reportable Estimated GFR > 60 Glucose 94 Calcium 8.7 Total Bilirubin 0.3 AST 29 ALT 43 H Alkaline Phosphatase 124 Total Protein 6.0 L Albumin 3.3 L
--- NOTE | 2024-04-21 12:19 | P.DS_ITS ---
DS: Admitting Diagnosis Discharge Date 04/21/24 Admitting Diagnosis Abdominal Pain DS: Discharge Diagnosis Discharge Diagnosis (1) SBO (small bowel obstruction): Code(s): K56.609 - Unspecified intestinal obstruction, unspecified as to partial versus complete obstruction Status: Acute Assessment and Plan: - Patient presented with abdominal pain that is cramping and bloating in nature that started night prior to admission 04/13. - CT abdomen/pelvis showed SBO with transition point in right abdomen. - General surgery was consulted. - Patient with no improvement in symptoms with conservative management, no BM and no flatus. - Treatment options were discussed with patient and he opted for an Exploratory Laparotomy. - Patient had an Ex-Lap done with lysis of adhesions. - Patient started on clear liquid diet post-procedure per general surgery, that was advanced to soft-diet, patient tolerating both well with no symptoms. 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 - Supportive care for now. (3) Gastroesophageal reflux disease without esophagitis: Code(s): K21.9 - Gastro-esophageal reflux disease without esophagitis Status: Chronic Assessment and Plan: * Continue home Protonix. (4) Bipolar affective disorder: Qualifiers: Active/Remission status: remission status unspecified Qualified Code(s): F31.9 - Bipolar disorder, unspecified Code(s): F31.9 - Bipolar disorder, unspecified Status: Chronic Assessment and Plan: * Continue Abilify and Seroquel at home. (5) Anxiety: Code(s): F41.9 - Anxiety disorder, unspecified Status: Chronic Assessment and Plan: * Continue BuSpar and Abilify at home. (6) Hyperlipidemia: Code(s): E78.5 - Hyperlipidemia, unspecified Status: Chronic Assessment and Plan: * Resume aspirin and pravastatin at home. (7) Elevated liver enzymes: Code(s): R74.8 - Abnormal levels of other serum enzymes Status: Acute Assessment and Plan: - Unclear etiology, CT Abd/pelvis fairly unremarkable except for hx cholecystecomy. - Possibly related to SBO. - Trended down and normalized except for ALT that also trended down and was almost wnl prior to discharge. - No further work-up needed so far. (8) Hypokalemia: Code(s): E87.6 - Hypokalemia Status: Acute Assessment and Plan: - Repleted prior to discharge. Plan Discharge home on self-care. DS: Summary Hospital Course Reason for hospitalization: Abdominal Pain Hospital Course: - Patient presented with abdominal pain that is cramping and bloating in nature that started night prior to admission 04/13. - CT abdomen/pelvis showed SBO with transition point in right abdomen. - General surgery was consulted. - Patient with no improvement in symptoms with conservative management, no BM and no flatus. - Treatment options were discussed with patient and he opted for an Exploratory Laparotomy. - Patient had an Ex-Lap done with lysis of adhesions. - Patient started on clear liquid diet post-procedure per general surgery, that was advanced to soft-diet, patient tolerating both well with no symptoms. - Patient was also noted with elevated LFT's that was possibly related to the SBO as her work-up was fairly negative. - LFT's trended down and normalized before discharge, with only minimally elevated ALT before discharge. - Patient was cleared for discharge by the general surgeon who will closely follow-up with pt as outpatien. - No acute distress noted or reported prior to discharge. Status at Discharge Functional status at discharge: independent ambulation Overall status at discharge: patient is progressing back to baseline Time Spent with Patient Time attestation: Total time spent providing and/or coordinating discharge services: Time spent: Greater than 30 minutes Exam Narrative: * GENERAL: Alert and oriented x 3. No acute distress. * EYES: EOMI. No scleral icterus. PERRLA. * HEENT: Moist mucous membranes. * LUNGS: Clear to auscultation bilaterally. No accessory muscle use. * CARDIOVASCULAR: Regular rate and rhythm. No murmur. No JVD. * ABDOMEN: Soft, NT, non-distended, hypoactive bowel sounds. * EXTREMITIES: No edema. Non-tender. * SKIN: No rashes or lesions. Skin warm, dry. * NEUROLOGIC: No focal neurological deficits. CN II-XII grossly intact * PSYCHIATRIC: Appropriate mood and affect. Good judgement and insight. No visual or auditory hallucinations. Const: Other: * GENERAL: Well appearing, alert and oriented x 3. No acute distress. * EYES: EOMI. No scleral icterus. PERRLA. * HEENT: Moist mucous membranes. * LUNGS: Clear to auscultation bilaterally. No accessory muscle use. * CARDIOVASCULAR: Regular rate and rhythm. No murmur. No JVD. * ABDOMEN: Soft, NT, non-distended, +ve bowel sounds X4 quadrants. * EXTREMITIES: No edema. Non-tender. * SKIN: No rashes or lesions. Skin warm, dry. * NEUROLOGIC: No focal neurological deficits. CN II-XII grossly intact * PSYCHIATRIC: Appropriate mood and affect. Good judgement and insight. DS: Data Data Completed and Pending Labs on day of discharge: Labs from last 24 hours 04/21/24 06:54 WBC 6.1 RBC 3.90 L Hgb 11.6 L Hct 36.0 L MCV 92.3 MCH 29.7 MCHC 32.2 RDW 15.5 H Plt Count 319 MPV 9.2 Immature Gran % (Auto) 3.8 H Neut % (Auto) 51.8 Lymph % (Auto) 25.0 [place] % (Auto) 9.3 H Eos % (Auto) 9.0 H Baso % (Auto) 1.1 Lymph # (Auto) 1.53 [place] # (Auto) 0.6 Eos # (Auto) 0.6 H Baso # (Auto) 0.1 Abs Immat Gran (auto) 0.23 H Absolute Neuts (auto) 3.2 Absolute Nucleated RBC 0.000 Nucleated RBC % 0.0 Sodium 142 Potassium 3.6 Chloride 107 Carbon Dioxide 29 Anion Gap 6 BUN 2 L Creatinine 0.80 Estim Creat Clear Calc Not Reportable Estimated GFR > 60 Glucose 94 Calcium 8.7 Total Bilirubin 0.3 AST 29 ALT 43 H Alkaline Phosphatase 124 Total Protein 6.0 L Albumin 3.3 L Discharge Plan Discharge Attending physician on discharge: Rajiv Catalan Consulting providers: Neeta Diallo; Caleb Turner Discharging Clinician: Stefanie Guillermo Anticipated Discharge Date/Time: 04/21/24 12:47 Patient Disposition: Home, Self-Care Activity: as tolerated Diet: other - see discharge instructions Wound Care Instructions: other - see discharge instructions Discharge Instructions: Follow up with Dr. Turner in the office in 2 weeks. Patient to call [phone] for an appointment. May shower in 24hours but do not soak incisions under water for 2 weeks. No lifting more than 10 to 15 lb for 2 weeks. May advance diet as tolerated. No driving for at least 3 days or until no longer taking any narcotic pain medication. Resume all home medications. Prescription for narcotic pain medicines to be sent to the patient's pharmacy if needed. May use Tylenol and/or ibuprofen in addition to or in place of narcotic pain medications for postoperative pain. Patient Instructions: Antibiotic Form Patient Language: [place] Stand Alone Forms: General Discharge Information Follow-up/Referrals: Caleb Turner DO [Physician] - (Patient to follow-up with Dr. Turner in 2 weeks. Patient to call office for appointment.) Estuardo De La Paz MD [Physician] - (Pt should follow up with Dr. Turner) Discharge Medications: Continued aripiprazole [Abilify] 15 mg Tablet 15 mg PO DAILY aspirin [Geni Low Dose Aspirin] 81 mg Tablet,Delayed Release (Dr/Ec) 81 mg PO BID Hold Instructions: Resume on 12/02/21. Resume when completed full dose of aspirin for DVT prophylaxis. buspirone 7.5 mg Tablet 7.5 mg PO BID lamotrigine [Lamictal] 100 mg Tablet 100 mg PO HS topiramate [Topamax] 50 mg Tablet 50 mg PO BID acetaminophen 500 mg capsule 500 mg PO Q6-8H PRN (Reason: Pain) calcium carbonate [Calcium 500] 500 mg calcium (1,250 mg) tablet 500 mg PO TID magnesium 250 mg tablet 750 mg PO BID quetiapine [Seroquel] 300 mg tablet 300 mg PO QHS alendronate 70 mg tablet 70 mg PO WEEKLY Rx Instructions: on Saturdays fluticasone propionate [Flonase Allergy Relief] 50 mcg/actuation Spra y,Suspension 1 spray INTRANASAL DAILY Rx Instructions: administer into each nostril pediatric multivitamin Tablet,Chewable 2 tablet PO HS estradiol 0.01 % (0.1 mg/gram) cream 1 applic VAGINAL 3XW Patient Comments: -W- Claritin 10 mg PO DAILY montelukast 10 mg tablet See Rx Instructions .ROUTE .COMPLEX Qty: 90 1RF Dose Instruction: TAKE 1 TABLET DAILY Rx Instructions: TAKE 1 TABLET DAILY albuterol sulfate 90 mcg/actuation HFA aerosol inhaler 1 - 2 inh inhalation Q4-6H PRN (Reason: shortness of breath or wheezing) Qty: 25.5 2RF pravastatin 80 mg tablet See Rx Instructions .ROUTE .COMPLEX Qty: 90 2RF Dose Instruction: TAKE 1 TABLET BY MOUTH EVERYDAY AT BEDTIME Rx Instructions: TAKE 1 TABLET BY MOUTH EVERYDAY AT BEDTIME pantoprazole [Protonix] 40 mg tablet,delayed release (DR/EC) 40 mg PO QAM Qty: 90 2RF cyclobenzaprine 5 mg tablet 5 mg PO TID PRN (Reason: muscle spasm) Qty: 20 0RF Date of admission: 04/13/24 16:55 Primary Care Provider: Giancarlo Le Admitting Provider: Justin Da Silva Attending physician on admission: Angelique Tony Condition: Stable Quality VTE Prophylaxis VTE prophylaxis: mechanical ordered If No VTE Prophylaxis Answer both mechanical and pharmacologic: Reason no mechanical VTE proph: low risk/not indicated Hospitalist MIPS Heart Failure (Exclusion) Patient has history of Heart Transplant or Left Ventricular Assistive Device?: No IF YES, STOP HERE Heart Failure (Qualifier) Patient has current or prior documentation of LVEF less than or equal to 40%, or mod/servere depressed LVSF?: No IF NO, STOP HERE If Medications not prescribed/taking Reason patient not prescribed/taking HECTOR or ARB: Patient reasons: pt declined or other pt reason (Pt with no CHF) Reason patient not prescribed/taking bisoprolol, carvedilol, or sustained realease metoprolol succinate: Patient reasons: pt declined or other pt reason (Pt with no CHF)
--- NOTE | 2024-04-22 03:31 | PC.NURSE ---
Patient called with questions about her discharge medications. Was able to help answer them, no further questions at this time.
== END 2024-04-21 14:05 | disposition home or self-care (01) | DRG 337 ==
LOC: ANHED 10:55 → ANH3MEDSUR 15:07
PROVIDERS: Nurse Practitioner Acute Care; Nurse Practitioner Adult Health; Nurse Practitioner Family; Surgery; Admitting Provider Internal Medicine; Emergency Provider Emergency Medicine; PCP Emergency Medicine; Visit Provider Nurse Practitioner Adult Health
PROC: 0DN84ZZ Release Small Intestine, Percutaneous Endoscopic Approach (ICD-10-PCS; CPT 49320; principal; 2024-04-19 14:30)
DX: K56.51 Intestinal adhesions [bands], with partial obstruction (principal); K21.9 Gastro-esophageal reflux disease without esophagitis; F31.9 Bipolar disorder, unspecified; F41.9 Anxiety disorder, unspecified; E78.5 Hyperlipidemia, unspecified; R74.8 Abnormal levels of other serum enzymes; E87.6 Hypokalemia; M85.80 Other specified disorders of bone density and structure, unspecified site; J44.9 Chronic obstructive pulmonary disease, unspecified; I10 Essential (primary) hypertension; E21.3 Hyperparathyroidism, unspecified; E05.80 Other thyrotoxicosis without thyrotoxic crisis or storm; E66.9 Obesity, unspecified; Z68.39 Body mass index [BMI] 39.0-39.9, adult; Z86.711 Personal history of pulmonary embolism; Z96.1 Presence of intraocular lens; Z98.49 Cataract extraction status, unspecified eye; Z96.651 Presence of right artificial knee joint; Z90.710 Acquired absence of both cervix and uterus; Z79.82 Long term (current) use of aspirin; Z87.891 Personal history of nicotine dependence; Z90.3 Acquired absence of stomach [part of]; Z98.0 Intestinal bypass and anastomosis status
CPT/HCPCS: 36415; 74018; 74019; 74177; 74250; 80053; 83605; 83690; 83735; 85025; 99285; A9270; G0378; J0690; J1100; J1171; J1650; J1741; J2003; J2250; J2270; J2405; J2470; J2704; J3010; J3480; J7030; J7040; J7120; Q9967

== ENCOUNTER 2024-04-26 10:57 | Outpatient (CLI) | payer OTHER, SELFPAY ==
--- NOTE | ~2024-04-26 | CT_ITS ---
EXAMINATION: CT facial bones wo con DATE: 04/26/2024 11:44 INDICATION: Dental facial anomaly, unspecified. TECHNIQUE: Computed tomography (CT) of the facial bones and maxillofacial region was performed withou t intravenous contrast. Automated exposure control and iterative reconstruction technique were employ ed. The dose-length product was 327.17 mGy-cm. COMPARISON: Neck CT 10/01/2008 FINDINGS: There are likely changes of ocular lens replacement surgeries. There is minimal mucosal thi ckening in the paranasal sinuses. The mastoid air cells are normal. There is severe osteoarthritis of the temporomandibular joints. There is severe cervical spondylosis. IMPRESSION: 1. Severe osteoarthritis of the temporomandibular joints. Reviewed, dictated and finalized at location A. LEGAL ASSISTANT
== END 2024-04-26 10:58 | disposition home or self-care (01) ==
PROVIDERS: PCP Emergency Medicine; Visit Provider Emergency Medicine
DX: M26.9 Dentofacial anomaly, unspecified (principal); M19.09 Primary osteoarthritis, other specified site
CPT/HCPCS: 70486

== ENCOUNTER 2024-04-29 10:06 | Outpatient (CLI) | payer OTHER, SELFPAY ==
--- NOTE | ~2024-04-29 | US_ITS ---
EXAMINATION: US venous doppler [facility] DATE: 04/29/2024 10:29 INDICATION: Left lower limb pain. TECHNIQUE: Grayscale ultrasound images without and with compression and Doppler ultrasound images of the left lower extremity veins were obtained. COMPARISON: Ultrasound 10/17/2016 FINDINGS: The visualized portions of left common femoral vein, profunda (deep) femoral vein, femoral vein, popl iteal vein, and greater saphenous vein outflow are patent. There is thrombus in the peroneal and post erior tibial veins. IMPRESSION: 1. Deep vein thrombosis involving the peroneal and posterior tibial veins. Reviewed, dictated and finalized at location [facility]
== END 2024-04-29 10:07 | disposition home or self-care (01) ==
PROVIDERS: PCP Emergency Medicine; Visit Provider Emergency Medicine
DX: I82.452 Acute embolism and thrombosis of left peroneal vein (principal); I82.441 Acute embolism and thrombosis of right tibial vein
CPT/HCPCS: 93971

== ENCOUNTER 2024-05-14 17:05 | Emergency (ER) | payer OTHER, SELFPAY ==
--- NOTE | ~2024-05-14 | XR_ITS ---
EXAM: XR hip LT 2V w AP pelvis DATE: 05/14/2024 17:49 HISTORY: L hip pain NO FALL NO TRAUMA . COMPARISON: 10/19/2022; CT abdomen pelvis 04/13/2024. FINDINGS: Osteopenia. Severe lumbar scoliosis and multilevel degenerative disc disease. Osteitis pub is. Moderate right and mild left hip osteoarthritis. No fracture or dislocation. IMPRESSION: No acute osseous finding in the pelvis or left hip. Reviewed, dictated and finalized at location [facility]. [facility]
[2024-05-14 17:10] VITALS: BP 145/93; PULSE 98; RESP 19; TEMP 36.4; O2SAT 100
--- NOTE | 2024-05-14 17:32 | ED_ITS ---
HPI - Back Pain/Injury General Chief Complaint: Back Pain/Injury <Kelly Ramirez APRN - Last Filed: 05/14/24 17:36> Stated Complaint: low back, hip and leg pain <Kelly Ramirez APRN - Last Filed: 05/14/24 17:36> Time Seen by Provider: 05/14/24 17:20 <Kelly Ramirez APRN - Last Filed: 05/14/24 17:36> Focused HPI: Patient is a 68-year-old female who presents to the ER with left-sided hip pain and lower back pain that started on Monday. She reports she has some tramadol at home so she has been taking that but my doctor will not refill it because she wants me to come get evaluated. Patient endorses a history of COPD and hypertension which she plans have both resolved. She also has a history of bipolar disorder for which she takes multiple medications. patient denies chest pain, shortness of breath, recent fevers, urinary symptoms. GENERAL: Well-appearing, well-nourished, and in no acute distress. HEAD: Normocephalic, atraumatic. CHEST: Clear to auscultation. ?No respiratory distress. HEART: Regular rate and rhythm.? NEURO: ?Alert and oriented x3. Patient screened in triage and initial orders placed.? ?Additional care and disposition to be based upon?diagnostic testing and treatment. <Kelly Ramirez APRN - Last Filed: 05/14/24 17:36> Related Data Home Medications: Home Medications Medication Instructions Recorded Confirmed aspirin 81 mg tablet,delayed 81 mg PO BID 12/25/19 05/03/24 release (Geni Low Dose Aspirin) buspirone 7.5 mg tablet 7.5 mg PO BID 12/25/19 05/03/24 lamotrigine 100 mg tablet 100 mg PO HS 12/25/19 05/03/24 (Lamictal) topiramate 50 mg tablet (Topamax) 50 mg PO BID BIPOLAR 12/25/19 05/03/24 acetaminophen 500 mg capsule 500 mg PO Q6-8H PRN Pain 01/21/20 05/03/24 calcium carbonate (Calcium 500) 500 mg PO TID 01/21/20 05/03/24 aripiprazole 15 mg tablet (Abilify) 15 mg PO DAILY 07/24/20 05/03/24 quetiapine 300 mg tablet (Seroquel) 300 mg PO QHS 09/01/21 05/03/24 magnesium 250 mg tablet 750 mg PO BID 10/18/21 05/03/24 estradiol 0.01% (0.1 mg/gram) 1 applic vaginal 3XW 10/27/21 05/03/24 vaginal cream pediatric multivitamin 2 tablet PO HS 10/27/21 05/03/24 alendronate 70 mg tablet 70 mg PO WEEKLY 08/14/22 05/03/24 fluticasone propionate 50 1 spray intranasal DAILY 02/08/23 05/03/24 mcg/actuation nasal spray,suspension (Flonase Allergy Relief) Claritin 10 mg PO DAILY 04/13/24 05/03/24 rivaroxaban 15 mg tablet (Xarelto) 15 mg PO DAILY 05/03/24 05/03/24 <Kelly Ramirez, M[employer]IM[employer] VETERINARIAN - Last Filed: 05/14/24 17:36> Allergies/Adverse Reactions: Allergies Allergy/AdvReac Type Severity Reaction Status Date / Time Sulfa (Sulfonamide Allergy Severe Rash Verified 05/03/24 09:47 Antibiotics) Penicillins Allergy Intermediate Rash Verified 05/03/24 09:47 Cephalosporins Allergy Mild Rash IN Verified 05/03/24 09:47 MOUTH succinylcholine Allergy Other Verified 05/03/24 09:47 erythromycin base AdvReac Intermediate GI UPSET, Verified 05/03/24 09:47 ABDOMINAL PAIN ANESTHETIC GASES Allergy Other Uncoded 05/03/24 09:47 <Kelly Ramirez, M[employer] ANIMAL VETERINARIAN - Last Filed: 05/14/24 17:36> Review of Systems Review of Systems: CONSTITUTIONAL: Denies fever GENITOURINARY: Denies dysuria or hematuria. MUSCULOSKELETAL: Reports back pain, joint pain, and myalgia. NEUROLOGIC: Denies numbness, or weakness. <Mallory Rose PA-C - Last Filed: 05/14/24 22:07> All systems reviewed & are unremarkable except as noted in HPI and below <Mallory Rose PA-C - Last Filed: 05/14/24 22:07> [facility] Past Medical History Medical History: Medical History (Updated 05/14/24 @ 22:02 by Mallory Rose PA-C) Allergic rhinitis Anxiety Asthma-COPD overlap syndrome Bipolar affective disorder Cellulitis of left lower extremity Encounter for surgical aftercare following surgery on the digestive system Essential (primary) hypertension Gastroesophageal reflux disease without esophagitis Left hip pain Mixed hyperlipidemia Open abdominal wall wound Osteopenia Pulmonary embolism (2003) Possibly related to hormone use. Right knee DJD SBO (small bowel obstruction) SBO (small bowel obstruction) Subclinical hyperthyroidism Superficial postoperative wound infection Traumatic arthritis of right ankle Valgus foot deformity, acquired Vitamin B12 deficiency Vitamin D deficiency <Kelly Ramirez, MIXED ANIMAL VETERINARIAN - Last Filed: 05/14/24 17:36> Surgical History Surgical History: Surgical History (Updated 05/03/24 @ 09:53 by Sharan Koenig MA) History of carpal tunnel surgery of right wrist History of cataract extraction with lens replacement History of fundoplication History of hysterectomy for benign disease History of intestinal surgery Enterotomy, removal of intraluminal obstructing mass on 08/16/22 History of laparotomy History of nasal septoplasty S/P total knee arthroplasty Status post laparoscopy with lysis of adhesions 04/19/24 Laparoscopic enterolysis with release of small-bowel obstruction Dr. Turner Status post total gastrectomy and Leonard-en-Y esophagojejunal anastomosis Status post total right knee replacement <Kelly Ramirez, MIXED ANIMAL VETERINARIAN - Last Filed: 05/14/24 17:36> Family History Family History: Family History Father Family history of heart disease in male family member before age 55 Patient's father is , Onset Age: 87 Mother Family history of kidney disease, Onset Age: 86 <Kelly Ramirez, MIXED ANIMAL VETERINARIAN - Last Filed: 05/14/24 17:36> Social History Social History: Social History Social History: Former smoker quit in 2019, retired, lives with Surrogate decision-maker: Nolberto Beard. CODE STATUS: Full code. Smoking packs per day: 2 Smoking cigarettes per day: 40.0 Years smoked: 25 Smoking pack-years: 50.00 Smoking status: Former smoker Tobacco type: cigarettes Second hand tobacco smoke exposure: No Smoking end date: 06/19/99 Additional smoking assessment comments: DENIES ANY FORM OF TOBACCO USE Alcohol intake: never Substance use: never Substance use type: does not use Do You Feel Safe in your Home?: Yes Lack of Transportation: No Lack of Food: Never True Current Housing: I Have Housing Concerned About Future Housing: No Difficulty Paying Gas/Electric Bills: No Difficulty Paying for Meds: No Currently Unemployed: No Education: Bachelor's Degree Difficulty w/ Childcare or Family Care: No Living arrangements: other Additional living arrangements comments: with sp Spiritual care concerns: No <Kelly Ramirez, TAPAN - Last Filed: 05/14/24 17:36> Exam Narrative: GENERAL: Well-appearing, well-nourished, and in no acute distress. HEAD: Normocephalic, atraumatic. EYES: EOMI. CHEST: Clear to auscultation. No respiratory distress. No wheezes rales or rhonchi HEART: Regular rate and rhythm. No murmur heard. Normal peripheral pulses. BACK: No midline spinal tenderness EXTREMITIES: Normal range of motion. No edema. Strength equal in bilateral lower extremities (5/5) SKIN: Warm, dry, no rash. NEURO: No focal deficits. Alert and oriented x3. PSYCH: Normal mood and affect <Mallory Rose PA-C - Last Filed: 05/14/24 22:07> Course Course Emergency Course: Patient updated on her workup and agrees with plan of care <Mallory Rose PA-C - Last Filed: 05/14/24 22:07> Vital Signs Vital signs: Vital Signs Temperature 97.6 F 05/14/24 17:10 Pulse Rate 98 05/14/24 17:10 Respiratory Rate 19 05/14/24 17:10 Blood Pressure 145/93 H 05/14/24 17:10 Pulse Oximetry 100 05/14/24 17:10 Temperature 97.8 F 05/14/24 21:26 Pulse Rate 93 05/14/24 21:26 Respiratory Rate 18 05/14/24 21:26 Blood Pressure 137/91 H 05/14/24 21:26 Pulse Oximetry 98 05/14/24 21:26 <Kelly Ramirez, TAPAN - Last Filed: 05/14/24 17:36> Vital Signs Temperature 97.6 F 05/14/24 17:10 Pulse Rate 98 05/14/24 17:10 Respiratory Rate 19 05/14/24 17:10 Blood Pressure 145/93 H 05/14/24 17:10 Pulse Oximetry 100 05/14/24 17:10 Temperature 97.8 F 05/14/24 21:26 Pulse Rate 93 05/14/24 21:26 Respiratory Rate 18 05/14/24 21:26 Blood Pressure 137/91 H 05/14/24 21:26 Pulse Oximetry 98 05/14/24 21:26 <Mallory Rose PA-C - Last Filed: 05/14/24 22:07> MDM - Back Pain/Injury MDM Narrative Medical decision making narrative: Patient presents to the ER for left sided low back pain radiating into the leg. She is neurologically intact. X-rays of the left hip/pelvis show bilateral hip osteoarthritis as well as degenerative disc disease. Patient updated on her workup and agrees with plan of care. She is to follow up with primary provider. She was given warnings to return to the ER <Mallory Rose PA-C - Last Filed: 05/14/24 22:07> Differential Diagnosis Differential diagnosis: Likely lumbar radiculopathy, sciatica, strain of lumbar region and other (degenerative disc disease) <Mallory Rose PA-C - Last Filed: 05/14/24 22:07> Imaging Data Radiologist's impression: ITS Impressions Hip/Pelvis X-Ray 05/14/24 17:59 IMPRESSION: No acute osseous finding in the pelvis or left hip. <Mallory Rose PA-C - Last Filed: 05/14/24 22:07> Critical Care Time Critical Care Time Critical Care Time: No <MARIANGEL Tran Last Filed: 05/14/24 22:07> Discharge Plan Discharge Clinical Impression: Low back pain Qualifiers: Chronicity: acute Back pain laterality: left Sciatica presence: with sciatica Sciatica laterality: sciatica of left side Qualified Code(s): M54.42 - Lumbago with sciatica, left side <Kelly Ramirez APRN - Last Filed: 05/14/24 17:36> Patient Disposition: Home, Self-Care <Kelly Ramirez APRN - Last Filed: 05/14/24 17:36> Condition: Stable <Kelly Ramirez APRN - Last Filed: 05/14/24 17:36> Instructions: Acute Low Back Pain (ED), Degenerative Disc Disease (ED) <Kelly Ramirez APRN - Last Filed: 05/14/24 17:36> Additional Instructions: Return to the ER if you experience weakness, numbness, bowel/bladder incontinence, or any other symptoms that are concerning to you Rest, use ice/heat, take Tylenol as needed for pain as well as prescribed pain medication as needed. Follow up with your primary care doctor <Kelly Ramirez APRN - Last Filed: 05/14/24 17:36> Prescriptions: New methylprednisolone 4 mg tablets,dose pack See Rx Instructions .ROUTE .COMPLEX Qty: 21 0RF Rx Instructions: orally per package directions tramadol 50 mg tablet 50 mg PO Q6H PRN (Reason: pain) Qty: 10 0RF No Action aripiprazole [Abilify] 15 mg Tablet 15 mg PO DAILY aspirin [Geni Low Dose Aspirin] 81 mg Tablet,Delayed Release (Dr/Ec) 81 mg PO BID Hold Instructions: Resume on 12/02/21. Resume when completed full dose of as pirin for DVT prophylaxis. buspirone 7.5 mg Tablet 7.5 mg PO BID lamotrigine [Lamictal] 100 mg Tablet 100 mg PO HS topiramate [Topamax] 50 mg Tablet 50 mg PO BID acetaminophen 500 mg capsule 500 mg PO Q6-8H PRN (Reason: Pain) calcium carbonate [Calcium 500] 500 mg calcium (1,250 mg) tablet 500 mg PO TID magnesium 250 mg tablet 750 mg PO BID Xarelto 15 mg tablet 15 mg PO DAILY Rx Instructions: must administer with evening meal quetiapine [Seroquel] 300 mg tablet 300 mg PO QHS alendronate 70 mg tablet 70 mg PO WEEKLY Rx Instructions: on Saturdays fluticasone propionate [Flonase Allergy Relief] 50 mcg/actuation [place],Suspension 1 spray INTRANASAL DAILY Rx Instructions: administer into each nostril pediatric multivitamin Tablet,Chewable 2 tablet PO HS estradiol 0.01 % (0.1 mg/gram) cream 1 applic VAGINAL 3XW Patient Comments: M-W- Claritin 10 mg PO DAILY montelukast 10 mg tablet See Rx Instructions .ROUTE .COMPLEX Qty: 90 1RF Dose Instruction: TAKE 1 TABLET DAILY Rx Instructions: TAKE 1 TABLET DAILY albuterol sulfate 90 mcg/actuation HFA aerosol inhaler 1 - 2 inh inhalation Q4-6H PRN (Reason: shortness of breath or wheezing) Qty: 25.5 2RF pravastatin 80 mg tablet See Rx Instructions .ROUTE .COMPLEX Qty: 90 2RF Dose Instruction: TAKE 1 TABLET BY MOUTH EVERYDAY AT BEDTIME Rx Instructions: TAKE 1 TABLET BY MOUTH EVERYDAY AT BEDTIME pantoprazole [Protonix] 40 mg tablet,delayed release (DR/EC) 40 mg PO QAM Qty: 90 2RF Xarelto 15 mg tablet 15 mg PO BID Qty: 42 0RF Rx Instructions: To start immediately Xarelto 20 mg tablet 20 mg PO DAILY Qty: 90 0RF Rx Instructions: To start after 15mg BID RX <Kelly Ramirez APRN - Last Filed: 05/14/24 17:36> Follow-up/Referrals: Giancarlo Le MD [Primary Care Provider] - <Kelly Ramirez APRN - Last Filed: 05/14/24 17:36>
[2024-05-14] MEDS: HYDROcodone/acetaminophen (*CRX) 5-325 MG TABLET 1 TAB PO (21:01)
[2024-05-14] MEDS: methylPREDNISolone SOD SUCC 125 MG VIAL IM (21:02)
[2024-05-14 21:26] VITALS: BP 137/91; PULSE 93; RESP 18; TEMP 36.6; O2SAT 98
== END 2024-05-14 22:33 | disposition home or self-care (01) ==
PROVIDERS: Emergency Provider Physician Assistant; PCP Emergency Medicine
DX: M54.42 Lumbago with sciatica, left side (principal); J44.9 Chronic obstructive pulmonary disease, unspecified; I10 Essential (primary) hypertension; K21.9 Gastro-esophageal reflux disease without esophagitis; E78.2 Mixed hyperlipidemia; E53.8 Deficiency of other specified B group vitamins; E55.9 Vitamin D deficiency, unspecified; M85.80 Other specified disorders of bone density and structure, unspecified site; M17.11 Unilateral primary osteoarthritis, right knee; F31.9 Bipolar disorder, unspecified; Z98.84 Bariatric surgery status; Z96.651 Presence of right artificial knee joint; Z96.1 Presence of intraocular lens; Z98.49 Cataract extraction status, unspecified eye; Z86.711 Personal history of pulmonary embolism; Z87.891 Personal history of nicotine dependence; Z90.710 Acquired absence of both cervix and uterus
CPT/HCPCS: 73502; 96372; 99283; A9270; J2919

== ENCOUNTER 2024-05-25 11:14 | Emergency (ER) | payer OTHER, SELFPAY ==
[2024-05-25 11:16] VITALS: BP 120/93; PULSE 113; RESP 18; TEMP 36.6; O2SAT 98
--- NOTE | 2024-05-25 14:48 | ED.BACK ---
HPI - Back Pain/Injury General Chief Complaint: Back Pain/Injury Stated Complaint: BACK AND HIP PAIN Time Seen by Provider: 05/25/24 14:06 History of Present Illness HPI Narrative: Patient is a 68-year-old female who presents to the ER with chronic back pain. She reports she was seen here in the ER approximately 2 weeks ago and diagnosed with osteoarthritis and degenerative disc disease. Patient reports she was given steroids and sent home on steroids and Tramadol, but ?the pain has gotten worse. She reports she follow-up appointment scheduled with Dr. Nielson this but she had to cancel it because bad weather. Patient reports she rates her pain at a ?over 03/28 and reports I cannot get comfortable. She reports that Dr. Restrepo with her orthopedic doctor for her knee and is wondering if she should schedule an appointment with him. The patient endorses a history of anxiety and other mental health conditions. She denies chest pain, shortness a breath, fevers, saddle anesthesia. Related Data Home Medications Medication Instructions Recorded Confirmed aspirin 81 mg tablet,delayed 81 mg PO BID 12/25/19 05/03/24 release (Geni Low Dose Aspirin) buspirone 7.5 mg tablet 7.5 mg PO BID 12/25/19 05/03/24 lamotrigine 100 mg tablet 100 mg PO HS 12/25/19 05/03/24 (Lamictal) topiramate 50 mg tablet (Topamax) 50 mg PO BID BIPOLAR 12/25/19 05/03/24 acetaminophen 500 mg capsule 500 mg PO Q6-8H PRN Pain 01/21/20 05/03/24 calcium carbonate (Calcium 500) 500 mg PO TID 01/21/20 05/03/24 aripiprazole 15 mg tablet (Abilify) 15 mg PO DAILY 07/24/20 05/03/24 quetiapine 300 mg tablet (Seroquel) 300 mg PO QHS 09/01/21 05/03/24 magnesium 250 mg tablet 750 mg PO BID 10/18/21 05/03/24 estradiol 0.01% (0.1 mg/gram) 1 applic vaginal 3XW 10/27/21 05/03/24 vaginal cream pediatric multivitamin 2 tablet PO HS 10/27/21 05/03/24 alendronate 70 mg tablet 70 mg PO WEEKLY 08/14/22 05/03/24 fluticasone propionate 50 1 spray intranasal DAILY 02/08/23 05/03/24 mcg/actuation nasal spray,suspension (Flonase Allergy Relief) Claritin 10 mg PO DAILY 04/13/24 05/03/24 rivaroxaban 15 mg tablet (Xarelto) 15 mg PO DAILY 05/03/24 05/03/24 Allergies Allergy/AdvReac Type Severity Reaction Status Date / Time Sulfa (Sulfonamide Allergy Severe Rash Verified 05/25/24 16:00 Antibiotics) Penicillins Allergy Intermediate Rash Verified 05/25/24 16:00 Cephalosporins Allergy Mild Rash IN Verified 05/25/24 16:00 MOUTH succinylcholine Allergy Other Verified 05/25/24 16:00 erythromycin base AdvReac Intermediate GI UPSET, Verified 05/25/24 16:00 ABDOMINAL PAIN ANESTHETIC GASES Allergy Other Uncoded 05/25/24 16:00 Review of Systems Review of Systems: All systems reviewed & are unremarkable except as noted in HPI and below PMFSH Past Medical History Medical History Allergic rhinitis Anxiety Asthma-COPD overlap syndrome Bipolar affective disorder Cellulitis of left lower extremity Encounter for surgical aftercare following surgery on the digestive system Essential (primary) hypertension Gastroesophageal reflux disease without esophagitis Left hip pain Mixed hyperlipidemia Open abdominal wall wound Osteopenia Pulmonary embolism (2003) Possibly related to hormone use. Right knee DJD SBO (small bowel obstruction) SBO (small bowel obstruction) Subclinical hyperthyroidism Superficial postoperative wound infection Traumatic arthritis of right ankle Valgus foot deformity, acquired Vitamin B12 deficiency Vitamin D deficiency Surgical History Surgical History History of carpal tunnel surgery of right wrist History of cataract extraction with lens replacement History of fundoplication History of hysterectomy for benign disease History of intestinal surgery Enterotomy, removal of intraluminal obstructing mass on 08/16/22 History of laparotomy History of nasal septoplasty S/P total knee arthroplasty Status post laparoscopy with lysis of adhesions 04/19/24 Laparoscopic enterolysis with release of small-bowel obstruction Dr. Turner 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 CODE STATUS: Full code. Smoking packs per day: 2 Smoking cigarettes per day: 40.0 Years smoked: 25 Smoking pack-years: 50.00 Smoking status: Former smoker Tobacco type: cigarettes Second hand tobacco smoke exposure: No Smoking end date: 06/19/99 Additional smoking assessment comments: DENIES ANY FORM OF TOBACCO USE Alcohol intake: never Substance use: never Substance use type: does not use Do You Feel Safe in your Home?: Yes Lack of Transportation: No Lack of Food: Never True Current Housing: I Have Housing Concerned About Future Housing: No Difficulty Paying Gas/Electric Bills: No Difficulty Paying for Meds: No Currently Unemployed: No Education: Bachelor's Degree Difficulty w/ Childcare or Family Care: No Living arrangements: other Additional living arrangements comments: with sp Spiritual care concerns: No Exam Narrative: GENERAL: Well appearing, well-nourished, non-toxic, in mild distress d/t pain. HEAD: Normocephalic, atraumatic. NECK: Supple. No adenopathy, no masses. RESPIRATORY: Airway patent, respirations nonlabored. Clear to auscultation bilaterally, no rales, rhonchi, wheezing. CARDIOVASCULAR: Regular rate and rhythm without murmurs, rubs, or gallops. Peripheral pulses 2+ and equal bilaterally. ABDOMINAL: Soft, nontender, nondistended, no hepatosplenomegaly. Normoactive BS. MUSCULOSKELETAL: Moves all extremities. Strength/ROM intact without gross deformities. Pt uses a walker for ambulation. SKIN: Warm, dry, normal color. No rashes. NEURO: A&O X3. Speech clear. Cranial nerves II-XII grossly intact. No ataxic movements. PSYCHIATRIC: Appropriate mood and affect. Normal interaction. Course Vital Signs Vital signs: Vital Signs Temperature 36.6 C 05/25/24 11:16 Pulse Rate 113 H 05/25/24 11:16 Respiratory Rate 18 05/25/24 11:16 Blood Pressure 120/93 H 05/25/24 11:16 Pulse Oximetry 98 05/25/24 11:16 Temperature 36.5 C 05/25/24 16:01 Pulse Rate 92 05/25/24 16:01 Respiratory Rate 20 05/25/24 16:01 Blood Pressure 140/90 05/25/24 16:01 Pulse Oximetry 98 05/25/24 16:01 MDM - Back Pain/Injury MDM Narrative Medical decision making narrative: Patient is a 68-year-old female who presents to the ER with chronic back pain. She reports she was seen here in the ER approximately 2 weeks ago and diagnosed with osteoarthritis and degenerative disc disease. Patient reports she was given steroids and sent home on steroids and Tramadol, but ?the pain has gotten worse. She reports she follow-up appointment scheduled with Dr. Nielson this but she had to cancel it because bad weather. Patient reports she rates her pain at a ?over 10/10 and reports I cannot get comfortable. She reports that Dr. Restrepo with her orthopedic doctor for her knee and is wondering if she should schedule an appointment with him. The patient endorses a history of anxiety and other mental health conditions. She denies chest pain, shortness a breath, fevers, saddle anesthesia. Labs Ordered: urinalysis Imaging Ordered: None needed Results: Patient can as minimal amount of blood (3-5 RBCs) in in her urine but her previous results indicate this has been an ongoing finding. She will be advised to follow-up with her primary care provider about this as this is most likely NOT contributing to her chronic back pain. Diagnosis: Chronic back pain Consults: orthopedics, PCP Patient Education/Shared MDM: Patient last had blood work performed approximately 1 month ago and it was consistent with previous results so no new blood work will be drawn during the ER visit. She was offered imaging to rule out any CT scan due to the minimal amount of blood in her urine and patient reports ?I do not think I have a kidney stone. I think I'm dehydrated. Patient encouraged to drink more water. She endorses pain relief at 1700 after the medications were administered. Patient verbalizes understanding for need to follow-up with orthopedics and her primary care provider. She will be discharged with prescription for muscle relaxants and a couple days worth of narcotics. Patient and her verbalized understanding and are in agreement plan and discharge. Disposition/Plan: Patient is in agreement with current treatment plan. All questions answered. Vital signs stable at time of discharge. Differential Diagnosis Differential diagnosis: Likely lumbar radiculopathy, sciatica, strain of lumbar region, pyelonephritis and discitis Lab Data Attestation: I reviewed the patient's lab results. Labs: Lab Results 05/25/24 Range/Units 16:04 Urine Color Yellow (Yellow) Urine Appearance Clear (Clear) Urine pH 6.5 (5.0-9.0) Ur Specific [place] 1.015 (1.001-1.035) Urine Protein Negative (Negative) mg/dL Urine Glucose (UA) Negative (Negative) mg/dL Urine Ketones Negative (Negative) mg/dL Ur Blood (Man) Non-hemolyzed trace H (Negative) Urine Nitrate Negative (Negative) Urine Bilirubin Negative (Negative) Urine Urobilinogen 0.2 (<2.0) mg/dL Leukocyte Esterase Rfl Negative (Negative) CHRIS/UL Urine RBC 3-5 H (0-2) /hpf Urine WBC 0-5 (0-3) /hpf Ur Squamous Epith Cells None seen (Few) /hpf Urine Bacteria None seen /hpf Urine Casts 0-2 Discharge Plan Discharge Clinical Impression: Strain of lumbar region, Chronic back pain, Degenerated intervertebral disc Patient Disposition: Home, Self-Care Condition: Stable Instructions: Antibiotic Form, Back Pain (ED) Additional Instructions: Please return to the ER with an worsening symptoms. Follow-up with primary care provider in the next 2-3 days. Please call orthopedics to schedule an appointment as soon as possible. Take all medications as prescribed. Prescriptions: New tizanidine [Zanaflex] 4 mg tablet 4 mg PO HS PRN (Reason: muscle spasticity) Qty: 7 0RF hydrocodone-acetaminophen 5-325 mg tablet 1 tablet PO Q6H PRN (Reason: pain) Qty: 10 0RF No Action aripiprazole [Abilify] 15 mg Tablet 15 mg PO DAILY aspirin [Geni Low Dose Aspirin] 81 mg Tablet,Delayed Release (Dr/Ec) 81 mg PO BID Hold Instructions: Resume on 12/02/21. Resume when completed full dose of aspirin for DVT prophylaxis. buspirone 7.5 mg Tablet 7.5 mg PO BID lamotrigine [Lamictal] 100 mg Tablet 100 mg PO HS topiramate [Topamax] 50 mg Tablet 50 mg PO BID acetaminophen 500 mg capsule 500 mg PO Q6-8H PRN (Reason: Pain) calcium carbonate [Calcium 500] 500 mg calcium (1,250 mg) tablet 500 mg PO TID magnesium 250 mg tablet 750 mg PO BID Xarelto 15 mg tablet 15 mg PO DAILY Rx Instructions: must administer with evening meal quetiapine [Seroquel] 300 mg tablet 300 mg PO QHS alendronate 70 mg tablet 70 mg PO WEEKLY Rx Instructions: on Saturdays fluticasone propionate [Flonase Allergy Relief] 50 mcg/actuation [place],Suspension 1 spray INTRANASAL DAILY Rx Instructions: administer into each nostril pediatric multivitamin Tablet,Chewable 2 tablet PO HS estradiol 0.01 % (0.1 mg/gram) cream 1 applic VAGINAL 3XW Patient Comments: - Claritin 10 mg PO DAILY methylprednisolone 4 mg tablets,dose pack See Rx Instructions .ROUTE .COMPLEX Qty: 21 0RF Rx Instructions: orally per package directions tramadol 50 mg tablet 50 mg PO Q6H PRN (Reason: pain) Qty: 10 0RF montelukast 10 mg tablet See Rx Instructions .ROUTE .COMPLEX Qty: 90 1RF Dose Instruction: TAKE 1 TABLET DAILY Rx Instructions: TAKE 1 TABLET DAILY albuterol sulfate 90 mcg/actuation HFA aerosol inhaler 1 - 2 inh inhalation Q4-6H PRN (Reason: shortness of breath or wheezing) Qty: 25.5 2RF pantoprazole [Protonix] 40 mg tablet,delayed release (DR/EC) 40 mg PO QAM Qty: 90 2RF Xarelto 15 mg tablet 15 mg PO BID Qty: 42 0RF Rx Instructions: To start immediately Xarelto 20 mg tablet 20 mg PO DAILY Qty: 90 0RF Rx Instructions: To start after 15mg BID RX pravastatin 80 mg tablet See Rx Instructions .ROUTE .COMPLEX Qty: 90 2RF Dose Instruction: TAKE 1 TABLET BY MOUTH EVERYDAY AT BEDTIME Rx Instructions: TAKE 1 TABLET BY MOUTH EVERYDAY AT BEDTIME Follow-up/Referrals: Giancarlo Le MD [Primary Care Provider] -
[2024-05-25] MEDS: HYDROcodone/acetaminophen (*CRX) 5-325 MG TABLET 1 TAB PO (14:57)
[2024-05-25] MEDS: methylPREDNISolone SOD SUCC 125 MG VIAL IM (14:58)
[2024-05-25] MEDS: KETOROLAC (*BKC) 60 MG/2 ML VIAL IM (14:59)
[2024-05-25] MEDS: TIZANIDINE HCL 1 MG TABLET PO (16:00)
[2024-05-25 16:01] VITALS: BP 140/90; PULSE 92; RESP 20; TEMP 36.5; O2SAT 98
[2024-05-25 16:12] LABS: Add Urine Microscopic? NO; Appearance Urine Clear (Clear); Bacteria Urine None Seen /hpf; Bilirubin Urine Negative (Negative); Blood Urine Non-Hemolyzed Trace (Negative); Color Urine Yellow (Yellow); Glucose Urine UA Negative (Negative); Ketones Urine Negative (Negative); Leukocyte Esterase Ur Negative LEU/UL (Negative); Nitrate Urine Negative (Negative); Non Pathogenic Casts 0-2; Protein Urine Negative (Negative); Specific Grav Ur 1.015 (1.001-1.035); Squamous Epithelial Cell Urine None Seen /hpf (Few); Urobilinogen Urine 0.2 mg/dL (<2.0); WBC Urine 0-5 /hpf (0-3); pH Urine 6.5 (5.0-9.0)
== END 2024-05-25 17:07 | disposition home or self-care (01) ==
PROVIDERS: Emergency Provider Registered Nurse; PCP Emergency Medicine
DX: M54.9 Dorsalgia, unspecified (principal); G89.29 Other chronic pain; S39.012A Strain of muscle, fascia and tendon of lower back, initial encounter; I10 Essential (primary) hypertension; J44.9 Chronic obstructive pulmonary disease, unspecified; E78.2 Mixed hyperlipidemia; E53.8 Deficiency of other specified B group vitamins; E55.9 Vitamin D deficiency, unspecified; M17.11 Unilateral primary osteoarthritis, right knee; M85.80 Other specified disorders of bone density and structure, unspecified site; K21.9 Gastro-esophageal reflux disease without esophagitis; F41.9 Anxiety disorder, unspecified; F31.9 Bipolar disorder, unspecified; Z86.711 Personal history of pulmonary embolism; Z96.651 Presence of right artificial knee joint; Z87.891 Personal history of nicotine dependence; Z96.1 Presence of intraocular lens; Z98.49 Cataract extraction status, unspecified eye; Z90.710 Acquired absence of both cervix and uterus; Z90.3 Acquired absence of stomach [part of]; Z79.01 Long term (current) use of anticoagulants; Z79.899 Other long term (current) drug therapy; Z79.82 Long term (current) use of aspirin; X58.XXXA Exposure to other specified factors, initial encounter
CPT/HCPCS: 81003; 96372; 99284; A9270; J1885; J2919

== ENCOUNTER 2024-05-31 07:15 | Outpatient (CLI) | payer OTHER, SELFPAY ==
[2024-05-31 07:51] LABS: Alanine Aminotransferase 12 U/L (6-35); Albumin Level 3.9 g/dL (3.5-5.1); Alkaline Phosphatase 69 U/L (38-126); Anion Gap 5 mmol/L (4-12); Aspartate Amino Transferase 27 U/L (14-36); Bilirubin,Total 0.5 mg/dL (0.2-1.3); Blood Urea Nitrogen 12 mg/dL (7-17); Carbon Dioxide 28 mmol/L (22-30); Chloride 106 mmol/L (98-107); Cholesterol 175 mg/dL (0-200); Estimated Glomerular Filt Rate > 60; Glucose 93 mg/dL (65-110); HDL Direct 84 mg/dL; Potassium 4.3 mmol/L (3.4-5.0); Sodium 139 mmol/L (137-145); Triglycerides 88 mg/dL (<150)
[2024-05-31 08:02] LABS: LDL Cholesterol Direct 64 mg/dL
[2024-05-31 09:24] LABS: Vitamin D 25 Hydroxy 44.8 ng/mL
== END 2024-05-31 07:16 | disposition home or self-care (01) ==
PROVIDERS: PCP Emergency Medicine; Visit Provider Emergency Medicine
DX: E78.5 Hyperlipidemia, unspecified (principal); E55.9 Vitamin D deficiency, unspecified
CPT/HCPCS: 36415; 80053; 80061; 82306

== ENCOUNTER 2024-06-04 13:55 | Outpatient (CLI) | payer OTHER, SELFPAY ==
--- NOTE | ~2024-06-04 | MR_ITS ---
EXAMINATION: MR lumbar spine wo con DATE: 06/04/2024 14:39 INDICATION: Low back pain. TECHNIQUE: Magnetic resonance imaging (MRI) of the lumbar spine was performed without intravenous con trast. Sequences included sagittal T2-weighted FSE, sagittal T2-weighted FS FSE, sagittal T1-weighted FSE, and axial T2-weighted FSE. COMPARISON: None FINDINGS: There is 61 degrees levoscoliosis of lumbar spine. There is 4 mm retrolisthesis of L1 on L2 and L2 on L3. There is mild chronic anterior wedging of T11 and L1 vertebral bodies. There is severe ly decreased disc height from T8-T9 through L4-L5 and mildly decreased disc height at L5-S1. The dist al spinal cord signal intensity is normal. The conus medullaris is at L1. The following disc levels a re specifically discussed: L1-L2: There is a left foraminal protrusion. There is severe right and moderate left facet joint oste oarthritis. There is moderate right and mild left neural foraminal stenosis. There is mild central ca nal stenosis. L2-L3: The disc is bulging. There is severe bilateral facet joint osteoarthritis. There is moderate r ight and mild left neural foraminal stenosis. There is mild central canal stenosis. L3-L4: The disc is bulging. There is severe bilateral facet joint osteoarthritis. There is mild bilat eral neural foraminal stenosis. There is moderate central canal stenosis. L4-L5: The disc is bulging and has an annular fissure. There is severe bilateral facet joint osteoart hritis. There is mild right and moderate left neural foraminal stenosis. There is moderate central ca nal stenosis. L5-S1: The disc is bulging with superimposed central extrusion. There is severe bilateral facet joint osteoarthritis. There is mild bilateral neural foraminal stenosis. There is mild central canal steno sis. IMPRESSION: 1. Severe lumbar spondylosis. 2. Lumbar levoscoliosis. Reviewed, dictated and finalized at [facility]
== END 2024-06-04 13:56 | disposition home or self-care (01) ==
LOC: GOSHIMG 13:57
PROVIDERS: PCP Nurse Practitioner Family; Visit Provider Emergency Medicine
DX: M43.06 Spondylolysis, lumbar region (principal); M41.86 Other forms of scoliosis, lumbar region
CPT/HCPCS: 72148

== ENCOUNTER 2024-08-15 08:30 | Outpatient (RCR) | payer OTHER, SELFPAY ==
--- NOTE | 2024-05-24 08:56 | OPREHPOC ---
Outpatient Therapy Plan of Care This is a Multidisciplinary Plan of Care that may contain components documented by all disciplines (PT, OT, and ST.) PT Problem 1 PT Problem #1 Knowledge Deficit PT Goal 1 Goal / Goal Update *indep with HEP Target Visit 8 PT Problem 2 PT Problem #2 Impaired Functional Mobility PT Goal 1 Goal / Goal Update * 2 minute walking test distance of 275' with assistive device Target Visit 8 PT Goal 2 Goal / Goal Update *Tinetti balance/gait score of 22/28, to improve balance and decrease fall risk Target Visit 8 PT Problem 3 PT Problem #3 Impaired Strength PT Goal 1 Goal / Goal Update increase strength of trunk and hips to improve mobility skills static stand without UE support x 40 seconds Target Visit 8 PT Goal 2 Goal / Goal Update *sit/stand from 18 seat with 1 UE x 3 reps Target Visit 8
--- NOTE | 2024-05-24 08:57 | PTOPEVAL1 ---
Assessment and note entered by Romina Correia, PT Evaluation Information Assessment Status Evaluation ICD-10 Condition Codes (PT) Difficulty Walking R26.2,R26.9,Weakness R53.1 Onset Apr 19, 2024 Subjective Information hospitalized for 8 days with bowel blockage and had surgery; more weakness and issues getting up from chair, in/out car; also on/off toliet; using the wheeled walker due to weakness and back, L hip pain; to ER 05-14-24 due to low back and hip pain:x ray: osteopenia, severe lumbar scoliosis and DDD; R hip moderate OA and L hip mild OA; Activity: ambulate with cane; indep with cooking, cleaning, in home tasks, driving; home with Reported Pain Level Pain Score Self Report Additional Pain Score Comments L sacrum, posterior and lateral hip; pain range of 1-10/10 during session have home stim- discussed pad placement using heat and position change to decrease pain; to ER 05-14-24 due to pain; during session, after walking, reported pain less, 1/10; Assessment PT Clinical Summary Mariely has the diagnosis of weakness. She reports leg weakness and decreased mobility after hospitalization. Previously used a cane and now needs wheeled walker. Recent ER visit due to increased back and L hip pain. Medical history includes: chronic, intermittent LBP, R and L TKR, L LE DVT, bowel blockage surgery in Apr. With the evaluation: poor standing posture of trunk and hips due to scoliosis; 2 minute walking test distance of 200' with wheeled walker; sit/ stand requires use of both hands; static standing without UE support x 15 seconds; Tinetti balance/ gait score of 12/28= high risk for falls. Skilled PT services are indicated for increase LE and trunk strength, gait and balance skills, with education for HEP and progression to return to cane ambulation. Monitor pain in back and L hip, as increase activity level. Plan of Care Interventions Gait Training,Neuro Re-education,Patient/Caregiver Education,Therapeutic Activities,Therapeutic Exercise PT Services Indicated Yes Treatment Frequency and 1-2 x/wk for 8 visits Duration These treatments will address the objective and functional deficits as defined above. The patient will be advanced safely and appropriately in order for the patient to progress towards his/her prior level of function. Additional exercises will be introduced and as well as a comprehensive home exercise program upon discharge, if needed, ?to ensure carryover of functional gains achieved in the clinic. This treatment plan has been reviewed and agreement upon by the patient.
--- NOTE | 2024-06-20 09:00 | OPREHPOC ---
Outpatient Therapy Plan of Care This is a Multidisciplinary Plan of Care that may contain components documented by all disciplines (PT, OT, and ST.) PT Problem 1 PT Problem #1 Knowledge Deficit PT Goal 1 Goal / Goal Update *indep with HEP 06-20-24 progress--add back treatment plan goal met, continue towards goal Target Visit 14 PT Problem 2 PT Problem #2 Impaired Functional Mobility PT Goal 1 Goal / Goal Update * 2 minute walking test distance of 275' with assistive device 06-20-24 progress--add back treatment plan goal not met, continue towards goal Target Visit 14 PT Goal 2 Goal / Goal Update *Tinetti balance/gait score of 22/28, to improve balance and decrease fall risk 06-20-24 progress--add back treatment plan goal not met, continue towards goal Target Visit 14 PT Problem 3 PT Problem #3 Impaired Strength PT Goal 1 Goal / Goal Update increase strength of trunk and hips to improve mobility skills static stand without UE support x 40 seconds 06-20-24 progress--add back treatment plan goal met Target Visit 8 Progress Met PT Goal 2 Goal / Goal Update *sit/stand from 18 seat with 1 UE x 3 reps 06-20-24 progress--add back treatment plan goal not met, continue towards Target Visit 14 PT Problem 4 PT Problem #4 Pain PT Goal 1 Goal / Goal Update 06-20-24 progress--add back treatment plan NEW GOAL: * pain rating of 7/10 at worst Target Visit 14 PT Goal 2 Goal / Goal Update 06-20-24 progress--add back treatment plan NEW GOAL: * Oswestry self rating of 40% limitation in activity level Target Visit 14
--- NOTE | 2024-06-20 09:01 | PTOPPROG ---
Assessment and note entered by Romina Correia, PT Progress----add treatment for back pain to plan of care Assessment Status Progress ICD-10 Condition Codes (PT) Difficulty Walking R26.2,Abnormalities of gait and mobility R26.9,Weakness R53.1, low back pain Onset Apr 19, 2024 Subjective Information back pain has really been bothering her; using wheeled walker all the time, not using the cane anymore; have been doing the exercises at home; saw dr and had a back MRI, and have appointment Jul 02 with pain management . want to continue therapy for back pain and continue for exercises to work on balance and strength; PAIN: range in the past week 0- 10/10; low back and L hip, with L leg heavy decrease pain: heat, sit/rest, sometimes ice helps increase pain: walking recent MRI report states: L 5-S1 central extrusion of disc, severe lumbar spondylosis, levoscoliosis Assessment PT Clinical Summary Mariely has received 6 PT sessions. Recent MRI positive for changes and she has referral to pain management. Compared to the initial evaluation: pain continues in her back, 0-10/10; self assessment for Oswestry is 52% limitation in activity level; 2 minute walking test distance with wheeled walker, decreased from 200 to 120'; Tinetti balance score from 12 to 13/28; static standing time with eyes open and eyes closed improved; sit/stand requires use of both UE's; education for HEP and pain control. The goals were partially met. Progression of activity- balance and strengthening has been limited due to back pain. Continue PT treatment; add modalities and treatment for low back pain, with progression of activity and balance as pain allows. Plan of Care Interventions Electrical Stimulation,Hot Pack/Cold Pack,Manual Therapy,Mechanical Traction,Neuro Re-education, Patient/Caregiver Education,Therapeutic Activities ,Therapeutic Exercise,Ultrasound,Other Other Interventions taping PT Services Indicated Yes Treatment Frequency and 1-2 x/wk for 8 visits Duration These treatments will address the objective and functional deficits as defined above. The patient will be advanced safely and appropriately in order for the patient to progress towards his/her prior level of function. Additional exercises will be introduced and as well as a comprehensive home exercise program upon discharge, if needed, ?to ensure carryover of functional gains achieved in the clinic. This treatment plan has been reviewed and agreement upon by the patient.
--- NOTE | 2024-08-15 09:15 | PTOPDC ---
Assessment and note entered by Romina Correia, PT Assessment Status Discharge ICD-10 Condition Codes (PT) Difficulty Walking R26.2,Abnormalities of gait and mobility R26.9,Weakness R53.1 Onset Apr 19, 2024 Subjective Information walking faster with the walker; better getting up from the chair and toliet; want to try the ramp, have a ramp out my back door and have not done yet; been using the cane some at home; want to be able to walk with the cane and not use the walker any more; have been doing the exercises at home. Reported Pain Level Pain Score Self Report Additional Pain Score Comments pain range of back and L hip in the past week: 0-6/10; frustrated due to continued pain; am now back to sleeping in her bed; Assessment PT Clinical Summary Mariely has received a total of 14 PT sessions. Compared to the last progress report: pain was 0-10/10 and now 0-6/10; self assessment with Oswestry rating from 52% to 32% limitation in activity level; Tinetti balance/gait score from 13 to 24/28, for decreased risk of falls and improved mobility and balance; 2 minute walking test distance with rollator increased to 225'; is able to walk with the cane short distance, depending upon pain of hip and back; education completed for HEP and safety with mobility, activity/rest balance for pain control. The goals were partially met. Discharge PT. She is to continue with HEP and activity as tolerated. Plan of Care PT Services Indicated No
== END 2024-08-15 11:37 | disposition home or self-care (01) ==
LOC: ANHPT 08:30
PROVIDERS: PCP Emergency Medicine; Visit Provider Emergency Medicine
DX: R53.1 Weakness (principal); R26.2 Difficulty in walking, not elsewhere classified; R26.9 Unspecified abnormalities of gait and mobility
CPT/HCPCS: 97014; 97110; 97140; 97161; 97530; G0283

== ENCOUNTER 2024-08-23 07:24 | Outpatient (CLI) | payer OTHER, SELFPAY ==
--- OUTSIDE RECORDS SUMMARY | 2024-08-23 07:27 | XMS_ITS | Clinical Summary ---
Author Organization [facility] Address [address] [place] [address] Care Team Providers Care Pole Tester Name Role Phone Giancarlo Le MD Primary Care Provider [phone] Allergies Active Allergy Reactions Criticality Noted Date Comments Cephalexin Rash Low 03/21/2018 Cephalosporins Rash Medium 03/21/2018 Erythromycin Nausea and Vomiting,Unknown 10/15/2014 Gallbladder attack Penicillins Rash Medium 10/15/2014 Sulfa Antibiotics Rash Medium 10/15/2014 Medications albuterol sulfate HFA 108 (90 Base) MCG/ACT inhaler Inhale 2 puffs into the lungs. 3 Active alendronate (FOSAMAX) 70 MG tablet TAKE 1 TABLET BY MOUTH ONCE WEEKLY Active aspirin 81 MG chewable tablet daily. Acti ve busPIRone (BUSPAR) 7.5 MG tablet every 12 hours Activ e cetirizine (ZYRTEC) 10 MG tablet Active clotrimazole-be tamethasone (LOTRISONE) cream APPLY TO AFFECTED AREA 3 TIMES A DAY NEEDED 3 Active Ferrous Sulfate (IRON OR) Active fluticasone furoate-vilante rol (BREO ELLIPTA) 200-25 MCG/ACT inhaler Inhale 1 puff into the lungs daily. Active fluticasone propionate (FLONASE) 50 MCG/ACT nasal spray Active Magnesium Oxide, Antacid, 500 MG Cap Take 500 mg by mouth daily. Active montelukast (SINGULAIR) 10 MG tablet Take 1 tablet (10 mg total) by mouth daily. 3 Active pantoprazole (PROTONIX) 40 MG injection 40 mg daily. Acti ve pravastatin (PRAVACHOL) 80 MG tablet Take 1 tablet (80 mg total) by mouth nightly at bedtime. 3 Active traMADol (ULTRAM) 50 MG tablet 50 MG ORALLY EVERY 6 HOURS NEEDED FOR PAIN 3 Active triamcinolone acetonide (KENALOG) 10 MG/ML injection Kenalog 10 mg/mL suspension for injection In office injection administered by the provider Active QUEtiapine (SEROQUEL) 300 MG tablet Take 1 tablet (300 mg total) by mouth every evening. 3 Active TRELEGY ELLIPTA 100-62.5-25 MCG/ACT AEROSOL POWDER, BREATH ACTIVATED Inhale 1 puff into the lungs daily. 3 Active Family History Medical History Relation Comments No Known Problems Father No Known Problems Mother Relation Status Comments Father Mother Social History Tobacco Use Types Packs/Day Years Used Date Smoking Tobacco: Never Passive Smoke Exposure: Never Smokeless Tobacco: Never Tobacco Cessation:Counseling Given: Not Answered Alcohol Use Standard Drinks/Week Comments Not Currently 0 (1 standard drink = 0.6 oz pur e alcohol) Comments No Sex and Gender Information Value Date Recorded Sex Assigned at Not on file Legal Sex Female 10:11 PM WINDER HELPER Gender Identity Not on file Sexual Orientation Not on file Last Filed Vital Signs Vital Sign Reading Time Taken Comments Blood Pressure 127/66 05/10/2023 10:20 AM WINDER HELPER Pulse 80 05/10/2023 10:20 AM WINDER HELPER Temperature 37.2 C (99 F) 05/10/2023 10:20 AM WINDER HELPER Respiratory Rate 18 05/10/2023 10:20 AM WINDER HELPER Oxygen Saturation 100% 05/10/2023 10:20 AM WINDER HELPER Inhaled Oxygen Concentration - - Weight 77.1 kg (170 lb) 05/10/2023 10:20 AM WINDER HELPER Height 144.8 cm (4' 9 ) 05/10/2023 10:20 AM WINDER HELPER Body Mass Index 36.79 05/10/2023 10:20 AM WINDER HELPER Plan of Treatment Health Maintenance Due Date Last Done Comments Colorectal Cancer Screening Colonoscopy (10 Years) 1956 Hepatitis C 1974 Mammogram Screening 1996 Annual Medicare Wellness Visit 2021 Dexa Scan (General) 2021 COVID-19 Vaccine ( season) 2024 04/14/2023, 03/04/2022, 05/12/2021, Additional history exists Influenza Adult (#1) 2024 02/24/2021, 03/13/2020, 02/25/2019, Additional history exists DTaP, Tdap and Td Vaccines (2 - Td or Tdap) 08/06/2029 08/06/2019 Zoster Vaccines Completed 03/05/2018, 01/18, 11/13/2017, Additional history exists Pneumococcal Vaccine: 65+ Years Completed 05/05/2022, 04/26/2019, 03/07/2016 RSV Immunization or 60+ Years Completed 04/14/2023 Meningococcal B Vaccine Aged Out No l onger eligible based on patient's age to complete this topic Meningococcal Vaccine Aged Out No rebekah socrates eligible based on patient's age to complete this topic RSV Immunizations Under 20 Months Aged Out No longer eligible based on patient's age to complete this topic Insurance [employer] Care Teams Pole Tester Relationship Specialty Start Date End Date Giancarlo Le MD [address] [place] [address] PCP - General INTERNAL MEDICINE 05/10/23
--- OUTSIDE RECORDS SUMMARY | 2024-08-23 07:28 | XMS_ITS | Patient Health Summary ---
Author Organization [facility] Address [address] [place] [address] Care Team Providers Care Roast Master Name Role Phone Giancarlo Le MD Primary Care Provider [phone] Note from [facility],non-owned Affiliates and Associated Physician Practices is amultiple site organization consisting of ambulatory clinics and hospital sitesin [place], [place], [place] and [place]. This disclosure is being madepursuant to the Care Everywhere program and may not contain all information available regarding this patient. Last updated 18.[facility] Allergies * Cephalosporins(Rash) -Medium Criticality * Erythromycin(Nausea and/or Vomiting) * Penicillins(Rash) -Medium Criticality * Sulfa Drugs(Rash) -Medium Criticality Immunizations * MMR(Given 03/30/2019, 02/28/2019) Social History Tobacco Use Types Packs/Day Years Used Date Smoking Tobacco: Never Assessed Sex and Gender Information Value Date Recorded Sex Assigned at Not on file Gender Identity Not on file Sexual Orientation Not on file Procedures * DERMATOPATHOLOGY(Performed 03/09/2017) Results * PATHOLOGY TISSUE FOR DERMATOLOGY (03/09/2017 12:00 AM CDT) Result CASE: [id number] PATIENT: FERCHO MEJIA PATHOLOGIC DIAGNOSIS: Right jawline: SOLAR LENTIGO PRESENT AT MARGIN (see microscopic description) CLINICAL DATA: BCC vs SK Check margins GROSS DESCRIPTION: Received is one formalin filled container labeled with the patients name and designated right jawline. The specimen consists of a shave measuring [id number]. Jar 0. MICROSCOPIC DESCRIPTION: There is orthokeratosis. There is a slight increase in epidermal thickness with lentiginous buds of hyperpigmented keratinocytes. The number of melanocytes, highlighted by MART-1/Melan-A immunohistochemi sawyer staining, is only mildly increased. In the dermis, there is basophilic degeneration of elastic fibers. This lesion is present at the margin of the specimen. Electronically signed out by Erika Lopez M.D., PhD. 03/13/2017 2:36:24PM [facility] Comment: Performed at: Dermatopathology Laboratory [facility] - Department of Dermatology [address] [place] [address] 5th [place] [address] Phone number: [phone] FAX: [phone] 03/09/2017 03/10/2017 Surekha Rowan MD LAB - PATHOLOGY/CYTO LOGY ORDERABLES [facility] [address] [place] [address]. 5th Floor Lab B [address] [phone] Care Teams Roast Master Relationship Specialty Start Date End Date Giancarlo Le MD [address] [place] [address] [address] [place] [address] PCP - General 08/31/22
--- OUTSIDE RECORDS SUMMARY | 2024-08-23 07:28 | XMS_ITS ---
Author Name POLLY BAUER M.D. Address [address] [place] [address] Phone [phone] Organization [facility] ([facility] Care Team Providers Care Pick Up Name Role Phone LIZETTE POLLY Unavailable [phone] Santo Pearson Unavailable [phone] Bakari Moore Unavailable [phone] Dami [place] Unavailable [phone] POLLY FRIED Unavailable [phone] Reason for Referral Not Available Allergies, adverse reactions, alerts Allergen Type Reaction Severity Status Onset Date Penicillins Allergy to substance (disorder) Unknow n Active N/A Erythromycin Allergy to substance (disorder) Unkno wn Active N/A Sulfa Antibiotics Allergy to substance (disorder) Unknown Active N/A Cephalosporins Allergy to substance (disorder) Unk nown Active N/A Problem List Problem Status Onset Date Resolved Date Class 2 obesity with body ma ss index (BMI) of 38.0 to 38.9 in adult Active 2024-05-02 N/A Bipolar 1 disorder Active 2024-05-02 N/A Hyperlipidemia, unspecified Active 2024-05-02 N/A Simple chronic bronchitis Active 2024-05-02 N/ A Osteopenia Active 2024-05-02 N/A Left leg DVT Active 2024-05-02 N/A GERD (gastroesophageal reflux disease) Active 12-05-14 N/A Encounters Encounters Type Facility Date of Service Diagnosis/Co mplaint Home visit for evaluation and management of new patient requiring medically appropriate examination and moderate level of medical decision making. If using time, at least 60 minutes total time on [facility] [place] 05/02/2024 Bipolar disorder, unspecifiedObesity, class 2Hyperlipidemia, unspecifiedSimple chronic bronchitisOth disrd of bone density and structure, unspecified siteGastro-esophageal reflux disease without esophagitisBody mass index (bmi) 38.0-38.9, adultPersonal history of other venous thrombosis and embolism Vital Signs Date of Collection Vitals 2024-05-02 15:16:00 Height - 144.78 cmWe ight - 81.42 kgBody Mass Index (BMI) - 38.84 kg/m2BP Diastolic - 80.0 mm[Hg]BP Systolic - 130.0 mm[Hg]Heart Rate - 82.0 /minRespiratory Rate - 18.0 /minBody Temperature - 36.78 CelO2 % BldC Oximetry - 97.0 % Social History Social History Social History Observation Description Effec tive Time Current Smoking Status Former smoker 7 Sex Female History of Procedures Procedures Service Procedure code Service date Servicing provider Phone# Home visit for evaluation and management of new patient requiring medically appropriate examination and moderate level of medical decision making. If using time, at least 60 minutes total time on enco [id number] 2024-05-02 No Data Available No Data Availa ble Functional Status No Information Mental Status No Information Assessments Date of Service Assessments 2024-05-02 15:16:00 Class 2 obesity with body mass index (BMI) of 38.0 to 38.9 in adultBipolar 1 disorderHyperlipidemia, unspecifiedSimple chronic bronchitisOsteopeniaLeft leg DVTGERD (gastroesophageal reflux disease) Plan of Care Date of Service Plans 2024-05-02 15:16:00 f/u pcp decPatient h ad gastric bypass multiple years ago and BMI has significantly improved. Continue positive dietary choices.Patient managed by psychiatry. She takes aripiprazole 15mg daily, buspirone 7.5mg BID, lamotrigine 100mg daily, topiramate 50mg BID, and quetiapine 300mg nightly. Continue taking medications as prescribed and F/U as directed.Patient takes pravastatin 80mg daily. Controlled. Continue taking medications as prescribed and F/U as directed.Patient takes albuterol HFA 108 MCG/ACT 2 puffs Q6 PRN. No recent flare ups. Negative PFT's. Continue taking medications as prescribed and F/U as directed.Patient takes alendronate 70mg weekly. Continue taking medications as prescribed and F/U as directed.Patient takes xarelto 15mg BID at this time. Continue taking medications as prescribed and F/U as directed. PCP visit in May.Patient takes pantoprazole 40mg daily. Continue taking medications as prescribed and F/U as directed. Goals Date Goal 2024-05-02 Patient chronic cond itions seem controlled at this time. Continue taking medications as prescribed and F/U as directed. 2024-05-02 uACR due - urine alb umin found in chart, but no creatinine. Will place in recommendations for PCP to further address if needed. Health Concerns Date Concern 2024-05-02 Healthy House Calls is a service that involves a physician or advanced practice provider conducting comprehensive assessments in your patient s home or virtually to address crucial areas such as chronic conditions, quality gaps, social concerns, fall risk prevention, and various screenings. Please note that your patient will remain attributed to you even though they are participating in this service. If you have any questions, please reach out directly to our team at the phone number above.Your patient, Mariely Beard, 57, was seen today for a Healthy House Call visit. Patient read rights and responsibilities and consented to treatment. The purpose of this summary is to update you on the patient's current health status and share any relevant findings from the examination. 2024-05-02 Recommendations:uACR due 2024-05-02 Patient is a 68yr ol d female. They are being seen today for a Healthy House Calls comprehensive exam. Patient endorses recent hospitalization for SBO. She was discharged approx 1 week ago. She has a recent diagnosis of DVT in left leg that is being managed - states symptoms have improved. She denies any recent injury or falls. Current diagnoses and medications are as listed below. Patient lives with spouse. She is independent with her care. She does use a cane for ambulation.
--- OUTSIDE RECORDS SUMMARY | 2024-08-23 07:28 | XMS_ITS | Referral Summary ---
Author Organization [facility] Address [address] [place] [address] Care Team Providers Care Ladies' Locker Room Attendant Name Role Phone Giancarlo Le MD Primary Care Provider Source Comments [facility],non-owned Affiliates and Associated Physician Practices is amultiple site organization consisting of ambulatory clinics and hospital sitesin [place], [place], [place] and [place]. This disclosure is being madepursuant to the Care Everywhere program and may not contain all information available regarding this patient. Last updated 18.[facility] Allergies Active Allergy Reactions Criticality Noted Date Comments Cephalosporins Rash Medium 02/28/2019 Erythromycin Nausea and/or Vomiting 02/28/2019 Gallbladder attack Penicillins Rash Medium 02/28/2019 Sulfa Drugs Rash Medium 02/28/2019 Immunizations Name Administration Dates Next Due MMR 03/30/2019,02/28/2019 Social History Tobacco Use Types Packs/Day Years Used Date Smoking Tobacco: Never Assessed Sex and Gender Information Value Date Recorded Sex Assigned at Not on file Gender Identity Not on file Sexual Orientation Not on file Plan of Treatment Not on file Care Teams Ladies' Locker Room Attendant Relationship Specialty Start Date End Date Giancarlo Le MD [address] [address] PCP - General 08/31/22
--- OUTSIDE RECORDS SUMMARY | 2024-08-23 07:28 | XMS_ITS | Continuity of Care Document ---
Author Organization [facility] Address [address] [place] [address] [address] [place] [address] Phone Care Team Providers Care International Marketing Coordinator Name Role Phone Stephenson OD, Gabriel Unavailable Unavailable Procedures Procedure Date Office/outpatient Visit, Est Eye Exam Established Pt Office/outpatient Visit, Est Office/outpatient Visit, Est Office/outpatient Visit, Est Office/outpatient Visit, New Advance Directives Directive Yes / No Effective Date File Name No Information Encounters Encounter Description Practice Location Reason(s) For Visit Diagnoses Date Provider Providers Copied on Encounter Office/outpat ient Visit, [facility], [address] [place] [address] [address], [place], [place], [id number], tel:[phone] [facility] No Information 5-201 0 Stephenson OD Gabriel. [address] , [address], [place], [place], [facility], . tel:[phone] Formerly [facility], [address] [place] [address] [address], [place], [place], [id number], tel:[phone] [facility] No Information 0-201 0 Stephenson OD Gabriel. [address] , [address], [place], [place], [facility], . tel:[phone] Office/outpat ient Visit, [facility], [address] [place] [address] [address], [place], [place], [id number], [place] tel:[phone] [facility] No Information b-2 6-200 8 Stephenson OD Gabriel. [facility] , [address], [place], [place], [facility], . tel:[phone] Office/outpat ient Visit, [facility], [address] [place] [address] [address], [place], [place], [id number], tel:[phone] [facility] No Information b- 9-200 8 Stephenson OD Gabriel. [address] [address] , [address], [place], [place], [facility], [place]. tel:[phone] Office/outpat ient Visit, [facility], [address], [place], [place], [id number], tel:[phone] [facility] No Information b- 6-200 8 Stephenson OD Gabriel. [address] [facility] , [address], [place], [address], . tel:[phone] Office/outpat ient Visit, [facility], [address] [place] [address] [address], [place], [place], [id number], tel:[phone] [facility] No Information b- 4-200 8 Stephenson OD Gabriel. [address] [place], [place] [address] , [address], [place], [place], [facility], [place]. tel:[phone] Family History Family Member Type Diagnosis Age At Onset No Information Payers Payer name Insurance type Covered green party ID Authorpreeta [id number](s) [facility] Commercial CI [id number] Social History Type Description Quantity Date Captured [...]
--- OUTSIDE RECORDS SUMMARY | 2024-08-23 07:28 | XMS_ITS | Referral Summary ---
Author Organization [facility] [address] Address [address] [place] [address] Care Team Providers Care Anatomic Pathology Assistant Name Role Phone Giancarlo Le MD Primary Care Provide r Allergies Active Allergy Reactions Criticality Noted Date Comments Cephalosporins Rash Medium 03/21/2018 Erythromycin Nausea And Vomiting,Unknown 10/15/2014 Gallbladder attack Penicillins Rash Medium 10/15/2014 Sulfa (Sulfonamide Antibiotics) Rash Medium 10/15/2014 Medications ARIPiprazole (ABILIFY) 15 mg tablet 09/20/2020 Active lamoTRIgine (LaMICtal) 100 mg tablet 09/20/2020 Active Nystop powder 10/13/2020 Activ e pravastatin (PRAVACHOL) 80 mg tablet 09/21/2020 Active pantoprazole (PROTONIX) 40 mg injection 10 mL (40 mg total) daily Active topiramate (TOPAMAX) 50 mg tablet Take 1 tablet (50 mg total) by mouth 2 (two) times a day Active aspirin 81 mg chewable tablet daily Acti ve estradioL (DIVIGEL) 0.25 mg (0.1 %) gel in packet 2 packets (0.5 mg total) by other route Active magnesium oxide 500 mg capsule Take 500 mg by mouth daily Active acetaminophen ER (Tylenol Arthritis Pain) 650 mg 8 hr tablet Active fluticasone propionate (Flonase Allergy Relief) 50 mcg/actuation nasal spray Active multivitamin-mi z-ltqy-BH-vit K (Multi-Day Plus Minerals) 18 mg iron-400 mcg-25 mcg tablet Active cetirizine (ZyrTEC) 10 mg tablet Active calcium carbonate-vitam in D3 (Calcium 500 + D) 1,250mg (500mg elemental) - 5 mcg (200 units) per tablet Active alendronate (FOSAMAX) 70 mg tablet TAKE 1 TABLET BY MOUTH ONCE WEEKLY 10/02/2022 Active albuterol HFA (PROVENTIL HFA,VENTOLIN HFA,PROAIR HFA) 90 mcg/actuation inhaler INHALE 2 PUFFS EVERY 6 HOURS NEEDED FOR WHEEZING 8.5 each 3 03/07/2024 Active traMADoL (ULTRAM) 50 mg tablet 50 MG ORALLY EVERY 6 HOURS NEEDED FOR PAIN 01/02/2023 Active busPIRone (BUSPAR) 15 mg tablet Take 0.5 tablets (7.5 mg total) by mouth 2 (two) times a day 02/12/2024 Active QUEtiapine (SEROquel) 300 mg tablet Take 1 tablet (300 mg total) by mouth every evening 02/07/2024 Active montelukast (SINGULAIR) 10 mg tablet Take 1 tablet (10 mg total) by mouth nightly 90 tablet 3 06/13/2024 Active Active Problems Problem Noted Date Diagnosed Date Moderate persistent asthma 11/29/2022 Simple chronic bronchitis 11/29/2022 Thoracogenic scoliosis of thoracolumbar region 0 09/20/2022 Obstructive sleep apnea 09/20/2022 Cigarette nicotine dependence in remission 09/20 BMI 38.0-38.9,adult 09/20/2022 Non-seasonal allergic rhinitis due to pollen 09/2022 Tinnitus of both ears 11/07/2020 Social History Tobacco Use Types Packs/Day Years Used Date Smoking Tobacco: Former Cigarettes Q uit: 1999 Smokeless Tobacco: Never Tobacco Cessation:Counseling Given: Not Answered AUDIT-C Answer Date Recorded Frequency of Alcohol Consumption Not on file 06/30/2022 Q2: How many drinks containi ng alcohol do you have on a typical day when you are drinking? 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 Gender Identity Not on file Sexual Orientation Not on file Last Filed Vital Signs Vital Sign Reading Time Taken Comments Blood Pressure 115/79 03/29/2024 9:13 AM CDT Pulse 72 03/29/2024 9:13 AM CDT Temperature 36.3 C (97.4 F) 09/29/2023 8:40 AM CDT Respiratory Rate 18 03/29/2024 9:13 AM CDT Oxygen Saturation 99% 03/29/2024 9:13 AM CDT Inhaled Oxygen Concentration - - Weight 84.4 kg (186 lb) 03/29/2024 9:13 AM CDT Height 147.3 cm (4' 10 ) 03/29/2024 9:13 AM CDT Body Mass Index 38.87 03/29/2024 9:13 AM CDT Plan of Treatment Not on file Insurance [employer] [facility] CHOICE PLUS [employer] Care Teams Anatomic Pathology Assistant Relationship Specialty Start Date End Date Giancarlo Le MD [address] [place] [address] PCP - General Emergency Medicine 06/30/22
--- OUTSIDE RECORDS SUMMARY | 2024-08-23 07:28 | XMS_ITS | Clinical Summary ---
Author Organization [facility] [address] Address [address] [place] [address] Care Team Providers Care Senior Courtroom Clerk Name Role Phone Giancarlo Le MD Primary [...] Relief) 50 mcg/actuation nasal spray Active multivitamin-mi m-ztfk-WO-vit K (Multi-Day Plus Minerals) 18 mg iron-400 [...] pollen 09/2022 Tinnitus of both ears 11/07/2020 Surgical History Surgery Date Site/Laterality Comments HYSTERECTOMY CHOLECYSTECTOMY RHINOPLASTY GASTRIC BYPASS HERNIA REPAIR REPLACEMENT TOTAL KNEE Medical History Medical History Date Comments Asthma COPD (chronic obstructive pulmonary disease) (HC C) Depression GERD (gastroesophageal reflux disease) Deep vein thrombosis (HCC) Family History Medical History Relation Name Comments Heart disease Father Relation Name Status Comments Father Social History Tobacco Use Types Packs/Day Years [...] on file 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 Gender Identity Not on file Sexual Orientation Not on file Obstetrics History Last Filed Vital Signs Vital Sign Reading [...] 03/29/2024 9:13 AM CDT Plan of Treatment Health Maintenance Due Date Last Done Comments Colon Cancer Screening-Colonoscopy 1956 Depression Screening 1955 Fall Risk Assessment 1955 Hepatitis C Screening 1955 Osteoporosis Screening-Bone Density Scan 1956 Hepatitis B Screening 1974 Breast Cancer Screening-Mammogram 04/01/2014 013, 03/26/2012 Well Visit 65+ 2021 Influenza Vaccine (#1) 2024 0, 02/25/2019, 03/05/2018, Additional history exists Pneumococcal vaccine 65+ (3 of 3 - PCV20 or PCV21) 04/26/2024 04/26/2019, 03/07/2016, 06/02/2011 DTaP/Tdap/Td Vaccine (2 - Td or Tdap) 08/06/2029 08/06/2019 Zoster Vaccine Completed 03/05/2018, 01/18, 11/13/2017, Additional history exists Insurance Care Teams Senior Courtroom Clerk Relationship Specialty Start Date End Date Giancarlo Le MD [address] [place], [place] [id number] PCP - General Emergency Medicine 06/30/22
--- OUTSIDE RECORDS SUMMARY | 2024-08-23 07:29 | XMS_ITS | Clinical Summary ---
Author Organization [facility] Address [address] [facility] [place] [address] Care Team Providers Care Roll Coating Machine Operator Name Role Phone Giancarlo Le MD Primary Care Provider [phone] Source Comments [facility],non-owned Affiliates and Associated Physician Practices is amultiple site organization consisting of ambulatory clinics and hospital sitesin [place], [place], [place] and [place]. This disclosure is being madepursuant to the Care Everywhere program and may not contain all information available regarding this patient. Last updated 18.[facility] Allergies Active Allergy Reactions Criticality Noted Date [...] Orientation Not on file Plan of Treatment Health Maintenance Due Date Last Done Comments BONE DENSITY TESTING 1956 COLOGUARD (AGES 45-75) - COL ON CA SCREENING 1956 COLON MONITORING 1956 COLONOSCOPY - COLON CA SCREENING 1956 CT COLONOGRAPHY - COLON CA SCREENING 1956 Colorectal Cancer Screening 1956 FIT - COLON CA SCREENING 1956 FLEX SIG - COLON CA SCREENING 1956 LIPID TESTING 1956 MAMMOGRAM 1956 MEDICARE AWV 12 MONTHS 1956 HEPATITIS C SCREENING 06/19/1974 DTAP/TDAP/TD VACCINES (1 - Tdap) 1975 PNEUMOCOCCAL VACCINE 50+ (1 of 1 - PCV) 2006 ZOSTER VACCINE (1 of 2) 2006 COVID-19 VACCINE (1 - 2023-2 5 season) 2024 INFLUENZA VACCINE (#1) 2024 03/05/2018 DEPRESSION SCREENING 06/19/2024 Respiratory Syncytial Virus (RSV) Vaccine Pt: or over 60 yrs (1 - 1-dose 75+ series) 2031 HEPATITIS B VACCINE Aged Out No longe r eligible based on patient's age to complete this topic HIB VACCINE Aged Out No longer eligi ble based on patient's age to complete this topic HPV VACCINE Aged Out No longer eligi ble based on patient's age to complete this topic MENINGOCOCCAL (Group B) VACCINE Aged Out No longer eligible based on patient's age to complete this topic MENINGOCOCCAL VACCINE Aged Out No rebekah socrates eligible based on patient's age to complete this topic Care Teams Roll Coating Machine Operator Relationship Specialty Start Date End Date Giancarlo Le MD [address] [place] [address] [facility] - General 08/31/22
--- OUTSIDE RECORDS SUMMARY | 2024-08-23 07:29 | XMS_ITS | Clinical Summary ---
Author Organization [facility] Administrative Offices Address [address] [place] [address] Care Team Providers Care Train Braker Name Role Phone Rell Milton Sally MARI Primary Care Provider [phone] Allergies Active Allergy Reactions Criticality Noted Date Comments Cephalexin Rash Low 03/21/2018 Erythromycin Unknown 10/15/2014 Penicillins Rash Low 10/15/2014 Sulfa (Sulfonamide Antibiotics) Rash Low 09/18 Medications montelukast (SINGULAIR) 10 mg tablet Take 10 mg by mouth daily . 5 Active pravastatin (PRAVACHOL) 40 mg tablet 80 mg daily at bedtime. 5 Active QUEtiapine (SEROQUEL) 200 mg tablet Take 200 mg by mouth daily at bedtime . 5 Active topiramate (TOPAMAX) 50 mg tablet Take 50 mg by mouth 2 times daily. Active albuterol sulfate (VENTOLIN HFA) 90 mcg/Actuation inhaler Take 2 Puffs by inhalation every 6 hours as needed for Shortness of Breath. Active busPIRone (BUSPAR) 7.5 mg Tablet Take 7.5 mg by mouth 2 times daily . Active Estradiol 0.5 mg/0.5 gram (0.1 %) Gel in Packet 0.5 mg by See Admin Instructions route Vaginally 3 times a week . Active fluticasone furoate-vilante roL (BREO ELLIPTA) 200-25 mcg/dose Disk with Device Take 1 Puff by inhalation daily. Active ARIPiprazole (ABILIFY) 10 mg tablet Take 10 mg by mouth daily. Active lamoTRIgine (LaMICtal) 25 mg Tablet, Chewable Dispersible Take 1 Tablet (25 mg) by mouth daily, ALLOW TO DISSOLVE IN MOUTH THEN SWALLOW 30 Tablet 04/05/2018 2:44 PM CDT 8 Active aspirin (BELLO CHEWABLE) 81 mg Tablet, Chewable Take 1 Tablet (81 mg) by mouth daily. 30 Tablet 8 Active magnesium oxide 500 mg Capsule Take 500 mg by mouth daily. Active pantoprazole (Protonix) 40 mg Tablet, Delayed Release (E.C.) Take 1 Tablet (40 mg) by mouth every 12 hours. 120 Tablet 1 1 Active acetaminophen (TYLENOL 8 HOUR ORAL) 0 Active calcium carbonate (CALCIUM 300 ORAL) 3 Active cyclobenzaprine (FLEXERIL) 5 mg Tablet TAKE 1 TABLET BY MOUTH TWICE DAILY NEEDED FOR MUSCLE SPASM 1 Active Trelegy Ellipta 200-62.5-25 mcg Disk with Device 2 Active ibandronate (BONIVA) 150 mg tablet 2 Active Multivitamins with Fluoride (MULTI-VITAMIN ORAL) 3 Active nystatin (NYSTOP) 100,000 unit/gram powder APPLY 1 APPLICATION TOPICALLY THREE TIMES DAILY 1 Active triamcinolone acetonide (KENALOG-10) 10 mg/mL Suspension Kenalog 10 mg/mL suspension for injection In office injection administered by the provider Active umeclidinium (Incruse Ellipta) 62.5 mcg/actuation Disk with Device 1 Active Active Problems Patient Care Coordination No te Formatting of this note migh t be different from the original. Primary Care: Jame Antonio MD Referring Provider: Jame Antonio MD [address] [place] [address] Other: Dr Мария Rueda Problem Noted Date Diagnosed Date Other secondary scoliosis, thoracolumbar region 02/24/2022 Osteoarthritis of right hip 02/24/2022 Coccydynia 01/26/2022 Exogenous obesity 01/26/2022 Diffuse cystic mastopathy 10/15/2014 COPD (chronic obstructive pulmonary disease) Dehydration Starvation ketoacidosis Ketosis Orthostatic hypotension Immunizations Immunization Administration Dates Next Due Influenza Seasonal Unspecified Formulation IM Zoster Vaccine Live SQ 03/05/2018 Family History Medical History Relation Name Comments Heart Disease Father Stroke Father Breast Cancer Neg Hx Ovarian Cancer Neg Hx Uterine Cancer Neg Hx Relation Name Status Comments Father Social History Tobacco Use Types Packs/Day Years Used Date Smoking Tobacco: Former Cigarettes Q uit: 06/19/1999 Smokeless Tobacco: Never Tobacco Cessation:Counseling Given: No Alcohol Use Standard Drinks/Week Comments No 0 (1 standard drink = 0.6 oz pur e alcohol) Comments No Sex and Gender Information Value Date Recorded Sex Assigned at Not on file 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 Gender Identity Not on file Sexual Orientation Not on file Last Filed Vital Signs Vital Sign Reading Time Taken Comments Blood Pressure 144/88 01/26/2022 11:35 AM CDT Pulse 65 11/13/2020 8:25 AM CDT Temperature 36.8 C (98.3 F) 01/26/2022 11:35 AM CDT Respiratory Rate 18 01/26/2022 11:35 AM CDT Oxygen Saturation 87% 11/13/2020 8:25 AM CDT Inhaled Oxygen Concentration - - Weight 81 kg (178 lb 9.6 oz) 02/24/2022 2:23 PM CDT Height 149.9 cm (4' 11 ) 02/24/2022 2:23 PM CDT Body Mass Index 36.07 02/24/2022 2:23 PM CDT Plan of Treatment Health Maintenance Due Date Last Done Comments DTAP/TDAP/TD VACCINES (1 - Tdap) 1975 PNEUMOCOCCAL VACCINE 50+ YEA RS (1 of 2 - PCV) 1975 COLORECTAL SCREENING 2001 Colorectal Cancer Screening 2001 FIT-DNA Q 3 years 2001 FIT/FOBT Q 1 year 2001 Flex Sig/CT Colonography Q 5 years 2001 BREAST CANCER SCREENING 09/27/2015 09/27/19 15, 04/08/2014, 04/01/2013, Additional history exists RSV VACCINE (60+ or ) (1 - Risk 60-74 years 1-dose series) 2016 ZOSTER VACCINE (2 of 3) 04/30/2018 03/05/2018 OSTEOPOROSIS SCREENING 2021 INFLUENZA VACCINE (#1) 2024 03/05/2018 Medical Devices Implanted Type Area Clinical Recruiter Device Identifier Shelf Expiration Date Model / Serial / Lot Seamguard Endogia 60 Prpl [id number] - [id number] Implanted:Qty : 1 on 04/04/2018 by Gurdeep Gomez MD at [facility] Biological N/A: Stomach [employer] 09/16/2020 [id number] / / [id number] Procedures Procedure Name Priority Date/Time Associated Diagnosis Comments MAMMO UNILATERAL DIAG LEFT Routine 09/26/2014 from Last 3 Months or Most Recently Relevant to Health Maintenance Results * MAMMO UNILATERAL DIAG LEFT (09/26/2014) Anatomical Region Laterality Modality Breast Left Other Santo Pitts MD MAMMO ORDERABLES Edit ed Result - Final from Last 3 Months or Most Recently Relevant to Health Maintenance Insurance RX WAYNE PLANS (INTERNAL) [facility] Internal Plans RX [employer] Express HEALTHCARE [id number] Advance Directives For more information, please contact: [phone] * Full Code (Latest Code Status on File) Date Activated Date Inactivated Comments 08/21/2020 7:17 PM 08/23/2020 2:32 PM * Full Code Date Activated Date Inactivated Comments 04/04/2018 10:42 AM 04/05/2018 5:30 PM * Full Code Date Activated Date Inactivated Comments 04/04/2018 6:10 AM 04/04/2018 10:42 AM Care Teams Train Braker Relationship Specialty Start Date End Date Rell Milton DO [address] [facility] [address] [facility] [address] [place] [address] PCP - General Internal Medicine 08/21/20
[2024-08-23 08:37] LABS: Alanine Aminotransferase 18 U/L (6-35); Albumin Level 4.2 g/dL (3.5-5.1); Alkaline Phosphatase 90 U/L (38-126); Anion Gap 9 mmol/L (4-12); Aspartate Amino Transferase 26 U/L (14-36); Bilirubin,Total 0.2 mg/dL (0.2-1.3); Blood Urea Nitrogen 13 mg/dL (7-17); Calcium 9.3 mg/dL (8.4-10.2); Carbon Dioxide 25 mmol/L (22-30); Chloride 108 mmol/L (98-107); Cholesterol 172 mg/dL (0-200); Estimated Glomerular Filt Rate > 60; Glucose 98 mg/dL (65-110); HDL Direct 69 mg/dL; Potassium 4.4 mmol/L (3.4-5.0); Sodium 142 mmol/L (137-145); Triglycerides 98 mg/dL (<150)
[2024-08-23 08:48] LABS: LDL Cholesterol Direct 69 mg/dL
[2024-08-23 09:51] LABS: Vitamin D 25 Hydroxy 41.5 ng/mL
== END 2024-08-23 07:25 | disposition home or self-care (01) ==
PROVIDERS: PCP Emergency Medicine; Visit Provider Emergency Medicine
DX: E78.5 Hyperlipidemia, unspecified (principal); E55.9 Vitamin D deficiency, unspecified
CPT/HCPCS: 36415; 80053; 80061; 82306

== ENCOUNTER 2024-08-28 14:13 | Outpatient (CLI) | payer OTHER, SELFPAY ==
--- NOTE | ~2024-08-28 | MM_ITS ---
EXAMINATION: MM screening [facility] BI w lisa HISTORY: Screening mammogram TECHNIQUE: Craniocaudal and mediolateral oblique 3-D tomosynthesis images were obtained and synthetic 2-D images were generated. CAD analysis was submitted and interpreted. COMPARISON: 08/17/2023, 06/30/2022, 05/06/2021 BREAST PARENCHYMAL COMPOSITION:Not Dense. There are scattered areas of fibroglandular density. FINDINGS: No suspicious mass, calcification, or architectural distortion are identified in either abiodun ast to suggest malignancy. There has been no suspicious interval change. IMPRESSION: No mammographic evidence of malignancy. Recommend routine screening mammography in one year. BI-RADS Category 1: Negative Reviewed, dictated and finalized at location .
--- OUTSIDE RECORDS SUMMARY | 2024-08-28 16:01 | XMS_ITS | Patient Health Summary ---
Author Organization [facility] Address [address] [place] [address] Care Team Providers Care Psych Np Name Role Phone Giancarlo Le MD Primary Care Provider [phone] Note from [facility],non-owned Affiliates and Associated Physician Practices is amultiple site organization consisting of ambulatory clinics and hospital sitesin [place], [place] and [place]. This disclosure is being madepursuant to the Care Everywhere program and may not contain all information available regarding this patient. Last updated 18.[facility] Allergies * Cephalosporins(Rash) -Medium Criticality * [...] DERMATOLOGY (03/09/2017 12:00 AM CDT) Result CASE: [id number] PATIENT: FERCHO MEJIA PATHOLOGIC DIAGNOSIS: Right jawline: SOLAR LENTIGO PRESENT AT MARGIN (see microscopic description) CLINICAL DATA: BCC vs SK Check margins GROSS DESCRIPTION: Received is one formalin filled container labeled with the patients name and designated right jawline. The specimen consists of a shave measuring [id number]. Jar 0. MICROSCOPIC DESCRIPTION: There is orthokeratosis. [...] by Erika Lopez M.D., PhD. 03/13/2017 2:36:24PM [facility] Comment: Performed at: Dermatopathology Laboratory [facility] - Department of Dermatology [address] [place] [address] 5th [place] [address] Phone number: [phone] FAX: [phone] 03/09/2017 03/10/2017 Surekha Rowan MD LAB - PATHOLOGY/CYTO LOGY ORDERABLES [facility] [address] [place] [address]. 5th Floor Lab [address] [phone] Care Teams Psych Np Relationship Specialty Start Date End Date Giancarlo Le MD [address] [place] [address] [address] [place] [address] PCP - General 08/31/22
--- OUTSIDE RECORDS SUMMARY | 2024-08-28 16:01 | XMS_ITS | Clinical Summary ---
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
--- OUTSIDE RECORDS SUMMARY | 2024-08-28 16:01 | XMS_ITS | Referral Summary ---
Author Organization [facility] Address [address] [facility] [place] [address] Care Team Providers Care Tin Container Straightener Name Role Phone Giancarlo Le MD Primary Care Provider [phone] Source Comments [facility],non-owned Affiliates and Associated Physician Practices is amultiple site organization consisting of ambulatory clinics and hospital sitesin [place], [place], [place] and [place]. This disclosure is being madepursuant to the Care Everywhere program and may not contain all information available regarding this patient. Last updated 18.[facility] Allergies Active Allergy Reactions Criticality Noted Date [...] of Treatment Not on file Care Teams Tin Container Straightener Relationship Specialty Start Date End Date Giancarlo Le MD [address] [address] PCP - General 08/31/22
--- OUTSIDE RECORDS SUMMARY | 2024-08-28 16:01 | XMS_ITS | Clinical Summary ---
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 Gender Identity Not on file Sexual Orientation [...] 2024 03/05/2018 Medical Devices Implanted Type Area Ice Cream Machine Operator Device Identifier Shelf Expiration Date Model / Serial / Lot Seamguard Endogia 60 Prpl [id number] - [id number] Implanted:Qty : 1 on 04/04/2018 by Gurdeep Gomez MD at [facility] Biological N/A: Stomach [employer] 09/16/2020 [id number] / / [id number] Procedures Procedure Name Priority Date/Time Associated Diagnosis [...] Health Maintenance Insurance RX WAY[employer] PLANS (INTERNAL) [facility] Internal Plans RX [employer] HEALTHCARE [id number] Advance Directives For more information, please contact: [phone] * Full Code (Latest Code Status on File) Date Activated Date Inactivated Comments 08/21/2020 7:17 PM 08/23/2020 2:32 PM * Full Code Date Activated Date Inactivated Comments 04/04/2018 10:42 AM 04/05/2018 5:30 PM * Full Code Date Activated Date Inactivated Comments 04/04/2018 6:10 AM 04/04/2018 10:42 AM Care Teams Service Center Coordinator Relationship Specialty Start Date End Date Rell Milton DO [address] [facility] [address] [facility] [address] [place] [address] PCP - General Internal Medicine 08/21/20
--- OUTSIDE RECORDS SUMMARY | 2024-08-28 16:01 | XMS_ITS | Clinical Summary ---
Author Organization [facility] Address [address] [place] [address] Care Team Providers Care Montessori Lead Teacher Name Role Phone Giancarlo Le MD Primary Care Provider Source Comments [facility],non-owned Affiliates and Associated Physician Practices is amultiple site organization consisting of ambulatory clinics and hospital sitesin [place], [place], [place] and [place]. This disclosure is being madepursuant to the Care Everywhere program and may not contain all information available regarding this patient. Last updated 18.[facility] Allergies Active Allergy Reactions Criticality Noted Date [...] to complete this topic MENINGOCOCCAL (Group B) VACC INE SHARED DECISION-MAKING Aged Out No longer eligibl e based on patient's age to complete this topic MENINGOCOCCAL GROUPS A/C/Y/W VACCINE Aged Out No longer eligible b ased on patient's age to complete this topic Care Teams Montessori Lead Teacher Relationship Specialty Start Date End Date Giancarlo Le MD [address] [address] PCP - General 08/31/22
--- OUTSIDE RECORDS SUMMARY | 2024-08-28 16:01 | XMS_ITS ---
Author Name POLLY BAUER M.D. Address [address] [place] [address] Phone [phone] Organization [facility] ([facility]) Care Team Providers Care Book Cutter Name Role Phone LIZETTE POLLY Unavailable [phone] Santo Pearson Unavailable [phone] Bakari Moore Unavailable [phone] Dami Park Unavailable [phone] POLLY FRIED Unavailable [phone] Reason for Referral Not Available Allergies, adverse [...] at least 60 minutes total time on [facility] [place] 05/02/2024 Bipolar disorder, unspecifiedObesity, [...] tive Time Current Smoking Status Former smoker 2024-08-17 2 Sex Female History of Procedures Procedures Service Procedure code Service date Servicing provider Phone# Home visit for evaluation and management of new patient requiring medically appropriate examination and moderate level of medical decision making. If using time, at least 60 minutes total time on enco [id number] 2024-05-02 No Data Available No Data Availa [...]
--- OUTSIDE RECORDS SUMMARY | 2024-08-28 16:01 | XMS_ITS | Referral Summary ---
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
--- OUTSIDE RECORDS SUMMARY | 2024-08-28 16:01 | XMS_ITS | Continuity of Care Document ---
Author Organization [facility] Address [address] [place] [address] [address] [place] [address] Phone Care Team Providers Care Utility Forester Name Role Phone Stephenson OD, Gabriel Unavailable Unavailable Procedures Procedure Date Office/outpatient Visit, Est Eye Exam Established Pt Office/outpatient Visit, Est Office/outpatient Visit, Est Office/outpatient Visit, Est Office/outpatient Visit, New Advance Directives Directive Yes / No Effective Date File Name No Information Encounters Encounter Description Practice Location Reason(s) For Visit Diagnoses Date Provider Providers Copied on Encounter Office/outpat ient Visit, [facility], [address] [place] [address] [address], [place], [place], [id number], tel:[phone] [facility] No Information 5-201 0 Stephenson OD Gabriel. [address], [place], [place], [facility], . tel:[phone] [facility], [address] [place] [address] [address], [place], [place], [id number], tel:[phone] [facility] No Information 0-201 0 Stephenson OD Gabriel. [address] , [address], [place], [place], [facility], . tel:[phone] Office/outpat ient Visit, [facility], [address] [place] [address] [address], [place], [place], [id number], [place] tel:[phone] [facility] [place] No Information b-2 6-200 8 Stephenson OD Gabriel. [facility] , [address], [place], [place], [facility], . tel:[phone] Office/outpat ient Visit, [facility], [address] [place] [address] [address], [place], [place], [address], tel:[phone] [facility] No Information b- 9-200 8 Stephenson OD Gabriel. [address] [facility] , [address], [place], [place], [facility], [place]. tel:[phone] Office/outpat ient Visit, [facility], [address], [place], [place], [address], tel:[phone] [facility] No Information b- 6-200 8 Stephenson OD Gabriel. [address] [facility] , [address], [place], [address], . tel:[phone] Office/outpat ient Visit, [facility], [address] [place] [address] [address], [place], [place], [address], tel:[phone] [facility] No Information b- 4-200 8 Stephenson OD Gabriel. [address] [place], [place] [address] Center , [address], [place], [place], [facility], [place]. tel:[phone] Family History Family Member Type Diagnosis Age At Onset No Information Payers Payer name Insurance type Covered green party ID Authorpreeta rigobertojustin(s) [facility] Commercial CI [id number] Social History Type Description Quantity Date Captured [...]
--- OUTSIDE RECORDS SUMMARY | 2024-08-28 16:01 | XMS_ITS | Clinical Summary ---
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 Gender Identity Not on file Sexual Orientation Not on file Last Filed Vital Signs Vital Sign Reading Time Taken Comments Blood Pressure 127/66 05/10/2023 10:20 AM SHIPYARD PAINTING SUPERVISOR Pulse 80 05/10/2023 10:20 AM SHIPYARD PAINTING SUPERVISOR Temperature 37.2 C (99 F) 05/10/2023 10:20 AM SHIPYARD PAINTING SUPERVISOR Respiratory Rate 18 05/10/2023 10:20 AM SHIPYARD PAINTING SUPERVISOR Oxygen Saturation 100% 05/10/2023 10:20 AM SHIPYARD PAINTING SUPERVISOR Inhaled Oxygen Concentration - - Weight 77.1 kg (170 lb) 05/10/2023 10:20 AM SHIPYARD PAINTING SUPERVISOR Height 144.8 cm (4' 9 ) 05/10/2023 10:20 AM SHIPYARD PAINTING SUPERVISOR Body Mass Index 36.79 05/10/2023 10:20 AM SHIPYARD PAINTING SUPERVISOR Plan of Treatment Health Maintenance Due Date [...] complete this topic Insurance [employer] Care Teams Ocean Import Representative Relationship Specialty Start Date End Date Giancarlo Le MD [address] [place] [address] PCP - General INTERNAL MEDICINE 05/10/23
== END 2024-08-28 14:14 | disposition home or self-care (01) ==
LOC: ANHIMG 14:15
PROVIDERS: PCP Emergency Medicine; Visit Provider Obstetrics & Gynecology
DX: Z12.31 Encounter for screening mammogram for malignant neoplasm of breast (principal)
CPT/HCPCS: 77063; 77067

== ENCOUNTER 2024-09-13 14:57 | Outpatient (CLI) | payer OTHER, SELFPAY ==
--- NOTE | ~2024-09-13 | CT_ITS ---
EXAMINATION: CT sinus wo con DATE: 09/13/2024 15:19 INDICATION: Chronic frontal sinusitis TECHNIQUE: Computed tomography (CT) of the paranasal sinuses was performed without intravenous contra st. The dose-length product was 298.61 mGy-cm. Automated exposure control and iterative reconstruction technique were employed. COMPARISON: None FINDINGS: There is mild hypertrophy of the inferior turbinates. Rightward nasal septal deviation. Ost iomeatal units are patent. No significant mucosal thickening. No air-fluid levels. No mucoperiosteal reaction. Mastoids are pneumatized. IMPRESSION: 1. No significant sinus disease. Reviewed, dictated and finalized at location A.
--- OUTSIDE RECORDS SUMMARY | 2024-09-13 15:01 | XMS_ITS ---
Author Name Angelica AUGUST, MRS. [facility] Address [address] [place] [address] [place] [address] Phone [phone] Organization [facility] ([facility]) Care Team Providers Care Tank Farm Operator Name Role Phone DominguezVioleta Unavailable [phone] Santo Pearson Unavailable [phone] Bakari Moore Unavailable [phone] Dami Park Unavailable [phone] POLLY FRIED Unavailable [phone] Reason for Referral Not Available Allergies, adverse [...] least 60 minutes total time on [facility] [place] 05/02/2024 Bipolar [...] tive Time Current Smoking Status Former smoker 2024-08-18 8 Sex Female History of Procedures Procedures Service Procedure code Service date Servicing provider Phone# Home visit for evaluation and management of new patient requiring medically appropriate examination and moderate level of medical decision making. If using time, at least 60 minutes [place]co [id number] 2024-05-02 No Data Available No Data Availa [...]
--- OUTSIDE RECORDS SUMMARY | 2024-09-13 15:01 | XMS_ITS | Referral Summary ---
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
--- OUTSIDE RECORDS SUMMARY | 2024-09-13 15:01 | XMS_ITS | Clinical Summary ---
Author Organization [facility] Address [address] [facility] [place] [address] Care Team Providers Care Corporate Communications Associate Name Role Phone Giancarlo Le MD Primary Care Provider Source Comments [facility],non-owned Affiliates and Associated Physician Practices is amultiple site organization consisting of ambulatory clinics and hospital sitesin [place], [place], [place] and [place]. This disclosure is being madepursuant to the Care Everywhere program and may not contain all information available regarding this patient. Last updated 18.[facility] Allergies Active Allergy Reactions Criticality Noted Date [...] age to complete this topic Care Teams Corporate Communications Associate Relationship Specialty Start Date End Date Giancarlo Le MD [address] [address] PCP - General 08/31/22
--- OUTSIDE RECORDS SUMMARY | 2024-09-13 15:01 | XMS_ITS | Continuity of Care Document ---
Author Organization [facility] Address [address] [place] [address] [address] [place] [address] Phone Care Team Providers Care Roll Repairer Name Role Phone Stephenson OD, Gabriel Unavailable Unavailable Procedures Procedure Date Office/outpatient Visit, Est Eye Exam Established Pt Office/outpatient Visit, Est Office/outpatient Visit, Est Office/outpatient Visit, Est Office/outpatient Visit, New Advance Directives Directive Yes / No Effective Date File Name No Information Encounters Encounter Description Practice Location Reason(s) For Visit Diagnoses Date Provider Providers Copied on Encounter Office/outpat ient Visit, [facility], [address] [place] [address] [address], [place], [place], [id number], tel:[phone] [facility] No Information 5-201 0 Stephenson OD Gabriel. [address] , [address], [place], [place], [facility], . tel:[phone] [facility], [address] [place] [address] [address], [place], [place], [address], tel:[phone] [facility] No Information 0-201 0 Stephenson OD Gabriel. [address], [place], [place], [facility], . tel:[phone] Office/outpat ient Visit, [facility], [address] [place] [address] [address], [place], [place], [address], [place] tel:[phone] [facility] No Information b-2 6-200 8 Stephenson OD Gabriel. [facility] , [address], [place], [place], [facility], . tel:[phone] Office/outpat ient Visit, [facility], [address] [place] [address] [address], [place], [place], [address], tel:[phone] SEC [facility] No Information b- 9-200 8 Stephenson OD Gabriel. [address] [facility] , [address], [place], [facility], [place]. tel:[phone] Office/outpat ient Visit, [facility], [address], [place], [place], [address], tel:[phone] [facility] No Information b- 6-200 8 Stephenson OD Gabriel. [address] [facility] , [address], [place], [address], . tel:[phone] Office/outpat ient Visit, [facility], [address] [place] [address] [address], [place], [place], [address], tel:[phone] [facility] No Information b- 4-200 8 Stephenson OD Gabriel. [address] [place], [place] [address] Center , [address], [place], [facility], [place]. tel:[phone] Family History Family Member Type Diagnosis Age At Onset No Information Payers Payer name Insurance type Covered green party ID Authorpreeta rigobertojustin(s) [facility] Commercial CI [id number] Social History Type Description Quantity Date Captured [...]
--- OUTSIDE RECORDS SUMMARY | 2024-09-13 15:01 | XMS_ITS | Clinical Summary ---
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 Gender Identity Not on file Sexual Orientation [...] 2024 03/05/2018 Medical Devices Implanted Type Area Emergency Department Technician Device Identifier Shelf Expiration Date Model / Serial / Lot Seamguard Endogia 60 Prpl [id number] - [id number] Implanted:Qty : 1 on 04/04/2018 by Gurdeep Gomez MD at [facility] Biological N/A: Stomach [employer] 09/16/2020 [id number] / / [id number] Procedures Procedure Name Priority Date/Time Associated Diagnosis [...] Health Maintenance Insurance RX WAYNE PLANS (INTERNAL) [facility] Internal Plans RX [employer] HEALTHCARE [id number] Advance Directives For more information, please contact: [phone] * Full Code (Latest Code Status on File) Date Activated Date Inactivated Comments 08/21/2020 7:17 PM 08/23/2020 2:32 PM * Full Code Date Activated Date Inactivated Comments 04/04/2018 10:42 AM 04/05/2018 5:30 PM * Full Code Date Activated Date Inactivated Comments 04/04/2018 6:10 AM 04/04/2018 10:42 AM Care Teams Commercial Real Estate Sales Manager Relationship Specialty Start Date End Date Rell Milton DO [address] [facility] 162 [facility] [address] [place] [address] PCP - General Internal Medicine 08/21/20
--- OUTSIDE RECORDS SUMMARY | 2024-09-13 15:01 | XMS_ITS | Clinical Summary ---
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
--- OUTSIDE RECORDS SUMMARY | 2024-09-13 15:01 | XMS_ITS | Clinical Summary ---
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 Gender Identity Not on file Sexual Orientation Not on file Last Filed Vital Signs Vital Sign Reading Time Taken Comments Blood Pressure 127/66 05/10/2023 10:20 AM OUTSIDE PRODUCTION INSPECTOR Pulse 80 05/10/2023 10:20 AM OUTSIDE PRODUCTION INSPECTOR Temperature 37.2 C (99 F) 05/10/2023 10:20 AM OUTSIDE PRODUCTION INSPECTOR Respiratory Rate 18 05/10/2023 10:20 AM OUTSIDE PRODUCTION INSPECTOR Oxygen Saturation 100% 05/10/2023 10:20 AM OUTSIDE PRODUCTION INSPECTOR Inhaled Oxygen Concentration - - Weight 77.1 kg (170 lb) 05/10/2023 10:20 AM OUTSIDE PRODUCTION INSPECTOR Height 144.8 cm (4' 9 ) 05/10/2023 10:20 AM OUTSIDE PRODUCTION INSPECTOR Body Mass Index 36.79 05/10/2023 10:20 AM OUTSIDE PRODUCTION INSPECTOR Plan of Treatment Health Maintenance Due Date [...] complete this topic Insurance E[employer]ENCE Care Teams Slab Inspector Relationship Specialty Start Date End Date Giancarlo Le MD [address] [place] [address] PCP - General INTERNAL MEDICINE 05/10/23
== END 2024-09-13 14:58 | disposition home or self-care (01) ==
PROVIDERS: PCP Emergency Medicine; Visit Provider Emergency Medicine
DX: J32.1 Chronic frontal sinusitis (principal)
CPT/HCPCS: 70486

== ENCOUNTER 2024-11-30 07:13 | Outpatient (CLI) | payer OTHER, SELFPAY ==
--- OUTSIDE RECORDS SUMMARY | 2024-11-30 07:17 | XMS_ITS | Clinical Summary ---
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 Gender Identity Not on file Sexual [...] 9:13 AM CDT Height 147.3 cm (4' 10) 03/29/2024 9:13 AM CDT Body Mass Index 38.87 03/29/2024 9:13 AM CDT Plan of Treatment Health Maintenance Due Date Last Done Comments Colon Cancer Screening-Colonoscopy 1956 Depression Screening 1956 Fall Risk Assessment 1956 Hepatitis C Screening 1956 Osteoporosis Screening-Bone Density Scan 1956 Hepatitis B Screening 1974 Breast Cancer Screening-Mammogram 04/01/2014 013, 03/26/2012 Well Visit 65+ 2021 Pneumococcal vaccine 65+ (3 of 3 - PCV20 or PCV21) 04/26/2024 04/26/2019, 03/07/2016, 06/02/2011 Influenza Vaccine (Season Ended) 2025 03/13/2020, 02/25/2019, 03/05/2018, Additional history exists DTaP/Tdap/Td Vaccine (2 - Td or Tdap) 08/06/2029 08/06/2019 Zoster Vaccine Completed 03/05/2018, 01/18, 11/13/2017, Additional history exists Insurance [facility] Care Teams Co Founder Relationship Specialty Start Date End Date Giancarlo Le MD [address] [place] [address] PCP - General Emergency Medicine 06/30/22
--- OUTSIDE RECORDS SUMMARY | 2024-11-30 07:17 | XMS_ITS ---
Author Name DAVID FAUST CARLITO HOLGER JURGEN Address [address] [facility] [place] [address] Phone [phone] Organization [facility] ([facility]) Care Team Providers Care Consultant Name Role Phone DAVID CARLITO Unavailable [phone] Santo Pearson Unavailable [phone] Bakari Moore Unavailable [phone] Dami Park Unavailable [phone] POLLY FRIED Unavailable [phone] Reason for Referral Not Available Allergies, adverse reactions, alerts Allergen Type Reaction Severity Status Onset Date Penicillins Allergy to substance (disorder) Unknow n Active N/A Erythromycin Allergy to substance (disorder) Unkno wn Active N/A Sulfa Antibiotics Allergy to substance (disorder) Unknown Active N/A Cephalosporins Allergy to substance (disorder) Unk nown Active N/A History of medication use Medication Class Instructions Start Date End Date traMADol 50 mg Tab take 1 tablets by [facility] every 6 hours as needed 2024-09-27 No Data Available Problem List Problem Status Onset Date Resolved Date Synopsis Class 2 obesity with body ma ss index (BMI) of 38.0 to 38.9 in adult Active 2024-05-02 N/A N/A Bipolar 1 disorder Active 2024-05-02 N/A N/A Hyperlipidemia, unspecified Active 2024-05-02 N/A N/A Osteopenia Active 2024-05-02 N/A N/A Left leg DVT Active 2024-05-02 N/A N/A GERD (gastroesophageal reflux disease) Active N/A N/A Chronic obstructive pulmonar y disease, unspecified Active 2024-09-26 N/A N/A Chronic lumbar pain Active 2024-09-27 N/A N/A Encounters Encounters Type Facility Date of Service Diagnosis/Co mplaint Home visit for evaluation and management of new patient requiring medically appropriate examination and moderate level of medical decision making. If using time, at least 60 minutes total time on [employer] [place] 05/02/2024 Bipolar disorder, unspecifiedObesity, class 2Hyperlipidemia, unspecifiedSimple chronic bronchitisOth disrd of bone density and structure, unspecified siteGastro-esophageal reflux disease without esophagitisBody mass index (bmi) 38.0-38.9, adultPersonal history of other venous thrombosis and embolism Home visit for evaluation and management of established patient requiring medically appropriate examination and low level of medical decision making. If using time, at least 30 minutes total time on [employer] [place] 09/27/2024 Obesity, class 2Bipo lar disorder, unspecifiedHyperlipidemia, unspecifiedOth disrd of bone density and structure, unspecified sitePersonal history of other venous thrombosis and embolismGastro-esophageal reflux disease without esophagitisChronic obstructive pulmonary disease, unspecifiedLow back pain, unspecifiedOther chronic pain Home visit for evaluation and management of established patient requiring medically appropriate examination and low level of medical decision making. If using time, at least 30 minutes total time on [employer] [place] 09/27/2024 Encounter for screen ing for depressionBody mass index (BMI) 40.0-44.9, adult Vital Signs Date of Collection Vitals 2024-05-02 15:16:00 Height - 144.78 cmWe ight - 81.42 kgBody Mass Index (BMI) - 38.84 kg/m2BP Diastolic - 80.0 mm[Hg]BP Systolic - 130.0 mm[Hg]Heart Rate - 82.0 /minRespiratory Rate - 18.0 /minBody Temperature - 36.78 CelO2 % BldC Oximetry - 97.0 % 2024-09-27 12:15:00 Height - 144.78 cmWe ight - 83.92 kgBody Mass Index (BMI) - 40.03 kg/m2BP Diastolic - 80.0 mm[Hg]BP Systolic - 130.0 mm[Hg]Heart Rate - 80.0 /minRespiratory Rate - 18.0 /minO2 % BldC Oximetry - 99.0 % Social History Social History Social History Observation Description Effec tive Time Current Smoking Status Former smoker 2024-11-17 4 Sex Female History of Procedures Procedures Service Procedure code Service date Servicing provider Phone# Home visit for evaluation and management of new patient requiring medically appropriate examination and moderate level of medical decision making. If using time, at least 60 minutes [place] time on enco [id number] 2024-05-02 No Data Available No Data Availa ble Home visit for evaluation and management of established patient requiring medically appropriate examination and low level of medical decision making. If using time, at least 30 [place] [id number] 2024-09-27 No Data Available No Data Availa ble No Data Available [id number] 2024-09-27 No Data Available No Data Available Functional Status Functional Category Effective Dates Using walker right now since it feels be tter for her back 2024-09-27 Mental Status Status Date Mini-Mental State Exam: MMSE Score: N/A (09/27/2024) 2024-09-27 Assessments Date of Service Assessments 2024-05-02 15:16:00 Class 2 obesity with body mass index (BMI) of 38.0 to 38.9 in adultBipolar 1 disorderHyperlipidemia, unspecifiedSimple chronic bronchitisOsteopeniaLeft leg DVTGERD (gastroesophageal reflux disease) 2024-09-27 12:15:00 Class 2 obesity with body mass index (BMI) of 38.0 to 38.9 in adultBipolar 1 disorderHyperlipidemia, unspecifiedOsteopeniaLeft leg DVTGERD (gastroesophageal reflux disease)Chronic obstructive pulmonary disease, unspecifiedChronic lumbar pain Plan of Care Date of Service Plans [...] medications as prescribed and F/U as directed. 2024-09-27 12:15:00 Patient had gastric bypass multiple years ago and BMI [...] taking medications as prescribed and F/U as directed.Recent hx (04/2024). Patient decreased to Xarelto 20mg daily. Continue taking medications as prescribed and F/U as directed.Patient takes pantoprazole 40mg daily. Continue taking medications as prescribed and F/U as directed.Patient takes albuterol HFA 108 MCG/ACT 2 puffs Q6 PRN. No recent flare ups. Continue taking medications as prescribed and F/U as directed.Chronic, recently flared up. Taking tramadol 50mg Q6 PRN and gabapentin 300mg at bedtime. Continue taking medications as prescribed and F/U as directed. Goals Date Goal 2024-05-02 Patient chronic cond itions seem controlled at this time. Continue taking medications as prescribed and F/U as directed. 2024-05-02 uACR due - urine alb umin found in chart, but no creatinine. Will place in recommendations for PCP to further address if needed. Health Concerns Date Concern 2024-09-27 [facility] is a service that [...] share any relevant findings from the examination. 2024-09-27 Recommendations:A1C and uACR dueEye exam due in Feb 2025 2024-09-27 Patient is a 69yr ol d female. They are being seen today for a [facility] comprehensive exam. Patient endorses a recent flare of her chronic back pain. Symptoms are manageable. They deny any recent hospitalizations, illness, injury, or falls. Current diagnoses and medications are as listed below. Patient lives with spouse. They are independent with their care. They do use a cane or wheeled walker for ambulation.
--- OUTSIDE RECORDS SUMMARY | 2024-11-30 07:17 | XMS_ITS | Continuity of Care Document ---
Author Organization [facility] Address [address] [place] [address] [address] [place] [address] Phone Care Team Providers Care Shallot Packer Name Role Phone Stephenson OD, Gabriel Unavailable Unavailable Procedures Procedure Date Office/outpatient Visit, Est Eye Exam Established Pt Office/outpatient Visit, Est Office/outpatient Visit, Est Office/outpatient Visit, Est Office/outpatient Visit, New Advance Directives Directive Yes / No Effective Date File Name No Information Encounters Encounter Description Practice Location Reason(s) For Visit Diagnoses Date Provider Providers Copied on Encounter Office/outpat ient Visit, [facility], [address] [place] [address] [address], [place], [place], [address], tel:[phone] [facility] No Information 5-201 0 Stephenson OD Gabriel. [address], [place], [place], [facility], . tel:[phone] [facility], [address] [place] [address] [address], [place], [place], [address], tel:[phone] [facility] No Information 0-201 0 Stephenson OD Gabriel. [address], [place], [facility], . tel:[phone] Office/outpat ient Visit, [facility], [address] [place] [address] [address], [place], [place], [address], [place] tel:[phone] SEC [facility] No Information b-2 6-200 8 Stephenson OD Gabriel. [facility] , [address], [place], [facility], . tel:[phone] Office/outpat ient Visit, [facility], [address] [place] [address] [address], [place], [place], [address], tel:[phone] SEC [facility] No Information b- 9-200 8 Stephenson OD Gabriel. [address] [facility] , [address], [place], [facility], [place]. tel:[phone] Office/outpat ient Visit, [facility], [address], [place], [place], [address], tel:[phone] [facility] No Information b- 6-200 8 Stephenson OD Gabriel. [address] [facility] , [address], [place], [address], . tel:[phone] Office/outpat ient Visit, [facility], [address] [place] [address] [address], [place], [place], [address], tel:[phone] [facility] No Information b- 4-200 8 Stephenson OD Gabriel. [address] [place], [place] [address] , [address], [place], [facility], [place]. tel:[phone] Family History Family Member Type Diagnosis Age At Onset No Information Payers Payer name Insurance type Covered alliance party ID Authorpreeta rigobertojustin(s) [facility] Commercial CI [id number] Social History Type Description Quantity Date Captured [...]
--- OUTSIDE RECORDS SUMMARY | 2024-11-30 07:17 | XMS_ITS | Clinical Summary ---
Author Organization [facility] Address [address] [place] [place] [address] Care Team Providers Care Grain Oilseed Or Pasture Farm Manager Name Role Phone Giancarlo Le MD Primary Care Provider Source Comments [facility],non-owned Affiliates and Associated Physician Practices is amultiple site organization consisting of ambulatory clinics and hospital sitesin [place], [place], [place] and [place]. This disclosure is being madepursuant to the Care Everywhere program and may not contain all information available regarding this patient. 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 Gender Identity Not on file Sexual Orientation [...] SCREENING 1955 LIPID TESTING 1955 MAMMOGRAM 1955 HEPATITIS C SCREENING 06/19/1974 DTAP/TDAP/TD VACCINES (1 - Tdap) 1975 PNEUMOCOCCAL VACCINE 50+ (1 of 1 - PCV) 2006 ZOSTER VACCINE (1 of 2) 2006 COVID-19 VACCINE (1 - 2023-2 5 season) 2024 DEPRESSION SCREENING 06/19/2024 INFLUENZA VACCINE (Season Ended) 2025 03/05/20 18 Respiratory Syncytial Virus (RSV) Vaccine Pt: or [...] age to complete this topic Insurance [employer] MEDICARE Care Teams Grain Oilseed Or Pasture Farm Manager Relationship Specialty Start Date End Date Giancarlo Le MD [address] [place] [address] PCP - General 08/31/22
--- OUTSIDE RECORDS SUMMARY | 2024-11-30 07:17 | XMS_ITS | Referral Summary ---
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
--- OUTSIDE RECORDS SUMMARY | 2024-11-30 07:18 | XMS_ITS | Clinical Summary ---
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 Gender Identity Not on file Sexual Orientation [...] 2:23 PM CDT Height 149.9 cm (4' 11) 02/24/2022 2:23 PM CDT Body Mass Index [...] 2024 03/05/2018 Medical Devices Implanted Type Area Software Technical Lead Device Identifier Shelf Expiration Date Model / Serial / Lot Seamguard Endogia 60 Prpl [id number] - [id number] Implanted:Qty : 1 on 04/04/2018 by Gurdeep Gomez MD at [facility] Biological N/A: Stomach [employer] 09/16/2020 [id number] / / [id number] Procedures Procedure Name Priority Date/Time Associated Diagnosis [...] Health Maintenance Insurance RX WAYNE PLANS (INTERNAL) [facility] Internal Plans RX [employer] HEALTHCARE [id number] Advance Directives For more information, please contact: [phone] * Full Code (Latest Code Status on File) Date Activated Date Inactivated Comments 08/21/2020 7:17 PM 08/23/2020 2:32 PM * Full Code Date Activated Date Inactivated Comments 04/04/2018 10:42 AM 04/05/2018 5:30 PM * Full Code Date Activated Date Inactivated Comments 04/04/2018 6:10 AM 04/04/2018 10:42 AM Care Teams Software Configuration Analyst Relationship Specialty Start Date End Date Rell Milton DO [address] [facility] 162 [facility] [address] [place] [address] PCP - General Internal Medicine 08/21/20
[2024-11-30 08:04] LABS: Alanine Aminotransferase 11 U/L (6-35); Albumin Level 3.8 g/dL (3.5-5.1); Alkaline Phosphatase 84 U/L (38-126); Anion Gap 9 mmol/L (4-12); Aspartate Amino Transferase 28 U/L (14-36); Bilirubin,Total 0.3 mg/dL (0.2-1.3); Blood Urea Nitrogen 9 mg/dL (7-17); Carbon Dioxide 22 mmol/L (22-30); Chloride 107 mmol/L (98-107); Cholesterol 159 mg/dL (0-200); Estimated Glomerular Filt Rate > 60; Glucose 96 mg/dL (65-110); HDL Direct 68 mg/dL; Potassium 4.3 mmol/L (3.4-5.0); Sodium 138 mmol/L (137-145); Total Protein 6.9 g/dL (6.3-8.2); Triglycerides 96 mg/dL (<150)
[2024-11-30 08:16] LABS: LDL Cholesterol Direct 58 mg/dL
[2024-11-30 08:23] LABS: Vitamin D 25 Hydroxy 42.2 ng/mL
== END 2024-11-30 07:14 | disposition home or self-care (01) ==
LOC: ANHLAB 07:14
PROVIDERS: PCP Emergency Medicine; Visit Provider Emergency Medicine
DX: E78.5 Hyperlipidemia, unspecified (principal); E55.9 Vitamin D deficiency, unspecified
CPT/HCPCS: 36415; 80053; 80061; 82306

== ENCOUNTER 2025-02-28 01:38 | Day surgery (SDC) | payer OTHER, SELFPAY ==
[2025-02-20 14:22] VITALS: BMI 40.5
--- NOTE | 2025-02-20 14:40 | PC.NURSE ---
Pt to stop Xarelto, last dose 02/25/25. Pt informed and stated understanding.
--- OUTSIDE RECORDS SUMMARY | 2025-02-28 01:41 | XMS_ITS | Clinical Summary ---
Author Organization [facility] Address [address] [place] [address] Care Team Providers Care Ginner Helper Name Role Phone Giancarlo Le MD Primary Care Provider Source Comments [facility],non-owned Affiliates and Associated Physician Practices is amultiple site organization consisting of ambulatory clinics and hospital sitesin [place], [place], [place] and [place]. This disclosure is being madepursuant to the Care Everywhere program and may not contain all information available regarding this patient. 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
--- OUTSIDE RECORDS SUMMARY | 2025-02-28 01:41 | XMS_ITS | Clinical Summary ---
Author Organization [facility] [address] [facility] [address] Address [address] [place] [address] Care Team Providers Care Battery Service Technician Name Role Phone Giancarlo Le MD Primary [...] Relief) 50 mcg/actuation nasal spray Active multivitamin-mi v-jicd-FT-vit K (Multi-Day Plus Minerals) 18 mg iron-400 [...] pollen 09/2022 Tinnitus of both ears 11/07/2020 Encounters Date Type Department Care Team Description 02/18/2025 7:45 AM CDT - 02/18/2025 11:59 PM CDT Hospital Encounter [facility] [address] [place] [address] Obstructive sleep apnea; Cigarette nicotine dependence in remission; Moderate persistent asthma without complication; Simple chronic bronchitis (HCC); Non-seasonal allergic rhinitis due to pollen; BMI 38.0-38.9,adult Discharge Disposition: Discharge to home or self care from Last 3 Months Surgical History Surgery Date Site/Laterality Comments HYSTERECTOMY CHOLECYSTECTOMY RHINOPLASTY GASTRIC BYPASS HERNIA REPAIR REPLACEMENT TOTAL KNEE Medical History Medical History Date Comments Asthma COPD (chronic obstructive pulmonary disease) Depression GERD (gastroesophageal reflux disease) Deep vein thrombosis (HCC) Family History Medical History Relation Name Comments Heart disease Father Relation Name Status Comments Father Social History Tobacco Use Types Packs/Day Years Used Date Smoking Tobacco: Former Cigarettes Q uit: 2000 Smokeless Tobacco: Never Tobacco Cessation:Counseling Given: Not Answered AUDIT-C Answer Date Recorded Frequency of Alcohol Consumption Not on file 06/30/2022 Q2: How many drinks containi ng alcohol do you have on a typical day when you are drinking? 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 Gender Identity Not on file Sexual Orientation [...] PCV21) 04/26/2024 04/26/2019, 03/07/2016, 06/02/2011 Influenza Vaccine (#1) 2025 4, 02/24/2021, 03/13/2020, Additional history exists DTaP/Tdap/Td Vaccine (2 - Td or Tdap) 08/06/2029 08/06/2019 Zoster Vaccine Completed 03/05/2018, 01/18, 02/12/2018, Additional history exists Procedures Procedure Name Priority Date/Time Associated Diagnosis Comments PULMONARY FUNCTION TEST (PFT) Routine 02/18/2025 8:35 AM CDT Obstructive sleep apnea Cigarette nicotine dependence in remission Moderate persistent asthma without complication Simple chronic bronchitis (HCC) Non-seasonal allergic rhinitis due to pollen BMI 38.0-38.9,adult from Last 3 Months Results * Pulmonary Function Test - (02/18/2025 8:35 AM CDT) FVC PRE 2.18 L 02/18/2025 8:52 AM CDT [facility] FEV1 PRE 1.71 L 02/18/2025 8:52 AM CDT [facility] [id number] 78.29 % 02/18/2025 8:52 AM CDT [facility] XRG74-79% PRE 1.73 L/s 02/18/2025 8:52 AM CDT [facility] PEF PRE 4.74 L/s 02/18/2025 8:52 AM CDT [facility] DLCOc SB 13.51 ml/(min*mm Hg) 02/18/2025 8:52 AM CDT [facility] DLCO/VA PRE 4.50 ml/(min*mm Hg*L) 02/18/2025 8:52 AM CDT [facility] VA 3.00 L 02/18/2025 8:52 AM CDT [facility] TLC PRE 4.47 L 02/18/2025 8:52 AM CDT [facility] VC PRE 2.18 L 02/18/2025 8:52 AM CDT [facility] IC PRE 1.94 L 02/18/2025 8:52 AM CDT [facility] FRC PL PRE 2.52 L 02/18/2025 8:52 AM CDT [facility] ERV PRE 0.23 L 02/18/2025 8:52 AM CDT [facility] RV PRE 2.29 L 02/18/2025 8:52 AM CDT [facility] RAW PRE 3.28 cmH2O*s/L 02/18/2025 8:52 AM CDT [facility] VTG 2.73 L 02/18/2025 8:52 AM CDT [facility] Anatomical Region Laterality Modality PFT 02/18/2025 7:49 AM CDT Impressions 02/24/2025 2:56 PM CDT 1. Normal spirometry and lung volumes 2. Normal diffusion capacity 3. During a 6 minute walk test the patient ambulated 690 ft on ambient air with lowest oxygen saturation of 96% Electronically signed by Antelmo Sheikh MD Pulmonary & Critical Care Narrative 02/24/2025 2:56 PM CDT PULMONARY FUNCTION TESTS Mariely Beard 69 y.o. 02/24/2025 INTERPRETATION Please see technologist's comments mentioned in attached results report. SPIROMETRY: Pre bronchodilator FEV1 is 94 % predicted, FVC is 95 % predicted, FEV1/FVC is 0.78 Bronchodilator response: Not performed Inspection of the patient's flow-volume loops shows: Normal configuration of the inspiratory and expiratory limbs. LUNG VOLUMES: Lung volumes by body plethysmography: TLC is 114 % predicted, RV is 131 % predicted DLCO: Unadjusted for hemoglobin and carboxyhemoglobin DLCO is 76 % predicted Dami Park MD PFT ORDERABLES Final Resul t from Last 3 Months Insurance [facility] CHOICE PLUS [facility] Care Teams Battery Service Technician Relationship Specialty Start Date End Date Giancarlo Le MD [address] [place] [address] PCP - General Emergency Medicine 06/30/22
--- OUTSIDE RECORDS SUMMARY | 2025-02-28 01:41 | XMS_ITS | Clinical Summary ---
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 Gender Identity Not on file Sexual Orientation Not on file Last Filed Vital Signs Vital Sign Reading Time Taken Comments Blood Pressure 127/66 05/10/2023 10:20 AM SANITARY LANDFILL OPERATOR Pulse 80 05/10/2023 10:20 AM SANITARY LANDFILL OPERATOR Temperature 37.2 C (99 F) 05/10/2023 10:20 AM SANITARY LANDFILL OPERATOR Respiratory Rate 18 05/10/2023 10:20 AM SANITARY LANDFILL OPERATOR Oxygen Saturation 100% 05/10/2023 10:20 AM SANITARY LANDFILL OPERATOR Inhaled Oxygen Concentration - - Weight 77.1 kg (170 lb) 05/10/2023 10:20 AM SANITARY LANDFILL OPERATOR Height 144.8 cm (4' 9) 05/10/2023 10:20 AM SANITARY LANDFILL OPERATOR Body Mass Index 36.79 05/10/2023 10:20 AM SANITARY LANDFILL OPERATOR Plan of Treatment Health Maintenance Due Date Last Done Comments Colorectal Cancer Screening Colonoscopy (10 Years) 1956 Hepatitis C 1974 Mammogram Screening 1996 Annual Medicare Wellness Visit 2021 Dexa Scan (General) 2021 COVID-19 Vaccine ( season) 2025 04/14/2023, 03/04/2022, 05/12/2021, Additional history exists DTaP, Tdap and Td Vaccines (2 - Td or Tdap) 08/06/2029 08/06/2019 Zoster Vaccines Completed 03/05/2018, 01/18, 11/13/2017, Additional history exists Pneumococcal Vaccine: 50+ Years Completed 05/05/2022, 04/26/2019, 03/07/2016 RSV Immunization [...] complete this topic Insurance [employer] Care Teams Trial Paralegal Relationship Specialty Start Date End Date Giancarlo Le MD [address] [place] [address] PCP - General INTERNAL MEDICINE 05/10/23
--- OUTSIDE RECORDS SUMMARY | 2025-02-28 01:41 | XMS_ITS ---
Author Name DAVID FAUST CARLITO HOLGER JURGEN Address [address] [place] [address] Phone [phone] Organization [facility]) Care Team Providers Care Quality Assurance Coach Name Role Phone DAVID CARLITO Unavailable [phone] Santo Pearson Unavailable [phone] Bakari Moore Unavailable [phone] Dami Park Unavailable [phone] POLLY FRIED Unavailable [phone] Reason for Referral Not Available Allergies, adverse [...] 50 mg Tab take 1 tablets by [facility] every 6 hours as needed 2024-09-27 No [...] at least 60 minutes total time on [place] 05/02/2024 Bipolar disorder, unspecifiedObesity, class 2Hyperlipidemia, [...] at least 30 minutes total time on [place] 09/27/2024 Obesity, class 2Bipo lar disorder, [...] at least 30 minutes total time on [place] 09/27/2024 Encounter for screen ing for [...] tive Time Current Smoking Status Former smoker 2025-02-17 2 Sex Female History of Procedures Procedures Service Procedure code Service date Servicing provider Phone# Home visit for evaluation and management of new patient requiring medically appropriate examination and moderate level of medical decision making. If using time, at least 60 minutes [place] on [place] [id number] 2024-05-02 No Data Available No Data Availa ble Home visit for evaluation and management of established patient requiring medically appropriate examination and low level of medical decision making. If using time, at least 30 [place] [id number] 2024-09-27 No Data Available No Data Availa [...]
--- OUTSIDE RECORDS SUMMARY | 2025-02-28 01:41 | XMS_ITS | Clinical Summary ---
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 Gender Identity Not on file Sexual Orientation [...] 03/05/2018 OSTEOPOROSIS SCREENING 2021 INFLUENZA VACCINE (#1) 2025 03/05/2018 Medical Devices Implanted Type Area Account Installer Device Identifier Shelf Expiration Date Model / Serial / Lot Seamguard Endogia 60 [id number] [id number] - [id number] Implanted:Qty : 1 on 04/04/2018 by Gurdeep Gomez MD at [facility] Biological N/A: Stomach [employer] 09/16/2020 [id number] / / [id number] Procedures Procedure Name Priority Date/Time Associated Diagnosis [...] Health Maintenance Insurance [employer] PL[employer] (INTERNAL) [facility] Internal Plans RX [employer] Express C OPTIONS PPO [id number] Advance Directives For more information, please contact: [phone] * Full Code (Latest Code Status on File) Date Activated Date Inactivated Comments 08/21/2020 7:17 PM 08/23/2020 2:32 PM * Full Code Date Activated Date Inactivated Comments 04/04/2018 10:42 AM 04/05/2018 5:30 PM * Full Code Date Activated Date Inactivated Comments 04/04/2018 6:10 AM 04/04/2018 10:42 AM Care Teams Fiberglass Roller Relationship Specialty Start Date End Date Rell Milton DO [address] [facility] [address] [place] [address] PCP - General Internal Medicine 08/21/20
[2025-02-28 11:39] VITALS: BP 143/68; PULSE 83; RESP 16; TEMP 36.7; O2SAT 100; BMI 39.6
[2025-02-28] MEDS: LACTATED RINGERS 1,000 ML 150 ML IV CONT (11:48)
--- NOTE | 2025-02-28 11:53 | WPDANESEPPF ---
Anes - Initial Pre Proc Eval Procedure: Operation Date: 02/28/25 12:45 Proposed Procedures p Esophagogastroduodenoscopy - Santana Gross MD Date/Time: 02/28/25 11:53 Surgeon: Santana Gross MD Pre Op Diagnosis: Gastro-esophageal reflux disease without esophagit Patient Data Age: 69 Gender: F Height: 1.45 m Weight: 83 kg Last Vital Signs Temp 36.7 C 02/28/25 11:39 Pulse 83 02/28/25 11:39 Resp 16 02/28/25 11:39 BP 143/68 H 02/28/25 11:39 Pulse Ox 100 02/28/25 11:39 O2 Del Method Room Air 02/28/25 11:39 Allergies Allergy/AdvReac Type Severity Reaction Status Date / Time succinylcholine Allergy Severe Other Verified 02/28/25 11:34 Sulfa (Sulfonamide Allergy Severe Rash Verified 02/28/25 11:34 Antibiotics) Penicillins Allergy Intermediate Rash Verified 02/28/25 11:34 Cephalosporins Allergy Mild Rash IN Verified 02/28/25 11:34 MOUTH erythromycin base AdvReac Intermediate GI UPSET, Verified 02/28/25 11:34 ABDOMINAL PAIN pravastatin AdvReac Intermediate Muscle Pain Verified 02/28/25 11:34 ANESTHETIC GASES Allergy Severe Other Uncoded 02/20/25 14:39 Home Medications ?Medication ?Instructions ?Recorded ?Confirmed ?Type aspirin 81 mg tablet,delayed 81 mg PO BID 12/25/19 02/28/25 History release (Geni Low Dose Aspirin) buspirone 7.5 mg tablet 7.5 mg PO BID 12/25/19 02/28/25 History lamotrigine 100 mg tablet 100 mg PO HS 12/25/19 02/28/25 History (Lamictal) topiramate 50 mg tablet (Topamax) 50 mg PO BID BIPOLAR 12/25/19 02/20/25 History acetaminophen 500 mg capsule 500 mg PO Q6-8H PRN Pain 01/21/20 02/28/25 History calcium carbonate (Calcium 500) 500 mg PO TID 01/21/20 02/28/25 History aripiprazole 15 mg tablet (Abilify) 15 mg PO DAILY 07/24/20 02/28/25 History quetiapine 300 mg tablet (Seroquel) 300 mg PO QHS 09/01/21 02/28/25 History magnesium 250 mg tablet 750 mg PO BID 10/18/21 02/28/25 History estradiol 0.01% (0.1 mg/gram) 1 applic vaginal 3XW 10/27/21 02/28/25 History vaginal cream pediatric multivitamin 2 tablet PO HS 10/27/21 02/28/25 History albuterol sulfate 90 mcg/actuation 1 - 2 inh inhalation Q4-6H PRN 03/28/22 02/28/25 Rx aerosol inhaler shortness of breath or wheezing #25.5 grams montelukast 10 mg tablet See Rx Instructions .Route 03/28/22 02/28/25 Rx .COMPLEX #90 tabs alendronate 70 mg tablet 70 mg PO WEEKLY 08/14/22 02/28/25 History fluticasone propionate 50 1 spray intranasal DAILY 02/08/23 02/20/25 History mcg/actuation nasal spray,suspension (Flonase Allergy Relief) Claritin 10 mg PO DAILY 04/13/24 02/28/25 History pantoprazole 40 mg tablet,delayed 40 mg PO QAM #90 tabs 07/15/24 02/20/25 Rx release (Protonix) gabapentin 300 mg capsule 300 mg PO QHS #90 caps 09/10/24 02/20/25 Rx tramadol 50 mg tablet 50 mg PO Q6H PRN pain #30 tabs 09/10/24 02/28/25 Rx benzonatate 100 mg capsule 100 mg PO TID PRN cough #21 caps 10/25/24 02/20/25 Rx rivaroxaban 20 mg tablet (Xarelto) 20 mg PO DAILY #90 tabs 10/25/24 02/28/25 Rx ezetimibe 10 mg tablet (Zetia) 10 mg PO DAILY #90 tabs 12/27/24 02/20/25 Rx omeprazole 40 mg capsule,delayed 40 mg PO DAILY 1 month #30 caps 12/30/24 02/28/25 Rx release polyethylene glycol 3350 17 gram 17 g PO BID 02/20/25 02/28/25 History oral powder packet (Miralax) Patient hx anesthesia problems: none Family hx anesthesia problems: none Results Review: All pre-operative results and documents have been reviewed as part of the pre-operative evaluation. [facility] Past Medical History Medical History Alternating constipation and diarrhea Constipation Cough Dysphagia DVT (deep venous thrombosis) SBO (small bowel obstruction) Valgus foot deformity, acquired Traumatic arthritis of right ankle Left hip pain Open abdominal wall wound Encounter for surgical aftercare following surgery on the digestive system Superficial postoperative wound infection SBO (small bowel obstruction) Right knee DJD Anxiety Asthma-COPD overlap syndrome Pulmonary embolism (2003) Possibly related to hormone use. Allergic rhinitis Bipolar affective disorder Cellulitis of left lower extremity Essential (primary) hypertension Gastroesophageal reflux disease without esophagitis Mixed hyperlipidemia Osteopenia Subclinical hyperthyroidism Vitamin B12 deficiency Vitamin D deficiency Surgical History Surgical History Status post laparoscopy with lysis of adhesions 04/19/24 Laparoscopic enterolysis with release of small-bowel obstruction Dr. Turner Status post total right knee replacement History of laparotomy History of intestinal surgery Enterotomy, removal of intraluminal obstructing mass on 08/16/22 History of fundoplication S/P total knee arthroplasty History of hysterectomy for benign disease History of nasal septoplasty History of carpal tunnel surgery of right wrist History of cataract extraction with lens replacement Status post total gastrectomy and Leonard-en-Y esophagojejunal anastomosis Family History Family History Father Family history of heart disease in male family member before age 55 Patient's father is , Onset Age: 87 Mother Family history of kidney disease, Onset Age: 86 Social History Social History Social History: Former smoker quit in 2019, retired, lives with Surrogate decision-maker: Nolberto Beard. CODE STATUS: Full code. Smoking packs per day: 2 Smoking cigarettes per day: 40.0 Years smoked: 25 Smoking pack-years: 50.00 Smoking status: Former smoker Tobacco type: cigarettes Second hand tobacco smoke exposure: No Smoking end date: 06/19/99 Additional smoking assessment comments: DENIES ANY FORM OF TOBACCO USE Alcohol intake: never Substance use: never Substance use type: does not use Do You Feel Safe in your Home?: Yes Lack of Transportation: No Lack of Food: Never True Current Housing: I Have Housing Concerned About Future Housing: No Difficulty Paying Gas/Electric Bills: No Difficulty Paying for Meds: No Currently Unemployed: No Education: Bachelor's Degree Difficulty w/ Childcare or Family Care: No Living arrangements: with family Additional living arrangements comments: with sp Spiritual care concerns: No Anes - Eval Final PreProcedure Day of Procedure 02/28/25 11:53 Patient weight: morbidly obese Heart: regular rate and rhythm Lungs: clear to auscultation Airway: Mallampati scale class II Neurological: alert and oriented Last oral intake: >/= 8 hours ASA classification: III Emergent: no Anesthetic plan: proceed Anesthesia type and monitoring: general GIVS and standard monitoring Results Review: All pre-operative results and documents have been reviewed as part of the pre-operative evaluation. Informed Consent: The patient's anesthetic plan and its attendant risks and benefits were discussed with the patient/family/POA. Questions were solicited and answers provided to the satisfaction of the patient/family/POA.
--- NOTE | 2025-02-28 11:56 | PM.HPGS ---
History of Present Illness History of Present Illness Consent: Risks, benefits, and alternatives have been discussed and questions answered. Patient agrees to proceed with procedure. Chief complaint: Gastro-esophageal reflux disease without esophagit Narrative: Mariely Beard is a 69 year old female here for egd, h/o cough for almost a year, h/o gastric bypass Review of Systems Review of Systems: All systems reviewed & are unremarkable except as noted in HPI and below PMFSH Past Medical History Medical History Alternating constipation and diarrhea Constipation Cough Dysphagia DVT (deep venous thrombosis) SBO (small bowel obstruction) Valgus foot deformity, acquired Traumatic arthritis of right ankle Left hip pain Open abdominal wall wound Encounter for surgical aftercare following surgery on the digestive system Superficial postoperative wound infection SBO (small bowel obstruction) Right knee DJD Anxiety Asthma-COPD overlap syndrome Pulmonary embolism (2003) Possibly related to hormone use. Allergic rhinitis Bipolar affective disorder Cellulitis of left lower extremity Essential (primary) hypertension Gastroesophageal reflux disease without esophagitis Mixed hyperlipidemia Osteopenia Subclinical hyperthyroidism Vitamin B12 deficiency Vitamin D deficiency Surgical History Surgical History Status post laparoscopy with lysis of adhesions 04/19/24 Laparoscopic enterolysis with release of small-bowel obstruction Dr. Turner Status post total right knee replacement History of laparotomy History of intestinal surgery Enterotomy, removal of intraluminal obstructing mass on 08/16/22 History of fundoplication S/P total knee arthroplasty History of hysterectomy for benign disease History of nasal septoplasty History of carpal tunnel surgery of right wrist History of cataract extraction with lens replacement Status post total gastrectomy and Leonard-en-Y esophagojejunal anastomosis Family History Family History Father Family history of heart disease in male family member before age 55 Patient's father is , Onset Age: 87 Mother Family history of kidney disease, Onset Age: 86 Social History Social History Social History: Former smoker quit in 2019, retired, lives with Surrogate decision-maker: Nolberto Beard. CODE STATUS: Full code. Smoking packs per day: 2 Smoking cigarettes per day: 40.0 Years smoked: 25 Smoking pack-years: 50.00 Smoking status: Former smoker Tobacco type: cigarettes Second hand tobacco smoke exposure: No Smoking end date: 06/19/99 Additional smoking assessment comments: DENIES ANY FORM OF TOBACCO USE Alcohol intake: never Substance use: never Substance use type: does not use Do You Feel Safe in your Home?: Yes Lack of Transportation: No Lack of Food: Never True Current Housing: I Have Housing Concerned About Future Housing: No Difficulty Paying Gas/Electric Bills: No Difficulty Paying for Meds: No Currently Unemployed: No Education: Bachelor's Degree Difficulty w/ Childcare or Family Care: No Living arrangements: with family Additional living arrangements comments: with sp Spiritual care concerns: No Meds Home Medications and Allergies Home Medications ?Medication ?Instructions ?Recorded ?Confirmed ?Type aspirin 81 mg tablet,delayed 81 mg PO BID 12/25/19 02/28/25 History release (Geni Low Dose Aspirin) buspirone 7.5 mg tablet 7.5 mg PO BID 12/25/19 02/28/25 History lamotrigine 100 mg tablet 100 mg PO HS 12/25/19 02/28/25 History (Lamictal) topiramate 50 mg tablet (Topamax) 50 mg PO BID BIPOLAR 12/25/19 02/20/25 History acetaminophen 500 mg capsule 500 mg PO Q6-8H PRN Pain 01/21/20 02/28/25 History calcium carbonate (Calcium 500) 500 mg PO TID 01/21/20 02/28/25 History aripiprazole 15 mg tablet (Abilify) 15 mg PO DAILY 07/24/20 02/28/25 History quetiapine 300 mg tablet (Seroquel) 300 mg PO QHS 09/01/21 02/28/25 History magnesium 250 mg tablet 750 mg PO BID 10/18/21 02/28/25 History estradiol 0.01% (0.1 mg/gram) 1 applic vaginal 3XW 10/27/21 02/28/25 History vaginal cream pediatric multivitamin 2 tablet PO HS 10/27/21 02/28/25 History albuterol sulfate 90 mcg/actuation 1 - 2 inh inhalation Q4-6H PRN 03/28/22 02/28/25 Rx aerosol inhaler shortness of breath or wheezing #25.5 grams montelukast 10 mg tablet See Rx Instructions .Route 03/28/22 02/28/25 Rx .COMPLEX #90 tabs alendronate 70 mg tablet 70 mg PO WEEKLY 08/14/22 02/28/25 History fluticasone propionate 50 1 spray intranasal DAILY 02/08/23 02/20/25 History mcg/actuation nasal spray,suspension (Flonase Allergy Relief) Claritin 10 mg PO DAILY 04/13/24 02/28/25 History pantoprazole 40 mg tablet,delayed 40 mg PO QAM #90 tabs 07/15/24 02/20/25 Rx release (Protonix) gabapentin 300 mg capsule 300 mg PO QHS #90 caps 09/10/24 02/20/25 Rx tramadol 50 mg tablet 50 mg PO Q6H PRN pain #30 tabs 09/10/24 02/28/25 Rx benzonatate 100 mg capsule 100 mg PO TID PRN cough #21 caps 10/25/24 02/20/25 Rx rivaroxaban 20 mg tablet (Xarelto) 20 mg PO DAILY #90 tabs 10/25/24 02/28/25 Rx ezetimibe 10 mg tablet (Zetia) 10 mg PO DAILY #90 tabs 12/27/24 02/20/25 Rx omeprazole 40 mg capsule,delayed 40 mg PO DAILY 1 month #30 caps 12/30/24 02/28/25 Rx release polyethylene glycol 3350 17 gram 17 g PO BID 02/20/25 02/28/25 History oral powder packet (Miralax) Allergies Allergy/AdvReac Type Severity Reaction Status Date / Time succinylcholine Allergy Severe Other Verified 02/28/25 11:34 Sulfa (Sulfonamide Allergy Severe Rash Verified 02/28/25 11:34 Antibiotics) Penicillins Allergy Intermediate Rash Verified 02/28/25 11:34 Cephalosporins Allergy Mild Rash IN Verified 02/28/25 11:34 MOUTH erythromycin base AdvReac Intermediate GI UPSET, Verified 02/28/25 11:34 ABDOMINAL PAIN pravastatin AdvReac Intermediate Muscle Pain Verified 02/28/25 11:34 ANESTHETIC GASES Allergy Severe Other Uncoded 02/20/25 14:39 Vital Signs Vital Signs - 24 hr 02/28/25 11:39 Temperature 98.1 F Pulse Rate 83 Respiratory Rate 16 Blood Pressure 143/68 H Pulse Oximetry 100 Oxygen Delivery Room Air Exam Const: General: comfortable and no acute distress HENMT: Face/Nose/Sinus: Normal nares present Eyes: General: appearance normal, both eyes and all related structures Neck: Neck: no JVD Resp: Auscultation: clear to auscultation bilaterally Cardio: Rate: regular rate Rhythm: regular rhythm GI: Inspection: non-distended GI Palp: Yes Soft to palpation Skin: General skin exam: normal color Neuro: Speech: normal speech Extrem: General: normal to inspection Psych: Mental Status: mental status grossly normal Assessment and Plan Assessment and plan (1) Cough: Code(s): R05.9 - Cough, unspecified Status: Acute Assessment and Plan: egd
[2025-02-28 12:01] VITALS: BP 116/71; PULSE 72; RESP 16; O2SAT 99
[2025-02-28 12:11] VITALS: BP 107/58; PULSE 75; RESP 16; O2SAT 100
[2025-02-28 12:21] VITALS: BP 114/71; PULSE 73; RESP 16; O2SAT 100
== END 2025-02-28 12:35 | disposition home or self-care (01) ==
PROVIDERS: PCP Emergency Medicine; Referring Provider Nurse Practitioner Family; Visit Provider Internal Medicine Gastroenterology
PROC: 0DJ08ZZ Inspection of Upper Intestinal Tract, Via Natural or Artificial Opening Endoscopic (ICD-10-PCS; CPT 43235; principal; 2025-02-28 12:45)
DX: K21.9 Gastro-esophageal reflux disease without esophagitis (principal); I10 Essential (primary) hypertension; E78.2 Mixed hyperlipidemia; J45.909 Unspecified asthma, uncomplicated; E03.9 Hypothyroidism, unspecified; F31.9 Bipolar disorder, unspecified; E53.8 Deficiency of other specified B group vitamins; E55.9 Vitamin D deficiency, unspecified; M19.071 Primary osteoarthritis, right ankle and foot; M17.11 Unilateral primary osteoarthritis, right knee; F41.9 Anxiety disorder, unspecified; M85.88 Other specified disorders of bone density and structure, other site; E66.01 Morbid (severe) obesity due to excess calories; Z68.39 Body mass index [BMI] 39.0-39.9, adult; Z79.82 Long term (current) use of aspirin; Z79.51 Long term (current) use of inhaled steroids; Z79.83 Long term (current) use of bisphosphonates; Z79.891 Long term (current) use of opiate analgesic; Z79.01 Long term (current) use of anticoagulants; Z98.890 Other specified postprocedural states; Z98.0 Intestinal bypass and anastomosis status; Z90.49 Acquired absence of other specified parts of digestive tract; Z98.84 Bariatric surgery status; Z86.711 Personal history of pulmonary embolism; Z86.718 Personal history of other venous thrombosis and embolism; Z87.891 Personal history of nicotine dependence; Z82.49 Family history of ischemic heart disease and other diseases of the circulatory system
CPT/HCPCS: 43235; J7120

== ENCOUNTER 2025-03-01 07:04 | Outpatient (CLI) | payer OTHER, SELFPAY ==
--- OUTSIDE RECORDS SUMMARY | 2009-07-24 09:15 | XMS_ITS | Continuity of Care Document ---
Author Organization [facility] Address [address] [place] [address] [address] [place] [address] Phone Care Team Providers Care Binder Chainstitch Name Role Phone Stephenson OD, Gabriel Unavailable Unavailable Procedures Procedure Date Office/outpatient Visit, Est Eye Exam Established Pt Office/outpatient Visit, Est Office/outpatient Visit, Est Office/outpatient Visit, Est Office/outpatient Visit, New Advance Directives Directive Yes / No Effective Date File Name No Information Encounters Encounter Description Practice Location Reason(s) For Visit Diagnoses Date Provider Providers Copied on Encounter [place] [facility] [place] [address] [place] [address] [address], [place], [place], [id number], tel:[phone] SEC [facility] No Information 5-201 0 Stephenson OD Gabriel. [address] , [address], [place], [place], [facility], . tel:[phone] [facility], [address] [place] [address] [address], [place], [place], [id number], tel:[phone] [facility] No Information 0-201 0 Stephenson OD Gabriel. [address] , [address], [place], [place], [facility], . tel:[phone] [place]pat [place] [facility] [place] [address] [place] [address] [address], [place], [place], [id number], [place] tel:[phone] [facility] No Information b-2 6-200 8 Stephenson OD Gabriel. [facility] , [address], [place], [place], [facility], . tel:[phone] [place]pat [place], [facility] [place] [address] [place] [address] [address], [place], [place], [id number], tel:[phone] SEC [facility] No Information b- 9-200 8 Stephenson OD Gabriel. [address] [facility] , [address], [place], [place], [facility], [place]. tel:[phone] Office/outpat ient [place], [facility] [place] [address], [place], [place], [id number], tel:[phone] SEC [facility] No Information b- 6-200 8 Stephenson OD Gabriel. [address] [facility] , [address], [place], [address], . tel:[phone] Office/outpat ient Visit, [facility], [address] [place] [address] [address], [place], [place], [id number], tel:[phone] [facility] No Information b- 4-200 8 Stephenson OD Gabriel. [address] [place], [place] [address] , [address], [place], [place], [facility], [place]. tel:[phone] Family History Family Member Type Diagnosis Age At Onset No Information Payers Payer name Insurance type Covered libertarian ID Authorpreeta rigobertojustin(s) [facility] Commercial CI [id number] Social History Type Description Quantity Date Captured Comments Sex Female Smoking Status No Information Chief Complaint And Reason For Visit No Information Reason For Referral Reason For Referral No Information History Of Present Illness Encounter Date Complaint History Of Prese nt Illness No Information Functional Status Date Functional Assessmen t No Information Instructions Date Instruction Additional Infor mation No Information Assessments Type Assessment Date No Information Patient Care Teams Name Effective Dates (start - stop) Status Members No Information
--- OUTSIDE RECORDS SUMMARY | 2025-03-01 07:10 | XMS_ITS | Clinical Summary ---
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 Gender Identity Not on file Sexual Orientation [...] PRE 2.18 L 02/18/2025 8:52 AM CDT [facility] FEV1 PRE 1.71 L 02/18/2025 8:52 AM CDT [facility] [id number] 78.29 % 02/18/2025 8:52 AM CDT [facility] OHN38-38% PRE 1.73 L/s 02/18/2025 8:52 AM CDT [facility] PEF PRE 4.74 L/s 02/18/2025 8:52 AM CDT [facility] DLCOc SB 13.51 ml/(min*mm Hg) 02/18/2025 8:52 AM CDT [facility] DLCO/VA PRE 4.50 ml/(min*mm Hg*L) 02/18/2025 8:52 AM CDT [facility] VA 3.00 L 02/18/2025 8:52 AM CDT [facility] TLC PRE 4.47 L 02/18/2025 8:52 AM CDT [facility] VC PRE 2.18 L 02/18/2025 8:52 AM CDT [facility] IC PRE 1.94 L 02/18/2025 8:52 AM CDT [facility] FRC PL PRE 2.52 L 02/18/2025 8:52 AM CDT [facility] ERV PRE 0.23 L 02/18/2025 8:52 AM CDT [facility] RV PRE 2.29 L 02/18/2025 8:52 AM CDT [facility] RAW PRE 3.28 cmH2O*s/L 02/18/2025 8:52 AM CDT [facility] VTG 2.73 L 02/18/2025 8:52 AM CDT [facility] Anatomical Region Laterality Modality PFT 02/18/2025 7:49 [...] Resul t from Last 3 Months Insurance [facility] CHOICE PLUS [facility] Care Teams Director Camp Relationship Specialty Start Date End Date Giancarlo Le MD [address] [place] [address] PCP - General Emergency Medicine 06/30/22
--- OUTSIDE RECORDS SUMMARY | 2025-03-01 07:10 | XMS_ITS ---
Author Name DAVID FAUST CARLITO HOLGER JURGEN Address [address] [facility] [address] [place] [address] Phone [phone] Organization [employer] ([facility]) Care Team Providers Care Heel Seat Trimmer Name Role Phone DAVID CARLITO Unavailable [phone] Santo Pearson Unavailable [phone] Bakari Moore Unavailable [phone] Dami Park Unavailable [phone] POLLY FRIED Unavailable [phone] Reason for Referral Not Available Allergies, adverse [...] 50 mg Tab take 1 tablets by [facility] every 6 hours as needed [...] at least 60 minutes total time on [employer] [place] 05/02/2024 Bipolar disorder, unspecifiedObesity, class 2Hyperlipidemia, [...] at least 30 minutes total time on [employer] [place] 09/27/2024 Obesity, class 2Bipo lar disorder, [...] at least 30 minutes total time on [employer] [place] 09/27/2024 Encounter for screen ing for [...] Time Current Smoking Status Former smoker 2025-02-17 3 Sex Female History of Procedures Procedures Service Procedure code Service date Servicing provider Phone# Home visit for evaluation and management of new patient requiring medically appropriate examination and moderate level of medical decision making. If using time, at least 60 minutes [place] on enco [id number] 2024-05-02 No Data Available No Data Availa ble Home visit for evaluation and management of established patient requiring medically appropriate examination and low level of medical decision making. If using time, at [place] 30 [place] [id number] 2024-09-27 No Data Available No Data Availa [...]
--- OUTSIDE RECORDS SUMMARY | 2025-03-01 07:11 | XMS_ITS | Clinical Summary ---
Author Organization [facility] [employer] Address [address] [place] [address] Care Team Providers Care Presiding Steward Name Role Phone Giancarlo Le MD Primary Care Provider Source Comments [facility],non-owned Affiliates and Associated Physician Practices is amultiple site organization consisting of ambulatory clinics and hospital sitesin [place], [place], [place] and [place]. This disclosure is being madepursuant to the Care Everywhere program and may not contain all information available regarding this patient. 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
--- OUTSIDE RECORDS SUMMARY | 2025-03-01 07:11 | XMS_ITS | Clinical Summary ---
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 Gender Identity Not on file Sexual Orientation [...] 2025 03/05/2018 Medical Devices Implanted Type Area Purchase Request Editor Device Identifier Shelf Expiration Date Model / Serial / Lot Seamguard Endogia 60 [id number] [id number] - [id number] Implanted:Qty : 1 on 04/04/2018 by Gurdeep Gomez MD at [facility] Biological N/A: Stomach [employer] 09/16/2020 [id number] / / [id number] Procedures Procedure Name Priority Date/Time Associated Diagnosis [...] Health Maintenance Insurance RX WAYNE PLANS (INTERNAL) [facility] Internal Plans RX EXPRESS SCRIP[employer] Express C OPTIONS PPO [id number] Advance Directives For more information, please contact: [phone] * Full Code (Latest Code Status on File) Date Activated Date Inactivated Comments 08/21/2020 7:17 PM 08/23/2020 2:32 PM * Full Code Date Activated Date Inactivated Comments 04/04/2018 10:42 AM 04/05/2018 5:30 PM * Full Code Date Activated Date Inactivated Comments 04/04/2018 6:10 AM 04/04/2018 10:42 AM Care Teams Weapons Engineer Relationship Specialty Start Date End Date Rell Milton DO [address] [facility] [address] [place] [address] PCP - General Internal Medicine 08/21/20
[2025-03-01 08:08] LABS: Hematocrit 34.3 % (37.0-47.0); Hemoglobin 10.5 g/dL (12.0-15.0); Immature Granulocyte Percent A 1.0 % (0-0.5); Lymphocytes Absolute Auto 1.46 K/mm3 (0.9-3.2); Mean Corpuscular HGB Conc 30.6 g/dl (32-36); Mean Corpuscular Hemoglobin 27.4 pg (26-34); Mean Corpuscular Volume 89.6 fl (80-100); Nucleated Red Blood Cells Absolute Auto 0.000 K/mm3 (0.0-0.012); Nucleated Red Blood Cells Perc 0.0 % (0.0-0.2); Platelet Count Result 437 k/mm3 (150-375); Red Blood Count 3.83 M/mm3 (4.2-5.4); White Blood Count 6.9 K/mm3 (4.5-10.0)
[2025-03-01 08:31] LABS: Alanine Aminotransferase 11 U/L (6-35); Albumin Level 3.7 g/dL (3.5-5.1); Alkaline Phosphatase 116 U/L (38-126); Anion Gap 8 mmol/L (4-12); Aspartate Amino Transferase 25 U/L (14-36); Bilirubin,Total 0.2 mg/dL (0.2-1.3); Blood Urea Nitrogen 8 mg/dL (7-17); Calcium 8.7 mg/dL (8.4-10.2); Carbon Dioxide 24 mmol/L (22-30); Chloride 106 mmol/L (98-107); Cholesterol 178 mg/dL (0-200); Estimated Glomerular Filt Rate > 60; Glucose 95 mg/dL (65-110); HDL Direct 57 mg/dL; Potassium 4.0 mmol/L (3.4-5.0); Sodium 138 mmol/L (137-145); Total Protein 6.8 g/dL (6.3-8.2); Triglycerides 111 mg/dL (<150)
[2025-03-01 09:43] LABS: Vitamin B12 585.0 pg/mL (239-931)
[2025-03-01 10:02] LABS: Hemoglobin A1C 5.6 % (<5.7)
[2025-03-01 10:32] LABS: MALB Creatinine Ratio < 10.9 mg/g (0-30)
== END 2025-03-01 07:05 | disposition home or self-care (01) ==
PROVIDERS: PCP Emergency Medicine; Visit Provider Emergency Medicine
DX: E78.5 Hyperlipidemia, unspecified (principal); E11.9 Type 2 diabetes mellitus without complications; E55.9 Vitamin D deficiency, unspecified; I10 Essential (primary) hypertension; D52.0 Dietary folate deficiency anemia
CPT/HCPCS: 36415; 80053; 80061; 82043; 82306; 82607; 82746; 83036; 85025

== ENCOUNTER 2025-03-14 10:58 | Outpatient (CLI) | payer OTHER, SELFPAY ==
--- NOTE | ~2025-03-14 | XR_ITS ---
EXAMINATION: XR shoulder LT min 2V, 03/14/2025 11:18 CDT HISTORY: M25.512 - LT SHOULDER PAIN x1 YEAR COMPARISON: No comparisons available. Findings: No acute fracture or malalignment. Moderate degenerative changes Soft tissues unremarkable. Impression: No acute fracture or malalignment. Reviewed, dictated and finalized at location P. Impression: No acute fracture or malalignment.
--- OUTSIDE RECORDS SUMMARY | 2025-03-14 11:04 | XMS_ITS | Clinical Summary ---
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 COPD (chronic obstructive pulmonary disease) Dehydration Starvation ketoacidosis Ketosis Orthostatic hypotension Encounters Date Type Department Care Team Description 03/13/2025 External Device Data [facility] ABSTRACTION Provider, Abstract from Last 3 Months Immunizations Immunization Administration Dates Next Due Influenza [...] on file 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 Gender Identity Not on file Sexual Orientation [...] 2025 03/05/2018 Medical Devices Implanted Type Area Spray Gun Sizer Device Identifier Shelf Expiration Date Model / Serial / Lot Tristen Bustillogia 60 [id number] [id number] - [id number] Implanted:Qty : 1 on 04/04/2018 by Gurdeep Gomez MD at [facility] Biological N/A: Stomach [employer] 09/16/2020 [id number] / / [id number] Procedures Procedure Name Priority Date/Time Associated Diagnosis [...] Health Maintenance Insurance RX WAYNE PLANS (INTERNAL) [facility] Internal Plans RX [employer] [place] [address] [address] [place] [address] OPTIONS PPO [id number] Advance Directives For more information, please contact: [phone] * Full Code (Latest Code Status on File) Date Activated Date Inactivated Comments 08/21/2020 7:17 PM 08/23/2020 2:32 PM * Full Code Date Activated Date Inactivated Comments 04/04/2018 10:42 AM 04/05/2018 5:30 PM * Full Code Date Activated Date Inactivated Comments 04/04/2018 6:10 AM 04/04/2018 10:42 AM Care Teams Hooker Operator Relationship Specialty Start Date End Date Rell Milton DO [address] [facility] [address] [place] [address] PCP - General Internal Medicine 08/21/20
--- OUTSIDE RECORDS SUMMARY | 2025-03-14 11:04 | XMS_ITS | Clinical Summary ---
Author Organization [facility] [address] [facility] [address] Address [address] [place] [address] Care Team Providers Care Statistical Secretary Name Role Phone Giancarlo Le MD Primary [...] Relief) 50 mcg/actuation nasal spray Active multivitamin-mi g-eluo-RB-vit K (Multi-Day Plus Minerals) 18 mg iron-400 [...] - 02/18/2025 11:59 PM CDT Hospital Encounter 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 Gender Identity Not on file Sexual Orientation [...] PRE 2.18 L 02/18/2025 8:52 AM CDT [facility] FEV1 PRE 1.71 L 02/18/2025 8:52 AM CDT [facility] [id number] 78.29 % 02/18/2025 8:52 AM CDT [facility] YLO97-06% PRE 1.73 L/s 02/18/2025 8:52 AM CDT [facility] PEF PRE 4.74 L/s 02/18/2025 8:52 AM CDT [facility] DLCOc SB 13.51 ml/(min*mm Hg) 02/18/2025 8:52 AM CDT [facility] DLCO/VA PRE 4.50 ml/(min*mm Hg*L) 02/18/2025 8:52 AM CDT [facility] VA 3.00 L 02/18/2025 8:52 AM CDT [facility] TLC PRE 4.47 L 02/18/2025 8:52 AM CDT [facility] VC PRE 2.18 L 02/18/2025 8:52 AM CDT [facility] IC PRE 1.94 L 02/18/2025 8:52 AM CDT [facility] FRC PL PRE 2.52 L 02/18/2025 8:52 AM CDT [facility] ERV PRE 0.23 L 02/18/2025 8:52 AM CDT [facility] RV PRE 2.29 L 02/18/2025 8:52 AM CDT [facility] RAW PRE 3.28 cmH2O*s/L 02/18/2025 8:52 AM CDT [facility] VTG 2.73 L 02/18/2025 8:52 AM CDT [facility] Anatomical Region Laterality Modality PFT 02/18/2025 7:49 [...] Resul t from Last 3 Months Insurance [facility] CHOICE PLUS [facility]PPO Address: [address] [address] [place] [address] [facility] Care Teams Statistical Secretary Relationship Specialty Start Date End Date Giancarlo Le MD [address] [place] [address] PCP - General Emergency Medicine 06/30/22
--- OUTSIDE RECORDS SUMMARY | 2025-03-14 11:04 | XMS_ITS ---
Author Name DAVID FAUST CARLITO HOLGER JURGEN Address [address] [place] [address] Phone [phone] Organization [facility] ([facility]) Care Team Providers Care Director Hair Name Role Phone DAVID CARLITO Unavailable [phone] Santo Pearson Unavailable [phone] Bakari Moore Unavailable [phone] Dami Park Unavailable [phone] POLLY FRIED Unavailable [phone] Reason for Referral Not Available Allergies, adverse [...] 50 mg Tab take 1 tablets by [facility] every 6 hours as needed 2024-09-27 No [...] at least 60 minutes total time on [employer] [place] 05/02/2024 Bipolar disorder, unspecifiedObesity, class 2Hyperlipidemia, [...] at least 30 minutes total time on [employer] [place] 09/27/2024 Obesity, class 2Bipo lar disorder, [...] at least 30 minutes total time on [employer] [place] 09/27/2024 Encounter for screen ing for [...] tive Time Current Smoking Status Former smoker 2025-02-18 6 Sex Female History of Procedures Procedures Service Procedure code Service date Servicing provider Phone# Home visit for evaluation and management of new patient requiring medically appropriate examination and moderate level of medical decision making. If using time, at least 60 minutes [place] on [place]co [id number] 2024-05-02 No Data Available No Data Availa ble Home visit for evaluation and management of established patient requiring medically appropriate examination and low level of medical decision making. If using time, at least 30 [place] [id number] 2024-09-27 No Data Available No Data Availa [...]
--- OUTSIDE RECORDS SUMMARY | 2025-03-14 11:04 | XMS_ITS | Clinical Summary ---
Author Organization [facility] [employer] Address [address] [place] [address] Care Team Providers Care Seal Extrusion Operator Name Role Phone Giancarlo Le MD Primary Care Provider [phone] Source Comments [facility],non-owned Affiliates and Associated Physician Practices is amultiple site organization consisting of ambulatory clinics and hospital sitesin [place], [place], [place] and [place]. This disclosure is being madepursuant to the Care Everywhere program and may not contain all information available regarding this patient. 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
--- OUTSIDE RECORDS SUMMARY | 2025-03-14 11:04 | XMS_ITS | Encounter Summary ---
Author Organization [facility] Address [address] [place] [address] Care Team Providers Care Mail Processing Clerk Name Role Phone Rell Milton DO Primary Care Provider [phone] Encounter Details Date Type Department Care Team (Late st Contact Info) Description 03/13/2025 External Device Data [facility] ABSTRACTION Provider, Abstract NO ADDRESS ON FILE Social History Tobacco Use Types Packs/Day Years Used Date Smoking Tobacco: Former Cigarettes Q uit: 06/19/1999 Smokeless Tobacco: Never Alcohol Use Standard Drinks/Week Comments No 0 (1 standard drink = 0.6 oz pur e alcohol) Comments No Sex and Gender Information Value Date Recorded Sex Assigned at Not on file 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
--- OUTSIDE RECORDS SUMMARY | 2025-03-14 11:04 | XMS_ITS | Clinical Summary ---
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 Gender Identity Not on file Sexual Orientation Not on file Last Filed Vital Signs Vital Sign Reading Time Taken Comments Blood Pressure 127/66 05/10/2023 10:20 AM FRONTLOAD DRIVER Pulse 80 05/10/2023 10:20 AM FRONTLOAD DRIVER Temperature 37.2 C (99 F) 05/10/2023 10:20 AM FRONTLOAD DRIVER Respiratory Rate 18 05/10/2023 10:20 AM FRONTLOAD DRIVER Oxygen Saturation 100% 05/10/2023 10:20 AM FRONTLOAD DRIVER Inhaled Oxygen Concentration - - Weight 77.1 kg (170 lb) 05/10/2023 10:20 AM FRONTLOAD DRIVER Height 144.8 cm (4' 9) 05/10/2023 10:20 AM FRONTLOAD DRIVER Body Mass Index 36.79 05/10/2023 10:20 AM FRONTLOAD DRIVER Plan of Treatment Health Maintenance Due Date [...] complete this topic Insurance [employer] Care Teams Upholsterer Assembly Line Relationship Specialty Start Date End Date Giancarlo Le MD [address] [place] [address] PCP - General INTERNAL MEDICINE 05/10/23
== END 2025-03-14 10:59 | disposition home or self-care (01) ==
PROVIDERS: PCP Emergency Medicine; Visit Provider Emergency Medicine
DX: M19.012 Primary osteoarthritis, left shoulder (principal)
CPT/HCPCS: 73030

== ENCOUNTER 2025-03-17 10:14 | Outpatient (CLI) | payer OTHER, SELFPAY ==
--- OUTSIDE RECORDS SUMMARY | 2009-07-24 09:15 | XMS_ITS | Continuity of Care Document ---
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 Name Role Phone Stephenson OD, Gabriel Unavailable Unavailable Procedures Procedure Date Office/outpatient Visit, Est Eye Exam Established Pt Office/outpatient Visit, Est Office/outpatient Visit, Est Office/outpatient Visit, Est Office/outpatient Visit, New Advance Directives Directive Yes / No Effective Date File Name No Information Encounters Encounter Description Practice Location Reason(s) For Visit Diagnoses Date Provider Providers Copied on Encounter Office/outpat ient Visit, [facility] [place], [address] [place] [address] [address], [place], [place], [id number], tel:[phone] [facility] No Information 5-201 0 Stephenson OD Gabriel. [address] , [address], [place], [place], [facility], . tel:[phone] formerly [facility], [address] [place] [address] [address], [place], [place], [id number], tel:[phone] [facility] No Information 0-201 0 Stephenson OD Gabriel. [address] , [address], [place], [place], [facility], . tel:[phone] Office/outpat ient Visit, [facility] [place], [address] [place] [address] [address], [place], [place], [id number], [place] tel:[phone] [facility] [place] No Information b-2 6-200 8 Stephenson OD Gabriel. Counts include [facility] beds at the [facility] , [address], [place], [facility], . tel:[phone] Office/outpat ient Visit, [facility] [place], [address] [place] [address] [address], [place], [place], [id number], tel:[phone] SEC [facility] No Information b- 9-200 8 Stephenson OD Gabriel. [address] [facility] , [address], [place], [facility], [place]. tel:[phone] Office/outpat ient Visit, [facility], [address], [place], [place], [id number], tel:[phone] [facility] No Information b- 6-200 8 Stephenson OD Gabriel. [address] [facility] , [address], [place], [address], . tel:[phone] Office/outpat ient Visit, [facility], [address] [place] [address] [address], [place], [place], [id number], tel:[phone] [facility] No Information b- 4-200 8 Stephenson OD Gabriel. [address] [place], [place] [address] Center , [address], [place], [place], [facility], [place]. tel:[phone] Family History Family Member Type Diagnosis Age At Onset No Information Payers Payer name Insurance type Covered alliance party ID Authorpreeta rigobertojustin(s) [facility] Commercial CI [id number] Social History Type Description Quantity Date Captured [...]
--- NOTE | ~2025-03-17 | US_ITS ---
RIGHT LOWER EXTREMITY VENOUS DUPLEX Clinical History: M79.89 - Other specified soft tissue disorders COMPARISON: None TECHNIQUE: Grayscale, color, duplex/spectral Doppler sonography right leg FINDINGS: Right leg common femoral, femoral, popliteal, and calf veins compressible and color Doppler patent. Peroneal vein not seen. Normal augmentation with distal compression. No internal echoes. Small ill-defined fluid along distal calf, area of clinical concern. IMPRESSION: 1. No right leg DVT. 2. Small ill-defined fluid distal right calf area of concern. Reviewed, dictated and finalized at location R.
--- OUTSIDE RECORDS SUMMARY | 2025-03-17 10:55 | XMS_ITS | Clinical Summary ---
Author Organization [facility] Address [address] [place] [address] Care Team Providers Care Dip Lube Operator Name Role Phone Giancarlo Le MD Primary Care Provider [phone] Allergies Active Allergy Reactions Criticality Noted Date [...] on file Legal Sex Female 10:11 PM RED CAP Gender Identity Not on file Sexual Orientation Not on file Last Filed Vital Signs Vital Sign Reading Time Taken Comments Blood Pressure 127/66 05/10/2023 10:20 AM RED CAP Pulse 80 05/10/2023 10:20 AM RED CAP Temperature 37.2 C (99 F) 05/10/2023 10:20 AM RED CAP Respiratory Rate 18 05/10/2023 10:20 AM RED CAP Oxygen Saturation 100% 05/10/2023 10:20 AM RED CAP Inhaled Oxygen Concentration - - Weight 77.1 kg (170 lb) 05/10/2023 10:20 AM RED CAP Height 144.8 cm (4' 9) 05/10/2023 10:20 AM RED CAP Body Mass Index 36.79 05/10/2023 10:20 AM RED CAP Plan of Treatment Health Maintenance Due Date [...] complete this topic Insurance [employer] Care Teams Dip Lube Operator Relationship Specialty Start Date End Date Giancarlo Le MD [address] [place] [address] PCP - General INTERNAL MEDICINE 05/10/23
--- OUTSIDE RECORDS SUMMARY | 2025-03-17 10:55 | XMS_ITS | Clinical Summary ---
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 Biological N/A: Stomach [employer] 09/16/2020 [id number] / / [id number] Procedures Procedure Name Priority Date/Time Associated Diagnosis [...] Health Maintenance Insurance [employer] PLANS (INTERNAL) [facility] Internal Plans RX [employer] [place] [address] OPTIONS PPO [id number] Advance Directives For more information, please contact: [phone] * Full Code (Latest Code Status on File) Date Activated Date Inactivated Comments 08/21/2020 7:17 PM 08/23/2020 2:32 PM * Full Code Date Activated Date Inactivated Comments 04/04/2018 10:42 AM 04/05/2018 5:30 PM * Full Code Date Activated Date Inactivated Comments 04/04/2018 6:10 AM 04/04/2018 10:42 AM Care Teams Student Outreach Coordinator Relationship Specialty Start Date End Date Rell Milton DO [address] [place] [address] PCP - General Internal Medicine 08/21/20
--- OUTSIDE RECORDS SUMMARY | 2025-03-17 10:55 | XMS_ITS | Clinical Summary ---
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 Gender Identity Not on file Sexual Orientation [...] PRE 2.18 L 02/18/2025 8:52 AM CDT [facility] FEV1 PRE 1.71 L 02/18/2025 8:52 AM CDT [facility] [id number] 78.29 % 02/18/2025 8:52 AM CDT [facility] QDH32-70% PRE 1.73 L/s 02/18/2025 8:52 AM CDT [facility] PEF PRE 4.74 L/s 02/18/2025 8:52 AM CDT [facility] DLCOc SB 13.51 ml/(min*mm Hg) 02/18/2025 8:52 AM CDT [facility] DLCO/VA PRE 4.50 ml/(min*mm Hg*L) 02/18/2025 8:52 AM CDT [facility] VA 3.00 L 02/18/2025 8:52 AM CDT [facility] TLC PRE 4.47 L 02/18/2025 8:52 AM CDT [facility] VC PRE 2.18 L 02/18/2025 8:52 AM CDT [facility] IC PRE 1.94 L 02/18/2025 8:52 AM CDT [facility] FRC PL PRE 2.52 L 02/18/2025 8:52 AM CDT [facility] ERV PRE 0.23 L 02/18/2025 8:52 AM CDT [facility] RV PRE 2.29 L 02/18/2025 8:52 AM CDT [facility] RAW PRE 3.28 cmH2O*s/L 02/18/2025 8:52 AM CDT [facility] VTG 2.73 L 02/18/2025 8:52 AM CDT [facility] Anatomical Region Laterality Modality PFT 02/18/2025 7:49 [...] Resul t from Last 3 Months Insurance [facility] CHOICE PLUS [facility] Care Teams Geriatric Psychiatrist Relationship Specialty Start Date End Date Giancarlo Le MD [address] [place] [address] PCP - General Emergency Medicine 06/30/22
--- OUTSIDE RECORDS SUMMARY | 2025-03-17 10:55 | XMS_ITS ---
Author Name DAVID FAUST CARLITO HOLGER JURGEN Address [address] [place] [address] Phone [phone] Organization [facility]) Care Team Providers Care Logging Tractor Operator Swamp Name Role Phone DAVID CARLITO Unavailable [phone] Santo Pearson Unavailable [phone] Bakari Moore Unavailable [phone] Dami Park Unavailable [phone] POLLY FRIED Unavailable [phone] Reason for Referral Not Available Allergies, adverse [...] 50 mg Tab take 1 tablets by [facility] every 6 hours as needed 2024-09-27 [...] at least 60 minutes total time on [employer] [place] 05/02/2024 Bipolar disorder, unspecifiedObesity, class 2Hyperlipidemia, [...] at least 30 minutes total time on [facility] [place] 09/27/2024 Obesity, class 2Bipo lar disorder, [...] at least 30 minutes total time on [facility] [place] 09/27/2024 Encounter for screen ing for [...] Time Current Smoking Status Former smoker 2025-02-18 9 Sex Female History of Procedures Procedures Service Procedure code Service date Servicing provider Phone# Home visit for evaluation and management of new patient requiring medically appropriate examination and moderate level of medical decision making. If using time, at least 60 minutes [place] time on enco [id number] 2024-05-02 No Data Available No Data Availa ble Home visit for evaluation and management of established patient requiring medically appropriate examination and low level of medical decision making. If using time, at least [place] [id number] 2024-09-27 No Data Available No Data Availa [...]
--- OUTSIDE RECORDS SUMMARY | 2025-03-17 10:55 | XMS_ITS | Clinical Summary ---
Author Organization [facility] [employer] Address [address] [facility] [place] [address] Care Team Providers Care Winch Stripper Name Role Phone Giancarlo Le MD Primary Care Provider Source Comments [facility],non-owned Affiliates and Associated Physician Practices is amultiple site organization consisting of ambulatory clinics and hospital sitesin [place], [place], [place] and [place]. This disclosure is being madepursuant to the Care Everywhere program and may not contain all information available regarding this patient. 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
== END 2025-03-17 10:15 | disposition home or self-care (01) ==
PROVIDERS: PCP Emergency Medicine; Visit Provider Emergency Medicine
DX: R22.41 Localized swelling, mass and lump, right lower limb (principal); M79.89 Other specified soft tissue disorders
CPT/HCPCS: 93971

== ENCOUNTER 2025-03-19 09:00 | Outpatient (RCR) | payer OTHER, SELFPAY ==
--- NOTE | 2025-02-19 16:30 | OPREHPOC ---
Outpatient Therapy Plan of Care This is a Multidisciplinary Plan of Care that may contain components documented by all disciplines (PT, OT, and ST.) PT Problem 1 PT Problem #1 Knowledge Deficit PT Goal 1 Goal / Goal Update *independent with HEP Target Visit 10 PT Problem 2 PT Problem #2 Pain PT Goal 1 Goal / Goal Update * pt report pain rating of knee pain at 6/10 at worst Target Visit 10 PT Problem 3 PT Problem #3 Impaired Strength PT Goal 1 Goal / Goal Update *increase strength of LE's to improve transfer and gait skills 1* R and L hip abduction 3+/5 2* R and L hip extension 4-/5 3* pt ambulate without foot slap 4* pt ambulate with step length pass other foot Target Visit 10 PT Problem 4 PT Problem #4 Impaired Functional Mobility PT Goal 1 Goal / Goal Update 1* pt transfer sit to stand without an increase in pain 2* 2 minute walking test distance of 275' with rollator 3* up/down 4 steps with bilateral hand rails and NOT labored Target Visit 10
--- NOTE | 2025-02-19 16:30 | PTOPEVAL1 ---
Assessment and note entered by Romina Correia PT Evaluation Information Assessment Status Evaluation ICD-10 Condition Codes (PT) Pain in right knee M25.561,Pain in left knee M25. 562,Difficulty Walking R26.2,Weakness R53.1 Other ICD-10 Condition Codes ( bursitis of knee M70.50 PT) Onset October 2024 Subjective Information pain in both knees- no injury or trauma; pain with standing up from sitting position; saw general dr, then went to TKR surgeon for follow up; x rays of knees were OK; had injection into L knee- pain is not better; also have pain in R ankle from OA- flared up recently; low back pain- steroid injections hleped and L hip pain; use cane or wheeled walker for ambulation; have had PT here in the past; was no longer doing any leg exercises, but recently tried to do SLR and trunk rotation; activity: home with ; 2 steps into her kitchen, do OK- otherwise avoid stairs; goal: do stairs and be able to get up from a low toliet, to be able to visit at her sisters' home Reported Pain Level Pain Score Self Report Additional Pain Score Comments pain in the past week: 1-10/10 bilateral knees increase pain: sit to stand, with initial walking, then eases after walk; when first wake up in AM; decrease pain: sit, tylenol, rest sleeping is not disrupted due to knee pain also has pain in low back, bilateral hips and R ankle Assessment PT Clinical Summary Mariely has the diagnosis of bilateral knee pain, bursitis. She repots issues with chronic pain: back, bilateral hips, bilateral knees and R ankle. History of bilateral TKR with recent x ray OK. Self assessment with LE functional scale rating of 70% limitation in activity level. Most pain with sit to stand transfer and when first awaken in AM . With the evaluation: poor standing position of trunk and hips; weakness of bilateral hips, knees and ankles; pain with palpation over both knees, 2 minute walking test distance with rollator of 195' with increase R ankle pain reported; on 4 stairs required bilateral hand use and single step pattern. Skilled PT services are indicate for modalities to decrease pain, therapeutic exercises to increase strength of bilateral LE's and education for HEP and pain control. Plan of Care Interventions Hot Pack/Cold Pack,Manual Lymph Drainage,Neuro Re- education,Patient/Caregiver Education,Therapeutic Activities,Therapeutic Exercise,Ultrasound,Other Other Interventions taping PT Services Indicated Yes Treatment Frequency and 1-2x/wk for 10 visits Duration These treatments will address the objective and functional deficits as defined above. The patient will be advanced safely and appropriately in order for the patient to progress towards his/her prior level of function. Additional exercises will be introduced and as well as a comprehensive home exercise program upon discharge, if needed, ?to ensure carryover of functional gains achieved in the clinic. This treatment plan has been reviewed and agreement upon by the patient.
--- NOTE | 2025-03-19 09:38 | OPREHPOC ---
Outpatient Therapy Plan of Care This is a Multidisciplinary Plan of Care that may contain components documented by all disciplines (PT, OT, and ST.) PT Problem 1 PT Problem #1 Knowledge Deficit PT Goal 1 Goal / Goal Update *independent with HEP 03-19-25 d/c goal met Target Visit 10 Progress Met PT Problem 2 PT Problem #2 Pain PT Goal 1 Goal / Goal Update * pt report pain rating of knee pain at 6/10 at worst 03-19-25 d/c goal met Target Visit 10 Progress Met PT Problem 3 PT Problem #3 Impaired Strength PT Goal 1 Goal / Goal Update *increase strength of LE's to improve transfer and gait skills 1* R and L hip abduction 3+/5 2* R and L hip extension 4-/5 3* pt ambulate without foot slap 4* pt ambulate with step length pass other foot 03-19-25 d/c goals 3,4 met Target Visit 10 Progress Partially Met PT Problem 4 PT Problem #4 Impaired Functional Mobility PT Goal 1 Goal / Goal Update 1* pt transfer sit to stand without an increase in pain 2* 2 minute walking test distance of 275' with rollator 3* up/down 4 steps with bilateral hand rails and NOT labored 03-19-25 d/c goal 3 met Target Visit 10 Progress Partially Met
--- NOTE | 2025-03-19 09:38 | PTOPDC ---
Assessment and note entered by Romina Correia, PT Assessment Status Discharge ICD-10 Condition Codes (PT) Pain in right knee M25.561,Pain in left knee M25. 562,Difficulty Walking R26.2,Weakness R53.1 Other ICD-10 Condition Codes ( bursitis of knee M70.50 PT) Onset October 2024 Subjective Information doing better with sitting to standing, control it better; doing the exercises at home, legs are stronger; walking with the walker in the house and cane when I go out; ankle is stronger and do not clomp with walking; ready to be finished with therapy and will keep up with the exercises at home; Reported Pain Level Pain Score 0: Self Report Additional Pain Score Comments pain range of 0-6/10 in both knees; increase pain with sitting to standing; Assessment PT Clinical Summary Mariely has received 10 PT sessions. With today's assessment: pain rating of 0-6/10 in both knees; pain increase with sit to stand position change; self assessment LE functional scale self rating of 68% limitation in activity level; 2 minute walking test distance of 160' with wheeled walker; strength of bilateral hip abduction 3/5 and hip extension 3+/5; education for HEP, gait and safety completed. The goals were partially met. Discharge PT, she is to continue with her HEP and walking as tolerated. Plan of Care PT Services Indicated No
== END 2025-03-19 11:53 | disposition home or self-care (01) ==
LOC: ANHPT 09:00
PROVIDERS: PCP Emergency Medicine; Visit Provider Orthopaedic Surgery
DX: M25.561 Pain in right knee (principal); M25.562 Pain in left knee; M70.50 Other bursitis of knee, unspecified knee; R26.2 Difficulty in walking, not elsewhere classified; R53.1 Weakness; Z96.653 Presence of artificial knee joint, bilateral
CPT/HCPCS: 97110; 97116; 97140; 97162; 97530

== ENCOUNTER 2025-03-27 08:56 | Outpatient (CLI) | payer OTHER, SELFPAY ==
--- NOTE | ~2025-03-27 | MR_ITS ---
EXAMINATION: MR lower leg RT wo con DATE: 03/27/2025 09:43 INDICATION: Right lower limb localized edema. TECHNIQUE: Magnetic resonance imaging (MRI) of the right lower leg was performed without intravenous contrast. 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 Alignment is normal. No fracture. There is edema-like marrow signal intensity in right tibial diaphysis distal to the tibial component. 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 There is artifact from a total left knee arthroplasty. There is edema-like marrow signal intensity in left tibial diaphysis distal to the tibial component. There is symmetric subcutaneous edema in both lower legs. IMPRESSION: 1. Subcutaneous edema in the lower legs. No abscess. Reviewed, dictated and finalized at location E.
== END 2025-03-27 08:57 | disposition home or self-care (01) ==
PROVIDERS: PCP Emergency Medicine; Visit Provider Emergency Medicine
DX: R60.0 Localized edema (principal)
CPT/HCPCS: 73718

== ENCOUNTER 2025-04-07 08:43 | Outpatient (CLI) | payer OTHER, SELFPAY ==
--- NOTE | ~2025-04-07 | MR_ITS ---
EXAMINATION: MR shoulder LT wo con DATE: 04/07/2025 09:29 INDICATION: Left shoulder pain. TECHNIQUE: Magnetic resonance imaging (MRI) of the left shoulder was performed without intravenous contrast. Sequences included axial PD-weighted FS FSE, coronal oblique PD-weighted FS FSE and T2-weighted FS FSE, and sagittal oblique T2-weighted FS FSE and T1-weighted FSE. COMPARISON: Left shoulder radiographs 03/14/2025 FINDINGS: Coracoacromial arch: The acromion undersurface is curved in morphology (type II). There is severe acromioclavicular joint osteoarthritis including inferiorly directed osteophytes. There is mild subacromial/subdeltoid bursitis. Rotator cuff: There is severe supraspinatus tendinopathy. There is a bursal-sided partial- thickness tear of supraspinatus tendon measuring 6 mm anterior to posterior by 5 mm proximal to distal by 70% tendon thickness. There is mild infraspinatus tendinopathy. Teres minor tendon is normal. There is mild subscapularis tendinopathy. There is no asymmetric fatty atrophy of the rotator cuff muscle bellies. Biceps tendon and glenoid labrum: Biceps tendon is in bicipital groove. There is a complete tear of proximal biceps tendon. There is extensive tearing of the glenoid labrum. Fluid: There is a moderate-sized glenohumeral joint effusion. Bones/cartilage: There is full-thickness cartilage loss of glenoid and humeral head. Osteophytes are noted. IMPRESSION: 1. Severe rotator cuff tendinopathy with partial-thickness bursal-sided tear of supraspinatus tendon. 2. Severe glenohumeral joint chondrosis. 3. Severe acromioclavicular joint osteoarthritis. 4. Complete tear of proximal biceps tendon. 5. Moderate-sized glenohumeral joint effusion. 6. Mild subacromial/subdeltoid bursitis. Reviewed, dictated and finalized at location E.
== END 2025-04-07 08:44 | disposition home or self-care (01) ==
PROVIDERS: PCP Emergency Medicine; Visit Provider Emergency Medicine
DX: M19.012 Primary osteoarthritis, left shoulder (principal); M75.52 Bursitis of left shoulder; S46.212D Strain of muscle, fascia and tendon of other parts of biceps, left arm, subsequent encounter; X58.XXXD Exposure to other specified factors, subsequent encounter
CPT/HCPCS: 73221

== ENCOUNTER 2025-05-30 07:03 | Outpatient (CLI) | payer OTHER, SELFPAY ==
[2025-05-30 08:08] LABS: Hematocrit 34.0 % (37.0-47.0); Hemoglobin 10.3 g/dL (12.0-15.0); Immature Granulocyte Percent A 0.8 % (0-0.5); Lymphocytes Absolute Auto 1.46 K/mm3 (0.9-3.2); Mean Corpuscular HGB Conc 30.3 g/dl (32-36); Mean Corpuscular Hemoglobin 27.2 pg (26-34); Mean Corpuscular Volume 89.7 fl (80-100); Nucleated Red Blood Cells Absolute Auto 0.000 K/mm3 (0.0-0.012); Nucleated Red Blood Cells Perc 0.0 % (0.0-0.2); Platelet Count Result 456 k/mm3 (150-375); Red Blood Count 3.79 M/mm3 (4.2-5.4); White Blood Count 8.0 K/mm3 (4.5-10.0)
[2025-05-30 08:29] LABS: Alanine Aminotransferase 13 U/L (6-35); Albumin Level 3.9 g/dL (3.5-5.1); Alkaline Phosphatase 112 U/L (38-126); Anion Gap 5 mmol/L (4-12); Aspartate Amino Transferase 34 U/L (14-36); Bilirubin,Total 0.3 mg/dL (0.2-1.3); Blood Urea Nitrogen 10 mg/dL (7-17); Calcium 8.9 mg/dL (8.4-10.2); Carbon Dioxide 25 mmol/L (22-30); Chloride 107 mmol/L (98-107); Cholesterol 163 mg/dL (0-200); Estimated Glomerular Filt Rate > 60; Glucose 86 mg/dL (65-110); HDL Direct 77 mg/dL; Potassium 3.8 mmol/L (3.4-5.0); Sodium 137 mmol/L (137-145); Total Protein 7.1 g/dL (6.3-8.2); Triglycerides 74 mg/dL (<150)
== END 2025-05-30 07:04 | disposition home or self-care (01) ==
LOC: ANHLAB 07:07
PROVIDERS: PCP Emergency Medicine; Visit Provider Emergency Medicine
DX: E78.5 Hyperlipidemia, unspecified (principal); E55.9 Vitamin D deficiency, unspecified; I10 Essential (primary) hypertension
CPT/HCPCS: 36415; 80053; 80061; 82306; 85025